=== PATIENT | female | born 1960 | race Caucasian/White ===

== ENCOUNTER 2024-09-17 11:18 | Outpatient (CLI) | payer MEDICARE, SELFPAY ==
--- OUTSIDE RECORDS SUMMARY | 2024-09-17 11:35 | XMS_ITS | Encounter Summary ---
Author Organization [employer] ([place], [place], [place], [place]) Address [address] [place] [address] Care Team Providers Care Treating And Pumping Supervisor Name Role Phone Unavailable Primary Care Provider Unavailabl e Encounter Details Date Type Department Care Team (Late st Contact Info) Description 10/11/2019 Transcribed Document [facility] [place] [address] [place] [address] ProviderGonzalez MD [address], [place] [address] Social History Tobacco Use Types Packs/Day Years Used Date Smoking Tobacco: Never Assessed Comments Unknown Sex and Gender Information Value Date Recorded Sex Assigned at Not on file Legal Sex Female 6:02 PM CDT Gender Identity Not on file Sexual Orientation Not on file documented as of this encounter Miscellaneous Notes * Cerner Conversion Note - Gonzalez ProviderMD - 10/11/2019 9:04 AM CDT Spiritual Care Assessment Entered On: 10/11/2019 10:58 EDT Performed On: 10/11/2019 9:45 EDT by AUTUMN ABREU Chaplain-Non Cert General Information Initial Visit : Yes Referred by : Nurse Referral Reason Comment : pre-surgery prayer Ministry Provided to : Patient Spiritual/Emotional Acuity : Low Spiritual Framework : Well integrated, provides significant strength/resource Active in a Methodist/Aubree Group : Yes Shinto Preference : Episcopalian (Disciples of Joo) AUTUMN ABREU Chaplain-Non Cert - 10/11/2019 10:56 EDT Spiritual Assessment Patient's Community/Relationship : Strength in patient's life Supportive/Healthy Relationships : Yes Supportive Shinto Community : Yes Patient's Sense of Meaning : Strength in patient's life Patient's Concept of God/the Sacred : Strength in patient's life Feels Connected to God/the Sacred : Yes God/the Spiritual Gives Strength : Yes Patient's Sense of Hope : Strength in patient's life Spiritual Assessment Comment/Summary Points : Pre-surgery visit to patient; she was somewhat nervous about her surgery; however, she was hopeful that it would go well. Patient attends a [employer] where she lives and is well supported by family and [employer]. Prayed with her for her surgery and recovery. Spirital Assessment Comment/Summary Report : SPIRITUAL ASSESSMENT COMMENT/SUMMARY No qualifying data available. AUTUMN ABREU Chaplain-Non Cert - 10/11/2019 10:56 EDT Interventions Emotional Support : Empathic/Engaged listening, Established trust, Feelings expressed, Hope strengths identified, Meaning strengths identified, Relationship strengths identified Spiritual and Shinto : Verify aubree group connection, God/the Spiritual connection/strengths identified, Prayer shared AUTUMN ABREU Chaplain-Non Cert - 10/11/2019 10:56 EDT documented in this encounter Plan of Treatment Not on file documented as of this encounter Visit Diagnoses Not on filedocumented in this encounter
--- OUTSIDE RECORDS SUMMARY | 2024-09-17 11:35 | XMS_ITS | Encounter Summary ---
Author Organization [employer] ([place], [place], [place], [place]) Address [address] [place] [address] Care Team Providers Care Millinery Salesperson Name Role Phone Unavailable Primary Care Provider Unavailabl e Encounter Details Date Type Department Care Team (Late st Contact Info) Description 09/24/2018 Transcribed Document [facility] Family Medicine [address] [place] [address] ProviderGonzalez MD [facility] [place] [address] Social History Tobacco Use Types Packs/Day Years Used Date Smoking Tobacco: Never Assessed Comments Unknown Sex and Gender Information Value Date Recorded Sex Assigned at Not on file Legal Sex Female 6:02 PM CDT Gender Identity Not on file Sexual Orientation Not on file documented as of this encounter Miscellaneous Notes * Cerner Conversion Note - Historical ProviderMD - 09/24/2018 11:[address] [facility] Charges Entered On: 09/24/2018 11:38 EDT Performed On: 09/24/2018 11:36 EDT by NESTOR HO, PT [facility] Charges Physical Therapy Screen : 1 NESTOR HO, PT - 09/24/2018 11:36 EDT documented in this encounter Plan of Treatment Not on file documented as of this encounter Visit Diagnoses Not on filedocumented in this encounter
--- OUTSIDE RECORDS SUMMARY | 2024-09-17 11:35 | XMS_ITS | Encounter Summary ---
Author Organization [employer] ([place], [place], [place], [place]) Address [address] [place] [address] Care Team Providers Care Interior Paneler Name Role Phone Unavailable Primary Care Provider Unavailabl e Encounter Details Date Type Department Care Team (Late st Contact Info) Description 09/13/2018 Transcribed Document [facility] [place] [address] [place] [address] ProviderGonzalez MD [address], [place] [address] Social History Tobacco Use Types Packs/Day Years Used Date Smoking Tobacco: Never Assessed Comments Unknown Sex and Gender Information Value Date Recorded Sex Assigned at Not on file Legal Sex Female 6:02 PM CDT Gender Identity Not on file Sexual Orientation Not on file documented as of this encounter Miscellaneous Notes * Cerner Conversion Note - Historical ProviderMD - 09/13/2018 2:00 AM CDT Business Performance Specialist Details Entered On: 09/13/2018 2:54 EDT Performed On: 09/13/2018 2:00 EDT by EL DEL VALLE RN Order Details Transport Mode Order Detail : Wheelchair Isolation Precautions Order Detail : Standard Precautions Order Detail : 0 IV Order Detail : 1 Oxygen Order Detail : 0 Nurse Collect Order Detail : 0 Lift/Transfer : Independent Central Line Order Detail : No Room Service : Appropriate Arterial Line : No EL DEL VALLE RN - 09/13/2018 2:54 EDT documented in this encounter Plan of Treatment Not on file documented as of this encounter Visit Diagnoses Not on filedocumented in this encounter
--- OUTSIDE RECORDS SUMMARY | 2024-09-17 11:35 | XMS_ITS | Encounter Summary ---
Author Organization [employer] ([place], [place], [place], [place]) Address [address] [place] [address] Care Team Providers Care Aligner Typewriter Name Role Phone Unavailable Primary Care Provider Unavailabl e Encounter Details Date Type Department Care Team (Late st Contact Info) Description 09/14/2018 Transcribed Document [facility] [place] [address] [place] [address] ProviderGonazlez MD [address] [place] [address] Social History Tobacco Use Types Packs/Day Years Used Date Smoking Tobacco: Never Assessed Comments Unknown Sex and Gender Information Value Date Recorded Sex Assigned at Not on file Legal Sex Female 6:02 PM CDT Gender Identity Not on file Sexual Orientation Not on file documented as of this encounter Miscellaneous Notes * Cerner Conversion Note - Gonzalez ProviderMD - 09/14/2018 8:38 AM CDT [facility] Authorization Entered On: 09/14/2018 8:39 EDT Performed On: 09/14/2018 8:38 EDT by MILES MAS Rn-Utilization Review Primary Insurance Authorization Authorization and Policy Numbers : Insurance 1 Health Plan: [employer] Policy Number: [id number] Authorization Number: Insurance Primary Name : [facility] Policy Number: [id number] Authorization Status-Primary : Pending information Authorization Comments-Primary : Pending [facility] Historical Authorization Comments-Primary : Comment 1: Awaiting Call back from [facility] (POLO RANGEL RN 09/13/2018 14:30) Comment 2: Per Liseth Hernandez, [facility] has been contacted for evaluation. (MILES MAS, Rn-Utilization Review 09/12/2018 09:48) Comment 3: [facility] indemnity policy listed. PA notified to obtain insurance information. (MILES MAS, Rn-Utilization Review 09/11/2018 10:26) MILES MAS Rn-Utilization Review - 09/14/2018 8:38 EDT Electronically signed by Mary Ann, [facility] Conversion Sander [employer] Buffer Cerner at 05/27/2022 9:15 AM CDT documented in this encounter Plan of Treatment Not on file documented as of this encounter Visit Diagnoses Not on filedocumented in this encounter
--- OUTSIDE RECORDS SUMMARY | 2024-09-17 11:35 | XMS_ITS | Encounter Summary ---
Author Organization [employer] ([place], [place], [place], [place]) Address [address] [place] [address] Care Team Providers Care Wholesale Manager Name Role Phone Unavailable Primary Care Provider Unavailabl e Encounter Details Date Type Department Care Team (Late st Contact Info) Description 09/13/2018 Transcribed Document [facility] [place] [address] [place] [address] ProviderGonzalez MD [facility] [place] [address] Social History Tobacco Use Types Packs/Day Years Used Date Smoking Tobacco: Never Assessed Comments Unknown Sex and Gender Information Value Date Recorded Sex Assigned at Not on file Legal Sex Female 6:02 PM CDT Gender Identity Not on file Sexual Orientation Not on file documented as of this encounter Miscellaneous Notes * Cerner Conversion Note - Gonzalez Muñoz MD - 09/13/2018 2:39 PM CDT On Going Discharge Planning Entered On: 09/13/2018 14:43 EDT Performed On: 09/13/2018 14:39 EDT by MOHSEN REES Social Worker Care Management Progress Note Discharge Arrangements : Patient Post-Acute Information Patient Name: GREG BAUTISTA Gender: Female : 58 Age: 58 Years No Post-Acute Placement(s) Listed No Post-Acute Service(s) Listed No [place] Referral(s) Listed Discharge Options Discussed with Patient : Discharge transportation, DME, Home Health, Short term rehabilitation Barriers to Discharge Identified : Clinical Condition of Patient MOHSEN REES Social Worker - 09/13/2018 14:39 EDT Narrative Progress Note Narrative Progress Note : Continue to follow for discharge needs and arrangements, chart reviewed, admission day 3, on room air, K+=3.2 (plan to replace), GI panel=pending, CU=775' with rwx, order received to arrange rolling walker for home use, d/w patient providers, Fanta Dobbs chosen, referral made and walker to be delivered to patient's room prior to discharge. At discharge plan remains to return home -alone with assistance of friend as needed. CM will continue to follow. MOHSEN REES, Hand Plug Shaper - 09/13/2018 14:39 EDT documented in this encounter Plan of Treatment Not on file documented as of this encounter Visit Diagnoses Not on filedocumented in this encounter
--- OUTSIDE RECORDS SUMMARY | 2024-09-17 11:35 | XMS_ITS | Clinical Summary ---
Author Organization [employer] ([place], [place], [place], [place]) Address [address] [place] [address] Care Team Providers Care Crab Butcher Name Role Phone Unavailable Primary Care Provider Unavailabl e Social History Tobacco Use Types Packs/Day Years Used Date Smoking Tobacco: Never Assessed Comments Unknown Sex and Gender Information Value Date Recorded Sex Assigned at Not on file Legal Sex Female 6:02 PM CDT Gender Identity Not on file Sexual Orientation Not on file Plan of Treatment Not on file
--- OUTSIDE RECORDS SUMMARY | 2024-09-17 11:35 | XMS_ITS | Encounter Summary ---
Author Organization [employer] ([place], [place], [place], [place]) Address [address] [place] [address] Care Team Providers Care Telecommunications Engineer Name Role Phone Unavailable Primary Care Provider Unavailabl e Encounter Details Date Type Department Care Team (Late st Contact Info) Description 10/11/2019 Transcribed Document [facility] [place] [address] [place] [address] ProviderGonzalez MD [address] [place] [address] Social History Tobacco Use Types Packs/Day Years Used Date Smoking Tobacco: Never Assessed Comments Unknown Sex and Gender Information Value Date Recorded Sex Assigned at Not on file Legal Sex Female 6:02 PM CDT Gender Identity Not on file Sexual Orientation Not on file documented as of this encounter Miscellaneous Notes * Cerner Conversion Note - Gonzalez ProviderMD - 10/11/2019 11:50 AM CDT [facility] PostOp Summary Primary Physician: SREEDHAR PANIAGUA MD Finalized Date/Time: 10/11/19 14:17:51 Pt. Name: GREG BAUTISTA/Sex: 1960 Female Med Rec #: [id number] Physician: SREEDHAR PANIAGUA MD Financial #: [id number] Pt. Type: O Room/Bed: Admit/Disch: 10/11/19 07:55:00 - Institution: [facility] PostOp Case Times Entry 1 In PACU II 10/11/19 13:40:00 Ready for PACU II 10/11/19 14:15:00 Discharge Discharge from PACU 10/11/19 14:15:00 II Last Modified By: Kandi Long RN 10/11/19 14:17:42 [facility] PostOp Case Times Audit 10/11/19 14:17:42 Baccarat Dealer: SXPOWERS Modifier: SXPOWERS <+> 1 Ready for PACU II Discharge <+> 1 Discharge from PACU II Finalized By: Kandi Long, RN Document Signatures Signed By: Kandi Long RN 10/11/19 14:17 Electronically signed by Mary Ann [facility] Conversion Charcoal Burner [employer] Cerner at 05/27/2022 9:37 AM CDT documented in this encounter Plan of Treatment Not on file documented as of this encounter Visit Diagnoses Not on filedocumented in this encounter
--- OUTSIDE RECORDS SUMMARY | 2024-09-17 11:35 | XMS_ITS | Encounter Summary ---
Author Organization [employer] ([place], [place], [place], [place]) Address [address] [place] [address] Care Team Providers Care Ui Developer With Angular Js Name Role Phone Unavailable Primary Care Provider Unavailabl e Encounter Details Date Type Department Care Team (Late st Contact Info) Description 09/23/2018 Transcribed Document [facility] Family Medicine [address] [place] [address] ProviderGonzalez MD [address] [place] [address] Social History Tobacco Use Types Packs/Day Years Used Date Smoking Tobacco: Never Assessed Comments Unknown Sex and Gender Information Value Date Recorded Sex Assigned at Not on file Legal Sex Female 6:02 PM CDT Gender Identity Not on file Sexual Orientation Not on file documented as of this encounter Miscellaneous Notes * Cerner Conversion Note - Gonzalez ProviderMD - 09/23/2018 5:54 PM CDT Consult Phone Call Documentation Entered On: 09/24/2018 9:31 EDT Performed On: 09/23/2018 17:54 EDT by NIMO CHIU Phone Call for Consults Consult Reason : intratable vomitting Physician Requested for Consult : NURY OLGUIN MD Provider Service Notified Name : Gastroenterology Physician Covering for Consult : NURY OLGUIN MD Date and Time Call Returned : 09/24/2018 9:30 EDT NIMO CHIU - 09/24/2018 9:30 EDT documented in this encounter Plan of Treatment Not on file documented as of this encounter Visit Diagnoses Not on filedocumented in this encounter
--- OUTSIDE RECORDS SUMMARY | 2024-09-17 11:35 | XMS_ITS | Referral Summary ---
Author Organization [employer] ([place], [place], [place], [place]) Address [address] [place] [address] Care Team Providers Care Intelligence Group Supervisor Name Role Phone Unavailable Primary Care [...]
--- OUTSIDE RECORDS SUMMARY | 2024-09-17 11:35 | XMS_ITS | Encounter Summary ---
Author Organization [employer] ([place], [place], [place], [place]) Address [address] [place] [address] Care Team Providers Care Cardiac Nurse Name Role Phone Unavailable Primary Care Provider Unavailabl e Encounter Details Date Type Department Care Team (Late st Contact Info) Description 10/11/2019 Transcribed Document [facility] [place] [address] [place] [address] ProviderGonzalez MD [facility] [place] [address] Social History Tobacco Use Types Packs/Day Years Used Date Smoking Tobacco: Never Assessed Comments Unknown Sex and Gender Information Value Date Recorded Sex Assigned at Not on file Legal Sex Female 6:02 PM CDT Gender Identity Not on file Sexual Orientation Not on file documented as of this encounter Miscellaneous Notes * [employer] Conversion Note - Historical ProviderMD - 10/11/2019 9:15 AM CDT Event Note Entered On: 10/11/2019 9:44 EDT Performed On: 10/11/2019 9:15 EDT by Jessica Barrios RN Event Note Event Date/Time : 10/11/2019 9:15 EDT Jessica Barrios RN - 10/11/2019 9:42 EDT Description of Event : 0915: Dr. العراقي notified that patient takes prednisone daily at home and did not have today. instructed patient to take home dose today. No additional orders received. also made aware that patient denies diabetes, but does take Glipizide at home daily. asked for FSBG. 09: Dr. Bravo notified that patient's FSBG 318. Pt instructed to take Glipizde upon returning home and to follow-up with PCP. NO additional orders received. Jessica Barrios RN - 10/11/2019 9:44 EDT Electronically signed by [facility] Conversion Flow Trader Cerner at 05/27/2022 9:38 AM CDT documented in this encounter Plan of Treatment Not on file documented as of this encounter Visit Diagnoses Not on filedocumented in this encounter
--- OUTSIDE RECORDS SUMMARY | 2024-09-17 11:35 | XMS_ITS | Clinical Summary ---
Author Organization [facility] Address [address] [place] [address] Phone Care Team Providers Care Mining Plant Operator Name Role Phone Roosevelt BALLESTEROS, Samuel Barba Unavailable [ ] Conditions or Problems Problem Name Problem Code Onset Date Status Entry Date Provider Comment Standard Description Annotate IVANNA positive 910483955 (SNOMED CT) 10/17 Active 10/17 Samuel Albert MD Raised antinuclear antibody Diffuse lymphadenopathy 833851850 (SNOMED CT) 09/12 Active 09/12 Eduarda Alfredo Generalized enlarged lymph nodes 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 Eduarda Alfredo Lymph node sarcoidosis Chronic Lymphadenitis 92109749 (SNOMED CT) 09/12 Active 09/12 Eduarda Alfredo Chronic lymphadenitis Medications Medication Instructions Start Date Stop Date Generic Name ND Provider DULOXETINE HCL 30 MG CPEP TAKE 1 CAPSULE BY MOUTH DAILY 10/17 DULOXETINE HCL 72938473830 Megan K PREDNISONE 20 MG TABS TAKE 2 TABLETS BY MOUTH EVERY MORNING WITH FOOD 09/19 PREDNISONE 63274731761 Jada S CYCLOPENTOLATE HCL 1 % SOLN INSTILL 1 DROP INTO LEFT EYE EVERY DAY 09/19 CYCLOPENTOLATE HCL 82529626792 Jada S [facility] BISACODYL 5 MG ORAL TABLET DELAYED RELEASE TAKE 3 TABLETS BY MOUTH DIRECTED FOR 2 DAYS 09/19 BISACODYL 63175555175 Jada S [facility] CITRATE OF MAGNESIA ORAL SOLUTION DRINK 1 BOTTLE BY MOUTH AT 5 PM ON 05/31 AND AGAIN ON 06/01. START CLEAR LIQUID DIET AT 5 PM 05/3114 MAGNESIUM CITRATE 16115094127 Jada S PROCHLORPERAZINE MALEATE 10 MG TABS TAKE 1 TABLET BY MOUTH EVERY 6 HOURS NEEDED FOR NAUSEA 09/19 PROCHLORPERAZINE MALEATE 36344332582 Jada S HYDROCODONE-ACETAM INOPHEN 10-325 MG TABS TAKE 1 TABLET BY MOUTH EVERY 4 HOURS NEEDED FOR PAIN 09/19 HYDROCODONE-ACETAM INOPHEN 15676799449 Jada S DUREZOL 0.05 % EMUL INSTILL 1 DROP INTO LEFT EYE 3 TIMES A DAY 09/19 DIFLUPREDNATE 62897316203 Jada S DUREZOL 0.05 % EMUL INSTILL 1 DROP INTO LEFT EYE 3 TIMES A DAY 09/19 DIFLUPREDNATE 90587440778 Elif Hassan CYCLOPENTOLATE HCL 1 % SOLN INSTILL 1 DROP INTO LEFT EYE EVERY DAY 0 07/19 CYCLOPENTOLATE HCL 81436423593 Elif Hassan HYDROCODONE-ACETAM INOPHEN 10-325 MG TABS TAKE 1 TABLET BY MOUTH EVERY 4 HOURS NEEDED FOR PAIN 0 05/07 HYDROCODONE-ACETAM INOPHEN 21927224477 Elif Hassan PROCHLORPERAZINE MALEATE 10 MG TABS TAKE 1 TABLET BY MOUTH EVERY 6 HOURS NEEDED FOR NAUSEA 0 7 PROCHLORPERAZINE MALEATE [id number] Elif Hassan [facility] CITRATE OF MAGNESIA ORAL SOLUTION DRINK 1 BOTTLE BY MOUTH AT 5 PM ON 05/31 AND AGAIN ON 06/01. START CLEAR LIQUID DIET AT 5 PM 05/31 MAGNESIUM CITRATE 96387663801 Elif Mo [facility] BISACODYL 5 MG ORAL TABLET DELAYED RELEASE TAKE 3 TABLETS BY MOUTH DIRECTED FOR 2 DAYS 09/19 BISACODYL 42134655280 Elif Mo PREDNISONE 20 MG TABS TAKE 2 TABLETS BY MOUTH EVERY MORNING WITH FOOD 09/19 PREDNISONE 43397077704 Elif Mo DULOXETINE HCL 30 MG CPEP TAKE 1 CAPSULE BY MOUTH DAILY 2021/0 05/07 DULOXETINE HCL 30020765048 Elif Hassan Medications Administered No information available. Allergies, Adverse Reactions, Alerts No information available. Results Date Name Value Unit Range Flag Description Lab Report: CBC WITH AUTO DI FFERENTIAL IMMATUREGRAN 0.02 10*3/MM3 0.00-0.03 Immature granulocytes [#/volume] in Blood BASO# 0.01 10*3/mm3 0.00-0.20 Basophils [#/volume] in Blood EOS ABSLT 0.09 10*3/uL 0.00-0.30 Eosinophi ls [#/volume] in Blood MONOSCT AUTO 0.40 10*3/uL 0.00-1.00 Monocy luz [#/volume] in Blood by Automated count LYMPHCT AUTO 1.04 10*3/mm3 0.60-4.80 Lymph ocytes [#/volume] in Blood by Automated count ABS NEUTROPH 2.86 10*3/uL 1.50-8.30 Neutro phils [#/volume] in Blood IMM GRANU % 0.5 % 0.0-0.6 Immature granulocytes/100 leukocytes in Blood % EOS AUTO 2.0 % 0.0-3.0 Eosinophil s/100 leukocytes in Blood by Automated count MONOCYTE % 9.0 % 0.0-12.0 Monocytes /100 leukocytes in Blood by Automated count LYMPHS % 23.5 % 24.0-44.0 L Lymphocyte s/100 leukocytes in Blood by Automated count PMN % 64.8 % 41.0-71.0 Neutrophils /100 leukocytes in Blood by Automated count PLATELETS 280 10*3/mm3 150-450 Platelets [#/volume] in Blood by Automated count RDW 13.9 % 11.3-14.5 Erythrocyte distribution width [Ratio] by Automated count MCHC 32.7 G/DL 32.0-36.0 MCHC [Mass/ volume] by Automated count MCH 28.2 pg 27.0-31.0 MCH [Entiti c mass] by Automated count MCV 86.4 fL 80.0-99.0 MCV [Entiti c volume] by Automated count HCT 36.7 % 34.5-44.0 Hematocrit [Volume Fraction] of Blood by Automated count HGB 12.0 g/dL 11.5-15.5 Hemoglobin [Mass/volume] in Blood RBC 4.25 10*6/mm3 3.89-5.14 Erythrocyt es [#/volume] in Blood by Automated count WBC 4.42 10*3/mm3 3.50-10.80 Leukocyte s [#/volume] in Blood by Automated count Lab Report: COMPREHENSIVE ME TABOLIC PANEL ANIONGAP 7.0 mmol/L 3.0-11.0 anion gap, serum BUN/CREAT 20.0 7.0-25.0 Urea nitrogen/Creatinine [Mass Ratio] in Serum or Plasma GFRC 103 mL/min/1 .73m2 >60 Glomerular Filtration Rate Calculation BILI TOTAL 0.8 mg/dL 0.3-1.2 Bilirubin. total [Mass/volume] in Serum or Plasma ALK PHOS 365 U/L 25-100 H Alkaline phosphatase [Enzymatic activity/volume] in Blood SGOT (AST) 24 U/L 0-33 Aspartate aminotransferase [Enzymatic activity/volume] in Serum or Plasma SGPT (ALT) 25 U/L 7-40 Alanine aminotransferase [Enzymatic activity/volume] in Serum or Plasma ALBUMIN 4.20 g/dL 3.20-4.80 Albumin [Mass/volume] in Serum or Plasma PROTEIN, TOT 7.3 g/dL 5.7-8.2 Protein [Mass/volume] in Serum or Plasma CALCIUM 9.5 mg/dL 8.7-10.4 Calcium [Moles/volume] in Serum or Plasma CO2 31.0 mmol/L 20.0-31.0 Carbon diox jason, total [Moles/volume] in Venous blood CHLORIDE 101 mmol/L 99-109 Chloride [Moles/volume] in Serum or Plasma POTASSIUM 3.8 mmol/L 3.5-5.5 Potassium [Moles/volume] in Serum or Plasma SODIUM 139 mmol/L 132-146 Sodium [Moles/volume] in Serum or Plasma CREATININE 0.60 mg/dL 0.60-1.30 Creatini ne [Mass/volume] in Serum or Plasma BUN 12 mg/dL 9-23 Urea nitrogen [Mass/volume] in Serum or Plasma GLUCOSE SER 104 mg/dL 70-100 H Glucose [Mass/volume] in Serum or Plasma Lab Report: SEDIMENTATION RA TE ESR 22 mm/h 0-30 Erythrocyte sedimentation rate by Westergren method Lab Report: C-REACTIVE PROTE IN CRP 0.26 mg/dL 0.00-1.00 C reactive protein [Mass/volume] in Serum or Plasma Lab Report: RHEUMATOID FACTO R [id number] Negative Negative GE use on ly - for [employer] import when terms are not otherwise specified Lab Report: Celiac Disease C omprehensive, Fungal Antibodies, Quant, EBV ... IVANNA HOMO PAT 1:160 H IVANNA (ant inuclear antibody) pattern, homogeneous ANASCR IFA P A IVANNA SCREEN , IFA RPR NR Non Reactive Reagin Ab [Units/volume] in Serum by VDRL P-ANCA NANCA Neg:<1:20 anti-neutro aleksander cytoplasmic antibody (ANCA), perinuclear staining C-ANCA NANCA Neg:<1:20 anti-neutro aleksander cytoplasmic antibody (ANCA), diffuse cytoplasmic staining HB CORE IGM N Negative Hepatiti s B virus core IgM Ab [Units/volume] in Serum HBSAGC N Negative Hepatitis B virus surface Ag [Presence] in Serum or Plasma by Confirmatory method ANTI-HAV IGM N Negative Hepatit is A virus IgM Ab [Presence] in Serum or Plasma by Immunoassay B QUINTIGM N titer Neg:<1:100 B John ivanna IGM (titer) B QUINTIGG N titer Neg:<1:320 B John ivanna IGG (titer) B HENSL IGM N titer Neg:<1:100 B Hens elae IGM (titer) B HENSL IGG N titer Neg:<1:320 B Hens elae IGG (titer) HISTOPL AB N Neg:<1:1 Histoplas ma capsulatum mycelial phase Ab [Titer] in Serum by Complement fixation BLASTOMYC AB N Neg:<1:1 Blastom yces dermatitidis Ab [Titer] in Serum ASPER NIGER N Neg:<1:1 ASPERGIL ARVIN NIGER A FLAVUS N Neg:<1:1 ASPERGILLUS FLAVUS ASPERFUMIGE N Neg:<1:1 Aspergil arvin fumigatus IgE Ab RAST class [Presence] in Serum IGA SERUM 594 mg/dL 87-352 H IgA, serum SABAS IGA SC S N Negative Endomys ial Antibody IGA Screen, Serum TIS NGUYEN IGG 3 U/mL 0-5 TISSUE TRANSGLUTAMINASE AB IGG TISSTRANSIGA 2 U/ML 0-3 anti-tis frannie transglutaminase IgA Office Visit: rm 1 MEDS REVIEW Done Documenta tion of current medications (procedure) ORALTOBACUSE Never Tobacco smoking status SMOK STATUS Never smoker 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 Plan of Care Type Date Detail Referral CT Chest w/o con trast Referral CT Abdomen w/o c ontrast PT / INR FAX # Pending order Rheumatoid Facto r (qual) Pending order CMP Pending order CBC with Differe ntial Pending order C- reactive prot ein Pending order Sedimentation Ra te (ESR) Pending order Blood Cultures X 2 Pending order Fungal serologie s/antibodies Pending order IVANNA Pending order Fungitell, serum (1-3) D-Glucan Assay Pending order RPR Titer Pending order RPR with reflex to FTA-ATB Pending order ANCA Pending order Bartonella (Cat Scratch) serology Pending order Blastomyces Urin juno Antigen Pending order Brucella ATB IGG IGM Pending order Celiac Disease A B Profile Pending order CMV IGG Pending order CMV IGM Pending order Cryptococcus Ant igen Serum Pending order EBV Pending order Hepatitis Panel Acute Pending order Histoplasmosis U rinary AG Pending order T-SPOT Pending order Toxoplasma AB IG M Pending order Toxoplasma AB IG G Pending order Q Fever serology Procedures Code Procedure Name Date Entry Date CPT-51742 Rheumatoid Factor (qual) 201 08/14/15 CPT-75059 CMP [id number] CBC with Differential 2016 CPT-62168 C- reactive protein CPT-96210 Sedimentation Rate (ESR) 201 08/13/13 CPT-bcx2 Blood Cultures X2 CPT-08728 Fungal serologies/antibodies CPT-39384 IVANNA 92312 Fungitell, serum (1-3) D-Glucan Assay 201 08/13/13 CPT-16979 RPR Titer CPT-55743 RPR with reflex to FTA-ATB 2 CPT-anca ANCA CPT-52445 Bartonella (Cat Scratch) serology CPT-91574 Blastomyces Urinary Antigen CPT-52635 Brucella ATB IGG IGM CPT-05523 Celiac Disease AB Profile 20 22/09/13 CPT-45442 CMV IGG CPT-92074 CMV IGM CPT-03272 Cryptococcus Antigen Serum 2 CBT-ebv EBV CPT-60428 Hepatitis Panel Acute 09/19 CPT-38694 Histoplasmosis Urinary AG 20 22/09/13 CPT-39139 T-SPOT CPT-45198 Toxoplasma AB IGM CPT-51002 Toxoplasma AB IGG CPT-72388 Q Fever serology CPT-25606 CT Chest w/o contrast 09/19 CPT-96461 CT Abdomen w/o contrast 2016 Vital Signs Date Name Value Unit Description BMI (Body Mass Index) 28.52 kg/m2 Bod y Mass Index (Ratio) Body Temperature 98.6 [degF] temperat ure E&M BP Diastolic 88 mm[Hg] blood pressu re, diastolic BP Systolic 140 mm[Hg] blood pressur e, systolic Heart Rate 72 /min pulse rate Height 63 [in_us] height E&M Respiratory Rate 14 /min respirat ory rate E&M Weight Measured 161.0 [lb_av] weight E& M Weight Measured 161.0 [lb_av] weight E& M Immunizations No information available. Advance Directives Directive Description Start Date NO ADVANCED DIRECTIVES ESTABLISHED AT IS TIME
--- OUTSIDE RECORDS SUMMARY | 2024-09-17 11:35 | XMS_ITS | Encounter Summary ---
Author Organization [employer] ([place], [place], [place], [place]) Address [address] [place] [address] Care Team Providers Care Scenery Builder Name Role Phone Unavailable Primary Care Provider Unavailabl e Encounter Details Date Type Department Care Team (Late st Contact Info) Description 09/13/2018 Transcribed Document [facility] [place] [facility] [address] [place] [address] ProviderGonzalez MD [address] [place] [address] Social History Tobacco Use Types Packs/Day Years Used Date Smoking Tobacco: Never Assessed Comments Unknown Sex and Gender Information Value Date Recorded Sex Assigned at Not on file Legal Sex Female 6:02 PM CDT Gender Identity Not on file Sexual Orientation Not on file documented as of this encounter Miscellaneous Notes * [employer] Conversion Note - Gonzalez ProviderMD - 09/13/2018 5:00 AM CDT Chart Check - Review Order Profile Entered On: 09/13/2018 5:10 EDT Performed On: 09/13/2018 5:00 EDT by Joe Salguero Rn Chart Check Powerplans Initiated/Discontinued as Appropriate : Yes All Active Orders Reviewed : Yes Joe Salguero Rn - 09/13/2018 5:10 EDT Electronically signed by Jae Reese Conversion Call Center Support Representative [employer] at 05/27/2022 9:27 AM CDT documented in this encounter Plan of Treatment Not on file documented as of this encounter Visit Diagnoses Not on filedocumented in this encounter
--- OUTSIDE RECORDS SUMMARY | 2024-09-17 11:35 | XMS_ITS | Encounter Summary ---
Author Organization [employer] ([place], [place], [place], [place]) Address [address] [place] [address] Care Team Providers Care Harness Repairer Name Role Phone Unavailable Primary Care Provider Unavailabl e Encounter Details Date Type Department Care Team (Late st Contact Info) Description 09/13/2018 Transcribed Document [facility] [place] Family Medicine [address] [place] [address] ProviderGonzalez MD [address] [place] [address] Social History Tobacco Use Types Packs/Day Years Used Date Smoking Tobacco: Never Assessed Comments Unknown Sex and Gender Information Value Date Recorded Sex Assigned at Not on file Legal Sex Female 6:02 PM CDT Gender Identity Not on file Sexual Orientation Not on file documented as of this encounter Miscellaneous Notes * Brandon Conversion Note - Gonzalez Muñoz MD - 09/13/2018 2:30 PM CDT UM Authorization Entered On: 09/13/2018 14:30 EDT Performed On: 09/13/2018 14:30 EDT by POLO RANGEL RN Primary Insurance Authorization Authorization and Policy Numbers : Insurance 1 Health Plan: [employer] Policy Number: [id number] Authorization Number: Insurance Primary Name : [facility] Policy Number: [id number] Authorization Status-Primary : Pending information Authorization Comments-Primary : Awaiting Call back from [facility] Historical Authorization Comments-Primary : Comment 1: Per Liseth Hernandez, [facility] has been contacted for evaluation. (MILES MAS Rn-Utilization Review 09/12/2018 09:48) Comment 2: [facility] indemnity policy listed. PA notified to obtain insurance information. (MILES MAS Rn-Utilization Review 09/11/2018 10:26) POLO RANGEL RN - 09/13/2018 14:30 EDT Electronically signed by [facility] Conversion Clinical Massage Therapist Cerner at 05/27/2022 9:39 AM CDT documented in this encounter Plan of Treatment Not on file documented as of this encounter Visit Diagnoses Not on filedocumented in this encounter
--- OUTSIDE RECORDS SUMMARY | 2024-09-17 11:35 | XMS_ITS | Encounter Summary ---
Author Organization [employer] ([place], [place], [place], [place]) Address [address] [place] [address] Care Team Providers Care Sergeant Of Officers Name Role Phone Unavailable Primary Care Provider Unavailabl e Encounter Details Date Type Department Care Team (Late st Contact Info) Description 09/13/2018 Transcribed Document [facility] [place] Family Medicine [address] [place] [address] ProviderGonzalez MD [facility] [place] [address] Social History Tobacco Use Types Packs/Day Years Used Date Smoking Tobacco: Never Assessed Comments Unknown Sex and Gender Information Value Date Recorded Sex Assigned at Not on file Legal Sex Female 6:02 PM CDT Gender Identity Not on file Sexual Orientation Not on file documented as of this encounter Miscellaneous Notes * [employer] Conversion Note - Gonzalez Muñoz MD - 09/13/2018 3:44 PM CDT On Going Discharge Planning Entered On: 09/13/2018 15:46 EDT Performed On: 09/13/2018 15:44 EDT by MOHSEN REES Social Worker Care [...] Patient MOHSEN REES Social Worker - 09/13/2018 15:44 EDT Narrative Progress Note Narrative Progress Note : Received call from [employer] stating they do not have any rolling walkers at this time and don't forsee a delivery prior to first of next week, therefore arrangements changed to [facility], and they will deliver equipment to patient's room. Pt, RN aware and in agreement with plan. MOHSEN REES, Piling Setter - 09/13/2018 15:44 EDT Electronically signed by [facility] Conversion Frog Catcher Cerner at 05/27/2022 9:33 AM CDT documented in this encounter Plan of Treatment Not on file documented as of this encounter Visit Diagnoses Not on filedocumented in this encounter
--- OUTSIDE RECORDS SUMMARY | 2024-09-17 11:35 | XMS_ITS | Encounter Summary ---
Author Organization [employer] ([place], [place], [place], [place]) Address [address] [place] [address] Care Team Providers Care Char Filter Operator Helper Name Role Phone Unavailable Primary Care Provider Unavailabl e Encounter Details Date Type Department Care Team (Late st Contact Info) Description 09/14/2018 Transcribed Document [facility] [place] Family Medicine [address] [place] [address] ProviderGonzalez MD [facility] [place] [address] Social History Tobacco Use Types Packs/Day Years Used Date Smoking Tobacco: Never Assessed Comments Unknown Sex and Gender Information Value Date Recorded Sex Assigned at Not on file Legal Sex Female 6:02 PM CDT Gender Identity Not on file Sexual Orientation Not on file documented as of this encounter Miscellaneous Notes * [employer] Conversion Note - Gonzalez ProviderMD - 09/14/2018 2:06 AM CDT Education-Wound Care Entered On: 09/14/2018 2:07 EDT Performed On: 09/14/2018 2:06 EDT by ELDA GAYTAN, RN Teaching/Learning Assessment Barriers To Learning : Vision Impairment Learning Style Preferences Patient : None ELDA GAYTAN, MARY - 09/14/2018 2:07 EDT documented in this encounter Plan of Treatment Not on file documented as of this encounter Visit Diagnoses Not on filedocumented in this encounter
--- OUTSIDE RECORDS SUMMARY | 2024-09-17 11:36 | XMS_ITS | Encounter Summary ---
Author Organization [employer] ([place], [place], [place], [place]) Address [address] [place] [address] Care Team Providers Care Small Business Director Name Role Phone Unavailable Primary Care Provider Unavailabl e Encounter Details Date Type Department Care Team (Late st Contact Info) Description 09/24/2018 Transcribed Document [facility] [place] [address] ProviderGonzalez [place] [address] Social History Tobacco Use Types Packs/Day Years Used Date Smoking Tobacco: Never Assessed Comments Unknown Sex and Gender Information Value Date Recorded Sex Assigned at Not on file Legal Sex Female 6:02 PM CDT Gender Identity Not on file Sexual Orientation Not on file documented as of this encounter Miscellaneous Notes * Cerner Conversion Note - Gonzalez Muñoz MD - 09/24/2018 5:26 PM CDT Patient: GREG BAUTISTA Age: 58 years Sex: Female : 1960 Associated Diagnoses: None Author: MEMO SALAZAR MD-ONC Attachments: None Subjective Chief complaint Chief complaint Patient known to me with dx of ocular sarcoid. She had recent biopsy last week of retropeitneal lymph nodes c/w sarcoid. I reviewed Ct from 2017 from [place] along with [address] from [place] last week. She has numerous hepatic and splenic lesions now that were not preent 2 years ago. Concern for sarcoid of liver vs CA. Patient with recurrent N/V with hypokalemia and volume deletion Health Status Allergies Allergic Reactions (All) No Known Allergies No Known Medication Allergies Allergies (2) Active Reaction No Known Allergies None Documented No Known Medication Allergies None Documented Current medications Home Medications (3) Active amLODIPine 5 mg oral tablet 5 mg = 1 Tab, Oral, Daily amoxicillin-clavulanate 500 mg-125 mg oral tablet 1 Tab, Oral, Q8H hydrALAZINE 25 mg oral tablet 25 mg = 1 Tab, Oral, BID Medications (27) Active Scheduled: (5) amLODIPine 5 mg tab 5 mg 1 Tab, Oral, Daily famotidine 20 mg/2 mL inj 20 mg 2 mL, IV Push, Q12H heparin 5,000 units/1 mL inj 5,000 Units 1 mL, SubCutaneous, Q8HInt hydrALAZINE 25 mg tab 25 mg 1 Tab, Oral, TID nicotine 14 mg/24 hr patch 1 Patch, TransDermal, Daily Continuous: (1) NaCl 0.9% 1,000 mL 1,000 mL, IntraVENous, 100 mL/Hr PRN: (21) acetaminophen 325 mg tab 650 mg 2 Tab, Oral, Q4H acetaminophen/HYDROcodone 325/5 mg tab 1 Tab, Oral, Q4H albuterol-ipratropium inh 3 mL 3 mL, Nebulized Inhalation, Q6H bisacodyl EC 5 mg tab 5 mg 1 Tab, Oral, Daily calcium gluconate 1 Gram 10 mL, IV Piggyback, Daily calcium gluconate + NaCl 0.9% 100 mL 2 Gram 20 mL, IV Piggyback, Daily calcium gluconate + NaCl 0.9% 100 mL 2 Gram 20 mL, IV Piggyback, Q12H hydrALAZINE 20 mg/1 mL inj 10 mg 0.5 mL, IV Push, Q6H magnesium sulfate 2 Gram 50 mL, IV Piggyback, Daily magnesium sulfate 2 Gram 50 mL, IV Piggyback, Q2H morphine 2 mg/1 ml inj 2 mg 1 mL, IV Push, Q6H ondansetron 4 mg/2 mL inj 4 mg 2 mL, IV Push, Q4H potassium bicarb efferves 20 mEq dis tab 20 mEq 1 Tab, Feeding Tube, Q2H potassium bicarb efferves 20 mEq dis tab 60 mEq 3 Tab, Feeding Tube, Q2H potassium chloride 10 mEq 50 mL, IV Piggyback, Q1H potassium chloride CR 20 mEq tab 20 mEq 1 Tab, Oral, Q2H potassium chloride CR 20 mEq tab 60 mEq 3 Tab, Oral, Q2H promethazine 25 mg tab 12.5 mg 0.5 Tab, Oral, Q6H sodium phosphate 15 mMole 5 mL, IV Piggyback, Daily sodium phosphate 15 mMole 5 mL, IV Piggyback, Q6H temazepam 15 mg cap 15 mg 1 Cap, Oral, At Bedtime Problem list Active Problems (1) At risk for sleep apnea Objective VS/Measurements Vitals Signs (last 24 hrs) Last Charted Minimum Maximum Temp 98.2 (SEP 24 16:07) 98 (SEP 23 18:25) 98 (SEP 23 18:25) Apical HR 78 (SEP 24 13:23) 78 (SEP 24 13:23) 82 (SEP 23 21:08) Mon HR 88 (SEP 24 16:07) 56 (SEP 23 18:25) 88 (SEP 24 16:07) Resp Rate 16 (SEP 24 16:07) 16 (SEP 24 06:23) 18 (SEP 24 00:00) SBP H 141 (SEP 24 16:07) 134 (SEP 24 00:00) H 184 (SEP 24 11:17) DBP 60 (SEP 24 16:07) L 54 (SEP 23 21:08) 83 (SEP 24 06:23) MAP 105 (SEP 24 16:07) 73 (SEP 23 21:00) 105 (SEP 24 16:07) SpO2 96 (SEP 24 16:07) 96 (SEP 24 00:00) 96 (SEP 24 00:00) General Alert and oriented No acute distress Respiratory Lungs are clear to auscultation Gastrointestinal Soft Non-distended Normal postop abdominal tenderness Normal postop abdominal tenderness Results Review General results Interpretation: LABS Labs (Last four charted values) WBC 6.1 (SEP 24) HB L 10.4 (SEP 24) HCT L 32.0 (SEP 24) Plt 247 (SEP 24) Na 141 (SEP 24) K L 3.0 (SEP 24) Cl 105 (SEP 24) CO2 30 (SEP 24) BUN 12 (SEP 24) Cr H 1.20 (SEP 24) Glu R H 113 (SEP 24) Ca 9.8 (SEP 24) PT 11.8 (SEP 24) INR 1.1 (SEP 24) AST 16 (SEP 24) ALT 17 (SEP 24) ALK P H 431 (SEP 24) T Bili 0.6 (SEP 24) PTN 6.8 (SEP 24) ALB L 3.0 (SEP 24) Lipase 75 (SEP 24) Radiology Results Radiology Results (Last 48 hours) [id number] -- 09/23/2018 16:23 CR Abdomen Comp W 1 Vw Chest (09/24/2018 10:18) Result: THREE VIEW ABDOMEN, WITH CHEST.HISTORY: Abdominal pain and.CHEST: A single view of the chest demonstrates the heart to be normalin size . The mediastinum is normal. There is abnormal right hilarcontour concerning for mass/lymphadenopathy. The lungs are otherwiseclear. There is no pleural effusion. ABDOMEN: Flat and upright views of the abdomen demonstrate a nonspecificnonobstructive bowel gas pattern with a moderate amount of retainedstool. There is no free air . The osseous structures revealdegenerative joint disease of the hips bilaterally. There is no acuteosseous abnormality.IMPRESSION: 1. Abnormal right hilar contour concerning for mass/lymphadenopathy.2. Nonspecific nonobstructive bowel gas pattern with a moderate amountof retained stool.Images reviewed, interpreted, and dictated by Dr. Lina Andrew.Transcribed by Donna Do PA-C.I have personally viewed, interpreted and dictated the examination. Ihave read and agree with the above final transcribed report. US Abdominal RT Upper Quad (09/24/2018 10:53) Result: RIGHT UPPER QUADRANT ULTRASOUNDHISTORY: Nausea, vomiting.PROCEDURE: Ultrasound images of the right upper quadrant were obtained.FINDINGS: The pancreas is not well visualized. The liver parenchyma isnormal in echogenicity. The gallbladder is surgically absent. The commonduct is normal. Limited images of the right kidney are unremarkable.IMPRESSION: Normal right upper quadrant ultrasound.Images reviewed, interpreted, and dictated by Dr. Jose Deutsch.Transcribed by Yola Torres PA-C. Impression and Plan Assessment and Plan Diagnosis Sarcoid. Liver lesions-sarcoid vs Cancer. Volume depletion Course Worsening Progressing as expected Orders Bx liver tommorow. documented in this encounter Plan of Treatment Not on file documented as of this encounter Visit Diagnoses Not on filedocumented in this encounter
--- OUTSIDE RECORDS SUMMARY | 2024-09-17 11:36 | XMS_ITS | Encounter Summary ---
Author Organization [employer] ([place], [place], [place], [place]) Address [address] [place] [address] Care Team Providers Care Front Desk Person Name Role Phone Unavailable Primary Care Provider Unavailabl e Encounter Details Date Type Department Care Team (Late st Contact Info) Description 09/12/2018 Transcribed Document [facility] [place] [address] [place] [address] ProviderGonzalez MD [facility] [place] [address] Social History Tobacco Use Types Packs/Day Years Used Date Smoking Tobacco: Never Assessed Comments Unknown Sex and Gender Information Value Date Recorded Sex Assigned at Not on file Legal Sex Female 6:02 PM CDT Gender Identity Not on file Sexual Orientation Not on file documented as of this encounter Miscellaneous Notes * Cerner Conversion Note - Gonzalez ProviderMD - 09/12/2018 10:47 AM CDT Evaluation, Physical Therapy Entered On: 09/12/2018 15:25 EDT Performed On: 09/12/2018 15:17 EDT by Rudy Booker, [facility] General Information, PT Visit Type, PT : Initial evaluation [facility]y [facility] - 09/12/2018 15:17 EDT Patient Orders : Order Date Order Ordering 09/12/2018 10:47 PT Evaluation and Treatment Ordered By: DHARA MAGANA MD Active Diagnoses : No Qualifying Diagnoses ROBBIE MALONEY, PT - 09/12/2018 15:30 EDT Therapy Diagnosis, PT : Difficulty with functional mobility. Onset of Problem, PT : 09/10/2018 EDT Rudy Booker [facility] - 09/12/2018 15:17 EDT Admission Date : 09/10/2018 20:13 ROBBIE MALONEY, PT - 09/12/2018 15:30 EDT Co-treated by, PT : Occupational Therapist Rudy Booker, [facility] - 09/12/2018 15:17 EDT Personal Devices : Personal Devices No Devices Recorded Assistive Devices : Assistive Devices No Devices Recorded ROBBIE MALONEY, PT - 09/12/2018 15:30 EDT Isolation Maintained : Contact General Information Comment, PT : Dx: Nausea, vomiting, abdominal discomfort Hx: Sarcoidosis Imaging: CT shows hypodense lesions in liver Rudy Booker, [facility] - 09/12/2018 15:17 EDT General Status Patient Received Status : Supine in bed Treatment Start Time : 09/12/2018 13:51 EDT Patient Left Status : Supine in bed, Communication board completed, All needs met and within reach Treatment End Time : 09/12/2018 14:05 EDT Treatment Time : 14 Minute(s) Rudy Booker, [facility] - 09/12/2018 15:17 EDT History and Environment Living Situation, Therapy : Home Patient Lives With : Alone Persons Assisting Patient at Home : Alone Professional Skilled Services : None Persons Providing Information : Patient Home Setup : One story Stairs : No Rudy Booker, [facility] - 09/12/2018 15:17 EDT Prior Level of Function PT GRID Prior LOF Ambulation, Household : Independent Prior LOF Ambulation, Community : Independent Prior LOF Bed Mobility : Independent Prior LOF Toileting : Independent Prior LOF Transfer : Independent Rudy Booker [facility] - 09/12/2018 15:17 EDT Upper Extremity Right UE Active ROM : WFL Left UE Active ROM : WFL Rudy Booker, [facility] - 09/12/2018 15:17 EDT Lower Extremity RLE Active ROM : [facility] LLE Active ROM : [facility] Rudy Booker [facility] - 09/12/2018 15:17 EDT Right Lower Extremity MMT Hip Flexion (0-125) : 3+/fair Knee Flexion (0-140) : 3+/fair Knee Extension (0-0) : 3+/fair Ankle Dorsiflexion (0-20) : 3+/fair Ankle Plantarflexion (0-45) : 3+/fair Rudy Booker, [facility] - 09/12/2018 15:17 EDT Left Lower Extremity MMT Hip Flexion (0-125) : 3+/fair Knee Flexion (0-140) : 3+/fair Knee Extension (0-0) : 3+/fair Ankle Dorsiflexion (0-20) : 3+/fair Ankle Plantarflexion (0-45) : 3+/fair Rudy Booker [facility] - 09/12/2018 15:17 EDT Functional Mobility Mobility Grid Bed Roll Left : Rehab Modified independence Bed Roll Right : Rehab Modified independence Bed Scooting : Rehab Modified independence Supine to Sit : Rehab Modified independence Sit to Stand : Supervision/set-up Stand to Sit : Supervision/set-up Sit to Supine : Rehab Modified independence [facility] 09/12/[facility] 15:17 EDT Gait Training/Assessment, PT Weight Bearing Status : Full Gait Assistance Level : Assist, minimal Walking Distance : 200' Ambulatory Devices : Gait belt, Walker, front wheel Gait Deviations : Yes Left Lower Gait Deviation : Lesli, decreased, Narrow base of support Right Lower Gait Deviation : Lesli, decreased, Narrow base of support [facility] - 09/12/2018 15:17 EDT Cognition Assessment, PT Orientation : Oriented x 4 Attention Assessment : Present Rudy Booker [facility] - 09/12/2018 15:17 EDT Edu Topics Physical Therapy Education Grid Balance Training : Returns demonstration Bed Mobility Training : Returns demonstration Gait Training : Needs further teaching, Needs reinforcement Transfer Training : Returns demonstration Use of Assistive Device : Needs further teaching, Needs reinforcement Rudy Booker [facility] - 09/12/2018 15:17 EDT Indication Assesessment, PT Physical Therapy Indicated : Yes PT Problem List : Impaired, activities daily living, Impaired, endurance tolerance, Impaired, gait, Impaired, standing balance, Impaired, strength, Impaired, transfers Potential Barriers To Therapy : Acuity of Illness Rehabilitation Potential : Good [facility] 09/12/2018 15:17 EDT Plan of Care, PT PT Tx Plan/Goals Established w Patient : Yes PT Frequency Rehab : Daily PT Duration Rehab : Fourteen days PT Treatments Planned : Balance training, Bed mobility training, Gait training, Safety education, Therapeutic exercises, Transfer training [facility] - 09/12/2018 15:17 EDT Short Term Goals Ambulation STG Grid Goal #1 Device : Walker, front wheel Distance : 375' Assist : Supervision or set-up Date to Meet : 09/19/2018 EDT Goal Status : Intial Goal [facility] - 09/12/2018 15:17 EDT Title Curative Specialist Goals Ambulation LTG Grid Goal #1 Device : Walker, front wheel Distance : 375' Assist : Independent, modified Date to Meet : 09/26/2018 EDT Goal Status : Intial Goal Rudy Booker, [facility] - 09/12/2018 15:17 EDT Treatment Note Subjective Comment : Patient agreeable to PTx. Nsg ok'd PTx. Patient reports that she may go home tomorrow. Patient reports that she doesn't think she needs home health PT. Additional Objective Information : Patient has visual deficits that affects her gait. Patient reports that she doesn't want to use a walker at home, but PT strongly encouraged it. Assessment : Patient would benefit from skilled PTx to address deficits in functional mobility in order to assist patient in return to PLOF and encourage patient to use RWx once d/c home to decrease fall risk. Rudy Booker, [facility] - 09/12/2018 15:17 EDT Plan for Treatment : Cont. PTx. PT has reviewed and agrees with note. ROBBIE MALONEY, PT - 09/12/2018 15:30 EDT Pain Assessment Pain Scaled Used : 0-10 Pain scale Pain Score Pre-Intervention : 0 Pain Score During-Intervention : 0 Pain Score Post-Intervention. : 0 Rudy Booker [facility] - 09/12/2018 15:17 EDT Image 1 - Images currently included in the form version of this document have not been included in the text rendition version of the form. Anticipated Discharge Needs, OT/PT Anticipated Discharge to : Home, independently Anticipated Home Equipment : Walker Recommend Continued Therapy at Discharge : No Rudy Booker [facility] - 09/12/2018 15:[address] [facility] Charges PT Eval Low Complexity : 1 Rudy Booker [facility] - 09/12/2018 15:17 EDT Electronically signed by [facility] Conversion Furnace Operator Cerner at 05/27/2022 9:15 AM CDT documented in this encounter Plan of Treatment Not on file documented as of this encounter Visit Diagnoses Not on filedocumented in this encounter
--- OUTSIDE RECORDS SUMMARY | 2024-09-17 11:36 | XMS_ITS | Encounter Summary ---
Author Organization [employer] ([place], [place], [place], [place]) Address [address] [place] [address] Care Team Providers Care Fuel Efficient Aircraft Designer Name Role Phone Unavailable Primary Care Provider Unavailabl e Encounter Details Date Type Department Care Team (Late st Contact Info) Description 10/11/2019 Transcribed Document [facility] [place] [facility] [place] [address] ProviderGonzalez MD [facility] [place] [address] Social History Tobacco Use Types Packs/Day Years Used Date Smoking Tobacco: Never Assessed Comments Unknown Sex and Gender Information Value Date Recorded Sex Assigned at Not on file Legal Sex Female 6:02 PM CDT Gender Identity Not on file Sexual Orientation Not on file documented as of this encounter Miscellaneous Notes * Cerner Conversion Note - Gonzalez Muñoz MD - 10/11/2019 1:23 PM CDT DATE OF PROCEDURE: 10/11/2019 SURGEON: Gage Charles MD PREOPERATIVE DIAGNOSES: 1. Vitreomacular traction, right eye. 2. Proliferative diabetic retinopathy, right eye. 3. Panuveitis for the right eye. POSTOPERATIVE DIAGNOSES: 1. Tractional retinal detachment secondary to severe vitreomacular and peripheral traction. 2. Proliferative diabetic retinopathy. 3. Panuveitis for the right eye. CASE MANAGER SPECIALIST: Kayla Chavis MD. ANESTHESIA: MAC with retrobulbar block. 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 She was found to have significant vitreomacular traction and peripheral traction from vitreous contraction. Multiple areas of the retina were elevated. Visual acuity had decreased to 20/400. Surgical intervention to relieve the traction was discussed. The risks, benefits, and alternatives were reviewed, and the patient elected to proceed. Informed consent was obtained. DESCRIPTION OF PROCEDURE: The patient's identity was verified in the holding area where informed consent was verified. The right eye was marked as the operative eye and the patient was brought to the operative suite. Time-out was taken by the OR staff and all agreed on the above procedure as listed in consent form. MAC anesthesia was given followed by retrobulbar block behind the right eye consisting of 4% Xylocaine, 0.75% Marcaine and hyaluronidase. The right eye was prepped and draped in the standard sterile fashion for ophthalmic surgery. Lid speculum was placed in right eye. A 25-gauge vitrectomy system was set up and tunneled trocars were placed at the 8 o'clock, 10 o'clock, and 2 o'clock positions 3.5 mm posterior to the limbus. The infusion cannula was verified to be in proper position prior to turning the infusion line. Light pipe and cutter were inserted into the eye and a wide-angle viewing system was set up. A core vitrectomy was performed. Inspection of the posterior segment revealed significant vitreomacular traction and peripheral traction from the vitreous membranes. Clinical findings were consistent with proliferative diabetic retinopathy and history of panuveitis. Neovascularization along the vessels was noted. Following initial core vitrectomy, Kenalog was injected into the eye to stain the posterior vitreous face. It was determined there was significant persistent vitreous detachment throughout the entire retinal surface. The cutter and ILM forceps were then used to begin careful membrane peeling and dissection throughout the entire retina. Significant amount of time was spent performing the complex membrane peeling and diathermy was used periodically for hemostasis. During the membrane peeling, 2 small retinal breaks/pressure alfred formed, 1 inferiorly and 1 nasally. All traction was removed from these stretch alfred and the retina was freely mobile. The macula remained attached throughout the entire case. Kenalog was used periodically for additional staining. Following an extensive vitrectomy with membrane dissection, the retina was found to be in stable condition. 360 degrees of scleral depression was performed with peripheral anterior vitreous shaving to remove all anterior vitreous traction. Next, a fluid air exchange was performed using a soft-tipped cannula. Subretinal fluid that had collected under the retina was carefully drained through the preexisting slit and hole. The retina flattened completely. Endolaser was then applied around both breaks as well as in a panretinal photocoagulation pattern. Soft-tip cannula was used to remove all fluid that pulled posteriorly in the eye. An air-gas exchange with 14% C3F8 was performed. All 3 trocars were removed from the eye and the sclerotomy sites were suture closed using 6-0 plain gut suture. Intra-ocular pressure was palpated and found to be normal. Subconjunctival injections of antibiotic and steroid were given. Ointment and patch and shield were placed on the right eye, and the patient was taken to postoperative care unit in stable and good condition. The patient tolerated procedure well, no complications, will be seen in clinic tomorrow. Dr. Kayla Chavis was present and assisted during gonzales portions of the case. /[id number] MD TAHIR Damian/CODY / TAHIR / MODL /[id number] documented in this encounter Plan of Treatment Not on file documented as of this encounter Visit Diagnoses Not on filedocumented in this encounter
--- OUTSIDE RECORDS SUMMARY | 2024-09-17 11:36 | XMS_ITS | Encounter Summary ---
Author Organization [employer] ([place], [place], [place], [place]) Address [address] [place] [address] Care Team Providers Care Online Communications Manager Name Role Phone Unavailable Primary Care Provider Unavailabl e Encounter Details Date Type Department Care Team (Late st Contact Info) Description 09/15/2018 Transcribed Document [facility] [place] [address] [place] [address] ProviderGonzalez MD [address] [place] [address] Social History Tobacco Use Types Packs/Day Years Used Date Smoking Tobacco: Never Assessed Comments Unknown Sex and Gender Information Value Date Recorded Sex Assigned at Not on file Legal Sex Female 6:02 PM CDT Gender Identity Not on file Sexual Orientation Not on file documented as of this encounter Miscellaneous Notes * Cerner Conversion Note - Gonzalez Muñoz MD - 09/15/2018 11:54 AM CDT Patient Education Materials Follows: Hypokalemia Hypokalemia means that the amount of potassium in the blood is lower than normal.?Potassium is a chemical that helps regulate the amount of fluid in the body (electrolyte). It also stimulates muscle tightening (contraction) and helps nerves work properly.?Normally, most of the body?s potassium is inside of cells, and only a very small amount is in the blood. Because the amount in the blood is so small, minor changes to potassium levels in the blood can be life-threatening. What are the causes? This condition may be caused by: ??? Antibiotic medicine. ??? Diarrhea or vomiting. Taking too much of a medicine that helps you have a bowel movement (laxative) can cause diarrhea and lead to hypokalemia. ??? Chronic kidney disease (CKD). ??? Medicines that help the body get rid of excess fluid (diuretics). ??? Eating disorders, such as bulimia. ??? Low magnesium levels in the body. ??? Sweating a lot. What are the signs or symptoms? Symptoms of this condition include: ??? Weakness. ??? Constipation. ??? Fatigue. ??? Muscle cramps. ??? Mental confusion. ??? Skipped heartbeats or irregular heartbeat (palpitations). ??? Tingling or numbness. How is this diagnosed? This condition is diagnosed with a blood test. How is this treated? Hypokalemia can be treated by taking potassium supplements by mouth or adjusting the medicines that you take. Treatment may also include eating more foods that contain a lot of potassium. If your potassium level is very low, you may need to get potassium through an IV tube in one of your veins and be monitored in the hospital. Follow these instructions at home: ??? Take tatn-ucn-xxystfq and prescription medicines only as told by your health care provider. This includes vitamins and supplements. ??? Eat a healthy diet. A healthy diet includes fresh fruits and vegetables, whole grains, healthy fats, and lean proteins. ??? If instructed, eat more foods that contain a lot of potassium, such as: ? Nuts, such as peanuts and pistachios. ? Seeds, such as sunflower seeds and pumpkin seeds. ? Peas, lentils, and forman beans. ? Whole grain and bran cereals and breads. ? Fresh fruits and vegetables, such as apricots, avocado, bananas, cantaloupe, kiwi, oranges, tomatoes, asparagus, and potatoes. ? Desoto juice. ? Tomato juice. ? Red meats. ? Yogurt. ??? Keep all follow-up visits as told by your health care provider. This is important. Contact a health care provider if: ??? You have weakness that gets worse. ??? You feel your heart pounding or racing. ??? You vomit. ??? You have diarrhea. ??? You have diabetes (diabetes mellitus) and you have trouble keeping your blood sugar (glucose) in your target range. Get help right away if: ??? You have chest pain. ??? You have shortness of breath. ??? You have vomiting or diarrhea that lasts for more than 2 days. ??? You faint. This information is not intended to replace advice given to you by your health care provider. Make sure you discuss any questions you have with your health care provider. Document Released: 01/23/2006 Document Revised: 09/10/2016 Document Reviewed: 09/10/2016 [employer] Interactive Patient Education ? 2019 [employer]. Oncology Needle Biopsy of the Bone, Care After Refer to this sheet in the next few weeks. These instructions provide you with information about caring for yourself after your procedure. Your health care provider may also give you more specific instructions. Your treatment has been planned according to current medical practices, but problems sometimes occur. Call your health care provider if you have any problems or questions after your procedure. What can I expect after the procedure? After your procedure, it is common to have soreness or tenderness at the puncture site. Follow these instructions at home: ??? Take mnuf-szr-zirsahz and prescription medicines only as told by your health care provider. ??? Bathe and shower as told by your health care provider. ??? Follow instructions from your health care provider about: ? How to take care of your puncture site. ? When and how you should change your bandage (dressing). ? When you should remove your dressing. ??? Check your puncture site every day for signs of infection. Watch for: ? Redness, swelling, or worsening pain. ? Fluid, blood, or pus. ??? Return to your normal activities as told by your health care provider. ??? Keep all follow-up visits as told by your health care provider. This is important. Contact a health care provider if: ??? You have redness, swelling, or worsening pain at the site of your puncture. ??? You have fluid, blood, or pus coming from your puncture site. ??? You have a fever. ??? You have persistent nausea or vomiting. Get help right away if: ??? You develop a rash. ??? You have difficulty breathing. This information is not intended to replace advice given to you by your health care provider. Make sure you discuss any questions you have with your health care provider. Document Released: 08/12/2005 Document Revised: 06/30/2016 Document Reviewed: 03/02/2015 [employer] Interactive Patient Education ? 2019 [employer]. documented in this encounter Plan of Treatment Not on file documented as of this encounter Visit Diagnoses Not on filedocumented in this encounter
--- OUTSIDE RECORDS SUMMARY | 2024-09-17 11:36 | XMS_ITS | Encounter Summary ---
Author Organization [employer] ([place], [place], [place], [place]) Address [address] [place] [address] Care Team Providers Care Lithography Contact Worker Name Role Phone Unavailable Primary Care Provider Unavailabl e Encounter Details Date Type Department Care Team (Late st Contact Info) Description 09/23/2018 Transcribed Document [facility] [place] [address] [place] [address] ProviderGonzalez MD [address] [place] [address] Social History Tobacco Use Types Packs/Day Years Used Date Smoking Tobacco: Never Assessed Comments Unknown Sex and Gender Information Value Date Recorded Sex Assigned at Not on file Legal Sex Female 6:02 PM CDT Gender Identity Not on file Sexual Orientation Not on file documented as of this encounter Miscellaneous Notes * Cerner Conversion Note - Gonzalez ProviderMD - 09/23/2018 5:00 PM CDT Chart Check - Review Order Profile Entered On: 09/23/2018 16:37 EDT Performed On: 09/23/2018 17:00 EDT by Chad Medina, RN Chart Check All Active Orders Reviewed : Yes Chad Medina RN - 09/23/2018 16:37 EDT documented in this encounter Plan of Treatment Not on file documented as of this encounter Visit Diagnoses Not on filedocumented in this encounter
--- OUTSIDE RECORDS SUMMARY | 2024-09-17 11:36 | XMS_ITS | Encounter Summary ---
Author Organization [employer] ([place], [place], [place], [place]) Address [address] [place] [address] Care Team Providers Care Lacquer Maker Name Role Phone Unavailable Primary Care Provider Darin ash Encounter Details Date Type Department Care Team (Late st Contact Info) Description 09/14/2018 Transcribed Document [facility] [place] [address] [place] [address] ProviderGonzalez MD [facility] [place] [address] Social History Tobacco Use Types Packs/Day Years Used Date Smoking Tobacco: Never Assessed Comments Unknown Sex and Gender Information Value Date Recorded Sex Assigned at Not on file Legal Sex Female 6:02 PM CDT Gender Identity Not on file Sexual Orientation Not on file documented as of this encounter Miscellaneous Notes * Cerner Conversion Note - Historical ProviderMD - 09/14/2018 5:00 PM CDT Chart Check - Review Order Profile Entered On: 09/14/2018 17:28 EDT Performed On: 09/14/2018 17:00 EDT by NATALY PANG RN Chart Check All Active Orders Reviewed : Yes NATALY PANG RN - 09/14/2018 17:28 EDT documented in this encounter Plan of Treatment Not on file documented as of this encounter Visit Diagnoses Not on filedocumented in this encounter
--- OUTSIDE RECORDS SUMMARY | 2024-09-17 11:36 | XMS_ITS | Encounter Summary ---
Author Organization [employer] ([place], [place], [place], [place]) Address [address] [place] [address] Care Team Providers Care Technical Aid Name Role Phone Unavailable Primary Care Provider Unavailabl e Encounter Details Date Type Department Care Team (Late st Contact Info) Description 10/02/2018 Transcribed Document [facility] [place] [address] [place] [address] ProviderGonzalez MD [address] [place] [address] Social History Tobacco Use Types Packs/Day Years Used Date Smoking Tobacco: Never Assessed Comments Unknown Sex and Gender Information Value Date Recorded Sex Assigned at Not on file Legal Sex Female 6:02 PM CDT Gender Identity Not on file Sexual Orientation Not on file documented as of this encounter Miscellaneous Notes * Cerner Conversion Note - Gonzalez Muñoz MD - 10/02/2018 12:06 PM CDT BETHANY CARDOZO [address] [place] [address] [place] [address] Re: GREG BAUTISTA Date of Visit: 09/26/2018 Dear BETHANY CARDOZO Thank you for allowing me to participate in your patient's care. Please see the accompanying information that I would like to share with you regarding your patient. This Document is confidental and intended solely for the use of the individual or entity to which it is addressed. If you are not the named addresssee, please disregard and do not disseminate, distribute or copy this information. If you are the intended recipient any disclosure of this information and its contents is strictly prohibited. Sincerely, ISABELA GUPTA [address] [facility] [place] [id number] The following document(s) were included in the letter: October 02, 2018 09:44:22 EDT - (10/02/2018) Discharge Note documented in this encounter Plan of Treatment Not on file documented as of this encounter Visit Diagnoses Not on filedocumented in this encounter
--- OUTSIDE RECORDS SUMMARY | 2024-09-17 11:36 | XMS_ITS | Encounter Summary ---
Author Organization [employer] ([place], [place], [place], [place]) Address [address] [place] [address] Care Team Providers Care Specimen Boss Name Role Phone Unavailable Primary Care Provider Unavailabl e Encounter Details Date Type Department Care Team (Late st Contact Info) Description 09/15/[address] [facility] [place] Family Medicine [address] [place] [address] ProviderGonzalez MD [address] [place] [address] Social History Tobacco Use Types Packs/Day Years Used Date Smoking Tobacco: Never Assessed Comments Unknown Sex and Gender Information Value Date Recorded Sex Assigned at Not on file Legal Sex Female 6:02 PM CDT Gender Identity Not on file Sexual Orientation Not on file documented as of this encounter Miscellaneous Notes * Cerner Conversion Note - Gonzalez Muñoz MD - 09/15/2018 12:08 PM CDT [facility] [place] [address] GREG BAUTISTA :1960 Visit Time:09/10/2018 Your Visit Summary Your Care Team Admitting Physician - CARLOS ACUNA MD Attending Physician - CARLOS ACUNA MD Primary Care Physician - PAULINA CARDOZO MD-[facility] Referring Physician - Heather, UNKNOWN Your Diagnosis Hypokalemia Other specified types of non-Hodgkin lymphoma, unspecified site, Other specified types of non-Hodgkin lymphoma, unspecified site Discharge Vitals Temperature 37.2 ??C Heart Rate (Monitored) 90 Respiratory Rate 16 Blood Pressure 163/97 What to do next Instructions From Your Care Team Diet after Discharge: Regular diet as tolerated, _, _ Activity after Discharge: As tolerated, _, _ Driving after Discharge: ok to drive when OK with physician _ May Return to Work/School: Showering/Bathing: _, _ Notify Provider of: Wound/Incision Care after Discharge: _, _ Medical Equipment for Home Use: Home Health Services: Community Services: Home Health Services:[facility] [phone] Transportation:Friend Discharge Activity: Discharge Activity: Activity as tolerated Diet: Discharge Diet: Resume usual diet as tolerated Follow-Up Appointments Follow Up with GIULIA ALMONTE When Within 2 to 3 days Where: [facility] [address] [address]- [facility] (1) Follow Up with BETHANY CARDOZO When Within 1 week Comments Call for follow up appointment on Monday09/17/18, Follow-up as instructed Where: [address] [place] [address] [place] [address]- Medications What How Much When Instructions Next Dose amLODIPine (Norvasc 5 mg oral tablet) 1 Tablet(s) Oral Every Day Duration: 30 Day(s) Printed Prescription amoxicillin-clavulanate (Augmentin 500 mg-125 mg oral tablet) 1 Tablet(s) Oral Every 8 Hours Duration: 7 Day(s) Printed Prescription atropine-diphenoxylate (Lomotil 2.5 mg-0.025 mg oral tablet) 1 Tablet(s) Oral Four Times A Day as needed for for loose stool Printed Prescription hydrALAZINE (hydrALAZINE 25 mg oral tablet) 1 Tablet(s) Oral Two Times A Day Duration: 30 Day(s) Printed Prescription Take your medications faithfully. Do NOT skip medication. Do NOT stop taking medications without the direction of a physician. Carry a list of your medications with you at all times, and take this medication list with you to your first follow up visit. Report any side effects. Avoid herbal remedies unless discussed with your physician. As part of your treatment plan, your physician may have prescribed a limited course of a controlled substance. This medication may be given to help people with moderate or severe pain or for other medical conditions, but there are risks involved with treatment. Common side effects may include nausea, constipation, drowsiness, sweating, itching, dry mouth, and rash. More serious side effects may include cognitive and motor impairment, like problems with thinking, concentrating, alertness, and movement (e.g. slowed reflexes), and driving and operating heavy machinery can be dangerous. It is important for you to talk to your physician if you have these side effects or questions. These controlled substances can produce physical dependence and be habit-forming if taken for an extended period of time, which means that the body has gotten used to them and may experience withdrawal symptoms if they are abruptly stopped. Withdrawal symptoms can include runny nose, sweating, goose bumps, diarrhea, abdominal cramping, rapid heartbeat, difficulty sleeping, and nervousness. Please dispose of unused and medications per your retail pharmacy guidance. Allergies No Known Allergies No Known Medication Allergies Immunizations This Visit No Immunizations Found Education Materials Needle Biopsy of the Bone, Care After [...] Follow these instructions at home: ??? Take rnre-pnw-jjtzcoi and prescription medicines only as told by [...] 08/12/2005 Document Revised: 06/30/2016 Document Reviewed: 03/02/2015 [employer] Interactive Patient Education ?? 2019 [employer] Hypokalemia Hypokalemia means that the amount of potassium in the blood is lower than normal. Potassium is a chemical that helps regulate the amount of fluid in the body (electrolyte). It also stimulates muscle tightening (contraction) and helps nerves work properly. Normally, most of the body???s potassium is inside of cells, and only [...] Follow these instructions at home: ??? Take csiq-tde-fpqhfgd and prescription medicines only as told by [...] kiwi, oranges, tomatoes, asparagus, and potatoes. ? Pine juice. ? Tomato juice. ? Red meats. [...] 01/23/2006 Document Revised: 09/10/2016 Document Reviewed: 09/10/2016 [employer] Interactive Patient Education ?? 2019 [employer]. Emergency Awareness and Preventative Care STROKE is an EMERGENCY Every Minute Counts Act FAST and Check for these signs: FACE Does the face look uneven? ARM Does one arm drift down? SPEECH Does their speech sound strange? TIME Call at any sign of stroke Stroke Risk Factors Atrial Fibrillation (irregular heartbeat) Diabetes Family history of stroke Heart Disease Heavy alcohol use High Blood Pressure High Cholesterol Physical inactivity and obesity Smoking Cigarette Smoking The facts are clear, cigarette smoking will shorten your life. Smoking can cause many illnesses along the way. As a healthcare provider, we recommend that you stop smoking. Assistance with quitting is available by contacting 5-907-ZDOM-NOW. This is a free resource providing counseling, support, and referral. Or you may contact your personal physician. National Suicide Prevention Lifeline: The National Suicide Prevention Lifeline is a national network of local crisis centers that provides free and confidential emotional support to people in suicidal crisis or emotional distress 24 hours a day, 7 days a week. Don't Wait! Stop a Heart Attack Before it Starts What is a heart attack? A heart attack is damage or to a part of the heart from severely decreased or lack of blood flow to the heart. Over time, arteries can become narrow from the buildup of fat and cholesterol, which is called plaque. The plaque can rupture causing a blood clot to form. When the blood clot forms, the artery can become severely narrowed or completely blocked, causing a heart attack. Heart attack is the leading cause of in the [place]. 85% of muscle damage occurs within the first 2 hours. Delay in the recognition of heart attack symptoms increases the chances of . Know the early symptoms of a heart attack: Nausea Feeling of fullness in chest Jaw Pain Pain that travels down one or both arms Fatigue/being tired Anxiety Back Pain Chest pressure, squeezing, or discomfort Shortness of breath Sweating, or a cold sweat Feeling of impending doom There are unusual signs of a heart attack, too! Women, the elderly, and diabetics may present with atypical symptoms: Fainting/dizziness Weakness Confusion Risk Factors for a Heart Attack Some heart disease risk factors, such as age and family history, cannot be changed. Others, like smoking and lack of exercise, can be changed. Smoking High Cholesterol High Blood Pressure Family History Obesity Age Gender (Males are at higher risk) Lack of Exercise Diabetes Diet Stress Excessive Alcohol Intake If you or someone you know is experiencing the signs and symptoms of a heart attack, DON???T DELAY. Call immediately and seek help. If someone collapses, perform CPR! Do not attempt to drive if you are having symptoms of heart attack. Hands-Only CPR Why Hands-Only CPR? Hands-Only CPR has been shown to be as effective as conventional CPR for cardiac arrests that occur outside of a hospital. Survival depends on immediately receiving CPR from someone nearby. How do you perform Hands-Only CPR? There are two easy steps: Call if you see a teen or adult collapse Push hard and fast in the center of the chest at a beat of 100 beats per minute. Save a life! 4 WAYS TO GET AHEAD OF SEPSIS SEPSIS is a MEDICAL EMERGENCY. Time matters! Infections put you and your family at risk for a life-threatening condition called sepsis. Sepsis is the body's extreme response to an infection. It is life-threatening, and without timely treatment, sepsis can rapidly lead to tissue damage, organ failure, and . Sepsis happens when an infection you already have-in your skin, lungs, urinary tract or somewhere else-triggers a chain reaction throughout your body. 1 PREVENT INFECTIONS Take good care of chronic conditions. Talk to your doctor about getting the recommended vaccines. 2 PRACTICE GOOD HYGIENE Wash your hands frequently. Keep cuts or open sores clean and covered until they are healed. 3 KNOW THE SYMPTOMS Confusion or disorientation Shortness of breath High heart rate Fever, shivering, or feeling very cold Extreme pain or discomfort Clammy or sweaty skin 4 ACT FAST Get medical care IMMEDIATELY if you suspect sepsis or if you have an infection that is not getting better or is getting worse. To learn more about sepsis and how to prevent infections, visit www.cdc.gov/sepsis. Test Results Laboratory or Other Results This Visit (last charted value for your 09/10/2018 visit) Hematology 09/12/18 05:10:00 WBC: 4.9 K/uL -- Normal range between ( 4.5 and 10.5 ) RBC: 3.93 Million/uL -- Normal range between ( 3.93 and 5.22 ) Hct: 32.1 % -- Normal range between ( 34.1 and 44.9 ) Hgb: 10.5 g/dL -- Normal range between ( 11.2 and 15.7 ) Platelet Count: 171 K/uL -- Normal range between ( 163 and 369 ) MCH: 26.7 pg -- Normal range between ( 25.6 and 32.2 ) MCHC: 32.7 Gram/dL -- Normal range between ( 32.2 and 36.5 ) MCV: 81.7 fL -- Normal range between ( 79.0 and 94.8 ) Slide Review: No RDW: 14.5 % -- Normal range between ( 11.7 and 14.9 ) MPV: 9.7 fL -- Normal range between ( 9.4 and 12.4 ) Urinalysis 09/14/18 15:40:00 Urine Nitrite: Negative Urine Leukocyte Esterase: Moderate Urine Appearance: Clear Urine Glucose Dipstick: 250 Urine Blood Dipstick: Negative Urine Urobilinogen Dipstick: 0.2 EU/dL Ur Calcium Oxalate Crystals: 1+ Urine Protein Dipstick: 30 Ur Bacteria: Trace Ur Squamous Epithelial Cells: 5-10 /HPF Urine Color: Yellow Ur Transitional Epi Cells: 0-2 Ur WBC: 5-10 /HPF Urine Ketones Dipstick: Negative Ur Mucous: Trace Urine pH Dipstick: 8.5 -- Normal range between ( 6.0 and 8.0 ) Urine Bilirubin Dipstick: Negative Urine Specific [place]: 1.014 -- Normal range between ( 1.005 and 1.030 ) Urine Type.: U CleanCatch 09/10/18 20:43:00 Urine Type: U CleanCatch Microbiology 09/11/18 08:00:00 MRSA Surveillance: See Result 09/10/18 20:43:00 Urine Culture: POS General Chemistry 09/15/18 03:45:00 Creatinine Level: 1.00 mg/dL -- Normal range between ( 0.55 and 1.02 ) Sodium Level: 138 mmol/L -- Normal range between ( 136 and 146 ) Potassium Level: 4.5 mmol/L -- Normal range between ( 3.5 and 5.1 ) Chloride Level: 105 mmol/L -- Normal range between ( 102 and 112 ) Carbon Dioxide Level: 25 mmol/L -- Normal range between ( 21 and 32 ) Anion Gap: 12 -- Normal range between ( 9 and 20 ) Bun/Creatinine: 12.0 -- Normal range between ( 8.0 and 20.0 ) Calcium Level: 10.0 mg/dL -- Normal range between ( 8.4 and 10.1 ) eGFR : >60 mL/min/1.73m2 eGFR NonAfrican: 57 mL/min/1.73m2 Glucose Level: 133 mg/dL -- Normal range between ( 74 and 106 ) Blood Urea Nitrogen: 12 mg/dL -- Normal range between ( 7 and 22 ) 09/12/18 05:10:00 Lipase Level: 219 Units/Liter -- Normal range between ( 73 and 393 ) 09/10/18 20:59:00 Ammonia Level: <10.0 uMol/L -- Normal range between ( 11.0 and 32.0 ) 09/10/18 20:58:00 Bilirubin Total: 1.3 mg/dL -- Normal range between ( 0.2 and 1.2 ) Hgb A1C: 6.0 % A/G Ratio: 0.9 -- Normal range between ( 1.1 and 2.5 ) ALT: 19 Units/Liter -- Normal range between ( 13 and 56 ) AST: 18 Units/Liter -- Normal range between ( 5 and 37 ) Globulin: 3.9 Gram/dL -- Normal range between ( 1.5 and 4.5 ) Alk Phos: 332 Units/Liter -- Normal range between ( 27 and 136 ) eAVG Glucose: 126 mg/dL Magnesium Level: 1.8 mg/dL -- Normal range between ( 1.5 and 2.4 ) Lactic Acid Level: 1.8 mmol/L -- Normal range between ( 0.4 and 2.0 ) Protein Total: 7.4 Gram/dL -- Normal range between ( 6.4 and 8.2 ) Albumin Level: 3.5 Gram/dL -- Normal range between ( 3.4 and 5.0 ) Cardiac Specific Markers 09/10/18 20:58:00 Troponin I Ultra: <0.015 ng/mL -- Normal range between ( 0.015 and 0.045 ) ProBNP: 156 pg/mL -- Normal range between ( 0 and 125 ) Coagulation 09/10/18 20:58:00 INR: 1.1 -- Normal range between ( 0.9 and 1.1 ) PT: 12.2 Second(s) -- Normal range between ( 9.6 and 12.0 ) Computed Tomography 09/11/18 11:41:40 CT Bx Lymph Nodes: CT Bx Lymph Nodes Patient Name:ANNETTEJessica GREG I have received and understand this information and was given the opportunity to ask questions. Patient/Rn House Supervisor Name: Patient/Rn House Supervisor Signature: Relationship to Patient: Clinician/Hospital Rn House Supervisor Signature: Date: Electronically signed by Mary Ann, [facility] Conversion Auto Polisher Brandon at 05/27/2022 9:15 AM CDT documented in this encounter Plan of Treatment Not on file documented as of this encounter Visit Diagnoses Not on filedocumented in this encounter
--- OUTSIDE RECORDS SUMMARY | 2024-09-17 11:36 | XMS_ITS | Encounter Summary ---
Author Organization [employer] ([place], [place], [place], [place]) Address [address] [place] [address] Care Team Providers Care Retail Account Executive Name Role Phone Unavailable Primary Care Provider Unavailabl e Encounter Details Date Type Department Care Team (Late st Contact Info) Description 10/11/2019 Transcribed Document [facility] [place] Family Medicine [address] [place] [address] ProviderGonzalez MD [address] [place] [address] Social History Tobacco Use Types Packs/Day Years Used Date Smoking Tobacco: Never Assessed Comments Unknown Sex and Gender Information Value Date Recorded Sex Assigned at Not on file Legal Sex Female 6:02 PM CDT Gender Identity Not on file Sexual Orientation Not on file documented as of this encounter Miscellaneous Notes * Cerner Conversion Note - Historical ProviderMD - 10/11/2019 11:33 AM CDT Event Note Entered On: 10/11/2019 11:34 EDT Performed On: 10/11/2019 11:33 EDT by Jessica Barrios RN Event Note Event Date/Time : 10/11/2019 11:33 EDT Description of Event : 1133: Pts family updated via phone call. Jessica Barrios RN - 10/11/2019 11:33 EDT Electronically signed by Mary Ann [facility] Conversion Car Repairer Cernory at 05/27/2022 9:24 AM CDT documented in this encounter Plan of Treatment Not on file documented as of this encounter Visit Diagnoses Not on filedocumented in this encounter
--- OUTSIDE RECORDS SUMMARY | 2024-09-17 11:36 | XMS_ITS | Encounter Summary ---
Author Organization [employer] ([place], [place], [place], [place]) Address [address] [place] [address] Care Team Providers Care Metrology Manager Name Role Phone Unavailable Primary Care Provider Unavailabl e Encounter Details Date Type Department Care Team (Late st Contact Info) Description 09/12/2018 Transcribed Document [facility] [place] [facility] [place] [address] ProviderGonzalez MD [facility] [place] [address] Social History Tobacco Use Types Packs/Day Years Used Date Smoking Tobacco: Never Assessed Comments Unknown Sex and Gender Information Value Date Recorded Sex Assigned at Not on file Legal Sex Female 6:02 PM CDT Gender Identity Not on file Sexual Orientation Not on file documented as of this encounter Miscellaneous Notes * Cerner Conversion Note - Gonzalez ProviderMD - 09/12/2018 3:32 PM CDT Treatment Intervention, PT Entered On: 09/13/2018 11:48 EDT Performed On: 09/13/2018 11:46 EDT by SHAKILA NGUYEN PT General Information, PT Visit Type, PT : Treatment Note Patient Orders : Order Date Order Ordering 09/12/2018 10:47 PT Evaluation and Treatment Ordered By: DHARA MAGANA MD 09/12/2018 15:32 PT Additional Treatment Ordered By: ROBBIE MALONEY PT Active Diagnoses : No Qualifying Diagnoses Admission Date : 09/10/2018 20:13 Personal Devices : Personal Devices No Devices Recorded Assistive Devices : Assistive Devices No Devices Recorded Isolation Maintained : Contact SHAKILA NGUYEN PT - 09/13/2018 11:46 EDT General Status Patient Received Status : Supine in bed Treatment Start Time : 09/13/2018 11:23 EDT Patient Left Status : Supine in bed, Communication board completed, All needs met and within reach Treatment End Time : 09/13/2018 11:34 EDT Treatment Time : 11 Minute(s) SHAKILA NGUYEN PT - 09/13/2018 11:46 EDT Functional Mobility Mobility Grid Supine to Sit : Supervision/set-up Sit to Stand : Supervision/set-up Stand to Sit : Supervision/set-up Sit to Supine : Supervision/set-up SHAKILA NGUYEN PT - 09/13/2018 11:46 EDT Sit to Stand Device : Belt, gait Stand to Sit Device : Belt, gait SHAKILA NGUYEN, PT - 09/13/2018 11:46 EDT Gait Training/Assessment, PT Gait Assistance Level : Supervision Walking Distance : 375ft with RWx supervision Ambulatory Devices : Gait belt, Walker, front wheel SHAKILA NGUYEN, PT - 09/13/2018 11:46 EDT Cognitive Treatment, PT Orientation : Oriented x 4 SHAKILA NGUYEN PT - 09/13/2018 11:46 EDT Edu Topics Physical Therapy Education Grid Gait Training : Verbalizes understanding, Returns demonstration, Needs reinforcement SHAKILA NGUYEN PT - 09/13/2018 11:46 EDT Indication Assesessment, PT Physical Therapy Indicated : Yes SHAKILA NGUYEN, PT - 09/13/2018 11:46 EDT Plan of Care, PT PT Tx Plan/Goals Established w Patient : Yes SHAKILA NGUYEN PT - 09/13/2018 11:46 EDT Short Term Goals Ambulation STG Grid Goal #1 Device : Walker, front wheel Distance : 375' Assist : Supervision or set-up Date to Meet : 09/19/2018 EDT Goal Status : Goal met Date Met : 09/13/2018 EDT SHAKILA NGUYEN PT - 09/13/2018 11:46 EDT Molded Parts Inspector Goals Ambulation LTG Grid Goal #1 Device : Walker, front wheel Distance : 375' Assist : Independent, modified Date to Meet : 09/26/2018 EDT Goal Status : Progressing, continue SHAKILA NGUYEN, PT - 09/13/2018 11:46 EDT Treatment Note Subjective Comment : pt agreed to PTx Patient's Response to Treatment : Stable Assessment : pt with weakness, limited endurance but improved fredis and stability ambulating 375ft with RWx supervision Plan for Treatment : cont PTx POC SHAKILA NGUYEN, PT - 09/13/2018 11:46 EDT Pain Assessment Pain Scaled Used : 0-10 Pain scale Pain Score Pre-Intervention : 0 SHAKILA NGUYEN PT - 09/13/2018 11:46 EDT Image 1 - Images currently included in the form version of this document have not been included in the text rendition version of the form. Anticipated Discharge Needs, OT/PT Anticipated Discharge to : Home, with family care Recommend Continued Therapy at Discharge : No SHAKILA NGUYEN PT - 09/13/2018 11:[address] [facility] PT Charges Gait Training Each 15 Min : 1 SHAKILA NGUYEN PT - 09/13/2018 11:46 EDT documented in this encounter Plan of Treatment Not on file documented as of this encounter Visit Diagnoses Not on filedocumented in this encounter
--- OUTSIDE RECORDS SUMMARY | 2024-09-17 11:36 | XMS_ITS | Encounter Summary ---
Author Organization [employer] ([place], [place], [place], [place]) Address [address] [place] [address] Care Team Providers Care Fiberglass Boat Builder Name Role Phone Unavailable Primary Care Provider Unavailabl e Encounter Details Date Type Department Care Team (Late st Contact Info) Description 09/15/2018 Transcribed Document [facility] [place] Family Medicine [address] [place] [address] ProviderGonzalez MD [address] [place] [address] Social History Tobacco Use Types Packs/Day Years Used Date Smoking Tobacco: Never Assessed Comments Unknown Sex and Gender Information Value Date Recorded Sex Assigned at Not on file Legal Sex Female 6:02 PM CDT Gender Identity Not on file Sexual Orientation Not on file documented as of this encounter Miscellaneous Notes * Cerner Conversion Note - Historical ProviderMD - 09/15/2018 5:00 AM CDT Chart Check - Review Order Profile Entered On: 09/15/2018 7:25 EDT Performed On: 09/15/2018 5:00 EDT by ELDA GAYTAN RN Chart Check Powerplans Initiated/Discontinued as Appropriate : Yes All Active Orders Reviewed : Yes ELDA GAYTAN RN - 09/15/2018 7:25 EDT documented in this encounter Plan of Treatment Not on file documented as of this encounter Visit Diagnoses Not on filedocumented in this encounter
--- OUTSIDE RECORDS SUMMARY | 2024-09-17 11:36 | XMS_ITS | Encounter Summary ---
Author Organization [email or web address] ([place], [place], [place], [place]) Address [address] [place] [address] Care Team Providers Care Property Technician Name Role Phone Unavailable Primary Care Provider Unavailabl e Encounter Details Date Type Department Care Team (Late st Contact Info) Description 09/12/2018 Transcribed Document [facility] Radiology [address] [place] [address] Chevy Briceno MD [address] [place] [id number] Social History Tobacco Use Types Packs/Day Years Used Date Smoking Tobacco: Never Assessed Comments Unknown Sex and Gender Information Value Date Recorded Sex Assigned at Not on file Legal Sex Female 6:02 PM CDT Gender Identity Not on file Sexual Orientation Not on file documented as of this encounter Miscellaneous Notes * Cerner Conversion Note - Chevy Briceno MD - 09/12/2018 12:17 PM EDT Patient: GREG BAUTISTA Age: 58 Years Sex: Female : 1960 Subjective no acute issues or complaints overnight, tolerating a diet, did have an episode of diarrhea this morning ROS: denies chest pain, shortness of air, nausea, vomiting, fever Vital Signs T: 37.2 ??C TMIN: 36.8 ??C TMAX: 37.7 ??C HR: 83 RR: 16 BP: 161/95 SpO2: 95% Oxygen Settings (Last) Oxygen Therapy Mode: Room air (09/12/18 06:00:00) Oxygen Flow Rate: 2 Liter/Min (09/11/18 10:20:00) Intake & Output Totals Last 24 Hours (7a-7a) Input Total: 1898.77 mL Output Total: 0 mL Balance: 1898.77 mL Physical Exam HEAD: Atraumatic, normocephalic. EYES: Pupils are round and reactive. No conjunctival injection or discharge. NECK: Supple. Full range of motion. CHEST: poor inspiratory effort HEART: S1 and S2 heard. Regular rate and rhythm. ABDOMEN: Soft. Audible bowel sounds. No tenderness. No guarding. No rebound tenderness. Assessment/Plan 1. Hypokalemia. Patient with nausea, vomiting, and abdominal discomfort. Admit to the hospital with hypokalemia. We will start potassium chloride orally and intravenous and supportive management. 2. Dehydration. We will start intravenous fluids. 3. Weight loss. Patient had CT of abdomen and pelvis shows possible lymphoma with questionable liver metastasis. Dr. Oakes, Oncology was consulted, advised to admit the patient, possible biopsy for diagnosis. 4. Hyperglycemia, check hemoglobin A1c. 5. Hypertension. We will start hydralazine as needed. 6. Acute renal failure secondary to dehydration. We will start intravenous fluids. Monitor kidney function. Avoid nephrotoxic medication. 7. Gastrointestinal prophylaxis, Pepcid. 8. Deep venous thrombosis prophylaxis, compression boots. 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 of the abdomen and pelvis: had an FNA performed this morning, pathology pending -lipase was elevated: might have a slight case of pancreatitis although CT scan showed atrophic pancreas -will start on clear liquids -hypokalemia: potassium is 3.0, currently getting IV runs -ARF: creatinine is 1.4, getting fluids, on clear liquid diet -discontinued antibiotics, no evidence of infectious process at this point, culture pending -hypertension: added norvasc, oral hydralazine 09/12: oncology following, will need to follow up after discharge to discuss the results of the biopsy -ARF: creatinine down to 1.3 -stable off of antibiotics -potassium was 2.9, getting 40meq BID today -advance diet, ambulation, anticipate discharge tomorrow VTE Prophylaxis - Medical Sequential Compression Device Start: 09/11/18 0:36:00 EDT, Bilateral, Continuous Order (CARLOS ACUNA) Sequential Compression Device Start: 09/10/18 20:42:00 EDT, Bilateral, Length: Knee High, While patient is in bed, Continuous Order (CARLOS ACUNA) Medications calcium gluconate calcium gluconate + Sodium Chloride 0.9% intravenous solution 100 mL calcium gluconate + Sodium Chloride 0.9% intravenous solution 100 mL cloNIDine, 0.1 mg= 1 Tab, Oral, Q4H, PRN DuoNeb 0.5 mg-2.5 mg/3 mL inhalation solution, 3 mL, Nebulized Inhalation , Q6H, PRN famotidine, 20 mg= 1 Tab, Oral, Daily hydrALAZINE, 10 mg= 0.5 mL, IV Push, Q6H, PRN hydrALAZINE, 10 mg= 1 Tab, Oral, BID magnesium sulfate, 2 Gram= 50 mL, IV Piggyback, Daily, PRN magnesium sulfate, 2 Gram= 50 mL, IV Piggyback, Q2H, PRN morphine, 2 mg= 1 mL, IV Push, Q2H, PRN Normal Saline 1,000 mL, 1000 mL, IntraVENous Norvasc, 5 mg= 1 Tab, Oral, Daily Phenergan, 6.25 mg= 0.25 mL, IntraVENous, Q6H, PRN potassium chloride 10 mEq oral tablet, extended release, 40 mEq= 4 Tab, Oral, BID potassium chloride 10 mEq/50 mL intravenous solution, 10 mEq= 50 mL, IV Piggyback, Q1H, PRN potassium chloride 20 mEq oral tablet, extended release, 20 mEq= 1 Tab, Oral, Q2H, PRN potassium chloride 20 mEq oral tablet, extended release, 60 mEq= 3 Tab, Oral, Q2H, PRN potassium chloride 20 mEq/15 mL oral liquid, 20 mEq= 15 mL, Feeding Tube, Q2H, PRN potassium chloride 20 mEq/15 mL oral liquid, 60 mEq= 45 mL, Feeding Tube, Q2H, PRN sodium chloride 0.9% injectable solution, 10 mL, IV Push, See Comment, PRN sodium phosphate sodium phosphate Tylenol, 650 mg= 2 Tab, Oral, Q4H, PRN Zofran, 4 mg= 2 mL, IV Push, Q4H, PRN Lab Results Test Name Test Result Date/Time Sodium Level 141 mmol/L 09/12/2018 05:10 EDT Potassium Level 2.9 mmol/L (Low) 09/12/2018 05:10 EDT Chloride Level 99 mmol/L (Low) 09/12/2018 05:10 EDT Carbon Dioxide Level 36 mmol/L (High) 09/12/2018 05:10 EDT Anion Gap 9 09/12/2018 05:10 EDT Glucose Level 105 mg/dL 09/12/2018 05:10 EDT Blood Urea Nitrogen 11 mg/dL 09/12/2018 05:10 EDT Creatinine Level 1.30 mg/dL (High) 09/12/2018 05:10 EDT eGFR 51 mL/min/1.73m2 (Low) 09/12/2018 05:10 EDT eGFR NonAfrican 42 mL/min/1.73m2 (Low) 09/12/2018 05:10 EDT Bun/Creatinine 8.5 09/12/2018 05:10 EDT Calcium Level 9.1 mg/dL 09/12/2018 05:10 EDT Lipase Level 219 Units/Liter 09/12/2018 05:10 EDT WBC 4.9 K/uL 09/12/2018 05:10 EDT RBC 3.93 Million/uL 09/12/2018 05:10 EDT Hgb 10.5 g/dL (Low) 09/12/2018 05:10 EDT Hct 32.1 % (Low) 09/12/2018 05:10 EDT MCV 81.7 fL 09/12/2018 05:10 EDT MCH 26.7 pg 09/12/2018 05:10 EDT MCHC 32.7 Gram/dL 09/12/2018 05:10 EDT Platelet Count 171 K/uL 09/12/2018 05:10 EDT MPV 9.7 fL 09/12/2018 05:10 EDT RDW 14.5 % 09/12/2018 05:10 EDT Slide Review No 09/12/2018 05:10 EDT documented in this encounter Plan of Treatment Not on file documented as of this encounter Visit Diagnoses Not on filedocumented in this encounter
--- OUTSIDE RECORDS SUMMARY | 2024-09-17 11:36 | XMS_ITS | Encounter Summary ---
Author Organization [employer] ([place], [place], [place], [place]) Address [address] [place] [address] Care Team Providers Care Manufacturing Team Leader Name Role Phone Unavailable Primary Care Provider Unavailabl e Encounter Details Date Type Department Care Team (Late st Contact Info) Description 09/24/2018 Transcribed Document [facility] [place] Family Medicine [address] [place] [address] ProviderGonzalez MD [address] [place] [address] Social History Tobacco Use Types [...] Historical ProviderMD - 09/24/2018 11:36 AM CDT Therapy Screen, PT Entered On: 09/24/2018 11:38 EDT Performed On: 09/24/2018 11:36 EDT by NESTOR HO, SHREYA Therapy Screen, PT Medical Chart Reviewed : Yes Person Providing Information : Nurse, Patient Screen Completed : Yes Recommendation for Evaluation, PT : None Recommendations Upon Discharge : None Additional Therapy Screen Comment : Pt returning from xray, got off stretcher herself and walked into restroom. As she came out, PT informed pt she had PT/OT eval orders for mobility and she declined evals. RN, Chad, cuba. OT, Priyanka, notified. NESTOR HO, PT - 09/24/2018 11:36 EDT Electronically signed by Mary Ann [facility] Conversion Paster Operator Brandon at 05/27/2022 9:30 AM CDT documented in this encounter Plan of Treatment Not on file documented as of this encounter Visit Diagnoses Not on filedocumented in this encounter
--- OUTSIDE RECORDS SUMMARY | 2024-09-17 11:36 | XMS_ITS | Encounter Summary ---
Author Organization [employer] ([place], [place], [place], [place]) Address [address] [place] [address] Care Team Providers Care Skid Worker Name Role Phone Unavailable Primary Care Provider Unavailabl e Encounter Details Date Type Department Care Team (Late st Contact Info) Description 09/14/2018 Transcribed Document [facility] [place] [facility] [place] [address] ProviderGonzalez MD [facility] [place] [address] Social History Tobacco Use Types Packs/Day Years Used Date Smoking Tobacco: Never Assessed Comments Unknown Sex and Gender Information Value Date Recorded Sex Assigned at Not on file Legal Sex Female 6:02 PM CDT Gender Identity Not on file Sexual Orientation Not on file documented as of this encounter Miscellaneous Notes * Cerner Conversion Note - Gonzalez ProviderMD - 09/14/2018 5:16 PM CDT On Going Discharge Planning Entered On: 09/14/2018 17:16 EDT Performed On: 09/14/2018 17:16 EDT by MOHSEN REES, Inspector [employer] Care Management Progress Note Discharge Arrangements : Patient Post-Acute Information Patient Name: GREG BAUTISTA Gender: Female : [birth year] Age: 58 Years Sonaspjesus Referral(s): Service: Organization: Business Address: Phone Number: [employer] - [address], [address] Discharge Options Discussed with Patient : Discharge transportation, DME, Home Health, Short term rehabilitation Barriers to Discharge Identified : Clinical Condition of Patient Barriers to Discharge Unresolved : All resolved Designation of Choice Signed : Yes Patient Offered Choice/Affiliations Explained : Yes List/Info Provided Pt/Fam/Support Person : Durable medical equipment, Home health Were Referrals Sent to Post Acute Providers : Yes MOHSEN REES, [employer] - 09/14/2018 17:16 EDT Electronically signed by Mary Ann, [facility] Conversion Hotel [employer]ational Facilities Manager Cerner at 05/27/2022 9:28 AM CDT documented in this encounter Plan of Treatment Not on file documented as of this encounter Visit Diagnoses Not on filedocumented in this encounter
--- OUTSIDE RECORDS SUMMARY | 2024-09-17 11:36 | XMS_ITS | Encounter Summary ---
Author Organization [employer] ([place], [place], [place], [place]) Address [address] [place] [address] Care Team Providers Care Corrosion Prevention Metal Sprayer Name Role Phone Unavailable Primary Care Provider Unavailabl e Encounter Details Date Type Department Care Team (Late st Contact Info) Description 09/24/2018 Transcribed Document [facility] [place] [address] [place] [address] ProviderGonzalez MD [address] [place] [address] Social History Tobacco Use Types Packs/Day Years Used Date Smoking Tobacco: Never Assessed Comments Unknown Sex and Gender Information Value Date Recorded Sex Assigned at Not on file Legal Sex Female 6:02 PM CDT Gender Identity Not on file Sexual Orientation Not on file documented as of this encounter Miscellaneous Notes * Cerner Conversion Note - Historical ProviderMD - 09/24/2018 12:14 PM CDT Patient: GREG BAUTISTA Age: 58 Years Sex: Female : [address] Simmons, we will proceed with EGD tomorrow morning. Orders placed, NPO after midnight. Thank you! documented in this encounter Plan of Treatment Not on file documented as of this encounter Visit Diagnoses Not on filedocumented in this encounter
--- OUTSIDE RECORDS SUMMARY | 2024-09-17 11:36 | XMS_ITS | Encounter Summary ---
Author Organization [employer] ([place], [place], [place], [place]) Address [address] [place] [address] Care Team Providers Care Green Inspector Name Role Phone Unavailable Primary Care Provider Unavailabl e Encounter Details Date Type Department Care Team (Late st Contact Info) Description 09/12/2018 Transcribed Document [facility] [place] Family Medicine [address] [place] [address] ProviderGonzalez MD [address] [place] [address] Social History Tobacco Use Types Packs/Day Years Used Date Smoking Tobacco: Never Assessed Comments Unknown Sex and Gender Information Value Date Recorded Sex Assigned at Not on file Legal Sex Female 6:02 PM CDT Gender Identity Not on file Sexual Orientation Not on file documented as of this encounter Miscellaneous Notes * Cerner Conversion Note - Gonzalez Muñoz MD - 09/12/2018 8:20 AM CDT Patient: GREG BAUTISTA Age: 58 years Sex: Female : 1960 Associated Diagnoses: None Author: MEMO SALAZAR MD-ONC Attachments: None Subjective Chief complaint Chief complaint No new issues. Feels some better. Less nausea and vomiting. Potassium better. Health Status Allergies Allergic Reactions (All) No Known Allergies No Known Medication Allergies Allergies (2) Active Reaction No Known Allergies None Documented No Known Medication Allergies None Documented Current medications No qualifying data available Medications (23) Active Scheduled: (3) amLODIPine 5 mg tab 5 mg 1 Tab, Oral, Daily famotidine 20 mg/2 mL inj 20 mg 2 mL, IV Push, Daily hydrALAZINE 10 mg tab 10 mg 1 Tab, Oral, BID Continuous: (1) NaCl 0.9% 1,000 mL 1,000 mL, IntraVENous, 75 mL/Hr PRN: (19) acetaminophen 325 mg tab 650 mg 2 Tab, Oral, Q4H albuterol-ipratropium inh 3 mL 3 mL, Nebulized Inhalation, Q6H calcium gluconate 1 Gram 10 mL, IV Piggyback, Daily calcium gluconate + NaCl 0.9% 100 mL 2 Gram 20 mL, IV Piggyback, Daily calcium gluconate + NaCl 0.9% 100 mL 2 Gram 20 mL, IV Piggyback, Q12H cloNIDine 0.1 mg tab 0.1 mg 1 Tab, Oral, Q4H hydrALAZINE 20 mg/1 mL inj 10 mg 0.5 mL, IV Push, Q6H magnesium sulfate 2 Gram 50 mL, IV Piggyback, Daily magnesium sulfate 2 Gram 50 mL, IV Piggyback, Q2H morphine 2 mg/1 ml inj 2 mg 1 mL, IV Push, Q2H ondansetron 4 mg/2 mL inj 4 mg 2 mL, IV Push, Q4H potassium chloride 10 mEq 50 mL, IV Piggyback, Q1H potassium chloride 20 mEq/15 mL liq 20 mEq 15 mL, Feeding Tube, Q2H potassium chloride 20 mEq/15 mL liq 60 mEq 45 mL, Feeding Tube, Q2H potassium chloride CR 20 mEq tab 20 mEq 1 Tab, Oral, Q2H potassium chloride CR 20 mEq tab 60 mEq 3 Tab, Oral, Q2H promethazine 25 mg/1 mL inj 6.25 mg 0.25 mL, IntraVENous, Q6H sodium phosphate 15 mMole 5 mL, IV Piggyback, Daily sodium phosphate 15 mMole 5 mL, IV Piggyback, Q6H Problem list Active Problems (1) At risk for sleep apnea Objective VS/Measurements Vitals Signs (last 24 hrs) Last Charted Minimum Maximum Temp 98.9 (SEP 12 06:00) 98.9 (SEP 12 06:00) H 99.8 (SEP 11 22:00) Apical HR 88 (SEP 11 20:29) 78 (SEP 11 13:47) 88 (SEP 11 20:29) Mon HR 83 (SEP 12 06:00) 76 (SEP 11 11:20) 95 (SEP 11 22:00) Resp Rate 16 (SEP 12 06:00) L 7 (SEP 11 11:25) 20 (SEP 11 18:00) SBP H 161 (SEP 12 06:00) 138 (SEP 11 10:20) H 175 (SEP 11 10:25) DBP H 95 (SEP 12 06:00) 65 (SEP 11 22:00) H 95 (SEP 12 06:00) MAP 124 (SEP 12 06:00) 87 (SEP 11 22:00) 124 (SEP 12 06:00) SpO2 95 (SEP 12 06:00) L 92 (SEP 11 12:27) 99 (SEP 11 10:30) General Alert and oriented No acute distress Respiratory Lungs are clear to auscultation Gastrointestinal Soft Non-distended Normal postop abdominal tenderness Normal postop abdominal tenderness Results Review General results Interpretation: LABS Labs (Last four charted values) WBC 4.9 (SEP 12) 6.2 (SEP 11) 7.2 (SEP 10) HB L 10.5 (SEP 12) 11.5 (SEP 11) 12.4 (SEP 10) HCT L 32.1 (SEP 12) 34.8 (SEP 11) 36.7 (SEP 10) Plt 171 (SEP 12) 188 (SEP 11) 214 (SEP 10) Na 141 (SEP 12) 139 (SEP 11) L 135 (SEP 10) K L 2.9 (SEP 12) L 3.0 (SEP 11) C 2.5 (SEP 11) C 2.1 (SEP 10) Cl L 99 (SEP 12) L 91 (SEP 11) L 86 (SEP 10) CO2 H 36 (SEP 12) H 42 (SEP 11) H 39 (SEP 10) BUN 11 (SEP 12) 16 (SEP 11) 17 (SEP 10) Cr H 1.30 (SEP 12) H 1.40 (SEP 11) H 1.30 (SEP 10) Glu R 105 (SEP 12) H 121 (SEP 11) H 147 (SEP 10) Ca 9.1 (SEP 12) 9.4 (SEP 11) 9.4 (SEP 10) Lactic 1.8 (SEP 10) PT H 12.2 (SEP 10) INR 1.1 (SEP 10) AST 18 (SEP 10) ALT 19 (SEP 10) ALK P H 332 (SEP 10) T Bili H 1.3 (SEP 10) PTN 7.4 (SEP 10) ALB 3.5 (SEP 10) Lipase 219 (SEP 12) H 934 (SEP 10) Troponin <0.015 (SEP 10) Radiology Results Radiology Results (Last 48 hours) [id number] -- 09/10/2018 20:13 CT Bx Lymph Nodes (09/11/2018 11:41) Result: CT GUIDED FINE-NEEDLE ASPIRATION AND CORE BIOPSYHISTORY: Retroperitoneal adenopathy. ATTENDING PHYSICIAN: Vahe Graham M.D.PHYSICIAN SENIOR EDUCATION SPECIALIST: FRANKY Salomon-CPROCEDURE: After informed consent was obtained and a timeout wasperformed, the patient was prepped and draped in usual sterile fashionover the left flank. Utilizing local anesthesia and sterile techniquewith a coaxial system, access to lesion was obtained. 6 passes weremade. In addition 4, 18-gauge core biopsies were obtained. Post biopsyfilms demonstrate no evidence of acute complication. The patientreceived mild procedural sedation. The patient tolerated the procedurewell and left the department in good condition.IMPRESSION: Status post CT guided biopsy of left retroperitonealadenopathy without immediate complication. Images reviewed, interpreted, and dictated by Dr. Vahe Graham.Transcribed by FRANKY Salomon-C, R.T. (N), C N M T.I have personally viewed, interpreted and dictated the examination. Ihave read and agree with the above final transcribed report. Impression and Plan Assessment and Plan Diagnosis Sarcoid vs cancer Course Progressing as expected Orders Await bx result. Nothing else to add. Patient does not need to stay in hospital for bx result. . documented in this encounter Plan of Treatment Not on file documented as of this encounter Visit Diagnoses Not on filedocumented in this encounter
--- OUTSIDE RECORDS SUMMARY | 2024-09-17 11:36 | XMS_ITS | Encounter Summary ---
Author Organization [employer] ([place], [place], [place], [place]) Address [address] [place] [address] Care Team Providers Care Senior Health Physics Technician Name Role Phone Unavailable Primary Care Provider Unavailabl e Encounter Details Date Type Department Care Team (Late st Contact Info) Description 10/02/2018 Transcribed Document [facility] [place] [facility] [place] [address] ProviderGonzalez MD [place] [address] Social History Tobacco Use Types Packs/Day Years Used Date Smoking Tobacco: Never Assessed Comments Unknown Sex and Gender Information Value Date Recorded Sex Assigned at Not on file Legal Sex Female 6:02 PM CDT Gender Identity Not on file Sexual Orientation Not on file documented as of this encounter Miscellaneous Notes * Cerner Conversion Note - Gonzalez Muñoz MD - 10/02/2018 10:27 AM CDT [address] [address] Patient Copy Patient Information: Name: GREG BAUTISTA Current Date: 10/02/2018 10:27:04 : 1960 Patient Address: [address] [address] Patient Attending Physician: KATIE MARTINEZ -INT Primary Care Provider: BETHANY CARDOZO Primary Care Provider Discharge Diagnosis: Weight on Admission: 166 lb, 0 oz Comment: Follow-up Instructions: With: Address: When: Dr. Jackson In 3 days 10/05/2018 Comments: 2pm: appointment has been made With: Address: When: NURY OLGUIN MD [address] [facility] [address] [place] [address] Within 1 to 2 weeks Comments: follow up EGD With: Address: When: MEMO SALAZAR MD-ONC [address] [facility] [address] [place], [place] [id number] Within As needed Discharge Instructions: Immunizations Documented During Stay: No Immunizations Found Heart Failure Discharge Instructions (if any): Stroke Related Discharge Instructions (if any): Warfarin Related Discharge Instructions (if any): Final Medication List: Printed Prescriptions acetaminophen-hydrocodone (acetaminophen-HYDROcodone 325 mg-5 mg oral tablet) 1 Tablet(s) Oral Every 4 Hours as needed Pain (Mild 1-3) for 3 Day(s). Refills: 0. amLODIPine (Norvasc 10 mg oral tablet) 1 Tablet(s) Oral Every Day. Refills: 0. hydrALAZINE (hydrALAZINE 25 mg oral tablet) 1 Tablet(s) Oral Three Times A Day. Refills: 0. pantoprazole (pantoprazole 40 mg oral delayed release tablet) 1 Tablet(s) Oral Every Day. Refills: 0. predniSONE (predniSONE 20 mg oral tablet) 2 Tablet(s) Oral Every Day for 2 weeks. Refills: 0. promethazine (promethazine 25 mg oral tablet) 1 Tablet(s) Oral Every 6 Hours. Refills: 0. Other Medications hydrALAZINE (hydrALAZINE 25 mg oral tablet) 1 Tablet(s) Oral Two Times A Day. Patient Allergies: No Known Medication Allergies; No Known Allergies Medication Instructions: Take your medications faithfully. Do NOT skip [...] cramping, rapid heartbeat, difficulty sleeping, and nervousness. Patient education materials: Sarcoidosis Sarcoidosis is a disease that can cause inflammation in many areas of the body. It most often affects the lungs (pulmonary sarcoidosis). Sarcoidosis can also affect the lymph nodes, liver, eyes, skin, heart, or any other body tissue. Normally, cells that are part of your body's disease-fighting system (immune system) attack harmful substances (such as germs) in your body. This immune system response causes inflammation. After the harmful substance is destroyed, the inflammation and the immune cells go away. When you have sarcoidosis, your immune system causes inflammation even when there are no harmful substances, and the inflammation does not go away. Sarcoidosis also causes cells from your immune system to form small clumps of tissue (granulomas) in the affected area of your body. What are the causes? The exact cause of sarcoidosis is not known. It is possible that if you have a family history of this disease (genetic predisposition), the immune system response that leads to inflammation may be triggered by something in your environment, such as: ??? Bacteria or viruses. ??? Metals. ??? Chemicals. ??? Dust. ??? Mold or mildew. What increases the risk? You may be at a greater risk for sarcoidosis if you: ??? Have a family history of the disease. ??? Are -[place]. ??? Are of [place] descent. ??? Are 20?50 years old. ??? Work as a department manager. ??? Work in an environment where you are exposed to metals, chemicals, mold or mildew, or insecticides. What are the signs or symptoms? Some people with sarcoidosis have no symptoms. Others have very mild symptoms. The symptoms usually depend on the organ that is affected. Sarcoidosis most often affects the lungs, which may include symptoms such as: ??? Chest pain. ??? Coughing. ??? Wheezing. ??? Shortness of breath. Other common symptoms include: ??? Night sweats. ??? Fever. ??? Weight loss. ??? Fatigue. ??? Swollen lymph nodes. ??? Joint pain. How is this diagnosed? Sarcoidosis may be diagnosed based on: ??? Your symptoms and medical history. ??? A physical exam. ??? Imaging tests to check for granulomas such as: ? Chest X-ray. ? CT scan. ? MRI. ? PET scan. ??? Lung function tests. These tests evaluate your breathing and check for problems that may be related to sarcoidosis. ??? A procedure to remove a tissue sample for testing (biopsy). You may have a biopsy of lung tissue if that is where you are having symptoms. You may have tests to check for any complications of the condition. These tests may include: ??? Eye exams. ??? MRI of the heart or brain. ??? Echocardiogram. ??? Electrocardiogram (EKG or ECG). How is this treated? In some cases, sarcoidosis does not require a specific treatment because it causes no symptoms or mild symptoms. If your symptoms bother you or are severe, you may be prescribed medicines to reduce inflammation or relieve symptoms. These medicines may include: ??? Prednisone. This is a steroid that reduces inflammation related to sarcoidosis. ??? Hydroxychloroquine. This may be used to treat sarcoidosis that affects the skin, eyes, or brain. ??? Methotrexate, leflunomide, or azathioprine. These medicines affect the immune system and can help with sarcoidosis in the joints, eyes, skin, or lungs. ??? Medicines that you breathe in (inhalers). Inhalers can help you breathe if sarcoidosis affects your lungs. Follow these instructions at home: ??? Do not use any products that contain nicotine or tobacco, such as cigarettes and e-cigarettes. If you need help quitting, ask your health care provider. ??? Avoid secondhand smoke and irritating dust or chemicals. Stay indoors on days when air quality is poor in your area. ??? Return to your normal activities as told by your health care provider. Ask your health care provider what activities are safe for you. ??? Take or use srzr-ltv-rbagoht and prescription medicines only as told by your health care provider. ??? Keep all follow-up visits as told by your health care provider. This is important. Contact a health care provider if: ??? You have vision problems. ??? You have a dry cough that does not go away. ??? You have an irregular heartbeat. ??? You have pain or aches in your joints, hands, or feet. ??? You have an unexplained rash. Get help right away if: ??? You have chest pain. ??? You have difficulty breathing. Summary ??? Sarcoidosis is a disease that can cause inflammation in many body areas of the body. It most often affects the lungs (pulmonary sarcoidosis). It can also affect the lymph nodes, liver, eyes, skin, heart, or any other body tissue. ??? When you have sarcoidosis, cells from your immune system form small clumps of tissue (granulomas) in the affected area of your body. ??? Sarcoidosis sometimes does not require a specific treatment because it causes no symptoms or mild symptoms. ??? If your symptoms bother you or are severe, you may be prescribed medicines to reduce inflammation or relieve symptoms. This information is not intended to replace advice given to you by your health care provider. Make sure you discuss any questions you have with your health care provider. Document Released: 11/23/2004 Document Revised: 10/31/2017 Document Reviewed: 10/31/2017 [employer] Patient Education ? 2019 [employer] Gastritis, Adult Gastritis is swelling (inflammation) of the stomach. When you have this condition, you can have these problems (symptoms): ??? Pain in your stomach. ??? A burning feeling in your stomach. ??? Feeling sick to your stomach (nauseous). ??? Throwing up (vomiting). ??? Feeling too full after you eat. It is important to get help for this condition. If you do not get help, your stomach can bleed, and you can get sores (ulcers) in your stomach. Follow these instructions at home: ??? Take yakc-tal-aoszyqg and prescription medicines only as told by your doctor. ??? If you were prescribed an antibiotic medicine, take it as told by your doctor. Do not stop taking it even if you start to feel better. ??? Drink enough fluid to keep your pee (urine) pale yellow. ??? Instead of eating big meals, eat small meals often. ??? Avoid foods and drinks that make your symptoms worse. Contact a doctor if: ??? Your problems get worse. ??? Your problems go away and then come back. Get help right away if: ??? You throw up blood or something that looks like coffee grounds. ??? You have black or dark red poop (stools). ??? You throw up any time you try to take a drink. ??? Your stomach pain gets worse. ??? You have a fever. ??? You do not feel better after 1 week. Summary ??? Gastritis is swelling (inflammation) of the stomach. ??? It is important to get help for this condition. If you do not get help, your stomach can bleed, and you can get sores (ulcers) in your stomach. ??? Take ngbq-vej-wpwevwt and prescription medicines only as told by your doctor. This information is not intended to replace advice given to you by your health care provider. Make sure you discuss any questions you have with your health care provider. Document Released: 07/11/2008 Document Revised: 09/05/2017 Document Reviewed: 10/17/2015 [employer] Patient Education ? 2019 [employer] Nausea and Vomiting, Adult Nausea is the feeling that you have an upset stomach or have to vomit. As nausea gets worse, it can lead to vomiting. Vomiting occurs when stomach contents are thrown up and out of the mouth. Vomiting can make you feel weak and cause you to become dehydrated. Dehydration can make you tired and thirsty, cause you to have a dry mouth, and decrease how often you urinate. Older adults and people with other diseases or a weak immune system are at higher risk for dehydration. It is important to treat your nausea and vomiting as told by your health care provider. Follow these instructions at home: Follow instructions from your health care provider about how to care for yourself at home. Eating and drinking Follow these recommendations as told by your health care provider: ??? Take an oral rehydration solution (ORS). This is a drink that is sold at pharmacies and retail stores. ??? Drink clear fluids in small amounts as you are able. Clear fluids include water, ice chips, diluted fruit juice, and low-calorie sports drinks. ??? Eat bland, wcgk-pn-knzdxv foods in small amounts as you are able. These foods include bananas, applesauce, rice, lean meats, toast, and crackers. ??? Avoid fluids that contain a lot of sugar or caffeine, such as energy drinks, sports drinks, and soda. ??? Avoid alcohol. ??? Avoid spicy or fatty foods. General instructions ??? Drink enough fluid to keep your urine clear or pale yellow. ??? Wash your hands often. If soap and water are not available, use hand brake assembler. ??? Make sure that all people in your household wash their hands well and often. ??? Take agwu-knl-dnpdash and prescription medicines only as told by your health care provider. ??? Rest at home while you recover. ??? Watch your condition for any changes. ??? Breathe slowly and deeply when you feel nauseated. ??? Keep all follow-up visits as told by your health care provider. This is important. Contact a health care provider if: ??? You have a fever. ??? You cannot keep fluids down. ??? Your symptoms get worse. ??? You have new symptoms. ??? Your nausea does not go away after two days. ??? You feel light-headed or dizzy. ??? You have a headache. ??? You have muscle cramps. Get help right away if: ??? You have pain in your chest, neck, arm, or jaw. ??? You feel extremely weak or you faint. ??? You have persistent vomiting. ??? You see blood in your vomit. ??? Your vomit looks like black coffee grounds. ??? You have bloody or black stools or stools that look like tar. ??? You have a severe headache, a stiff neck, or both. ??? You have a rash. ??? You have severe pain, cramping, or bloating in your abdomen. ??? You have trouble breathing or you are breathing very quickly. ??? Your heart is beating very quickly. ??? Your skin feels cold and clammy. ??? You feel confused. ??? You have pain when you urinate. ??? You have signs of dehydration, such as: ? Dark urine, very little urine, or no urine. ? Cracked lips. ? Dry mouth. ? Sunken eyes. ? Sleepiness. ? Weakness. These symptoms may represent a serious problem that is an emergency. Do not wait to see if the symptoms will go away. Get medical help right away. Call your local emergency services (911 in the [place] Do not drive yourself to the hospital. This information is not intended to replace advice given to you by your health care provider. Make sure you discuss any questions you have with your health care provider. Document Released: 01/23/2006 Document Revised: 06/27/2016 Document Reviewed: 09/29/2015 [employer] Patient Education ? 2019 [employer] CIGARETTE SMOKING: The facts are clear, cigarette smoking will shorten your life. Smoking can cause many illnesses along the way. As a healthcare provider, we recommend that you stop smoking. Assistance with quitting is available by contacting 9-515-OEDR-NOW. This is a free resource providing counseling, support, and referral. Or you may contact your personal physician. 4 WAYS TO GET AHEAD OF SEPSIS SEPSIS is a MEDICAL EMERGENCY. Time matters! Infections put you and your family at risk for a life-threatening condition called sepsis. Sepsis is the body???s extreme response to an infection. It is life-threatening, and without timely treatment, sepsis can rapidly lead to tissue damage, organ failure, and . Sepsis happens when an infection you already have???in your skin, lungs, urinary tract or somewhere else???triggers a chain reaction throughout your body. 1 [...] sepsis or if you have an infection that???s not getting better or is getting worse. To learn more about sepsis and how to prevent infections, visit www.cdc.gov/sepsis. STROKE is an EMERGENCY Every [employer] Counts ACT F.A.S.T! FACE ?? Facial droop ?? Uneven smile ARM ?? Arm numbness ?? Arm weakness SPEECH ?? Slurred speech ?? Difficulty speaking or understanding TIME ?? Call 911 and get to the hospital immediately Have the ambulance go to the nearest stroke center. STROKE Risk Factors High blood pressure High cholesterol Heart Disease Diabetes Smoking Heavy alcohol use Physical inactivity and obesity Atrial Fibrillation (irregular heartbeat) Family history of stroke Reminder: Be sure to sign up for the Retrieve patient portal, which gives you 29/08 access to your medical information ??? including these discharge instructions ??? using your computer, smartphone, or tablet. Just go to [employer] to get started. Questions? Call . [facility] would like to thank you for allowing us to assist you with your healthcare needs. ALEX Schroeder JOAN, (or customer retention representative) have received the above patient education materials/instructions and have verbalized understanding: Patient Signature _ Date/Time Patient Transportation Planner Signature (if needed) Date/Time Clinician/Hospital Transportation Planner Signature (if needed) Date/Time documented in this encounter Plan of Treatment Not on file documented as of this encounter Visit Diagnoses Not on filedocumented in this encounter
--- OUTSIDE RECORDS SUMMARY | 2024-09-17 11:36 | XMS_ITS | Encounter Summary ---
Author Organization [employer] ([place], [place], [place], [place]) Address [address] [place] [address] Care Team Providers Care Legal Cashier Name Role Phone Unavailable Primary Care Provider Unavailabl e Encounter Details Date Type Department Care Team (Late st Contact Info) Description 09/26/2018 Transcribed Document [facility] [place] [address] [place] [address] ProviderGonzalez MD [address] [place] [address] Social History Tobacco Use Types Packs/Day Years Used Date Smoking Tobacco: Never Assessed Comments Unknown Sex and Gender Information Value Date Recorded Sex Assigned at Not on file Legal Sex Female 6:02 PM CDT Gender Identity Not on file Sexual Orientation Not on file documented as of this encounter Miscellaneous Notes * Cerner Conversion Note - Gonzalez Muñoz MD - 09/26/2018 9:33 AM CDT Stroke/Warfarin Instructions Entered On: 09/26/2018 9:33 EDT Performed On: 09/26/2018 9:33 EDT by Palak Lozano RN Stroke/Warfarin Instructions Stroke/TIA Discharge Ins : N/A Warfarin Discharge Ins : N/A Palak Lozano RN - 09/26/2018 9:33 EDT documented in this encounter Plan of Treatment Not on file documented as of this encounter Visit Diagnoses Not on filedocumented in this encounter
--- OUTSIDE RECORDS SUMMARY | 2024-09-17 11:36 | XMS_ITS | Encounter Summary ---
Author Organization [employer] ([place], [place], [place], [place]) Address [address] [place] [address] Care Team Providers Care Lumber Stacker Name Role Phone Unavailable Primary Care Provider Unavailabl e Encounter Details Date Type Department Care Team (Late st Contact Info) Description 10/02/2018 Transcribed Document [facility] [place] [address] [place] [address] ProviderGonzalez MD [address] [place] [address] Social History Tobacco Use Types Packs/Day Years Used Date Smoking Tobacco: Never Assessed Comments Unknown Sex and Gender Information Value Date Recorded Sex Assigned at Not on file Legal Sex Female 6:02 PM CDT Gender Identity Not on file Sexual Orientation Not on file documented as of this encounter Miscellaneous Notes * Cerner Conversion Note - Gonzalez Muñoz MD - 10/02/2018 4:03 PM CDT Final Discharge Planning Entered On: 10/02/2018 16:03 EDT Performed On: 10/02/2018 16:03 EDT by TALA ROMERO Rn-Showroom Sales Assistant Final Discharge Planning Discharge Arrangements : Patient Post-Acute Information Patient Name: GREG BAUTISTA Gender: Female : 58 Age: 58 Years No Post-Acute Placement(s) Listed No Post-Acute Service(s) Listed No [place] Referral(s) Listed Transportation Needs : Family/Friend Discharge Transportation Arrangement Cmt : SHELL met with patient at the bedside. She says her friend will pick her up at 3 PM. Discharge To Care Management : Home/Residential/Prison or Self Care - TALA ROMERO Rn-Showroom Sales Assistant - 10/02/2018 16:03 EDT documented in this encounter Plan of Treatment Not on file documented as of this encounter Visit Diagnoses Not on filedocumented in this encounter
--- OUTSIDE RECORDS SUMMARY | 2024-09-17 11:36 | XMS_ITS | Encounter Summary ---
Author Organization [employer] ([place], [place], [place], [place]) Address [address] [place] [address] Care Team Providers Care Farm Equipment Assembler Name Role Phone Unavailable Primary Care Provider Unavailabl e Encounter Details Date Type Department Care Team (Late st Contact Info) Description 09/26/2018 Transcribed Document [facility] [place] Family Medicine [address] [place] [address] ProviderGonzalez MD [address] [place] [address] Social History Tobacco Use Types Packs/Day Years Used Date Smoking Tobacco: Never Assessed Comments Unknown Sex and Gender Information Value Date Recorded Sex Assigned at Not on file Legal Sex Female 6:02 PM CDT Gender Identity Not on file Sexual Orientation Not on file documented as of this encounter Miscellaneous Notes * Cerner Conversion Note - Gonzalez Muñoz MD - 09/26/2018 8:53 AM CDT [facility] Authorization Entered On: 09/26/2018 8:53 EDT Performed On: 09/26/2018 8:53 EDT by Ang Henry Mkt Pediatric Care Coordinator-Utilization Mgt Primary Insurance Authorization Authorization and Policy Numbers : Insurance 1 Health Plan: [employer] Policy Number: [id number] Authorization Number: Insurance Primary Name : [facility] Policy Number: [id number] Authorization Status-Primary : Admit approved Authorization Number-Primary : no auth req. Authorization Comments-Primary : Per automated system at [facility], no auth req. Historical Authorization Comments-Primary : Comment 1: Pending [facility] (MILES MAS Rn-Utilization Review 09/14/2018 08:38) Comment 2: Awaiting Call back from [facility] (POLO RANGEL RN 09/13/2018 14:30) Comment 3: Per Liseth Hernandez, [facility] has been contacted for evaluation. (MILES MAS, Rn-Utilization Review 09/12/2018 09:48) Comment 4: JIM indemnity policy listed. PA notified to obtain insurance information. (MILES MAS, Rn-Utilization Review 09/11/2018 10:26) Ang Henry Mkt Pediatric Care Coordinator-Utilization Mgt - 09/26/2018 8:53 EDT Electronically signed by Mary [facility] Conversion Programmer Developer Cerner at 05/27/2022 9:19 AM CDT documented in this encounter Plan of Treatment Not on file documented as of this encounter Visit Diagnoses Not on filedocumented in this encounter
--- OUTSIDE RECORDS SUMMARY | 2024-09-17 11:36 | XMS_ITS | Encounter Summary ---
Author Organization [employer] ([place], [place], [place], [place]) Address [address] [place] [address] Care Team Providers Care Bookseamer Blindstitch Name Role Phone Unavailable Primary Care Provider Unavailabl e Encounter Details Date Type Department Care Team (Late st Contact Info) Description 09/24/2018 Transcribed Document [facility] Radiology [address] [place] [address] Chevy Briceno MD [address] [place] [id number] Social History Tobacco Use Types Packs/Day Years Used Date Smoking Tobacco: Never Assessed Comments Unknown Sex and Gender Information Value Date Recorded Sex Assigned at Not on file Legal Sex Female 6:02 PM CDT Gender Identity Not on file Sexual Orientation Not on file documented as of this encounter Miscellaneous Notes * Cerner Conversion Note - Chevy Briceno MD - 09/24/2018 9:14 AM EDT Patient: GREG BAUTISTA Age: 58 Years Sex: Female : 1960 Subjective no acute issues or complaints overnight, states that her nausea and abdominal pain are getting better ROS: denies chest pain, shortness of air, nausea, abdominal pain, fever Vital Signs T: 36.8 ??C TMIN: 36.7 ??C TMAX: 36.8 ??C HR: 75(Monitored) RR: 16 BP: 165/83 SpO2: 96% HT: 160.02 cm WT: 75.45 kg BMI: 29.5 Oxygen Settings (Last) No qualifying data available. Intake & Output Totals Last 24 Hours (7a-7a) Input Total: 2 mL Output Total: 300 mL Balance: -298 mL Physical Exam GENERAL: The patient is a well-developed, well-nourished, no apparent distress. alert and oriented x3. Head : is normocephalic and atraumatic. EYES: Extraocular muscles are intact. Pupils are equal, round, and reactive to light and accommodation. NECK: Supple. No carotid bruits. No lymphadenopathy or thyromegaly. LUNGS: Clear to auscultation. No added sounds. No tenderness HEART: Regular rate and rhythm without murmur. No heave ABDOMEN: Soft, nontender, and nondistended. Positive bowel sounds. No hepatosplenomegaly was noted. EXTREMITIES: Without any cyanosis, clubbing, rash, lesions or edema. Assessment/Plan Intractable nausea and vomiting Patient had recent CT abdomen showed liver lesion IV Zofran with Reglan for nausea control Clear liquids We'll keep patient nothing by mouth after midnight We'll consult GI for possible EGD Patient stated that she had no EGD in the past, she had colonoscopy 3 years ago Patient had recurrent intractable nausea and vomiting for the last few weeks Hypokalemia Replace potassium Check potassium level in a.m. Questionable history of sarcoidosis with lymphadenopathy and liver lesion Patient scheduled for CT-guided liver biopsy this week She follow with Dr. Rosendo Rubi Will consult Dr. Rosendo Rubi Recent history of hypertension Continue home medication IV hydralazine as needed 09/24: GI was consulted for possible EGD, has been kept NPO after midnight, states her abdominal pain and nausea are getting better -hypokalemia: potassium of 3.0, on replacement protocol -oncology was consulted on admission due to patients questionable history of sarcoidosis VTE Prophylaxis - Medical Heparin 5,000 Units, SubCutaneous, Inj, Q8HInt, Routine, Start 09/23/18 18:00:00 EDT (RALEIGH MUNOZ MD) Sequential Compression Device Start: 09/23/18 17:54:00 EDT, Bilateral, Length: Knee High, While patient is in bed, Continuous Order (RALEIGH MUNOZ MD) Medications acetaminophen-HYDROcodone 325 mg-5 mg oral tablet, 1 Tab, Oral, Q4H, PRN calcium gluconate calcium gluconate + Sodium Chloride 0.9% intravenous solution 100 mL calcium gluconate + Sodium Chloride 0.9% intravenous solution 100 mL Dulcolax Laxative, 5 mg= 1 Tab, Oral, Daily, PRN DuoNeb 0.5 mg-2.5 mg/3 mL inhalation solution, 3 mL, Nebulized Inhalation , Q6H, PRN Habitrol 14 mg/24 hr transdermal film, extended release, 1 Patch, TransDermal, Daily heparin, 5000 Units= 1 mL, SubCutaneous, Q8HInt hydrALAZINE, 25 mg= 1 Tab, Oral, BID magnesium sulfate, 2 Gram= 50 mL, IV Piggyback, Daily, PRN magnesium sulfate, 2 Gram= 50 mL, IV Piggyback, Q2H, PRN morphine, 2 mg= 1 mL, IV Push, Q6H, PRN Norvasc, 5 mg= 1 Tab, Oral, Daily Pepcid, 20 mg= 2 mL, IV Push, Q12H potassium chloride 10 mEq/50 mL intravenous solution, [...] mEq= 45 mL, Feeding Tube, Q2H, PRN Reglan, 5 mg= 1 mL, IV Push, Q6H Restoril, 15 mg= 1 Cap, Oral, At Bedtime, PRN Sodium Chloride 0.9% intravenous solution 1,000 mL, 1000 mL, IntraVENous sodium phosphate sodium phosphate Tylenol, 650 mg= 2 Tab, Oral, Q4H, PRN Zofran, 4 mg= 2 mL, IV Push, Q4H, PRN Lab Results Test Name Test Result Date/Time Sodium Level 141 mmol/L 09/24/2018 07:02 EDT Potassium Level 3.0 mmol/L (Low) 09/24/2018 07:02 EDT Chloride Level 105 mmol/L 09/24/2018 07:02 EDT Carbon Dioxide Level 30 mmol/L 09/24/2018 07:02 EDT Anion Gap 9 09/24/2018 07:02 EDT Glucose Level 113 mg/dL (High) 09/24/2018 07:02 EDT Blood Urea Nitrogen 12 mg/dL 09/24/2018 07:02 EDT Creatinine Level 1.20 mg/dL (High) 09/24/2018 07:02 EDT eGFR 56 mL/min/1.73m2 (Low) 09/24/2018 07:02 EDT eGFR NonAfrican 46 mL/min/1.73m2 (Low) 09/24/2018 07:02 EDT Bun/Creatinine 10.0 09/24/2018 07:02 EDT Calcium Level 9.8 mg/dL 09/24/2018 07:02 EDT Magnesium Level 2.0 mg/dL 09/24/2018 07:02 EDT WBC 6.1 K/uL 09/24/2018 07:02 EDT RBC 3.86 Million/uL (Low) 09/24/2018 07:02 EDT Hgb 10.4 g/dL (Low) 09/24/2018 07:02 EDT Hct 32.0 % (Low) 09/24/2018 07:02 EDT MCV 82.9 fL 09/24/2018 07:02 EDT MCH 26.9 pg 09/24/2018 07:02 EDT MCHC 32.5 Gram/dL 09/24/2018 07:02 EDT Platelet Count 247 K/uL 09/24/2018 07:02 EDT MPV 9.2 fL (Low) 09/24/2018 07:02 EDT RDW 14.6 % 09/24/2018 07:02 EDT Neut % 77.2 % (High) 09/24/2018 07:02 EDT Neut # 4.68 K/uL 09/24/2018 07:02 EDT Lymph % 9.9 % (Low) 09/24/2018 07:02 EDT Lymph # 0.60 x10(3)/uL (Low) 09/24/2018 07:02 EDT [place] % 8.9 % 09/24/2018 07:02 EDT [place] # 0.54 K/uL 09/24/2018 07:02 EDT Eos % 2.8 % 09/24/2018 07:02 EDT Eos # 0.17 x10(3)/uL 09/24/2018 07:02 EDT Baso % 0.5 % 09/24/2018 07:02 EDT Baso # 0.03 x10(3)/uL 09/24/2018 07:02 EDT Slide Review No 09/24/2018 07:02 EDT IG# 0.04 x10(3)/uL 09/24/2018 07:02 EDT IG% 0.70 % (High) 09/24/2018 07:02 EDT PT 11.8 Second(s) 09/24/2018 07:02 EDT INR 1.1 09/24/2018 07:02 EDT TSH 0.631 mcInt Units/mL 09/24/2018 07:02 EDT Electronically signed by Mary Ann, [facility] Conversion Forensic Nurse Cerner at 05/27/2022 9:22 AM CDT documented in this encounter Plan of Treatment Not on file documented as of this encounter Visit Diagnoses Not on filedocumented in this encounter
--- OUTSIDE RECORDS SUMMARY | 2024-09-17 11:36 | XMS_ITS | Encounter Summary ---
Author Organization [employer] ([place], [place], [place], [place]) Address [address] [place] [address] Care Team Providers Care Filtration Plant Mechanic Name Role Phone Unavailable Primary Care Provider Unavailabl e Encounter Details Date Type Department Care Team (Late st Contact Info) Description 09/13/[address] [facility] Radiology [address] [place] [address] Chevy Briceno MD [address] [place] [id number] Social History Tobacco Use Types Packs/Day Years Used Date Smoking Tobacco: Never Assessed Comments Unknown Sex and Gender Information Value Date Recorded Sex Assigned at Not on file Legal Sex Female 6:02 PM CDT Gender Identity Not on file Sexual Orientation Not on file documented as of this encounter Miscellaneous Notes * Cerner Conversion Note - Chevy Briceno MD - 09/13/2018 10:30 AM EDT Patient: GREG BAUTISTA Age: 58 Years Sex: Female : 1960 Subjective patient states no issues overnight, still has diarrhea and states that every time she urinates, she has a bowel movement ROS: denies chest pain, shortness of air, abdominal pain, nausea, vomiting -positive for diarrhea Vital Signs T: 37 ??C TMIN: 37 ??C TMAX: 37.6 ??C HR: 81(Monitored) HR: 81 RR: 16 BP: 174/84 SpO2: 94% WT: 84.09 kg Oxygen Settings (Last) Oxygen Therapy Mode: Room air (09/12/18 20:45:00) Oxygen Flow Rate: 2 Liter/Min (09/12/18 18:05:00) Intake & Output Totals Last 24 Hours (7a-7a) Input Total: 1740.25 mL Output Total: 925 mL Balance: 815.25 mL Physical Exam HEAD: Atraumatic, normocephalic. EYES: [...] today -advance diet, ambulation, anticipate discharge tomorrow 09/13: ARF: resolved -stable off of antibiotics -UA was positive for esterase, patient complains of no symptoms, urine culture was a contaminant -potassium was 3.2, will replace -patient keeps complaining of diarrhea, states it has a strong odor, has not received any antibiotics here, will order a GI panel, if negative, can be discharged later today VTE Prophylaxis - Medical Sequential Compression Device [...] hydrALAZINE, 10 mg= 1 Tab, Oral, BID Imodium A-D, 2 mg= 1 Cap, Oral, QID, PRN magnesium sulfate, 2 Gram= 50 mL, IV Piggyback, Daily, PRN magnesium sulfate, 2 Gram= 50 mL, IV Piggyback, Q2H, PRN morphine, 2 mg= 1 mL, IV Push, Q2H, PRN Norvasc, 5 mg= 1 Tab, Oral, Daily Phenergan, 6.25 mg= 0.25 mL, IntraVENous, Q6H, PRN potassium chloride 10 mEq oral tablet, extended release, 30 mEq= 3 Tab, Oral, BID potassium chloride 10 mEq/50 [...] Test Name Test Result Date/Time Sodium Level 140 mmol/L 09/13/2018 04:42 EDT Potassium Level 3.2 mmol/L (Low) 09/13/2018 04:42 EDT Chloride Level 102 mmol/L 09/13/2018 04:42 EDT Carbon Dioxide Level 30 mmol/L 09/13/2018 04:42 EDT Anion Gap 11 09/13/2018 04:42 EDT Glucose Level 128 mg/dL (High) 09/13/2018 04:42 EDT Blood Urea Nitrogen 11 mg/dL 09/13/2018 04:42 EDT Creatinine Level 1.00 mg/dL 09/13/2018 04:42 EDT eGFR >60 mL/min/1.73m2 09/13/2018 04:42 EDT eGFR NonAfrican 57 mL/min/1.73m2 (Low) 09/13/2018 04:42 EDT Bun/Creatinine 11.0 09/13/2018 04:42 EDT Calcium Level 9.0 mg/dL 09/13/2018 04:42 EDT Electronically signed by Jae Reese Conversion Identity Access Management Architect Cerner at 05/27/2022 9:21 AM CDT documented in this encounter Plan of Treatment Not on file documented as of this encounter Visit Diagnoses Not on filedocumented in this encounter
--- OUTSIDE RECORDS SUMMARY | 2024-09-17 11:36 | XMS_ITS | Encounter Summary ---
Author Organization [employer] ([place], [place], [place], [place]) Address [address] [place] [address] Care Team Providers Care Surface Water Manager Name Role Phone Unavailable Primary Care Provider Unavailabl e Encounter Details Date Type Department Care Team (Late st Contact Info) Description 09/15/2018 Transcribed Document [facility] [place] [address] [place] [address] ProviderGonzalez MD [address] [place] [address] Social History Tobacco Use Types Packs/Day Years Used Date Smoking Tobacco: Never Assessed Comments Unknown Sex and Gender Information Value Date Recorded Sex Assigned at Not on file Legal Sex Female 6:02 PM CDT Gender Identity Not on file Sexual Orientation Not on file documented as of this encounter Miscellaneous Notes * Cerner Conversion Note - Gonzalez Muñoz MD - 09/15/2018 1:[address] [facility] [place] [address] GREG BAUTISTA :1960 Visit Time:09/10/2018 Your Visit Summary Your Care Team Admitting Physician - CARLOS ACUNA MD Attending Physician - CARLOS ACUNA MD Primary Care Physician - PAULINA CARDOZO MD-[facility] Referring Physician - Heather, UNKNOWN Your Diagnosis Hypokalemia Other specified types of non-Hodgkin lymphoma, unspecified site, Other specified types of non-Hodgkin lymphoma, unspecified site Discharge Vitals Temperature 37.2 ??C Heart Rate (Monitored) 90 Blood Pressure 163/97 What to do next [...] Home Health Services: Community Services: Home Health Services:[facility] [phone] Transportation:Friend Discharge Activity: Discharge Activity: Activity as tolerated Diet: Discharge Diet: Resume usual diet as tolerated Follow-Up Appointments Follow Up with GIULIA ALMONTE When Within 2 to 3 days [facility] [address] [address]- Business (1) Follow Up with BETHANY CARDOZO When Within 1 week Comments Call for follow up appointment on Monday09/17/18, Follow-up as instructed Where: [address] [place] [address] [place] [address]- Medications What How Much When Instructions Next [...] Follow these instructions at home: ??? Take pwpt-euu-dyldjgg and prescription medicines only as told by [...] 08/12/2005 Document Revised: 06/30/2016 Document Reviewed: 03/02/2015 [employer] Interactive Patient Education ?? 2019 [employer] Hypokalemia Hypokalemia means that the amount [...] Follow these instructions at home: ??? Take xnuk-dgy-clmyfbx and prescription medicines only as told by [...] kiwi, oranges, tomatoes, asparagus, and potatoes. ? [place] juice. ? Tomato juice. ? Red meats. [...] 01/23/2006 Document Revised: 09/10/2016 Document Reviewed: 09/10/2016 [employer] Interactive Patient Education ?? 2019 [employer]. Emergency Awareness and Preventative Care STROKE is [...] Assistance with quitting is available by contacting 6-570-GQKO-NOW. This is a free resource providing counseling, [...] ) Urine Bilirubin Dipstick: Negative Urine Specific [place]: 1.014 -- Normal range between ( 1.005 [...] Lymph Nodes: CT Bx Lymph Nodes Patient Name:GREG BAUTISTA I have received and understand this information and was given the opportunity to ask questions. Patient/Slitting Machine Feeder Name: Patient/Slitting Machine Feeder Signature: Relationship to Patient: Clinician/Hospital Slitting Machine Feeder Signature: Date: Electronically signed by Interface, [facility] Conversion Roll Press Operator Brandon at 05/27/2022 9:26 AM CDT documented in this encounter Plan of Treatment Not on file documented as of this encounter Visit Diagnoses Not on filedocumented in this encounter
--- OUTSIDE RECORDS SUMMARY | 2024-09-17 11:36 | XMS_ITS | Encounter Summary ---
Author Organization [employer] ([place], [place], [place], [place]) Address [address] [place] [address] Care Team Providers Care Med Spec Name Role Phone Unavailable Primary Care Provider Unavailabl e Encounter Details Date Type Department Care Team (Late st Contact Info) Description 09/15/2018 Transcribed Document [facility] [place] Family Medicine [address] [place] [address] ProviderGonzalez MD [address] [place] [address] Social History Tobacco Use Types Packs/Day Years Used Date Smoking Tobacco: Never Assessed Comments Unknown Sex and Gender Information Value Date Recorded Sex Assigned at Not on file Legal Sex Female 6:02 PM CDT Gender Identity Not on file Sexual Orientation Not on file documented as of this encounter Miscellaneous Notes * Cerner Conversion Note - Historical ProviderMD - 09/15/2018 1:46 PM CDT Nursing Discharge Summary Entered On: 09/15/2018 13:46 EDT Performed On: 09/15/2018 13:46 EDT by MARJAN COBB RN Discharge Documentation Discharge Date/Time : 09/15/2018 13:35 EDT Patient Disposition, General : Discharge Discharge To : Home with ambulatory/outpatient follow-up Mode Of Departure, General Discharge : Private vehicle Accompanied By, Discharge : Friend Personal Belongings With Patient : Yes Prescriptions Given to Patient : Yes Discharge Instructions Reviewed With, Opportunity For Questions Given : Patient Number of Prescriptions Given : 4 MARJAN COBB RN - 09/15/2018 13:46 EDT Electronically signed by Jae Reese Conversion Supervisor [employer] Cerner at 05/27/2022 9:40 AM CDT documented in this encounter Plan of Treatment Not on file documented as of this encounter Visit Diagnoses Not on filedocumented in this encounter
--- OUTSIDE RECORDS SUMMARY | 2024-09-17 11:36 | XMS_ITS | Encounter Summary ---
Author Organization [employer] ([place], [place], [place], [place]) Address [address] [place] [address] Care Team Providers Care Hotel Service Manager Name Role Phone Unavailable Primary Care Provider Darin ash Encounter Details Date Type Department Care Team (Late st Contact Info) Description 09/24/2018 Transcribed Document [facility] [place] Family Medicine [address] [place] [address] ProviderGonzalez MD [facility] [place] [address] Social History Tobacco Use Types Packs/Day Years Used Date Smoking Tobacco: Never Assessed Comments Unknown Sex and Gender Information Value Date Recorded Sex Assigned at Not on file Legal Sex Female 6:02 PM CDT Gender Identity Not on file Sexual Orientation Not on file documented as of this encounter Miscellaneous Notes * Cerner Conversion Note - Historical ProviderMD - 09/24/2018 1:46 PM CDT Therapy Screen, OT Entered On: 09/24/2018 13:47 EDT Performed On: 09/24/2018 13:46 EDT by CORONA HERRERA OTR/Jeremiah Therapy Screen, OT Medical Chart Reviewed : Yes Person Providing Information : Nurse, Patient Screen Completed : Yes Recommendations for Evaluation OT : Do not recommend Occupational Therapy evaluation Therapy Screen Findings, OT : Patient at functional baseline Recommendations Upon Discharge : None Additional Therapy Screen Comment : Pt reports independence with all ADLs and fxnl mobility and voices no OT concerns at this time. OT will sign off. RN notified. CORONA HERRERA OTR/Jeremiah - 09/24/2018 13:46 EDT documented in this encounter Plan of Treatment Not on file documented as of this encounter Visit Diagnoses Not on filedocumented in this encounter
--- OUTSIDE RECORDS SUMMARY | 2024-09-17 11:36 | XMS_ITS | Encounter Summary ---
Author Organization [employer] ([place], [place], [place], [place]) Address [address] [place] [address] Care Team Providers Care Cryptographic Center Specialist Name Role Phone Unavailable Primary Care Provider Unavailabl e Encounter Details Date Type Department Care Team (Late st Contact Info) Description 09/26/[address] [facility] Radiology [address] [place] [address] Chevy Briceno MD [address] [place] [phone] Social History Tobacco Use Types Packs/Day Years Used Date Smoking Tobacco: Never Assessed Comments Unknown Sex and Gender Information Value Date Recorded Sex Assigned at Not on file Legal Sex Female 6:02 PM CDT Gender Identity Not on file Sexual Orientation Not on file documented as of this encounter Miscellaneous Notes * Cerner Conversion Note - Chevy Briceno MD - 09/26/2018 4:58 PM EDT PLEASE MODIFY BEFORE SIGNING CLINICAL DOCUMENTATION CLARIFICATION FORM: Dear : Janak Date: 09/26/18 Please exercise your independent, professional judgment in responding to the clarification form. Clinical indicators are provided on the bottom of this form for your review Please check appropriate box(s): [ x ] Acute Renal Failure (ARF) / Acute Kidney Injury (SIERRA) [ ] No Diagnosis of Acute renal failure [ ] Other diagnosis [ ] Unable to determine For continuity of documentation, please document condition throughout progress notes and discharge summary. Thank You. To be completed by CDI/Coding staff for physician review: Present Clinical Indicators - Signs / Symptoms / Labs Results and Location in Medical Record x Abnormal labs (BUN, creatinine, K+, creatinine clearance, low GFR) 09/24/18- per Labs- Creatinine- 1.20, GFR- 46 09/25/18- per Labs- Creatinine- 0.90 09/26/18- per Labs- Creatinine- 1.00, GFR- 57 x Nausea / Vomiting / Diarrhea 09/23/18- per H&P- intractable nausea and vomiting Present Risk Factors Results and Location in Medical Record x Intractable nausea and vomiting 09/23/18- per H&P- Intractable Nausea and vomiting x Hypokalemia 09/23/18- per H&P- Hypokalemia Present Treatments Results and Location in Medical Record x IV ?uid challenge result 09/25/18- per Order- NS IV @ 100ml/hr x Serial labs 09/24/18- 09/26/18- per Order- BMP CDS/Production Stage Manager Signature: Jacy Cool RN Phone #:[phone] This is a permanent part of the Medical Record documented in this encounter Plan of Treatment Not on file documented as of this encounter Visit Diagnoses Not on filedocumented in this encounter
--- OUTSIDE RECORDS SUMMARY | 2024-09-17 11:36 | XMS_ITS | Encounter Summary ---
Author Organization [employer] ([place], [place], [place], [place]) Address [address] [place] [address] Care Team Providers Care Box Sealing Machine Feeder Name Role Phone Unavailable Primary Care Provider Unavailabl e Encounter Details Date Type Department Care Team (Late st Contact Info) Description 09/14/2018 Transcribed Document [facility] [place] [facility] [place] [address] ProviderGonzalez MD [facility] [place] [address] Social History Tobacco Use Types Packs/Day Years Used Date Smoking Tobacco: Never Assessed Comments Unknown Sex and Gender Information Value Date Recorded Sex Assigned at Not on file Legal Sex Female 6:02 PM CDT Gender Identity Not on file Sexual Orientation Not on file documented as of this encounter Miscellaneous Notes * Cerner Conversion Note - Gonzalez Muñoz MD - 09/14/2018 5:17 PM CDT Final Discharge Planning Entered On: 09/14/2018 17:19 EDT Performed On: 09/14/2018 17:17 EDT by MOHSEN REES Social Worker Final Discharge Planning Discharge Arrangements : Patient Post-Acute Information Patient Name: GREG BAUTISTA Gender: Female : [birth year] Age: 58 Years Monae Referral(s): Service: Organization: Business Address: Phone Number: [employer] - [address], [address] Transportation Needs : Car Follow Up Appointment Scheduled : Yes Patient/Family Notified of Plan : Yes Discharge To Care Management : Home Health Services (Related/SOC within 3 days)-06 MOHSEN REES Social Worker - 09/14/2018 17:17 EDT Final Narrative Note Final Narrative Note : Continue to follow for discharge needs and arrangements, chart reviewed, admission day 4, to discharge home today, on room air, HH arranged via [facility], regarding walker, received call from DME company and patient's insurance does not provide for DME coverage, spoke with patient about privately paying for walker, and patient states she is moving much better and does not feel she needs one after all. At discharge patient to be transported home via friend who will assist as needed. Pt, RN and family aware and in agreement with plan. MOHSEN REES, Gas Appliance Servicer Helper - 09/14/2018 17:17 EDT documented in this encounter Plan of Treatment Not on file documented as of this encounter Visit Diagnoses Not on filedocumented in this encounter
--- OUTSIDE RECORDS SUMMARY | 2024-09-17 11:36 | XMS_ITS | Encounter Summary ---
Author Organization [employer] ([place], [place], [place], [place]) Address [address] [place] [address] Care Team Providers Care Painting Instructor Name Role Phone Unavailable Primary Care Provider Unavailabl e Encounter Details Date Type Department Care Team (Late st Contact Info) Description 10/11/2019 Transcribed Document [facility] [place] Family Medicine [address] [place] [address] ProviderGonzalez MD [address] [place] [address] Social History Tobacco Use Types Packs/Day Years Used Date Smoking Tobacco: Never Assessed Comments Unknown Sex and Gender Information Value Date Recorded Sex Assigned at Not on file Legal Sex Female 6:02 PM CDT Gender Identity Not on file Sexual Orientation Not on file documented as of this encounter Miscellaneous Notes * Cerner Conversion Note - Gonzalez Muñoz MD - 10/11/2019 1:51 PM CDT Patient Education Materials Follows: Moderate Conscious Sedation, Adult, Care After These instructions provide you with information about [...] the procedure? After your procedure, it is common: ??? To feel sleepy for several hours. ??? To feel clumsy and have poor balance for several hours. ??? To have poor judgment for several hours. ??? To vomit if you eat too soon. Follow these instructions at home: For at least 24 hours after the procedure: ??? Do not: ? Participate in activities where you could fall or become injured. ? Drive. ? Use heavy machinery. ? Drink alcohol. ? Take sleeping pills or medicines that cause drowsiness. ? Make important decisions or sign legal documents. ? Take care of children on your own. ??? Rest. Eating and drinking ??? Follow the diet recommended by your health care provider. ??? If you vomit: ? Drink water, juice, or soup when you can drink without vomiting. ? Make sure you have little or no nausea before eating solid foods. General instructions ??? Have a responsible adult stay with you until you are awake and alert. ??? Take ufky-cog-pfkgmpj and prescription medicines only as told by your health care provider. ??? If you smoke, do not smoke without supervision. ??? Keep all follow-up visits as told by your health care provider. This is important. Contact a health care provider if: ??? You keep feeling nauseous or you keep vomiting. ??? You feel light-headed. ??? You develop a rash. ??? You have a fever. Get help right away if: ??? You have trouble breathing. This information is not intended to replace advice given to you by your health care provider. Make sure you discuss any questions you have with your health care provider. Document Released: 11/13/2013 Document Revised: 01/05/2018 Document Reviewed: 05/14/2016 [employer] Patient Education ? 2020 [employer] Procedures Vitrectomy, Care After This sheet gives you information about how to care for yourself after your procedure. Your health care provider may also give you more specific instructions. If you have problems or questions, contact your health care provider. What can I expect after the procedure? After the procedure, it is common to have: ??? A spot that looks like a bubble blocking your field of vision. This goes away over time. ??? A feeling like there is something in your eye. ??? Very blurry vision in the affected eye. ??? A dilated pupil. ??? Light sensitivity. ??? Difficulty seeing things up close. Follow these instructions at home: Eye care ??? Keep the area around your eye clean and dry. ??? If you were given an eye patch or eye shield, wear it as told by your health care provider. ??? If you were prescribed antibiotic eye drops, use them as told by your health care provider. Do not stop using the antibiotic even if your condition improves. ??? Wear sunglasses if your eyes are sensitive to light. ??? Do not use contact lenses until your health care provider approves. Activity ??? You may be told to stay in a certain position for a period of time, such as sitting up or lying on your back or on your stomach. Make sure you do this as told by your health care provider. ??? Rest as told by your health care provider. ??? Avoid strenuous physical activity for as long as told by your health care provider. This includes bending over, lifting anything that is heavier than 5 lb (2.3 kg) or the limit that you are told by your health care provider, and straining. ??? Ask your health care provider when you may have sex. ??? Do not drive until your health care provider approves. ??? Do not ride in an airplane until your health care provider approves. General instructions ??? Take or apply xtue-bag-zkkdkwj and prescription medicines only as told by your health care provider. This includes any eye drops. ??? Keep all follow-up visits as told by your health care provider. This is important. Contact a health care provider if: ??? Your eye becomes very red and painful. ??? You have any pus or discharge coming from your eye. ??? You have chills. ??? Your eyelid on either eye becomes swollen or stuck shut. Get help right away if: ??? You have a fever. ??? You have severe pain. ??? You see small, drifting specks in front of your vision. ??? Part of your vision is covered by what looks like a black curtain that you cannot see through. ??? You have a sudden loss of vision. Summary ??? After the procedure, it is common to have a spot that looks like a bubble blocking your field of vision. This goes away over time. ??? If you were given an eye patch or eye shield, wear it as told by your health care provider. ??? You may be told to stay in a certain position for a period of time, such as sitting up or lying on your back or on your stomach. Make sure you do this as told by your health care provider. ??? Take or apply ngke-weq-xtzeciq and prescription medicines only as told by your health care provider. This includes any eye drops. This information is not intended to replace advice given to you by your health care provider. Make sure you discuss any questions you have with your health care provider. Document Released: 10/11/2011 Document Revised: 02/08/2019 Document Reviewed: 02/11/2019 [employer] Patient Education ? 2020 [employer] documented in this encounter Plan of Treatment Not on file documented as of this encounter Visit Diagnoses Not on filedocumented in this encounter
--- OUTSIDE RECORDS SUMMARY | 2024-09-17 11:36 | XMS_ITS | Encounter Summary ---
Author Organization [employer] ([place], [place], [place], [place]) Address [address] [place] [address] Care Team Providers Care Decorator Mannequin Name Role Phone Unavailable Primary Care Provider Unavailabl e Encounter Details Date Type Department Care Team (Late st Contact Info) Description 09/24/2018 Transcribed Document [facility] [place] [address] [place] [address] ProviderGonzalez MD [address] [place] [address] Social History Tobacco Use Types Packs/Day Years Used Date Smoking Tobacco: Never Assessed Comments Unknown Sex and Gender Information Value Date Recorded Sex Assigned at Not on file Legal Sex Female 6:02 PM CDT Gender Identity Not on file Sexual Orientation Not on file documented as of this encounter Miscellaneous Notes * Cerner Conversion Note - Gonzalez ProviderMD - 09/24/2018 3:11 PM CDT Initial Discharge Planning Entered On: 09/24/2018 15:20 EDT Performed On: 09/24/2018 15:11 EDT by TALA ROMERO Rn-Quality Officer Initial Assessment I Previously Documented Living Environment : No qualifying data available. Living Situation : Home Patient Lives With : Alone Employment/Vocation : Disabled Emergency Contact #1 : jose suarez Emergency Contact #1 Phone Number : [phone] Emergency Contact #1 Relationship : friend Emergency Contact #2 : na Emergency Contact #2 Phone Number : na Emergency Contact #2 Relationship : na Medical Durable Power of Musical Instruments Assembler Name : none Legal Guardian : No TALA ROMERO Rn-Quality Officer - 09/24/2018 15:11 EDT Initial Assessment II Sensory and Motor Deficits : None Current Home Treatments and Equipment : None TALA ROMERO Rn-Quality Officer - 09/24/2018 15:11 EDT Discharge Needs I Anticipated Discharge Date : 09/26/2018 EDT Current Home Treatment/Equipment : Current Home Treatment/Equipment No qualifying data available. Post Acute/Home Treatments : None TALA ROMERO Rn-Quality Officer - 09/24/2018 15:11 EDT Discharge Needs II Professional Skilled Services : Professional Skilled Services No qualifying data available. Needs Assistance with Transportation : No Discharge Options Discussed with Patient : DME, Home Health TALA ROMERO Rn-Quality Officer - 09/24/2018 15:11 EDT Narrative Note Narrative Note : RRS: Moderate 46 fleet dispatch manager met with pt athe bedside, introduced self and role of CM. Pt lives alone, her friend Jose number listed on face sheet checks on her and will be her transport home. PLOF: Independent in adls, denies use of DME or HH/rehab stays in the past. Possible EGD with this admission. No dc needs at this time. Declines need for HH. CM will continue following. TALA ROMERO Rn-Quality Officer - 09/24/2018 15:11 EDT Electronically signed by Jae Reese Conversion Emergency Medicine Physician Assistant Cerner at 05/27/2022 9:35 AM CDT documented in this encounter Plan of Treatment Not on file documented as of this encounter Visit Diagnoses Not on filedocumented in this encounter
--- OUTSIDE RECORDS SUMMARY | 2024-09-17 11:36 | XMS_ITS | Encounter Summary ---
Author Organization [employer] ([place], [place], [place], [place]) Address [address] [place] [address] Care Team Providers Care Full Stack Php Developer Name Role Phone Unavailable Primary Care Provider Unavailabl e Encounter Details Date Type Department Care Team (Late st Contact Info) Description 09/25/2018 Transcribed Document [facility] [place] Family Medicine [address] [place] [address] ProviderGonzalez MD [address] [place] [address] Social History Tobacco Use Types Packs/Day Years Used Date Smoking Tobacco: Never Assessed Comments Unknown Sex and Gender Information Value Date Recorded Sex Assigned at Not on file Legal Sex Female 6:02 PM CDT Gender Identity Not on file Sexual Orientation Not on file documented as of this encounter Miscellaneous Notes * Cerner Conversion Note - Gonzalez ProviderMD - 09/25/2018 10:53 AM CDT [facility] PACU Summary Primary Physician: NURY OLGUIN MD Finalized Date/Time: 09/25/18 12:19:40 Pt. Name: GREG BAUTISTA D.O.B./Sex: 1960 Female Med Rec #: [id number] Physician: KATIE MARTINEZ, -INT Financial #: [id number] Pt. Type: O Room/Bed: [facility]/ Admit/Disch: 09/23/18 16:23:00 - Institution: [facility] PACU Case Times Entry 1 In PACU I 09/25/18 11:03:00 Ready for PACU 09/25/18 11:40:00 Discharge Discharge from PACU 09/25/18 11:40:00 I Last Modified By: Selam Ivan Rn-Traveler 09/25/18 12:19:39 [facility] Endo PACU Case Times Audit 09/25/18 12:19:39 Enamel Dipper: [id number] Modifier: [id number] <+> 1 Ready for PACU Discharge <+> 1 Discharge from PACU I Finalized By: Selam Ivan, Rn-Traveler Document Signatures Signed By: Selam Ivan Rn-Traveler 09/25/18 12:19 Electronically signed by [facility] Conversion Steward/Stewardess Second Class Cerner at 05/27/2022 9:46 AM CDT documented in this encounter Plan of Treatment Not on file documented as of this encounter Visit Diagnoses Not on filedocumented in this encounter
--- OUTSIDE RECORDS SUMMARY | 2024-09-17 11:36 | XMS_ITS | Encounter Summary ---
Author Organization [employer] ([place], [place], [place], [place]) Address [address] [place] [address] Care Team Providers Care Capacitor Repairer Name Role Phone Unavailable Primary Care Provider Unavailabl e Encounter Details Date Type Department Care Team (Late st Contact Info) Description 09/12/2018 Transcribed Document [facility] [place] Family Medicine [address] [place] [address] ProviderGonzalez MD [address] [place] [address] Social History Tobacco Use Types Packs/Day Years Used Date Smoking Tobacco: Never Assessed Comments Unknown Sex and Gender Information Value Date Recorded Sex Assigned at Not on file Legal Sex Female 6:02 PM CDT Gender Identity Not on file Sexual Orientation Not on file documented as of this encounter Miscellaneous Notes * Cerner Conversion Note - Historical ProviderMD - 09/12/2018 5:00 PM CDT Chart Check - Review Order Profile Entered On: 09/12/2018 15:40 EDT Performed On: 09/12/2018 17:00 EDT by Cherry Miles RN Chart Check Powerplans Initiated/Discontinued as Appropriate : Yes All Active Orders Reviewed : Yes Cherry Miles RN - 09/12/2018 15:40 EDT documented in this encounter Plan of Treatment Not on file documented as of this encounter Visit Diagnoses Not on filedocumented in this encounter
--- OUTSIDE RECORDS SUMMARY | 2024-09-17 11:36 | XMS_ITS | Encounter Summary ---
Author Organization [employer] ([place], [place], [place], [place]) Address [address] [place] [address] Care Team Providers Care Permit Technician Name Role Phone Unavailable Primary Care Provider Unavailabl e Encounter Details Date Type Department Care Team (Late st Contact Info) Description 09/12/2018 Transcribed Document [facility] [place] [address] [place] [address] ProviderGonzalez MD [address] [place] [address] Social History Tobacco Use Types Packs/Day Years Used Date Smoking Tobacco: Never Assessed Comments Unknown Sex and Gender Information Value Date Recorded Sex Assigned at Not on file Legal Sex Female 6:02 PM CDT Gender Identity Not on file Sexual Orientation Not on file documented as of this encounter Miscellaneous Notes * Cerner Conversion Note - Historical ProviderMD - 09/12/2018 9:48 AM CDT [facility] Authorization Entered On: 09/12/2018 9:49 EDT Performed On: 09/12/2018 9:48 EDT by MILES MAS Rn-Utilization Review Primary Insurance Authorization Authorization and Policy Numbers : Insurance 1 Health Plan: [employer] Policy Number: [id number] Authorization Number: Insurance Primary Name : [employer] Policy Number: [id number] Authorization Status-Primary : Pending information Authorization Comments-Primary : Per Liseth Hernandez, [facility] has been contacted for evaluation. Historical Authorization Comments-Primary : Comment 1: [facility] indemnity policy listed. PA notified to obtain insurance information. (MILES MAS, Rn-Utilization Review 09/11/2018 10:26) MILES MAS, Rn-Utilization Review - 09/12/2018 9:48 EDT documented in this encounter Plan of Treatment Not on file documented as of this encounter Visit Diagnoses Not on filedocumented in this encounter
--- OUTSIDE RECORDS SUMMARY | 2024-09-17 11:36 | XMS_ITS | Encounter Summary ---
Author Organization [employer] ([place], [place], [place], [place]) Address [address] [place] [address] Care Team Providers Care Occupational Medicine Specialist Name Role Phone Unavailable Primary Care Provider Unavailabl e Encounter Details Date Type Department Care Team (Late st Contact Info) Description 09/15/2018 Transcribed Document [facility] [place] Family Medicine [address] [place] [address] ProviderGonzalez MD [address] [place] [address] Social History Tobacco Use Types Packs/Day Years Used Date Smoking Tobacco: Never Assessed Comments Unknown Sex and Gender Information Value Date Recorded Sex Assigned at Not on file Legal Sex Female 6:02 PM CDT Gender Identity Not on file Sexual Orientation Not on file documented as of this encounter Miscellaneous Notes * [employer] Conversion Note - Historical ProviderMD - 09/15/2018 2:00 AM CDT Dispatcher Tow Truck Details Entered On: 09/15/2018 2:15 EDT Performed On: 09/15/2018 2:00 EDT by ELDA GAYTAN RN Order Details Transport Mode Order Detail : Wheelchair Isolation Precautions Order Detail : Standard Precautions Order Detail : 0 IV Order Detail : 1 Oxygen Order Detail : 0 Nurse Collect Order Detail : 0 Lift/Transfer : Independent Central Line Order Detail : No Room Service : Appropriate Arterial Line : No ELDA GAYTAN RN - 09/15/2018 2:14 EDT documented in this encounter Plan of Treatment Not on file documented as of this encounter Visit Diagnoses Not on filedocumented in this encounter
--- OUTSIDE RECORDS SUMMARY | 2024-09-17 11:36 | XMS_ITS | Encounter Summary ---
Author Organization [employer] ([place], [place], [place], [place]) Address [address] [place] [address] Care Team Providers Care Curb Worker Name Role Phone Unavailable Primary Care Provider Unavailabl e Encounter Details Date Type Department Care Team (Late st Contact Info) Description 09/12/2018 Transcribed Document [facility] [place] Family Medicine [facility] [place] [address] ProviderGonzalez MD [facility] [place] [address] Social History Tobacco Use Types Packs/Day Years Used Date Smoking Tobacco: Never Assessed Comments Unknown Sex and Gender Information Value Date Recorded Sex Assigned at Not on file Legal Sex Female 6:02 PM CDT Gender Identity Not on file Sexual Orientation Not on file documented as of this encounter Miscellaneous Notes * [employer]ner Conversion Note - Gonzalez ProviderMD - 09/12/2018 3:09 PM CDT On Going Discharge Planning Entered On: 09/12/2018 15:15 EDT Performed On: 09/12/2018 15:09 EDT by MOHSEN REES Social Worker Care Management Progress Note Discharge Arrangements : Patient Post-Acute Information Patient Name: GREG BAUTISTA Gender: Female : [birth year] Age: 58 Years No Post-Acute Placement(s) Listed No Post-Acute Service(s) Listed No [place] Referral(s) Listed Discharge Options Discussed with Patient : Discharge transportation, DME, Home Health, Short term rehabilitation Barriers to Discharge Identified : Clinical Condition of Patient Is the Patient Meeting Medical Necessity : Yes MOHSEN REES Metal Machinist - 09/12/2018 15:09 EDT Narrative Progress Note Narrative Progress Note : Continue to follow for discharge needs and arrangements, chart reviewed, admission day 2, on room air, K+=2.9, Crea=1.3, s/p lymph node bx (results=pending) PT/OT following (recommend rolling walker for home use), plan at discharge remains to return home with assist of friend. CM will continue to follow. MOHSEN REES, Metal Machinist - 09/12/2018 15:09 EDT Electronically signed by [facility] Conversion Instructional Technology Instructor Cerner at 05/27/2022 9:46 AM CDT documented in this encounter Plan of Treatment Not on file documented as of this encounter Visit Diagnoses Not on filedocumented in this encounter
--- OUTSIDE RECORDS SUMMARY | 2024-09-17 11:36 | XMS_ITS | Encounter Summary ---
Author Organization [employer] ([place], [place], [place], [place]) Address [address] [place] [address] Care Team Providers Care Stunt Double Name Role Phone Unavailable Primary Care Provider Unavailabl e Encounter Details Date Type Department Care Team (Late st Contact Info) Description 09/12/2018 Transcribed Document [facility] [place] Family Medicine [address] [place] [address] ProviderGonzalez MD [address] [place], [place] [address] Social History Tobacco Use Types Packs/Day Years Used Date Smoking Tobacco: Never Assessed Comments Unknown Sex and Gender Information Value Date Recorded Sex Assigned at Not on file Legal Sex Female 6:02 PM CDT Gender Identity Not on file Sexual Orientation Not on file documented as of this encounter Miscellaneous Notes * [employer] Conversion Note - Historical ProviderMD - 09/12/2018 2:00 AM CDT Petroleum Laboratory Technician Details Entered On: 09/12/2018 2:28 EDT Performed On: 09/12/2018 2:00 EDT by Lola Oswald RN Order Details Transport Mode Order Detail : Wheelchair Isolation Precautions Order Detail : Standard Precautions Order Detail : 0 IV Order Detail : 1 Oxygen Order Detail : 0 Nurse Collect Order Detail : 0 Lift/Transfer : Independent Central Line Order Detail : No Room Service : Appropriate Arterial Line : No Lola Oswald RN - 09/12/2018 2:28 EDT documented in this encounter Plan of Treatment Not on file documented as of this encounter Visit Diagnoses Not on filedocumented in this encounter
--- OUTSIDE RECORDS SUMMARY | 2024-09-17 11:36 | XMS_ITS | Encounter Summary ---
Author Organization [employer] ([place], [place], [place], [place]) Address [address] [place] [address] Care Team Providers Care Churn Tender Name Role Phone Unavailable Primary Care Provider Darin ash Encounter Details Date Type Department Care Team (Late st Contact Info) Description 09/12/2018 Transcribed Document [facility] [place] Family Medicine [facility] [place] [address] ProviderGonzalez MD [facility] [place] [address] Social History Tobacco Use Types [...] ProviderMD - 09/12/2018 10:47 AM CDT Evaluation, Occupational Therapy Entered On: 09/12/2018 14:36 EDT Performed On: 09/12/2018 14:06 EDT by CORONA HERRERA, OTR/L General Information, OT Visit Type, OT : Initial evaluation Patient Orders : Order Date Order Ordering 09/12/2018 10:47 OT Evaluation and Treatment Ordered By: DHARA MAGANA MD Active Diagnoses : No Qualifying Diagnoses Therapy Diagnosis, OT : Decreased I with ADLs and fxnl mobility secondary to pancreatitis, nausea, and vomiting, resulting in fxnl decline. Onset of Problem, OT : 09/12/2018 EDT Admission Date : 09/10/2018 20:13 Co-treated by, OT : Physical Therapist Personal Devices : Personal Devices No Devices Recorded Assistive Devices : Assistive Devices No Devices Recorded Isolation Maintained : Contact General Information Comment, OT : 58 yo female who was admitted to [facility] on 09/10 for pancreatitis, nausea, and vomiting. 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 Dx: progressive sarcoidosis vs. lymphoma vs. carcinoma. CORONA HERRERA OTR/Jeremiah - 09/12/2018 14:29 EDT General Status Patient Received Status : Supine in bed Treatment Start Time : 09/12/2018 13:51 EDT Patient Left Status : Supine in bed, RN/PCT informed, Communication board completed, All needs met and within reach RN/PCT Informed Comment : MARY Carey Treatment End Time : 09/12/2018 14:06 EDT Treatment Time : 15 Minute(s) CORONA HERRERA OTR/Jeremiah - 09/12/2018 14:29 EDT History and Environment, OT Living Situation, Therapy : Home Patient Lives With : Alone Persons Assisting Patient at Home : Alone Professional Skilled Services : None Persons Providing Information : Patient Home Equipment, Therapy : Bar, grab Home Setup : One story Stairs : No CORONA HERRERA OTR/Jeremiah 09/12/2018 14:29 EDT Prior LOF Bathing, OT : Independent Prior LOF Bed Mobility : Independent Prior LOF Upper Body Dressing, OT : Independent Prior LOF Lower Body Dressing, OT : Independent Prior LOF Toileting : Independent Prior LOF Transfer : Independent Prior LOF Grooming, OT : Independent Prior LOF for IADLs, OT : Independent CORONA HERRERA OTR/Jeremiah 09/12/2018 14:29 EDT Upper Extremity Right UE Active ROM : WFL Right UE Strength : WFL Left UE Active ROM : WFL Left UE Strength : WFL Upper Extremity Strength Impaired : No Right UE Strength : [facility] Left UE Strength : WFL Upper Extremity Comment : BUE ROM and MMT WFL CORONA HERRERA OTR/Jeremiah - 09/12/2018 14:29 EDT Self Care/Home Management, OT Self Feeding Assist Level, OT : Independent, complete Grooming Assist Level, OT : Independent, complete Bathing Assist Level, OT : Supervision or set-up Upper Body Dressing Assist Level, OT : Independent, complete Lower Body Dressing Assist Level, OT : Supervision or set-up Toileting Assist Level : Independent, complete Toilet Transfer Assist Level : Supervision or set-up CORONA HERRERA OTR/09/12/2018 14:29 EDT Mobility Device/Prosthesis/Wt Bearing Weight Bearing Status Maintained : Yes Weight Bearing Status : As tolerated CORONA HERRERA OTR09/12/2018 14:29 EDT Functional Mobility Mobility Grid Supine to Sit : Rehab Modified independence Sit to Stand : Supervision/set-up Stand to Sit : Supervision/set-up Sit to Supine : Rehab Modified independence CORONA HERRERA, OTR09/12/2018 14:29 EDT Sit to Stand Device : Belt, gait Stand to Sit Device : Belt, gait CORONA HERRERA, OTR09/12/2018 14:29 EDT Cognition Assessment, OT Orientation : Oriented x 4 Cognition Assessment, OT : Intact Comprehension Assessment, OT : Intact SINDYDANIELCORONA VILLEDA, OTR09/12/2018 14:29 EDT Visual/Perceptual/Vestibular, OT Vision Assessment, OT : Other: impaired secondary to sarcoidosis CLARISSA HERRERAMARY CATHI Ash09/12/2018 14:29 EDT Education OT Occupational Therapy Education Grid Activity of Daily Living Training : Needs further teaching Functional Mobility Training : Needs further teaching Role of Occupational Therapy : Verbalizes understanding SINDYDANIELRONALCORONA CATHI Ash09/12/2018 14:29 EDT Teaching/Learning Assessment Barriers To Learning : Vision Impairment Individuals Taught : Patient Readiness to Learn : Cooperative Readiness to Learn : Explanation Learning Style Preferences Patient : None CORONA HERRERACATHI09/12/2018 14:29 EDT Indication Assessment, OT Occupational Therapy Indicated : Yes Problem List, OT : Impaired, activities daily living, Impaired, endurance tolerance, Impaired functional mobility, Impaired, standing balance, Impaired, strength, Impaired, transfers Potential Barriers, OT : Vision Impairment Rehabilitation Potential, OT : Good SHARONCORONA OTStephanie09/12/2018 14:29 EDT Plan of Care, OT OT Tx Plan/Goals Established w Patient : Yes OT Frequency Rehab : Five days per week OT Duration Rehab : Fourteen days OT Treatments Planned : Activities of daily living, Balance training, Functional mobility training, Safety education, Therapeutic activities, Therapeutic exercises SHARON CLARISSACATHI VALENCIA09/12/2018 14:29 EDT Fpc Goals, OT Grooming LTG Grid Goal #1 Activity : Grooming Cues : No cues Assist : Independent, complete Date to Meet : 09/26/2018 EDT Goal Status : Initial goal CORONA HERRERA OTR/Jeremiah - 09/12/2018 14:29 EDT Bathing LTG Grid Goal #1 Activity : Bathing Cues : No cues Assist : Independent, modified Equipment : Long handled sponge Date to Meet : 09/26/2018 EDT Goal Status : Initial goal CORONA HERRERA OTR/Jeremiah - 09/12/2018 14:29 EDT Dressing, Lower Body LTG Grid Goal #1 Activity : Dressing, Lower Body Cues : No cues Assist : Independent, complete Date to Meet : 09/26/2018 EDT Goal Status : Initial goal CORONA HERRERA OTR/Jeremiha - 09/12/2018 14:29 EDT Toilet Transfer LTG Grid Goal #1 Activity : Toilet Transfer, Ambulatory Cues : No cues Assist : Independent, complete Date to Meet : 09/26/2018 EDT Goal Status : Initial goal CORONA HERRERA OTR/Jeremiah - 09/12/2018 14:29 EDT Other LTG Grid Goal #1 Goal : Pt will stand independently for >8 mins for fxnl task without LOB or need for rest break. Date to Meet : 09/26/2018 EDT Goal Status : Initial goal CORONA HERRERA OTR/Jeremiah - 09/12/2018 14:29 EDT Treatment Note Subjective Comment : Pt and RN okay'd OT eval at this time Patient's Response to Treatment : Pt tolerated OT eval well Additional Objective Information : Pt supine in bed upon OT arrival. Pt to EOB with Mod I using bed rails and HOB elevated. Pt stood with supervision. Pt walked ~20ft with Mni A via LEAD CONSULTANT. Pt then walked additional 230ft with RWx and supervision. Pt returned to room and sat EOB with supervision. Pt transferred from EOB to supine with Mod I with HOB elevated. Pt left supine in bed with call light/phone within reach. Assessment : Pt would benefit from skilled OT services to improve fxnl status. Plan for Treatment : See POC tab CORONA HERRERA OTR/Jeremiah - 09/12/2018 14:29 EDT Pain Assessment Pain Scaled Used : 0-10 Pain scale Pain Score Pre-Intervention : 0 CORONA HERRERA OTR/Jeremiah - 09/12/2018 14:29 EDT Image 1 - Images currently included in the form version of this document have not been included in the text rendition version of the form. Anticipated Discharge Needs, OT/PT Anticipated Discharge to : Home, independently Recommend Continued Therapy at Discharge : No CORONA HERRERA OTR/Jeremiah - 09/12/2018 14:[address] [facility] OT Charges OT Eval Moderate Complexity : 1 CORONA HERRERA OTR/Jeremiah - 09/12/2018 14:29 EDT documented in this encounter Plan of Treatment Not on file documented as of this encounter Visit Diagnoses Not on filedocumented in this encounter
--- OUTSIDE RECORDS SUMMARY | 2024-09-17 11:36 | XMS_ITS | Encounter Summary ---
Author Organization [employer] ([place], [place], [place], [place]) Address [address] [place] [address] Care Team Providers Care Retail Product Advisor Name Role Phone Unavailable Primary Care Provider Unavailabl e Encounter Details Date Type Department Care Team (Late st Contact Info) Description 09/15/2018 Transcribed Document [facility] [place] Family Medicine [address] [place] [address] ProviderGonzalez MD [address] [place] [address] Social History Tobacco Use Types Packs/Day Years Used Date Smoking Tobacco: Never Assessed Comments Unknown Sex and Gender Information Value Date Recorded Sex Assigned at Not on file Legal Sex Female 6:02 PM CDT Gender Identity Not on file Sexual Orientation Not on file documented as of this encounter Miscellaneous Notes * Cerner Conversion Note - Gonzalez ProviderMD - 09/15/2018 9:27 AM CDT Stroke/Warfarin Instructions Entered On: 09/15/2018 9:27 EDT Performed On: 09/15/2018 9:27 EDT by MARJAN COBB RN Stroke/Warfarin Instructions Stroke/TIA Discharge Ins : N/A Warfarin Discharge Ins : N/A MARJAN COBB RN - 09/15/2018 9:27 EDT documented in this encounter Plan of Treatment Not on file documented as of this encounter Visit Diagnoses Not on filedocumented in this encounter
--- OUTSIDE RECORDS SUMMARY | 2024-09-17 11:36 | XMS_ITS | Encounter Summary ---
Author Organization [employer] ([place], [place], [place], [place]) Address [address] [place] [address] Care Team Providers Care Developer Programmer Analyst Name Role Phone Unavailable Primary Care Provider Unavailabl e Encounter Details Date Type Department Care Team (Late st Contact Info) Description 09/25/2018 Transcribed Document [facility] [place] Family Medicine [address] [place] [address] ProviderGonzalez MD [facility] [place] [address] Social History Tobacco Use Types Packs/Day Years Used Date Smoking Tobacco: Never Assessed Comments Unknown Sex and Gender Information Value Date Recorded Sex Assigned at Not on file Legal Sex Female 6:02 PM CDT Gender Identity Not on file Sexual Orientation Not on file documented as of this encounter Miscellaneous Notes * [employer]ner Conversion Note - Gonzalez ProviderMD - 09/25/2018 4:07 PM CDT Rapid Response Team Documentation Entered On: 09/25/2018 16:08 EDT Performed On: 09/25/2018 16:07 EDT by DANIA ROCK RN Rapid Response Event Time Rapid Response Team Called : 09/25/2018 15:30 EDT Rapid Response Team Arrival Time : 09/25/2018 15:32 EDT Rapid Response Team Event End Time : 09/25/2018 15:42 EDT Rapid Response Event Intiated By : Hospital Staff Rapid Response Team Initiation Reason : Peripheral IV start Rapid Response Event Location Type : Other: 4a room 458 Rapid Response Admission Diagnosis : Nausea with vomiting, unspecified Nausea with vomiting, unspecified Rapid Response Medical Background : At risk for sleep apnea (Medical) Rapid Response Allergies : Substance Category Reactions Severity No Known Allergies Drug No Known Medication Allergies Drug Rapid Response Recent Vital Signs : 09/25/2018 11:53 Systolic Blood Pressure 179 09/25/2018 11:53 Diastolic Blood Pressure 96 09/25/2018 11:53 Heart Rate Monitored 86 09/25/2018 13:49 Heart Rate, Apical 88 09/25/2018 11:53 Respiratory Rate 18 09/25/2018 11:53 Temperature, Fahrenheit 98.4 09/25/2018 11:53 Oxygen Saturation 94 Rapid Response Recent Lab Results : 09/25/2018 06:11 Sodium Level 141 (136-146) 09/25/2018 06:11 Potassium Level LOW 3.0 (3.5-5.1) 09/25/2018 06:11 Calcium Level 9.3 (8.4-10.1) 09/24/2018 07:02 Magnesium Level 2.0 (1.5-2.4) 09/25/2018 06:11 Chloride Level 109 (102-112) 09/25/2018 06:11 Carbon Dioxide Level 25 (21-32) 09/25/2018 06:11 Blood Urea Nitrogen LOW 6 (7-22) 09/25/2018 06:11 Creatinine Level 0.90 (0.55-1.02) 09/24/2018 07:02 PT 11.8 (9.6-12.0) 09/24/2018 07:02 INR 1.1 (0.9-1.1) 09/25/2018 06:11 Hgb LOW 9.8 (11.2-15.7) 09/25/2018 06:11 Hct LOW 30.5 (34.1-44.9) 09/25/2018 06:11 RBC LOW 3.69 (3.93-5.22) 09/25/2018 06:11 WBC 4.8 (4.5-10.5) 09/25/2018 06:11 Platelet Count 218 (163-369) 09/24/2018 07:02 Amylase Level 26 (25-115) 09/24/2018 07:02 Lipase Level 75 (73-393) Weight/BMI : Clinical Weight/BMI CLINICALWEIGHT: 75.45 kg (09/23/18 16:22:00) Body Mass Index: 29.5 kg/m2 High (09/23/18 16:22:00) Rapid Response Team Recommendation/Response : # 20 gauge IV started in right AC with 1 attempt Patient Condition at End of Event : No S/S of Acute Distress Patient Disposition Post Event : No change in location/level of care Rapid Response Developer Programmer Analyst #1 : DANIA ROCK RN DANIA ROCK RN - 09/25/2018 16:07 EDT documented in this encounter Plan of Treatment Not on file documented as of this encounter Visit Diagnoses Not on filedocumented in this encounter
--- OUTSIDE RECORDS SUMMARY | 2024-09-17 11:36 | XMS_ITS | Encounter Summary ---
Author Organization [employer] ([place], [place], [place], [place]) Address [address] [place] [address] Care Team Providers Care Predictive Maintenance Technician Name Role Phone Unavailable Primary Care Provider Unavailabl e Encounter Details Date Type Department Care Team (Late st Contact Info) Description 10/11/2019 Transcribed Document [facility] [address] [place] [address] ProviderGonzalez MD [place] [address] Social History Tobacco Use Types [...] 10/11/2019 11:50 AM CDT WINTER Main OR IntraOp Summary Primary Physician: SREEDHAR PANIAGUA MD Finalized Date/Time: 10/11/19 13:39:14 Pt. Name: GREG BAUTISTA D.O.B./Sex: 1960 Female Med Rec #: [id number] Physician: SREEDHAR PANIAGUA MD Financial #: [id number] Pt. Type: O Room/Bed: Admit/Disch: 10/11/19 07:55:00 - [place]: [facility]Op Case Attendance Entry 1 Entry 2 Entry 3 Case Attendee SREEDHAR PANIAGUA MD SPARKMAN, ERICA G, RN TAYLOR, SARAH, ST Role Performed Surgeon/Proceduralist, Food Safety Director, First Scrub, First First Time In 10/11/19 11:32:00 10/11/19 11:40:00 10/11/19 11:40:00 Time Out 10/11/19 13:43:00 10/11/19 12:15:00 10/11/19 12:07:00 Procedure Vitrectomy Posterior Vitrectomy Posterior Vitrectomy Posterior with Endolaser with Endolaser with Endolaser Other Attendee break lunch relief Superficial Wound Closed By: Last Modified By: Anuradha Arias, Anuradha Chandler, Anuradha Chandler, Rn 10/11/19 13:39:00 10/11/19 12:31:11 10/11/19 11:50:22 Entry 4 Entry 5 Entry 6 Case Attendee MAYA NÚÑEZ, LEXII SAXENA DONEGHY, KARRI (REF) -OPT Role Performed LACE SEWER/Nurse Cultured [employer]ble Products Maker Fellow Scrub, First Time In 10/11/19 11:32:00 10/11/19 11:32:00 10/11/19 11:32:00 Time Out 10/11/19 13:43:00 10/11/19 13:43:00 10/11/19 13:43:00 Procedure Vitrectomy Posterior Vitrectomy Posterior Vitrectomy Posterior with Endolaser with Endolaser with Endolaser Other Attendee Superficial Wound Closed By: Last Modified By: Anuradha Arias Rn Placke, Lorraine M, Anuradha Chandler, Reema 10/11/19 13:39:00 10/11/19 13:39:00 10/11/19 13:39:00 Entry 7 Case Attendee Anuradha Arias Rn Role Performed LACE SEWER/Nurse Cultured [employer]ble Products Maker Time In 10/11/19 11:32:00 Time Out 10/11/19 13:43:00 Procedure Vitrectomy Posterior with Endolaser Other Attendee Superficial Wound Closed By: Last Modified By: Anuradha Arias Rn 10/11/19 13:39:00 [facility] IntraOp Case Attendance Audit 10/11/19 13:39:00 Primary Mill Roller: [id number] Modifier: [id number] <+> Time Out 1 <*> Procedure Vitrectomy Posterior with Endolaser 2 <*> Procedure Vitrectomy Posterior with Endolaser 3 <*> Procedure Vitrectomy Posterior with Endolaser 4 <+> Time Out 4 <*> Procedure Vitrectomy Posterior with Endolaser 5 <+> Time Out 5 <*> Procedure Vitrectomy Posterior with Endolaser 6 <+> Time Out 6 <*> Procedure Vitrectomy Posterior with Endolaser 7 <+> Time Out 7 <*> Procedure Vitrectomy Posterior with Endolaser 10/11/19 12:31:11 Primary Mill Roller: [id number] Modifier: [id number] <+> Time Out 2 <*> Procedure Vitrectomy Posterior with Endolaser 2 <+> Other Attendee 10/11/19 12:16:53 Primary Mill Roller: [id number] Modifier: [id number] <+> Time Out 3 <*> Procedure Vitrectomy Posterior with Endolaser 10/11/19 11:52:45 Primary Mill Roller: [id number] Modifier: [id number] <+> 1 Procedure 2 <*> Procedure Vitrectomy Posterior with Endolaser 3 <*> Procedure Vitrectomy Posterior with Endolaser 4 <+> Time In 4 <*> Procedure Vitrectomy Posterior with Endolaser 5 <+> Time In 5 <*> Procedure Vitrectomy Posterior with Endolaser 6 <+> Time In 6 <*> Procedure Vitrectomy Posterior with Endolaser 7 <+> Time In 7 <*> Procedure Vitrectomy Posterior with Endolaser [facility] IntraOp Case Times Entry 1 Patient In Room Time 10/11/19 11:32:00 Out Room Time 10/11/19 13:43:00 Anesthesia Start Time 10/11/19 11:32:00 Stop Time 10/11/19 13:43:00 Anesthesia Ready 10/11/19 11:32:00 Surgery / Procedure Times Start Time 10/11/19 11:50:00 Stop Time 10/11/19 13:38:00 Last Modified By: Anuradha Arias Rn 10/11/19 11:46:37 [facility] IntraOp Case Times Audit 10/11/19 13:38:59 Primary Mill Roller: [id number] Modifier: [id number] <+> 1 Out Room Time <+> 1 Stop Time 10/11/19 13:38:32 Primary Mill Roller: [id number] Modifier: [id number] <+> 1 Stop Time 10/11/19 11:50:27 Primary Mill Roller: [id number] Modifier: [id number] <+> 1 Start Time [facility] IntraOp Communication Entry 1 Communication To Family/Significant other Comment communication board in waiting room Last Modified By: Anuradha Arias Rn 10/11/19 11:50:40 [facility] IntraOp Counts Verification Entry 1 Procedure Vitrectomy Posterior with Endolaser Count Info Count Type Sharps Counts Verification Baseline/pre-procedure Sequence Count Results Correct, surgeon notified Counts Performed By Count Performed By FLAVIO WINTER (REF) (Scrub) Count Performed By Anuradha Arias Rn (RN) Last Modified By: Anuradha Arias Rn 10/11/19 11:51:00 [facility] IntraOp Counts Verification Audit 10/11/19 12:18:48 Primary Mill Roller: [id number] Modifier: [id number] 1 <*> Procedure Vitrectomy Posterior with Endolaser 1 <*> Count Type Sponge, Sharps [facility] IntraOp Counts Final Entry 1 Procedure Vitrectomy Posterior with Endolaser Final Count Info Count Type Sharps Counts Verification Skin Closure/end of Sequence procedure Count Results Correct, surgeon notified Counts Performed By Count Performed By FLAVIO WINTER (REF) (Scrub) Count Performed By Anuradha Arias Rn (RN) Last Modified By: Anuradha Arias Rn 10/11/19 12:18:37 [facility] IntraOp Counts Final Audit 10/11/19 12:18:37 Primary Mill Roller: [id number] Modifier: [id number] 1 <*> Procedure Vitrectomy Posterior with Endolaser 1 <*> Count Type Sponge, Sharps 1 <+> Counts Verification Sequence [facility] IntraOp Delays Entry 1 Delay Reason No Delay Duration 0 Minute(s) Last Modified By: Anuradha Arias Rn 10/11/19 11:51:17 [facility] IntraOp Departure from OR Entry 1 Integumentary Assessment Integumentary WDL Assessment WDL Transfer/Handoff Transfer to Ambulatory unit, Phase II Handoff Method Bedside/Face to face Post-op Transport Stretcher/Gurney Via Patient Transport MAYA NÚÑEZ CRNA, Accompanied by OMER MCKEON RN Last Modified By: Anuradha Arias Rn 10/11/19 11:51:22 [facility] IntraOp Dressing and Packing Entry 1 Type Dressing Location OPERATIVE EYE Wound Dressing Item Eye Pad, Eye Shield Tape Type Other Applied By SREEDHAR PANIAGUA MD Other Comments TRANSPORE TAPE Last Modified By: Anuradha Arias Rn 10/11/19 11:51:25 [facility] IntraOp Dressing and Packing Audit 10/11/19 11:51:25 Primary Mill Roller: [id number] Modifier: [id number] <+> 1 Tape Type <+> 1 Applied By <+> 1 Other Comments [facility] IntraOp Fire Risk Assessment Entry 1 Fire Info Surgical Site or 1- Yes Incision Above the Xyphoid Open O2 Source 1- Yes (Mask or Cannula) Available Ignition 1- Yes (ESU, Laser, Light Source) Fire Risk 3 Assessment Score Fire Score Fire Risk Yes Assessment Complete Fire Risk OMER MCKEON RN Assessment Verified By Fire Risk 10/11/19 11:51:00 Assessment Verified Date/Time Fire Risk High Risk Protocol Yes Implemented Standard Fire Yes Safety Precautions Followed Last Modified By: Anuradha Arias Rn 10/11/19 11:51:27 [facility] IntraOp General Case Principal Bioinformatics Specialist 1 Case Information OR OR 08 SJE Case Level 1 Room Verified Yes Wound Class I - Clean Specialty SN Ophthalmology Anesthesia Type MAC ASA Class 3 Diagnosis Preop Diagnosis pdr, vmt Postop Same As Preop Yes Postop Diagnosis pdr, vmt Last Modified By: Anuradha Arias Rn 10/11/19 11:51:56 [facility] IntraOp Intraoperative Assessment Entry 1 Handoff Method Other Valid History / Yes Physical in Chart Preoperative Yes Checklist Reviewed/Evaluated Allergies Reviewed Yes Patient is Latex No Sensitive Isolation Not applicable Precautions Noted Level of WDL Consciousness (WDL = Alert, Oriented to Person, Place, and Time) Skin Assessment Yes Verified Present Upon IVs Arrival to OR Last Modified By: Anuradha Arias Rn 10/11/19 11:51:58 [facility] IntraOp Intraoperative Equipment Entry 1 Equipment Equipment Other ID Number [id number] Intraop Monitoring Electrocardiogram Three lead placement (ECG) Electrode Placement Blood Pressure Non-Invasive BP Device Source Antiembolic Devices Scopes Photo/Video Documentation Photo No Video No Last Modified By: Anuradha Arias Rn 10/11/19 11:52:00 [facility] IntraOp Laser Data/Safety Entry 1 Procedure Vitrectomy Posterior with Endolaser Laser Data Laser Type Argon Laser Mode Repeat Pulse Laser Mode Set By LEXII DAVE MD-OPT Microscope Used? Yes Hand Piece/Contact Yes Tip Used Laser Fiber Used Yes Laser Safety Procedure personnel Measures Included received laser safety information, [place] of water/Saline immediately available, Fire extinguisher location noted, Laser Caution placards placed on all doors, Laser safe instrumentation utilized, Specific laser safety precautions implemented, Rinse prep thoroughly from surgical site, Smoke evacuator tested/used, Suction evacuator with laser filter, Wet towels and sponges used to protect patient and drapes, Windows covered, Laser tested/calibrated, Appropriate eye protection for patient, Appropriate eye protection for staff, Appropriate eye protection for surgeon, Laser safe ET tube as applicable, High-filtration mask available, No flammable liquid around surgical area, Secure laser operation steen, Implement fire protection measures Laser Data/Safety Lmnhyvlk=642, Comment lfmkgfeo=078, Yziml=609, xbxyzh=[id number] Last Modified By: Anuradha Arias Rn 10/11/19 13:38:28 [facility] IntraOp Medication Admin Entry 1 Entry 2 Entry 3 Medication/Irrigant Ancef 1Gm powder - Lidocaine 4% 5 ml Marcaine 0.75% [id number] injectable - [id number] 7.5mg/1ml 10ml injection - [id number] Combo Med List 1 - Combo Med 1 - Combo Med Time Administered Route of SUBCONJ LOCAL LOCAL Administration Dose Dose 5 4.5 4.5 Unit of Measure ml ml ml Volume QS QS QS Administered By LEXII DAVE ABOU-JAOUDE, MICHELLE, ABOU-JAOUDE, MICHELLE, -OPT MD-OPT MD-OPT Procedure Irrigation Irrigant Volume In Irrigant Volume Out Last Modified By: Anuradha Arias Rn Placke, Lorraine M, Rn Placke, Lorraine M, Rn 10/11/19 11:52:28 10/11/19 11:52:28 10/11/19 11:52:28 Entry 4 Entry 5 Entry 6 Medication/Irrigant BSS 15ml - [id number] BSS Plain 500ml - Hylenex 150units/ml [id number] Combo Med List 1 - Combo Med Time Administered Route of TOPICAL INTRAOCCULAR LOCAL Administration Dose Dose 15 500 1 Unit of Measure ml ml ml Volume QS QS QS Administered By KATY GOLDBERG ST ABOU-JAOUDE, MICHELLE, ABOU-JAOUDE, MICHELLE, -OPT MD-OPT Procedure Irrigation Irrigant Volume In Irrigant Volume Out Last Modified By: Anuradha Arias Rn Placke, Lorraine M, Rn Placke, Anuradha M, Rn 10/11/19 11:52:28 10/11/19 11:52:28 10/11/19 11:52:28 Entry 7 Entry 8 Entry 9 Medication/Irrigant IC-Green 25mg injection [facility] INJ Kenalog 40mg 1ml vial - [id number] 1ML [id number] --[id number] injection - [id number] Combo Med List 2 - Combo Med Time Administered Route of INTRAOCCULAR W/DEXTROSE TOPICAL SUBCONJ Administration 5% 20ML Dose Dose 0.5 1 Unit of Measure ml ml Volume QS QS QS Administered By LEXII DAVE, LEXII DAVE, LEXII DAVE MD-OPT MD-OPT MD-OPT Procedure Irrigation Irrigant Volume In Irrigant Volume Out Last Modified By: Anuradha Arias Rn Placke, Lorraine M, Rn Placke, Lorraine M, Rn 10/11/19 11:52:28 10/11/19 11:52:28 10/11/19 11:52:28 Entry 10 Medication/Irrigant Decadron 10mg 1ml - [id number] Combo Med List Time Administered Route of subconj Administration Dose Dose 1 Unit of Measure ml Volume Administered By LEXII DVAE MD-OPT Procedure Irrigation Irrigant Volume In Irrigant Volume Out Last Modified By: Anuradha Arias Rn 10/11/19 12:26:14 E IntraOp Medication Admin Audit 10/11/19 12:26:14 Primary Mill Roller: [id number] Modifier: [id number] <*> Medication/Irrigant Decadron 10mg 1ml - [id number] 10 <+> Route of Administration 10 <+> Dose 10 <+> Unit of Measure 10/11/19 12:25:18 Primary Mill Roller: [id number] Modifier: [id number] <+> 10 Medication/Irrigant <+> 10 Administered By [facility] IntraOp Patient Positioning Entry 1 Procedure Vitrectomy Posterior with Endolaser Body Position Supine Left Arm Position Tucked and padded at side Right Arm Position Tucked and padded at side Left Leg Position Uncrossed, parallel Right Leg Position Uncrossed, parallel Position Comments PT REMAINED ON EYE STRETCHER IN BILATERAL WRIST RESTRAINTS WITH PILLOW UNDER KNES. Feet Uncrossed Yes Pressure Points Yes Checked Positioning Devices Pillows, Soft Cuff Straps Device Position HEAD ON PADDED HEADREST. ARMS ADDUCTED TO SIDES. PILLOW UNDER KNEES. Positioned By MAYA NÚÑEZ CRNA, OMER MCKEON, RN Position Verified Positioning Yes Verified by Anesthesia Positioning Yes Verified by Surgeon Last Modified By: Anuradha Arias Rn 10/11/19 11:52:35 [facility] IntraOp Sign In Entry 1 Patient, Site, Yes Procedure Identified Surgical Consent Yes Confirmed Relevant Surgical Yes Documents Available Surgical Site Yes Marked by person performing procedure Anesthesia Machine Yes Check Completed Medication Checks Yes Completed Allergies No Airway Difficult No Airway/Aspiration Risk Difficult Yes Airway/Aspiration Intervention Equipment Available Blood Loss Risk No Blood Loss Yes Intervention Equipment Prepared and Ready Blood Identifiers Not applicable Verified Per Policy Hypothermia Risk No Warming Measures Yes Taken Last Modified By: Anuradha Arias Rn 10/11/19 11:52:37 [facility] Intra Op Sign Out Entry 1 RN Confirmation Surgical Yes Procedure(s) Identified Instrument, Sponge Yes and Sharps Counts Correct/Documented Equipment Problems N/A Documented Specimen Labeled N/A Correctly Urinary Catheter N/A Documented in IView Steen Patient Yes Recovery Concerns Reviewed with Anesthesia Provider, Surgeon and RN Steen Patient Yes Management Concerns Reviewed with Anesthesia Provider, Surgeon and RN Safety Checklist Yes Elements Complete? RN Sign Out OMER MCKEON, RN Signature RN Sign Out 10/11/19 12:18:00 Signature Date/Time Plan of Care Outcome - Fire Risk OUTCOME STATEMENT: Goal met Patient is free from injury related to surgical fire Plan of Care Outcome - Pt Positioning OUTCOME STATEMENT: Goal met Absence of signs and symptoms of positioning injury. Plan of Care Outcome - Skin Prep OUTCOME STATEMENT: Goal met Intraoperative care is consistent with measures to prevent infection Plan of Care Outcome - Xray/Images OUTCOME STATEMENT: N/A Absence of observable signs or symptoms of radiation injury Plan of Care Outcome - Counts OUTCOME STATEMENT: Goal met Absence of signs and symptoms of injury related to extraneous objects Last Modified By: Anuradha Arias Rn 10/11/19 11:52:40 [facility] Intra Op Sign Out Audit 10/11/19 12:18:58 Primary Mill Roller: [id number] Modifier: [id number] <+> 1 RN Sign Out Signature Date/Time [facility] IntraOp Skin Prep Entry 1 Procedure Vitrectomy Posterior with Endolaser Prescribed Yes Pre-Surgical Prep Completed Prep Area OPERATIVE EYE Intraop Prep Integumentary WDL Assessment WDL Prep Agents Betadine solution Prep by OMER MCKEON RN Skin Prep Comment 5% BETADINE Hair Removal Methods No hair removal performed Last Modified By: Anuradha Arias Rn 10/11/19 11:52:42 [facility] IntraOp Surgical Procedures Entry 1 Procedure Vitrectomy Posterior with Endolaser Additional VITRECTOMY WITH Procedure ENDOLASER AND MEMBRANE Description PEEL RIGHT EYE Primary Procedure Yes Primary Surgeon SREEDHAR PANIAGUA MD Start 10/11/19 11:50:00 Stop 10/11/19 13:38:00 Anesthesia Type MAC Specialty SN Ophthalmology Wound Class I - Clean Last Modified By: Anuradha Arias Rn 10/11/19 11:52:44 [facility] IntraOp Surgical Procedures Audit 10/11/19 13:38:47 Primary Mill Roller: [id number] Modifier: [id number] 1 <*> Procedure Vitrectomy Posterior with Endolaser 1 <+> Specialty 10/11/19 13:38:35 Primary Mill Roller: [id number] Modifier: [id number] <+> 1 Stop [facility] IntraOp Time Out Entry 1 Procedure to be Vitrectomy Posterior Performed with Endolaser Time Out Time Out Pause Time 10/11/19 11:49:00 All activity Yes suspended (unless life threatening emergency) Team Verbally Correct patient Confirms Information identity, Correct side and site are marked, Consent form is present and accurate, Agreement on the procedure to be done, Correct patient position, Relevant images/results properly labeled/appropriately displayed, Confirm antibiotics have been administered, Confirm the skin prep has dried, Confirm prosthesis/implant/devic e is present Antibiotic N/A Prophylaxis Administered Or In Progress Within the Last 60 Minutes Beta Da N/A Administered Venous N/A Thromboembolism Prophylaxis Required Anticipated Critical Events Surgeon None expected Anesthesia Provider None expected Last Modified By: Anuradha Arias Rn 10/11/19 11:53:02 Case Comments <None> Finalized By: Anuradha Arias Rn Document Signatures Signed By: Anuradha Arias Rn 10/11/19 13:39 Electronically signed by [facility] Conversion Process Manufacturing Engineer Cerner at 05/27/2022 9:36 AM CDT documented in this encounter Plan of Treatment Not on file documented as of this encounter Visit Diagnoses Not on filedocumented in this encounter
--- OUTSIDE RECORDS SUMMARY | 2024-09-17 11:36 | XMS_ITS | Encounter Summary ---
Author Organization [employer] ([place], [place], [place], [place]) Address [address] [place] [address] Care Team Providers Care Aquatics Director Name Role Phone Unavailable Primary Care Provider Unavailabl e Encounter Details Date Type Department Care Team (Late st Contact Info) Description 09/26/2018 Transcribed Document [facility] [place] Family Medicine [address] [place] [address] ProviderGonzalez MD [address] [place] [address] Social History Tobacco Use Types Packs/Day Years Used Date Smoking Tobacco: Never Assessed Comments Unknown Sex and Gender Information Value Date Recorded Sex Assigned at Not on file Legal Sex Female 6:02 PM CDT Gender Identity Not on file Sexual Orientation Not on file documented as of this encounter Miscellaneous Notes * Cerner Conversion Note - Gonzalez Muñoz MD - 09/26/2018 7:17 AM CDT Patient: GREG BAUTISTA Age: 58 years Sex: Female : 1960 Associated Diagnoses: None Author: MEMO SALAZAR MD-ONC Attachments: None Subjective Chief complaint Chief complaint No N/V. No new c/o.Reviewed results of EGD yesterday Health Status Allergies Allergic Reactions (All) No [...] mg = 1 Tab, Oral, BID Medications (31) Active Scheduled: (7) amLODIPine 5 mg tab 5 mg 1 Tab, Oral, Daily fluconazole 100 mg tab 100 mg 1 Tab, Oral, Daily heparin 5,000 units/1 mL inj 5,000 Units 1 mL, SubCutaneous, Q8HInt hydrALAZINE 25 mg tab 25 mg 1 Tab, Oral, TID nicotine 14 mg/24 hr patch 1 Patch, TransDermal, Daily pantoprazole EC 40 mg tab 40 mg 1 Tab, Oral, Daily potassium chloride CR 10 mEq tab 40 mEq 4 Tab, Oral, BID Continuous: (2) lactated ringers 1,000 mL 1,000 mL, IntraVENous, 20 mL/Hr NaCl 0.9% 1,000 mL 1,000 mL, IntraVENous, 100 mL/Hr PRN: (22) acetaminophen 325 mg tab 650 mg 2 [...] 10 mg 0.5 mL, IV Push, Q6H lidocaine 1% *PF* inj 2 mL 0.5 mL, IntraDermal, 1-Time magnesium sulfate 2 Gram 50 mL, IV [...] 24 hrs) Last Charted Minimum Maximum Temp 99.2 (SEP 26 06:30) 98.1 (SEP 26 05:30) 99.1 (SEP 25 23:30) Apical HR 98 (SEP 25:18) 88 (SEP 25 13:49) 98 (SEP 25:18) Mon HR 86 (SEP 26 06:30) 70 (SEP 25 11:13) 97 (SEP 25 23:30) Resp Rate 18 (SEP 26 06:30) L 9 (SEP 25 09:00) 18 (SEP 25 11:53) SBP H 143 (SEP 26 06:30) 128 (SEP 25 11:13) H 179 (SEP 25 11:53) DBP 61 (SEP 26 06:30) 61 (SEP 26 06:00) H 96 (SEP 25 11:53) MAP 81 (SEP 26 06:30) 81 (SEP 26 06:00) 147 (SEP 25 11:53) SpO2 96 (SEP 26 06:30) 94 (SEP 25 11:53) 99 (SEP 25 09:00) General Alert and oriented No acute distress Respiratory Lungs are clear to auscultation Gastrointestinal Soft Non-distended Normal postop abdominal tenderness Normal postop abdominal tenderness Results Review General results Interpretation: LABS Labs (Last four charted values) WBC 6.8 (SEP 26) 4.8 (SEP 25) 6.1 (SEP 24) HB L 10.6 (SEP 26) L 9.8 (SEP 25) L 10.4 (SEP 24) HCT L 33.8 (SEP 26) L 30.5 (SEP 25) L 32.0 (SEP 24) Plt 240 (SEP 26) 218 (SEP 25) 247 (SEP 24) Na L 135 (SEP 26) 141 (SEP 25) 141 (SEP 24) K 3.7 (SEP 26) L 3.0 (SEP 25) L 3.0 (SEP 24) Cl 104 (SEP 26) 109 (SEP 25) 105 (SEP 24) CO2 26 (SEP 26) 25 (SEP 25) 30 (SEP 24) BUN L 6 (SEP 26) L 6 (SEP 25) 12 (SEP 24) Cr 1.00 (SEP 26) 0.90 (SEP 25) H 1.20 (SEP 24) Glu R H 130 (SEP 26) 101 (SEP 25) H 113 (SEP 24) Ca 9.7 (SEP 26) 9.3 (SEP 25) 9.8 (SEP 24) PT 11.8 (SEP 24) INR 1.1 (SEP 24) AST 16 (SEP 24) ALT 17 (SEP 24) ALK P H 431 (SEP 24) T Bili 0.6 (SEP 24) PTN 6.8 (SEP 24) ALB L 3.0 (SEP 24) Lipase 75 (SEP 24) Radiology Results Radiology Results (Last 48 hours) [id number] -- 09/23/2018 16:23 CR Abdomen Comp W [...] by Dr. Jose Deutsch.Transcribed by Yola Torres PA-C.I have personally viewed, interpreted and dictated the examination. Joshua read and agree with the above final transcribed report. CT Bx Liver (09/25/2018 09:30) Result: CT GUIDED LIVER BIOPSYHISTORY: Liver lesions. ATTENDING PHYSICIAN: Dr. Mena ATTENDANT COIN OPERATED LAUNDRY: LOUIE DsouzaCPROCEDURE: After informed consent was obtained and a timeout wasperformed, the patient was prepped and draped in usual sterile fashionover the right abdomen. Utilizing local anesthesia and sterile techniquewith a coaxial system, access to the liver in the area of multiple smalllesions was obtained. Two 2.3 cm 18-gauge core samples were obtained.The pathologist's preliminary impression determined the tissue samplewas sufficient for diagnosis. Post biopsy films demonstrate no evidenceof acute complication. The patient received mild procedural sedation.The patient tolerated the procedure well and left the department in goodcondition.IMPRESSION: Status post CT guided biopsy of the liver without immediatecomplication. PROCEDURAL SEDATION: 2 mg of IV Versed and 50 mcg of Fentanyl wereadministered. Continuous vital sign monitoring was used. An RN waspresent during the sedation process. Overall sedation time was 30minutes. Images reviewed, interpreted, and dictated by Dr. Abel Acevedo.Transcribed by Nilay Moya PA-C.Elda have personally viewed, interpreted and dictated the examination. Joshua read and agree with the above final transcribed report. CT Head WO (09/25/2018 10:16) Result: HEAD CT WITHOUT CONTRAST 09/25/2018 8:00 AM HISTORY: Headache.COMPARISON: None.TECHNIQUE: Multiple axial CT images were performed from the foramenmagnum to the vertex. This study was performed with techniques to keepradiation doses as low as reasonably achievable, (ALARA). Individualizeddose reduction techniques using automated exposure control or adjustmentof mA and/or kV according to the patient size were employed.FINDINGS: The ventricles are enlarged. There is diffuse atrophy. Thereis no evidence of hemorrhage. No masses are identified. No extra-axialfluid is seen. The sinuses are normal. There is a 13 mm nodule withinthe left parotid gland. This is nonspecific.IMPRESSION: 13 mm nodule within the left parotid gland. Recommendfollow-up face CT. Images reviewed, interpreted, and dictated by Dr. Porsche Alvarez.Transcribed by Alex Leugers, PA-C, R.T. (N), C N M T.I have personally viewed, interpreted and dictated the examination. Ihave read and agree with the above final transcribed report. Impression and Plan Assessment and Plan Diagnosis Volume depletion. Sarcoid. Liver lesions Course Improving Orders Waiting on liver bx result, if sarcoid will need to see hydraulic dredge operator for RX. If cancer obviosly i will deal with that. Dis CT brain to rule out space occupying lesion which can cause vomiting-brain normal. documented in this encounter Plan of Treatment Not on file documented as of this encounter Visit Diagnoses Not on filedocumented in this encounter
--- OUTSIDE RECORDS SUMMARY | 2024-09-17 11:36 | XMS_ITS | Encounter Summary ---
Author Organization [employer] ([place], [place], [place], [place]) Address [address] [place] [address] Care Team Providers Care Flexible Machining System Machinist Name Role Phone Unavailable Primary Care Provider Unavailabl e Encounter Details Date Type Department Care Team (Late st Contact Info) Description 09/25/2018 Transcribed Document [facility] [place] Family Medicine [address] [place] [address] ProviderGonzalez MD [address] [place], [place] [...] Conversion Note - Gonzalez Muñoz MD - 09/25/2018 1:36 PM CDT On Going Discharge Planning Entered On: 09/25/2018 13:37 EDT Performed On: 09/25/2018 13:36 EDT by TALA ROMERO Rn-Swimming Pool ServicepersonWeb Project Manager Progress Note Discharge Arrangements : Patient Post-Acute Information Patient Name: GREG BAUTISTA Gender: Female : 58 Age: 58 Years No Post-Acute Placement(s) Listed No Post-Acute Service(s) Listed No Curaspan Referral(s) Listed Discharge Options Discussed with Patient : DME, Home Health Is the Patient Meeting Medical Necessity : Yes Discharge Plan Comment : display manager following on dc planning, S/P liver biopsy, Awaiting results. Dc planning pending results. No dc needs at this time. TALA ROMERO Rn-Swimming Pool Serviceperson - 09/25/2018 13:36 EDT Electronically signed by Mary Ann [facility] Conversion Crop And Soil Scientist Cerner at 05/27/2022 9:43 AM CDT documented in this encounter Plan of Treatment Not on file documented as of this encounter Visit Diagnoses Not on filedocumented in this encounter
--- OUTSIDE RECORDS SUMMARY | 2024-09-17 11:36 | XMS_ITS | Encounter Summary ---
Author Organization [employer] ([place], [place], [place], [place]) Address [address] [place] [address] Care Team Providers Care Home Health Aide Caregiver Name Role Phone Unavailable Primary Care Provider Unavailabl e Encounter Details Date Type Department Care Team (Late st Contact Info) Description 09/15/2018 Transcribed Document [facility] [place] Family Medicine [address] [place] [address] ProviderGonzalez MD [facility] [address] Social History Tobacco Use Types Packs/Day Years Used Date Smoking Tobacco: Never Assessed Comments Unknown Sex and Gender Information Value Date Recorded Sex Assigned at Not on file Legal Sex Female 6:02 PM CDT Gender Identity Not on file Sexual Orientation Not on file documented as of this encounter Miscellaneous Notes * Cerner Conversion Note - Gonzalez Muñoz MD - 09/15/2018 8:54 AM CDT Final Discharge Planning Entered On: 09/15/2018 8:55 EDT Performed On: 09/15/2018 8:54 EDT by MOHSEN REES Social Worker Final Discharge Planning Discharge Arrangements : Patient Post-Acute Information Patient Name: GREG BAUTISTA Gender: Female : 58 Age: 58 Years Monae Referral(s): Service: Organization: Business Address: Phone Number: Home Care Physician Services [facility] - [address], [address], [place], [place], [address] Transportation Needs : Car Patient/Family Notified of Plan : Yes MOHSEN REES Social Worker - 09/15/2018 8:54 EDT Final Narrative Note Final Narrative Note : Patient to discharge home today, home health ([facility] ) alerted and will follow up to begin POC. MOHSEN REES Social Worker - 09/15/2018 8:54 EDT Electronically signed by Mary Ann, [facility] Conversion Bilingual Call Center Representative Cerner at 05/27/2022 9:36 AM CDT documented in this encounter Plan of Treatment Not on file documented as of this encounter Visit Diagnoses Not on filedocumented in this encounter
--- OUTSIDE RECORDS SUMMARY | 2024-09-17 11:36 | XMS_ITS | Encounter Summary ---
Author Organization [employer] ([place], [place], [place], [place]) Address [address] [place] [address] Care Team Providers Care Licensed Audiologist Name Role Phone Unavailable Primary Care Provider Unavailabl e Encounter Details Date Type Department Care Team (Late st Contact Info) Description 10/11/2019 Transcribed Document [facility] [place] Family Medicine [address] [place] [address] ProviderGonzalez MD [address] [place] [address] Social History Tobacco Use Types Packs/Day Years Used Date Smoking Tobacco: Never Assessed Comments Unknown Sex and Gender Information Value Date Recorded Sex Assigned at Not on file Legal Sex Female 6:02 PM CDT Gender Identity Not on file Sexual Orientation Not on file documented as of this encounter Miscellaneous Notes * Cerner Conversion Note - Historical ProviderMD - 10/11/2019 10:33 AM CDT Event Note Entered On: 10/11/2019 10:33 EDT Performed On: 10/11/2019 10:33 EDT by Jessica Barrios RN Event Note Event Date/Time : 10/11/2019 10:33 EDT Description of Event : 1033: Pts family updated via phone call. Jessica Barrios RN - 10/11/2019 10:33 EDT Electronically signed by Mary Ann [facility] Conversion Residential Installer Cerner at 05/27/2022 9:37 AM CDT documented in this encounter Plan of Treatment Not on file documented as of this encounter Visit Diagnoses Not on filedocumented in this encounter
--- OUTSIDE RECORDS SUMMARY | 2024-09-17 11:36 | XMS_ITS | Encounter Summary ---
Author Organization [employer] ([place], [place], [place], [place]) Address [address] [place] [address] Care Team Providers Care Traveling Repair Accountant Name Role Phone Unavailable Primary Care Provider Unavailabl e Encounter Details Date Type Department Care Team (Late st Contact Info) Description 09/14/2018 Transcribed Document [facility] [place] Family Medicine [facility] [address] ProviderGonzalez MD [address] [place] [address] Social History Tobacco Use Types Packs/Day Years Used Date Smoking Tobacco: Never Assessed Comments Unknown Sex and Gender Information Value Date Recorded Sex Assigned at Not on file Legal Sex Female 6:02 PM CDT Gender Identity Not on file Sexual Orientation Not on file documented as of this encounter Miscellaneous Notes * Cerner Conversion Note - Gonzalez ProviderMD - 09/14/2018 11:50 AM CDT Discharge Summary, PT Entered On: 09/14/2018 11:51 EDT Performed On: 09/14/2018 11:50 EDT by RODOLFO MARTINES PTA Discharge Summary Discharge Summary Provider Notified : Physical Therapy Reason for Discharge : Discharge order Discharged to, Therapy : Home, with home health RODOLFO MARTINES PTA - 09/14/2018 11:50 EDT Discharge Summary Comment, PT : supine to sit transfer with supervision sit tos tand transfer wiht supervision amb 375' using front wheeled walker with supervision pt with weakness, limited endurance but improved fredis and stability stand to sit transfer with supervision stand to sit transfer with supervision PT agrees with written D/C summary NESTOR HO, PT - 09/14/2018 16:49 EDT Short Term Goals Ambulation STG Grid Goal #1 Device : Walker, front wheel Distance : 375' Assist : Supervision or set-up Date to Meet : 09/19/2018 EDT Goal Status : Goal met Date Met : 09/13/2018 EDT RODOLFO MARTINES, TORREY - 09/14/2018 11:50 EDT Leather Repairer Goals Ambulation LTG Grid Goal #1 Device : Walker, front wheel Distance : 375' Assist : Independent, modified Date to Meet : 09/26/2018 EDT Goal Status : Not met RODOLFO MARTINES, TORREY - 09/14/2018 11:50 EDT documented in this encounter Plan of Treatment Not on file documented as of this encounter Visit Diagnoses Not on filedocumented in this encounter
--- OUTSIDE RECORDS SUMMARY | 2024-09-17 11:36 | XMS_ITS | Encounter Summary ---
Author Organization [employer] ([place], [place], [place], [place]) Address [address] [place] [address] Care Team Providers Care Electrical Installation Inspector Name Role Phone Unavailable Primary Care Provider Unavailabl e Encounter Details Date Type Department Care Team (Late st Contact Info) Description 09/24/2018 Transcribed Document [facility] [place] Family Medicine [address] [place] [address] ProviderGonzalez MD [address] [place] [address] Social History Tobacco Use Types Packs/Day Years Used Date Smoking Tobacco: Never Assessed Comments Unknown Sex and Gender Information Value Date Recorded Sex Assigned at Not on file Legal Sex Female 6:02 PM CDT Gender Identity Not on file Sexual Orientation Not on file documented as of this encounter Miscellaneous Notes * Cerner Conversion Note - Gonzalez ProviderMD - 09/24/2018 5:00 PM CDT Chart Check - Review Order Profile Entered On: 09/24/2018 18:47 EDT Performed On: 09/24/2018 17:00 EDT by Chad Medina, RN Chart Check All Active Orders Reviewed : Yes Chad Medina RN - 09/24/2018 18:47 EDT documented in this encounter Plan of Treatment Not on file documented as of this encounter Visit Diagnoses Not on filedocumented in this encounter
--- OUTSIDE RECORDS SUMMARY | 2024-09-17 11:36 | XMS_ITS | Encounter Summary ---
Author Organization [employer] ([place], [place], [place], [place]) Address [address] [place] [address] Care Team Providers Care Broom Builder Name Role Phone Unavailable Primary Care Provider Unavailabl e Encounter Details Date Type Department Care Team (Late st Contact Info) Description 09/14/2018 Transcribed Document [facility] [place] Family Medicine [address] [place] [address] ProviderGonzalez MD [address] [place] [address] Social History Tobacco Use Types Packs/Day Years Used Date Smoking Tobacco: Never Assessed Comments Unknown Sex and Gender Information Value Date Recorded Sex Assigned at Not on file Legal Sex Female 6:02 PM CDT Gender Identity Not on file Sexual Orientation Not on file documented as of this encounter Miscellaneous Notes * Cerner Conversion Note - Historical ProviderMD - 09/14/2018 2:00 AM CDT Supervisor Felting Details Entered On: 09/14/2018 2:07 EDT Performed On: 09/14/2018 2:00 EDT by ELDA GAYTAN RN Order Details Transport Mode Order Detail : Wheelchair Isolation Precautions Order Detail : Standard Precautions Order Detail : 0 IV Order Detail : 1 Oxygen Order Detail : 0 Nurse Collect Order Detail : 0 Lift/Transfer : Independent Central Line Order Detail : No Room Service : Appropriate Arterial Line : No ELDA GAYTAN, MARY - 09/14/2018 2:07 EDT documented in this encounter Plan of Treatment Not on file documented as of this encounter Visit Diagnoses Not on filedocumented in this encounter
--- OUTSIDE RECORDS SUMMARY | 2024-09-17 11:36 | XMS_ITS | Encounter Summary ---
Author Organization [employer] ([place], [place], [place], [place]) Address [address] [place] [address] Care Team Providers Care Mortgage Accounting Clerk Name Role Phone Unavailable Primary Care Provider Unavailabl e Encounter Details Date Type Department Care Team (Late st Contact Info) Description 10/11/2019 Transcribed Document [facility] [place] Family Medicine [address] [place] [address] ProviderGonzalez MD [address] [place] [address] Social History Tobacco Use Types Packs/Day Years Used Date Smoking Tobacco: Never Assessed Comments Unknown Sex and Gender Information Value Date Recorded Sex Assigned at Not on file Legal Sex Female 6:02 PM CDT Gender Identity Not on file Sexual Orientation Not on file documented as of this encounter Miscellaneous Notes * Cerner Conversion Note - Gonzalez ProviderMD - 10/11/2019 8:57 AM CDT Pre Procedure Adult Entered On: 10/11/2019 9:04 EDT Performed On: 10/11/2019 8:57 EDT by Jessica Barrios RN Height and Weight, Clinical Dosing Height Source : Stated Height Entry Format : Atkinson Height, Feet : 5 ft(Converted to: 152 cm, 60 Inch) Height, Inches : 3 Inch(Converted to: 0 ft 3 Inch, 7.62 cm) Clinical Height : 160.02 cm Weight Source : Standing scale Weight Entry Format : Atkinson Clinical Dosing Weight : 92.27 kg Weight, Pounds : 203 lb Body Surface Area (BSA) : 1.95 m2 Body Mass Index : 36 kg/m2 (HI) [place] Body Weight : 52 kg Jessica Barrios RN - 10/11/2019 8:57 EDT Health Histories Smoking Status : Never (less than 100 in lifetime; none in last 30 days) Smokeless Tobacco Status : Never Jessica Barrios RN - 10/11/2019 8:57 EDT Social History (As Of: 10/11/2019 09:04:24 EDT) Tobacco: Never (less than 100 in lifetime) Smoking Status. (Last Updated: 10/11/2019 08:57:57 EDT by Jessica Barrios RN) Alcohol: Alcohol Use History No. (Last Updated: 10/11/2019 08:58:06 EDT by Jessica Barrios RN) Substance Abuse: Drug Use Hx: No. (Last Updated: 10/11/2019 08:58:09 EDT by Jessica Barrios RN) Infectious Disease History Has the patient ever been tested for COVID-19? : Yes, Patient stated results Negative [facility] are the test results? : Paper Copy on chart Date of COVID-19 test known? : Yes Does patient have symptoms of COVID-19? : No COVID19 Screening : No Experiencing Infectious Disease Symptoms : No symptoms Physical contact outside [place] in the last 30 days : No Infectious Disease History : Chicken pox/Shingles, Measles Tuberculosis Symptoms : None Jessica Barrios RN - 10/11/2019 8:57 EDT COVID19 PreProcedure Screening Is this an Emergent or Add on Procedure? : No Has patient been isolated since the test : Yes Exposed to COVID19 symptoms since test? : No Jessica Barrios RN - 10/11/2019 8:57 EDT Anesthesia/Transfusion History Family History of Anesthesia Reaction : No prior transfusion(s) Transfusion History : Prior anesthesia without reaction Family History of Anesthesia Reaction : None Jessica Barrios RN - 10/11/2019 8:57 EDT Functional Assessment Living Situation : Home Patient Lives With : Alone Persons Assisting Patient at Home : Friend(s) Current Daily Living Assistance : None Sensory Deficits : None Mobility Assistance Prior to Admission : Independent MOORE Hx Falls Immediate/Within 3 Months : No Current Home Treatments : None Professional Skilled Services : None Special Services and Community Resources : None Jessica Barrios RN - 10/11/2019 8:57 EDT [place] Suicide Severity Rating Scale (C-SSRS) CSSRS Past Month Wish to be : No CSSRS Past Month Suicidal Thoughts : No CSSRS Lifetime Suicide Behavior : No Suicide Severity Rating Score : 0 Suicide Severity Rating : No Additional Care Required at this time Jessica Barrios RN - 10/11/2019 8:57 EDT Psychosocial History Currently in Unsafe Situation : No Jessica Barrios RN - 10/11/2019 8:57 EDT Advance Directive Patient has Advance Directive *Q : No, patient refuses Advance Directive information Jessica Barrios RN - 10/11/2019 8:57 EDT Spiritual/Cultural Needs Any Spiritual/Cultural Needs or Requests : Yes Jessica Barrios RN - 10/11/2019 8:57 EDT Teaching/Learning Assessment Barriers To Learning : None evident Individuals Taught : Patient Readiness to Learn : Cooperative Readiness to Learn : Explanation Learning Style Preferences Patient : None Learning Style Preferences Family : None Jessica Barrios RN - 10/11/2019 8:57 EDT Education Topics, Periop Preadmission Perioperative Education Grid Falls : Verbalizes understanding Infection Control : Verbalizes understanding IV's : Verbalizes understanding NPO Status/Directions : Verbalizes understanding Pain Management : Verbalizes understanding Postoperative Care Preparations : Verbalizes understanding Preprocedure Preparations : Verbalizes understanding Preprocedure Tests/Labs : Verbalizes understanding Jessica Barrios RN - 10/11/2019 8:57 EDT General Info Arrived From : Home Mode of Arrival on Unit : Ambulatory Patient Arrival Date/Time : 10/11/2019 8:05 EDT Legal Guardian : Unaccompanied Legal Guardian : No Contact Password : Nely Valenzuela Family/Rep/Phys Notified of Admit : No Emergency Contact #1 : Yajaira Cruz Emergency Contact #1 Emergency Contact #1 Relationship : friend Emergency Contact #2 : none Emergency Contact #2 Phone Number : none Emergency Contact #2 Relationship : none Information Obtained From : Patient Primary Language : Polish Preferred Communication Mode : Verbal Communication Barrier : None Plant Assigner Needed : No Currently Lactating : No Status : Patient denies Jessica Barrios RN - 10/11/2019 8:57 EDT Vital Measurements Temperature Source : Temporal artery scanning Temperature Mode : Fahrenheit Temperature, Fahrenheit : 98.7 Deg F Clinical Temperature, C : 37.1 Deg C Heart Rate, Apical : 89 bpm Respiratory Rate : 16 Breaths/Min Oxygen Saturation : 98 % Oxygen Therapy Mode : Room air Jessica Barrios RN - 10/11/2019 8:57 EDT Sleep Apnea Risk Assmt Hx of Obstructive Sleep Apnea Diagnosis : No Snore Loudly : No Tired, Fatigued, or Sleepy During Day : No Observed Stopping Breathing During Sleep : No Have/Are Being Treated for Hypertension : Yes BMI Greater Than 35 kg/m2 : Yes Age over 50 Years Old : Yes Neck Circumference Greater Than 40 cm : No Gender Male : No STOP-BANG Sleep Apnea Risk Level Score : 3 Jessica Barrios RN - 10/11/2019 8:57 EDT Shalom Scale Sh[place]om Sensory Perception : No impairment [place] Moisture : Rarely moist [place] Activity : Walks frequently [place] Mobility : No limitation [place]om Nutrition : Adequate [place] Friction and Shear : No apparent problem Shalom Score : 22 Jessica Barrios RN - 10/11/2019 8:57 EDT Oxygen Therapy Oxygen Therapy Mode : Room air Jessica Barrios RN - 10/11/2019 8:57 EDT Pain Assessment Pain Assessment : Initial assessment Pain Scale Goal : 4 Pain Scale Used : 0-10 Scale Jessica Barrios RN - 10/11/2019 8:57 EDT Fall Risk Scales ABCs Fall Injury Risk Identification : None MOORE Hx Falls Immediate/Within 3 Months : No Moore Secondary Diagnosis : No MOORE Use of Ambulatory Aid : None MOORE IV Therapy or IV Access : Yes [place] Gait/Transferring : Normal, bedrest, immobile Moore Mental Status : Oriented to own ability Moore Fall Risk Score : 20 MOORE Fall Scale Risk Level : 0-24 Low Risk [place] Fall Interventions : Adequate lighting, Bed in low position, Call device within reach, Room free of clutter/spills, Upper side-rails up, Wheels locked Jessica Barrios RN - 10/11/2019 8:57 EDT Fall Risk Education Grid Call light use : Verbalizes understanding Nonskid Footwear Use : Verbalizes understanding Prevention Responsibility Patient : Verbalizes understanding Jessica Barrios RN - 10/11/2019 8:57 EDT Barriers to Learning : None evident Individuals Taught : Patient Readiness to Learn : Cooperative Teaching Method : Explanation Learning Style Preferences Family : None Learning Style Preferences Patient : None Jessica Barrios RN - 10/11/2019 8:57 EDT Education Topics, Day of Surgery DayofSurgery Education Grid Fall Risks : Verbalizes understanding Family Instructions : Verbalizes understanding Infection Control : Verbalizes understanding Infection Risks : Verbalizes understanding IV's : Verbalizes understanding Medication Instructions : Verbalizes understanding Pain Management : Verbalizes understanding Plan of Care : Verbalizes understanding Jessica Barrios RN - 10/11/2019 8:57 EDT Valuables and Belongings Valuables and Belongings : Clothing, Personal items Clothing : Common streetwear Clothing Disposition : Sent to locker, Declines to send to security/safe Personal Items : [place] Personal Items Disposition : Sent to locker, Declines to send to security/safe Jessica Barrios RN - 10/11/2019 8:57 EDT Pain Scale Intensity : 0 Jessica Barrios RN - 10/11/2019 8:57 EDT Image 4 - Images currently included in the form version of this document have not been included in the text rendition version of the form. [place] Coma [place] Motor Response : Obey commands Derik Best Verbal Response : Oriented [place] Eye Opening Response : Spontaneous Derik Coma Score : 15 Jessica Barrios RN - 10/11/2019 8:57 EDT documented in this encounter Plan of Treatment Not on file documented as of this encounter Visit Diagnoses Not on filedocumented in this encounter
--- OUTSIDE RECORDS SUMMARY | 2024-09-17 11:36 | XMS_ITS | Encounter Summary ---
Author Organization [employer] ([place], [place], [place], [place]) Address [address] [place] [address] Care Team Providers Care Foam Cutting Supervisor Name Role Phone Unavailable Primary Care Provider Unavailabl e Encounter Details Date Type Department Care Team (Late st Contact Info) Description 09/15/2018 Transcribed Document [facility] [place] Family Medicine [address] [place] [address] ProviderGonzalez MD [address] [place] [address] Social History Tobacco Use Types Packs/Day Years Used Date Smoking Tobacco: Never Assessed Comments Unknown Sex and Gender Information Value Date Recorded Sex Assigned at Not on file Legal Sex Female 6:02 PM CDT Gender Identity Not on file Sexual Orientation Not on file documented as of this encounter Miscellaneous Notes * Cerner Conversion Note - Gonzalez Muñoz MD - 09/15/2018 11:55 AM CDT [facility] [place] [address] GREG BAUTISTA :1960 Visit Time:09/10/2018 Your Visit Summary Your Care Team Admitting Physician - CARLOS ACUNA MD Attending Physician - CARLOS ACUNA MD Primary Care Physician - PAULINA CARDOZO MD-[facility] Referring Physician - Heather, UNKNOWN Your Diagnosis Hypokalemia Other specified types of non-Hodgkin lymphoma, unspecified site, Other specified types of non-Hodgkin lymphoma, unspecified site Discharge Vitals Temperature 37.2 ??C Heart Rate (Monitored) 90 Respiratory Rate 16 Blood Pressure 163/97 What to do next Instructions From Your Care Team Diet after Discharge: _, _, _ Activity after Discharge: _, _, _ Driving after Discharge: ok to drive when OK with physician _ May Return to Work/School: Showering/Bathing: _, _ Notify Provider of: Wound/Incision Care after Discharge: _, _ Medical Equipment for Home Use: Home Health Services: Community Services: Home Health Services:[facility] [phone] Transportation:Friend Discharge Activity: Discharge Activity: Activity as tolerated Diet: Discharge Diet: Resume usual diet as tolerated Follow-Up Appointments Follow Up with GIULIA ALMONTE When Within 2 to 3 days [facility] [address] [address] (1) Follow Up with BETHANY CARDOZO When Within 1 week Comments Call for follow up appointment on Monday09/17/18, Follow-up as instructed Where: [address] [place] [address] [place] [address]- Medications What How Much When Instructions Next Dose amLODIPine (Norvasc 5 mg oral tablet) 1 Tablet(s) Oral Every Day Duration: 30 Day(s) Printed Prescription [id number] amoxicillin-clavulanate (Augmentin 500 mg-125 mg oral tablet) 1 Tablet(s) Oral Every 8 Hours Duration: 7 Day(s) Printed Prescription [id number] atropine-diphenoxylate (Lomotil 2.5 mg-0.025 mg oral tablet) 1 Tablet(s) Oral Four Times A Day as needed for for loose stool Printed Prescription hydrALAZINE (hydrALAZINE 25 mg oral tablet) 1 Tablet(s) Oral Two Times A Day Duration: 30 Day(s) Printed Prescription 09/15/2018 Take your medications faithfully. Do NOT skip [...] Follow these instructions at home: ??? Take drqw-noo-inbttke and prescription medicines only as told by [...] 08/12/2005 Document Revised: 06/30/2016 Document Reviewed: 03/02/2015 [employer] Patient Education ?? 2019 [employer] Hypokalemia Hypokalemia means that the amount [...] Follow these instructions at home: ??? Take etgy-mam-vvzfdjo and prescription medicines only as told by [...] kiwi, oranges, tomatoes, asparagus, and potatoes. ? [place] juice. ? Tomato juice. ? Red meats. [...] 01/23/2006 Document Revised: 09/10/2016 Document Reviewed: 09/10/2016 [employer] Patient Education ?? 2019 [employer] Emergency Awareness and Preventative Care STROKE is [...] Assistance with quitting is available by contacting 3-740-JDOY-NOW. This is a free resource providing counseling, [...] ) Urine Bilirubin Dipstick: Negative Urine Specific [place]: 1.014 -- Normal range between ( 1.005 [...] was given the opportunity to ask questions. Patient/Quality Assurance Engineer Name: Patient/Quality Assurance Engineer Signature: Relationship to Patient: Clinician/Hospital Quality Assurance Engineer Signature: Date: documented in this encounter Plan of Treatment Not on file documented as of this encounter Visit Diagnoses Not on filedocumented in this encounter
--- OUTSIDE RECORDS SUMMARY | 2024-09-17 11:36 | XMS_ITS | Encounter Summary ---
Author Organization [employer] ([place], [place], [place], [place]) Address [address] [place] [address] Care Team Providers Care Vehicle Dismantler Name Role Phone Unavailable Primary Care Provider Unavailabl e Encounter Details Date Type Department Care Team (Late st Contact Info) Description 09/26/2018 Transcribed Document [facility] [place] [address] [place] [address] ProviderGonzalez MD [address] [place] [address] Social History Tobacco Use Types Packs/Day Years Used Date Smoking Tobacco: Never Assessed Comments Unknown Sex and Gender Information Value Date Recorded Sex Assigned at Not on file Legal Sex Female 6:02 PM CDT Gender Identity Not on file Sexual Orientation Not on file documented as of this encounter Miscellaneous Notes * Cerner Conversion Note - Historical ProviderMD - 09/26/2018 5:00 AM CDT Chart Check - Review Order Profile Entered On: 09/26/2018 5:06 EDT Performed On: 09/26/2018 5:00 EDT by Lucie Tristan, Patient Travel Director Chart Check Powerplans Initiated/Discontinued as Appropriate : Yes All Active Orders Reviewed : Yes Lucie Tristan, Patient Travel Director - 09/26/2018 5:06 EDT documented in this encounter Plan of Treatment Not on file documented as of this encounter Visit Diagnoses Not on filedocumented in this encounter
--- OUTSIDE RECORDS SUMMARY | 2024-09-17 11:36 | XMS_ITS | Encounter Summary ---
Author Organization [employer] ([place], [place], [place], [place]) Address [address] [place] [address] Care Team Providers Care Manager Relationship Name Role Phone Unavailable Primary Care Provider Unavailabl e Encounter Details Date Type Department Care Team (Late st Contact Info) Description 10/11/2019 Transcribed Document [facility] [place] [address] [place] [address] ProviderGonzalez MD [address] [place] [address] Social History Tobacco Use Types Packs/Day Years Used Date Smoking Tobacco: Never Assessed Comments Unknown Sex and Gender Information Value Date Recorded Sex Assigned at Not on file Legal Sex Female 6:02 PM CDT Gender Identity Not on file Sexual Orientation Not on file documented as of this encounter Miscellaneous Notes * Cerner Conversion Note - Gonzalez Muñoz MD - 10/11/2019 1:54 PM CDT [place] [id number] GREG BAUTISTA :1960 Visit Time:10/11/2019 What to do next Your Diagnosis Vitreomacular adhesion, right eye, Vitreomacular adhesion, right eye Instructions From Your Care Team Resume usual diet and activity as tolerated You will be in a face down position until follow up tomorrow. Bring you blue kit bag with you to your appointment tomorrow Leave eye shield in place until follow up Discharge Activity: Discharge Activity: Activity as tolerated Diet: Discharge Diet: Resume usual diet as tolerated Follow-Up Appointments Follow Up with SREEDHAR PANIAGUA MD When 10/12/2019 10:00 AM EDT Comments Appointment has been made Where: Follow Up with PCP When Comments follow-up with primary care physician re: elevated blood glucose. Where: Medications What How Much When Instructions Next Dose amLODIPine (Norvasc 10 mg oral tablet) 1 Tablet(s) Oral Every Day glipiZIDE (glipiZIDE 5 mg oral tablet, extended release) 1 Tablet(s) Oral Every Day hydrALAZINE (hydrALAZINE 25 mg oral tablet) 1 Tablet(s) Oral Three Times A Day pantoprazole (pantoprazole 40 mg oral delayed release tablet) 1 Tablet(s) Oral Every Day predniSONE (predniSONE 5 mg oral tablet) 1 Tablet(s) Oral Every Day promethazine (promethazine 25 mg oral tablet) 1 Tablet(s) Oral Every 6 Hours as needed for Nausea/vomiting Take your medications faithfully. Do NOT skip [...] Please dispose of unused and medications per pharmacy guidance. Education Materials Moderate Conscious Sedation, Adult, Care After These [...] you are awake and alert. ??? Take ehkj-akp-qgtoiwd and prescription medicines only as told by [...] 11/13/2013 Document Revised: 01/05/2018 Document Reviewed: 05/14/2016 Elsevier Patient Education ?? 2020 Elsevier Inc. Vitrectomy, Care After This sheet gives you [...] approves. General instructions ??? Take or apply kinv-msd-atmjmlh and prescription medicines only as told by [...] health care provider. ??? Take or apply mslg-ibi-ovwheyn and prescription medicines only as told by your health care provider. This includes any eye drops. This information is not intended to replace advice given to you by your health care provider. Make sure you discuss any questions you have with your health care provider. Document Released: 10/11/2011 Document Revised: 02/08/2019 Document Reviewed: 02/11/2019 [employer] Patient Education ?? 2020 [employer]. Emergency Awareness and Preventative Care STROKE is [...] Assistance with quitting is available by contacting 4-834-QVIO-NOW. This is a free resource providing counseling, [...] This Visit (last charted value for your 10/11/2019 visit) General Chemistry 10/11/2019 9:18 AM Glucose POC2: 318 mg/dL -- Normal range between ( 70 and 110 ) Patient Name:GREG BAUTISTA I have received this information and was given the opportunity to ask questions. Patient/Promotional Model Name: Patient/Promotional Model Signature: Relationship to Patient: Clinician/Hospital Promotional Model Signature: Date: documented in this encounter Plan of Treatment Not on file documented as of this encounter Visit Diagnoses Not on filedocumented in this encounter
--- OUTSIDE RECORDS SUMMARY | 2024-09-17 11:36 | XMS_ITS | Encounter Summary ---
Author Organization [employer] ([place], [place], [place], [place]) Address [address] [place] [address] Care Team Providers Care Site Coordinator Name Role Phone Unavailable Primary Care Provider Darin ash Encounter Details Date Type Department Care Team (Late st Contact Info) Description 09/14/2018 Transcribed Document [facility] [place] Medicine [address] [place] [address] ProviderGonzalez MD [address] [place] [address] Social History Tobacco Use Types Packs/Day Years Used Date Smoking Tobacco: Never Assessed Comments Unknown Sex and Gender Information Value Date Recorded Sex Assigned at Not on file Legal Sex Female 6:02 PM CDT Gender Identity Not on file Sexual Orientation Not on file documented as of this encounter Miscellaneous Notes * Cerner Conversion Note - Historical ProviderMD - 09/14/2018 5:25 PM CDT Event Note Entered On: 09/14/2018 17:25 EDT Performed On: 09/14/2018 17:25 EDT by NATALY PANG RN Event Note Event Date/Time : 09/14/2018 15:00 EDT Description of Event : dr ramirez notified of fever of 99.9 nd dys of 103 orders rec NATALY PANG RN - 09/14/2018 17:25 EDT documented in this encounter Plan of Treatment Not on file documented as of this encounter Visit Diagnoses Not on filedocumented in this encounter
--- OUTSIDE RECORDS SUMMARY | 2024-09-17 11:36 | XMS_ITS | Encounter Summary ---
Author Organization [employer] ([place], [place], [place], [place]) Address [address] [place] [address] Care Team Providers Care Tafe Lecturer Name Role Phone Unavailable Primary Care Provider Unavailabl e Encounter Details Date Type Department Care Team (Late st Contact Info) Description 09/26/2018 Transcribed Document [facility] [place] [address] [place] [address] ProviderGonzalez MD [address] [place] [address] Social History Tobacco Use Types Packs/Day Years Used Date Smoking Tobacco: Never Assessed Comments Unknown Sex and Gender Information Value Date Recorded Sex Assigned at Not on file Legal Sex Female 6:02 PM CDT Gender Identity Not on file Sexual Orientation Not on file documented as of this encounter Miscellaneous Notes * Cerner Conversion Note - Gonzalez ProviderMD - 09/26/2018 5:00 PM CDT Chart Check - Review Order Profile Entered On: 09/26/2018 17:37 EDT Performed On: 09/26/2018 17:00 EDT by Chad Medina, RN Chart Check All Active Orders Reviewed : Yes Chad Medina RN - 09/26/2018 17:37 EDT documented in this encounter Plan of Treatment Not on file documented as of this encounter Visit Diagnoses Not on filedocumented in this encounter
--- OUTSIDE RECORDS SUMMARY | 2024-09-17 11:36 | XMS_ITS | Encounter Summary ---
Author Organization [employer] ([place], [place], [place], [place]) Address [address] [place] [address] Care Team Providers Care Laborer Cement Gun Placing Name Role Phone Unavailable Primary Care Provider Unavailabl e Encounter Details Date Type Department Care Team (Late st Contact Info) Description 09/14/2018 Transcribed Document [facility] [place] [address] [place] [address] ProviderGonzalez MD [facility] [place] [address] Social History Tobacco Use Types Packs/Day Years Used Date Smoking Tobacco: Never Assessed Comments Unknown Sex and Gender Information Value Date Recorded Sex Assigned at Not on file Legal Sex Female 6:02 PM CDT Gender Identity Not on file Sexual Orientation Not on file documented as of this encounter Miscellaneous Notes * Cerner Conversion Note - Gonzalez Muñoz MD - 09/14/2018 7:18 AM CDT Patient: GREG BAUTISTA Age: 58 years Sex: Female : 1960 Associated Diagnoses: None Author: MEMO SALAZAR MD-ONC Attachments: None Subjective Chief complaint Chief complaint No new issues. Doing better. Less vomiting Health Status Allergies Allergic Reactions (All) No Known Allergies No Known Medication Allergies Allergies (2) Active Reaction No Known Allergies None Documented No Known Medication Allergies None Documented Current medications Home Medications (2) Active hydrALAZINE 10 mg oral tablet 10 mg = 1 Tab, Oral, BID Norvasc 5 mg oral tablet 5 mg = 1 Tab, Oral, Daily Medications (25) Active Scheduled: (4) amLODIPine 5 mg tab 5 mg 1 Tab, Oral, Daily famotidine 20 mg tab 20 mg 1 Tab, Oral, Daily hydrALAZINE 10 mg tab 10 mg 1 Tab, Oral, BID potassium chloride CR 10 mEq tab 30 mEq 3 Tab, Oral, BID Continuous: (0) PRN: (21) #NaCl 0.9% *FLUSH* inj 10 mL 10 mL, IV Push, See Comment acetaminophen 325 mg tab 650 mg 2 [...] 10 mg 0.5 mL, IV Push, Q6H loperamide 2 mg cap 2 mg 1 Cap, Oral, QID magnesium sulfate 2 Gram 50 mL, IV [...] 24 hrs) Last Charted Minimum Maximum Temp 99 (SEP 14 06:35) 98.7 (SEP 13 09:58) 99.6 (SEP 13 18:43) Apical HR 82 (SEP 13 23:14) 82 (SEP 13 23:14) 84 (SEP 13 10:02) Mon HR 88 (SEP 14 06:35) 84 (SEP 13 09:58) 88 (SEP 14 06:35) Resp Rate 14 (SEP 14 06:35) 14 (SEP 14 06:35) 20 (SEP 13 09:58) SBP H 169 (SEP 14 06:35) H 156 (SEP 13 18:43) H 180 (SEP 14 02:34) DBP 89 (SEP 14 06:35) 66 (SEP 13 09:58) 89 (SEP 14 06:35) MAP 118 (SEP 14:35) 89 (SEP 13 09:58) 118 (SEP 14 06:35) SpO2 95 (SEP 14 06:35) L 93 (SEP 14 02:34) 95 (SEP 13 18:43) General Alert and oriented No acute distress [...] 188 (SEP 11) 214 (SEP 10) Na 138 (SEP 14) 140 (SEP 13) 141 (SEP 12) 139 (SEP 11) K 3.8 (SEP 14) L 3.2 (SEP 13) L 2.9 (SEP 12) L 3.0 (SEP 11) Cl 104 (SEP 14) 102 (SEP 13) L 99 (SEP 12) L 91 (SEP 11) CO2 27 (SEP 14) 30 (SEP 13) H 36 (SEP 12) H 42 (SEP 11) BUN 9 (SEP 14) 11 (SEP 13) 11 (SEP 12) 16 (SEP 11) Cr 0.90 (SEP 14) 1.00 (SEP 13) H 1.30 (SEP 12) H 1.40 (SEP 11) Glu R H 140 (SEP 14) H 128 (SEP 13) 105 (SEP 12) H 121 (SEP 11) Ca 9.1 (SEP 14) 9.0 (SEP 13) 9.1 (SEP 12) 9.4 (SEP 11) Lactic 1.8 (SEP 10) PT H 12.2 (SEP 10) INR 1.1 (SEP 10) AST 18 (SEP 10) ALT 19 (SEP 10) ALK P H 332 (SEP 10) T Bili H 1.3 (SEP 10) PTN 7.4 (SEP 10) ALB 3.5 (SEP 10) Lipase 219 (SEP 12) H 934 (SEP 10) Troponin <0.015 (SEP 10) Radiology Results No Radiology Results Found Impression and Plan Assessment and Plan Diagnosis Sarcoid. Volume depletion, low K+ Course Progressing as expected Orders FNA demonstrates fibrosis. No cancer. Core bx pending. Had bx 2016 demonstrated the same. Perhaps all Sarcoid. I don't treat sarcoid, ussually under the auspices of pulmonary medicine. For now await final bx result and find old CT [facility]. tHIS ALL MAY BE OLDPROBLEM. documented in this encounter Plan of Treatment Not on file documented as of this encounter Visit Diagnoses Not on filedocumented in this encounter
--- OUTSIDE RECORDS SUMMARY | 2024-09-17 11:36 | XMS_ITS | Encounter Summary ---
Author Organization [employer] ([place], [place], [place], [place]) Address [address] [place] [address] Care Team Providers Care Truck Mechanic Name Role Phone Unavailable Primary Care Provider Unavailabl e Encounter Details Date Type Department Care Team (Late st Contact Info) Description 09/13/2018 Transcribed Document [facility] [place] [address] [place] [address] ProviderGonzalez MD [address] [place] [address] Social History Tobacco Use Types Packs/Day Years Used Date Smoking Tobacco: Never Assessed Comments Unknown Sex and Gender Information Value Date Recorded Sex Assigned at Not on file Legal Sex Female 6:02 PM CDT Gender Identity Not on file Sexual Orientation Not on file documented as of this encounter Miscellaneous Notes * Cerner Conversion Note - Gonzalez ProviderMD - 09/13/2018 5:00 PM CDT Chart Check - Review Order Profile Entered On: 09/13/2018 20:13 EDT Performed On: 09/13/2018 17:00 EDT by Nany Arthur RN Chart Check Powerplans Initiated/Discontinued as Appropriate : Yes All Active Orders Reviewed : Yes Nany Arthur RN - 09/13/2018 20:13 EDT documented in this encounter Plan of Treatment Not on file documented as of this encounter Visit Diagnoses Not on filedocumented in this encounter
--- OUTSIDE RECORDS SUMMARY | 2024-09-17 11:36 | XMS_ITS | Encounter Summary ---
Author Organization [employer] ([place], [place], [place], [place]) Address [address] [place] [address] Care Team Providers Care Business Process Lead Name Role Phone Unavailable Primary Care Provider Unavailabl e Encounter Details Date Type Department Care Team (Late st Contact Info) Description 09/26/2018 Transcribed Document [facility] [place] [address] [place] [address] ProviderGonzalez MD [address] [place] [address] Social History Tobacco Use Types Packs/Day Years Used Date Smoking Tobacco: Never Assessed Comments Unknown Sex and Gender Information Value Date Recorded Sex Assigned at Not on file Legal Sex Female 6:02 PM CDT Gender Identity Not on file Sexual Orientation Not on file documented as of this encounter Miscellaneous Notes * Cerner Conversion Note - Gonzalez Muñoz MD - 09/26/2018 2:16 PM CDT UM Authorization Entered On: 09/26/2018 14:18 EDT Performed On: 09/26/2018 14:16 EDT by ALEJANDRA RAE RN-Utilization Review Primary Insurance Authorization Authorization and Policy Numbers : Insurance 1 Health Plan: [employer] Policy Number: [id number] Authorization Number: Insurance Primary Name : [employer] Policy Number: [id number] Authorization Comments-Primary : changed to IP, call [phone] to see if able to start a precert- no option on phone tree to start a precert. Historical Authorization Comments-Primary : Comment 1: Called [id number] no from pts scanned insurance card, per voice message pt has limited benefit plan which covers 1000$$ per day for IP services, pt in observation status does not meet for IP, em to DM and SB (POLO RANGEL RN 09/25/2018 13:22) ALEJANDRA RAE, MARY-Utilization Review - 09/26/2018 14:16 EDT Electronically signed by Mary Ann, [facility] Conversion Drier And Grinder Tender Cerner at 05/27/2022 9:15 AM CDT documented in this encounter Plan of Treatment Not on file documented as of this encounter Visit Diagnoses Not on filedocumented in this encounter
--- OUTSIDE RECORDS SUMMARY | 2024-09-17 11:37 | XMS_ITS | Encounter Summary ---
Author Organization [employer] ([place], [place], [place], [place]) Address [address] [place] [address] Care Team Providers Care Chief Communications Officer Name Role Phone Unavailable Primary Care Provider Unavailabl e Encounter Details Date Type Department Care Team (Late st Contact Info) Description 09/25/2018 Transcribed Document [facility] [place] [address] [place] [address] ProviderGonzalez MD [address] [place] [address] Social History Tobacco Use Types Packs/Day Years Used Date Smoking Tobacco: Never Assessed Comments Unknown Sex and Gender Information Value Date Recorded Sex Assigned at Not on file Legal Sex Female 6:02 PM CDT Gender Identity Not on file Sexual Orientation Not on file documented as of this encounter Miscellaneous Notes * Cerner Conversion Note - Historical ProviderMD - 09/25/2018 1:22 PM CDT UM Authorization Entered On: 09/25/2018 13:25 EDT Performed On: 09/25/2018 13:22 EDT by POLO RANGEL RN Primary Insurance Authorization Authorization and Policy Numbers : Insurance 1 Health Plan: [employer] Policy Number: [id number] Authorization Number: Insurance Primary Name : [employer] Policy Number: [id number] Authorization Comments-Primary : Called [id number] no from pts scanned insurance card, per voice message pt has limited benefit plan which covers 1000$$ per day for IP services, pt in observation status does not meet for IP, em to DM and SB Historical Authorization Comments-Primary : No Authorization Comments Found POLO RANGEL RN - 09/25/2018 13:22 EDT Electronically signed by Mary Ann [facility] Conversion Product Development Worker Cerner at 05/27/2022 9:35 AM CDT documented in this encounter Plan of Treatment Not on file documented as of this encounter Visit Diagnoses Not on filedocumented in this encounter
--- OUTSIDE RECORDS SUMMARY | 2024-09-17 11:37 | XMS_ITS | Encounter Summary ---
Author Organization [employer] ([place], [place], [place], [place]) Address [address] [place] [address] Care Team Providers Care Business Control Manager Name Role Phone Unavailable Primary Care Provider Unavailabl e Encounter Details Date Type Department Care Team (Late st Contact Info) Description 09/23/2018 Transcribed Document [facility] [place] Family Medicine [address] [place] [address] ProviderGonzalez MD [address] [place] [address] Social History Tobacco Use Types [...] Gonzalez ProviderMD - 09/23/2018 5:54 PM CDT Pain Assessment Entered On: 09/24/2018 9:21 EDT Performed On: 09/24/2018 9:35 EDT by Chad Medina, RN Intervention Information: acetaminophen Performed by Chad Medina, RN on 09/24/2018 08:35:00 EDT acetaminophen,650mg Oral,Pain (Mild 1-3) Pain Assessment Pain Assessment : Follow-up assessment Chad Medina, RN - 09/24/2018 9:21 EDT documented in this encounter Plan of Treatment Not on file documented as of this encounter Visit Diagnoses Not on filedocumented in this encounter
--- OUTSIDE RECORDS SUMMARY | 2024-09-17 11:37 | XMS_ITS | Encounter Summary ---
Author Organization [employer] ([place], [place], [place], [place]) Address [address] [place] [address] Care Team Providers Care Table Operator Name Role Phone Unavailable Primary Care Provider Unavailabl e Encounter Details Date Type Department Care Team (Late st Contact Info) Description 09/28/2018 Transcribed Document [facility] [place] [address] [place] [address] ProviderGonzalez MD [address] [place] [address] Social History Tobacco Use Types Packs/Day Years Used Date Smoking Tobacco: Never Assessed Comments Unknown Sex and Gender Information Value Date Recorded Sex Assigned at Not on file Legal Sex Female 6:02 PM CDT Gender Identity Not on file Sexual Orientation Not on file documented as of this encounter Miscellaneous Notes * Cerner Conversion Note - Historical ProviderMD - 09/28/2018 10:40 AM CDT Spiritual Care Short Form Entered On: 09/28/2018 13:40 EDT Performed On: 09/28/2018 10:40 EDT by COLE CRUZ General Information, Spiritual Care Intervention/Comment/Summary Points : Visit completed by Spiritual Python Consultant Khanh Hargrove; Ms. Bautista has a strong jay/family; Appreciated visit; Lives in [facility]; Going home today possibly COLE CRUZ - 09/28/2018 13:39 EDT documented in this encounter Plan of Treatment Not on file documented as of this encounter Visit Diagnoses Not on filedocumented in this encounter
--- OUTSIDE RECORDS SUMMARY | 2024-09-17 11:37 | XMS_ITS | Encounter Summary ---
Author Organization [employer] ([place], [place], [place], [place]) Address [address] [place] [address] Care Team Providers Care Operations Research Manager Name Role Phone Unavailable Primary Care Provider Unavailabl e Encounter Details Date Type Department Care Team (Late st Contact Info) Description 09/28/2018 Transcribed Document [facility] [place] [address] [place] [address] ProviderGonzalez MD [address] [place] [address] Social History Tobacco Use Types Packs/Day Years Used Date Smoking Tobacco: Never Assessed Comments Unknown Sex and Gender Information Value Date Recorded Sex Assigned at Not on file Legal Sex Female 6:02 PM CDT Gender Identity Not on file Sexual Orientation Not on file documented as of this encounter Miscellaneous Notes * Cerner Conversion Note - Gonzalez Muñoz MD - 09/28/2018 7:52 AM CDT Patient: GREG BAUTISTA Age: 58 years Sex: Female : 1960 Associated Diagnoses: None Author: MEMO SALAZAR MD-ONC Attachments: None Subjective Chief complaint Chief complaint No newi ssues.Still with some abdominal. Bx pending Health Status Allergies Allergic Reactions (All) No [...] mg = 1 Tab, Oral, BID Medications (29) Active Scheduled: (6) amLODIPine 5 mg tab 5 mg 1 Tab, Oral, Daily fluconazole 100 mg tab 100 mg 1 Tab, Oral, Daily heparin 5,000 units/1 mL inj 5,000 Units 1 mL, SubCutaneous, Q8HInt hydrALAZINE 25 mg tab 25 mg 1 Tab, Oral, TID nicotine 14 mg/24 hr patch 1 Patch, TransDermal, Daily pantoprazole EC 40 mg tab 40 mg 1 Tab, Oral, Daily Continuous: (1) lactated ringers 1,000 mL 1,000 mL, IntraVENous, 20 mL/Hr PRN: (22) acetaminophen 325 mg tab [...] 24 hrs) Last Charted Minimum Maximum Temp 98.4 (SEP 28 06:37) 98.4 (SEP 28 06:37) 98.2 (SEP 27 10:18) Apical HR 90 (SEP 27 20:25) 84 (SEP 27 15:37) 90 (SEP 27 20:25) Mon HR 88 (SEP 28 06:37) 84 (SEP 27 14:33) 90 (SEP 27 10:21) Resp Rate 16 (SEP 28 06:37) 15 (SEP 27 10:18) 18 (SEP 27 18:20) SBP H 152 (SEP 28 06:37) H 152 (SEP 28 06:37) H 187 (SEP 27 10:21) DBP 71 (SEP 28 06:37) 64 (SEP 27 18:20) 72 (SEP 27 10:18) MAP 92 (SEP 28 06:37) 84 (SEP 27 14:33) 124 (SEP 27 18:20) SpO2 96 (SEP 27 23:01) 96 (SEP 27 23:01) 97 (SEP 27 18:20) General Alert and oriented No acute distress Respiratory Lungs are clear to auscultation Gastrointestinal Soft Non-distended Normal postop abdominal tenderness Normal postop abdominal tenderness Results Review General results Interpretation: LABS Labs (Last four charted values) WBC 5.0 (SEP 27) 6.8 (SEP 26) 4.8 (SEP 25) 6.1 (SEP 24) HB L 10.2 (SEP 27) L 10.6 (SEP 26) L 9.8 (SEP 25) L 10.4 (SEP 24) HCT L 31.2 (SEP 27) L 33.8 (SEP 26) L 30.5 (SEP 25) L 32.0 (SEP 24) Plt 202 (SEP 27) 240 (SEP 26) 218 (SEP 25) 247 (SEP 24) Na 139 (SEP 27) L 135 (SEP 26) 141 (SEP 25) 141 (SEP 24) K L 3.2 (SEP 27) 3.7 (SEP 26) L 3.0 (SEP 25) L 3.0 (SEP 24) Cl 105 (SEP 27) 104 (SEP 26) 109 (SEP 25) 105 (SEP 24) CO2 26 (SEP 27) 26 (SEP 26) 25 (SEP 25) 30 (SEP 24) BUN 9 (SEP 27) L 6 (SEP 26) L 6 (SEP 25) 12 (SEP 24) Cr 1.00 (SEP 27) 1.00 (SEP 26) 0.90 (SEP 25) H 1.20 (SEP 24) Glu R H 135 (SEP 27) H 130 (SEP 26) 101 (SEP 25) H 113 (SEP 24) Ca 10.0 (SEP 27) 9.7 (SEP 26) 9.3 (SEP 25) 9.8 (SEP 24) PT 11.8 (SEP 24) INR 1.1 (SEP 24) AST 16 (SEP 24) ALT 17 (SEP 24) ALK P H 431 (SEP 24) T Bili 0.6 (SEP 24) PTN 6.8 (SEP 24) ALB L 3.0 (SEP 24) Lipase 75 (SEP 24) Radiology Results No Radiology Results Found Impression and Plan Assessment and Plan Diagnosis Sarcoid. Liver lesions. Volume depletion Course Progressing as expected Orders Await bxresult. Discussed with patient. . documented in this encounter Plan of Treatment Not on file documented as of this encounter Visit Diagnoses Not on filedocumented in this encounter
--- OUTSIDE RECORDS SUMMARY | 2024-09-17 11:37 | XMS_ITS | Encounter Summary ---
Author Organization [employer] ([place], [place], [place], [place]) Address [address] [place] [address] Care Team Providers Care Operational Intelligence Officer Name Role Phone Unavailable Primary Care Provider Unavailabl e Encounter Details Date Type Department Care Team (Late st Contact Info) Description 09/14/2018 Transcribed Document [facility] [place] [address] [place] [address] ProviderGonzalez MD [address] [place] [address] Social History Tobacco Use Types Packs/Day Years Used Date Smoking Tobacco: Never Assessed Comments Unknown Sex and Gender Information Value Date Recorded Sex Assigned at Not on file Legal Sex Female 6:02 PM CDT Gender Identity Not on file Sexual Orientation Not on file documented as of this encounter Miscellaneous Notes * Cerner Conversion Note - Gonzalez ProviderMD - 09/14/2018 5:00 AM CDT Chart Check - Review Order Profile Entered On: 09/14/2018 6:51 EDT Performed On: 09/14/2018 5:00 EDT by ELDA GAYTAN RN Chart Check Powerplans Initiated/Discontinued as Appropriate : Yes All Active Orders Reviewed : Yes ELDA GAYTAN RN - 09/14/2018 6:51 EDT documented in this encounter Plan of Treatment Not on file documented as of this encounter Visit Diagnoses Not on filedocumented in this encounter
--- OUTSIDE RECORDS SUMMARY | 2024-09-17 11:37 | XMS_ITS | Encounter Summary ---
Author Organization [employer] ([place], [place], [place], [place]) Address [address] [place] [address] Care Team Providers Care Chef Instructor Name Role Phone Unavailable Primary Care Provider Unavailabl e Encounter Details Date Type Department Care Team (Late st Contact Info) Description 09/28/2018 Transcribed Document [facility] [place] [address] [place] [address] ProviderGonzalez MD [address] [place] [address] Social History Tobacco Use Types Packs/Day Years Used Date Smoking Tobacco: Never Assessed Comments Unknown Sex and Gender Information Value Date Recorded Sex Assigned at Not on file Legal Sex Female 6:02 PM CDT Gender Identity Not on file Sexual Orientation Not on file documented as of this encounter Miscellaneous Notes * Cerner Conversion Note - Gonzalez ProviderMD - 09/28/2018 6:10 PM CDT On Going Discharge Planning Entered On: 09/28/2018 18:14 EDT Performed On: 09/28/2018 18:10 EDT by JADEN BYERS, Business Transformation Consultant Care Management Progress Note Discharge Arrangements : Patient Post-Acute Information Patient Name: GREG BAUTISTA Gender: Female : 58 Age: 58 Years No Post-Acute Placement(s) Listed No Post-Acute Service(s) Listed No Curaspan Referral(s) Listed Discharge Options Discussed with Patient : [facility] [place] JADEN BYERS, Business Transformation Consultant - 09/28/2018 18:10 EDT Narrative Progress Note Narrative Progress Note : Covering today for D/C planning. Discussed pt during MD rounds. MD relays that pt was laughing on phone but when he entered room she held her stomach and stated her pain 7/10, yet has NOT taken any pain meds. Bedside RN states pt on regular diet and eating 100% of meals. Diet to be changed to clears today to try and resolve her discomfort. CM will cont to follow. JADEN BYERS, Business Transformation Consultant - 09/28/2018 18:10 EDT Electronically signed by Mary Ann [facility] Conversion Career Technical Counselor Cerner at 05/27/2022 9:33 AM CDT documented in this encounter Plan of Treatment Not on file documented as of this encounter Visit Diagnoses Not on filedocumented in this encounter
--- OUTSIDE RECORDS SUMMARY | 2024-09-17 11:37 | XMS_ITS | Encounter Summary ---
Author Organization [employer] ([place], [place], [place], [place]) Address [address] [place] [address] Care Team Providers Care Corporate Auditor Name Role Phone Unavailable Primary Care Provider Unavailboogie e Encounter Details Date Type Department Care Team (Late st Contact Info) Description 09/24/2018 Transcribed Document [facility] [place] [address] [place] [address] ProviderGonzalez MD [facility] [place] [address] Social History Tobacco Use Types [...] Historical ProviderMD - 09/24/2018 1:[address] [facility] OT Charges Entered On: 09/24/2018 13:47 EDT Performed On: 09/24/2018 13:46 EDT by CORONA HERRERA OTR/L [facility] Charges Screen For Near Eastern Archaeology Lecturer : 1 CORONA HERRERA OTR/L - 09/24/2018 13:46 EDT documented in this encounter Plan of Treatment Not on file documented as of this encounter Visit Diagnoses Not on filedocumented in this encounter
--- OUTSIDE RECORDS SUMMARY | 2024-09-17 11:37 | XMS_ITS | Encounter Summary ---
Author Organization [employer] ([place], [place], [place], [place]) Address [address] [place] [address] Care Team Providers Care Sql Etl Developer Name Role Phone Unavailable Primary Care Provider Unavailabl e Encounter Details Date Type Department Care Team (Late st Contact Info) Description 09/29/2018 Transcribed Document [facility] [place] [address] [place] [address] ProviderGonzalez MD [address] [place] [address] Social History Tobacco Use Types Packs/Day Years Used Date Smoking Tobacco: Never Assessed Comments Unknown Sex and Gender Information Value Date Recorded Sex Assigned at Not on file Legal Sex Female 6:02 PM CDT Gender Identity Not on file Sexual Orientation Not on file documented as of this encounter Miscellaneous Notes * Cerner Conversion Note - Gonzalez ProviderMD - 09/29/2018 5:00 PM CDT Chart Check - Review Order Profile Entered On: 09/29/2018 16:39 EDT Performed On: 09/29/2018 17:00 EDT by Meryl Church RN Chart Check Powerplans Initiated/Discontinued as Appropriate : Yes All Active Orders Reviewed : Yes Meryl Church RN - 09/29/2018 16:39 EDT documented in this encounter Plan of Treatment Not on file documented as of this encounter Visit Diagnoses Not on filedocumented in this encounter
--- OUTSIDE RECORDS SUMMARY | 2024-09-17 11:37 | XMS_ITS | Encounter Summary ---
Author Organization [employer] ([place], [place], [place], [place]) Address [address] [place] [address] Care Team Providers Care Rn Long Term Care Name Role Phone Unavailable Primary Care Provider Unavailabl e Encounter Details Date Type Department Care Team (Late st Contact Info) Description 09/20/2018 Transcribed Document [facility] Radiology [address] [place] [address] Chevy Briceno MD [address] [place] [phone] Social History Tobacco Use Types Packs/Day Years Used Date Smoking Tobacco: Never Assessed Comments Unknown Sex and Gender Information Value Date Recorded Sex Assigned at Not on file Legal Sex Female 6:02 PM CDT Gender Identity Not on file Sexual Orientation Not on file documented as of this encounter Miscellaneous Notes * Cerner Conversion Note - Chevy Briceno MD - 09/20/2018 10:21 AM EDT PLEASE MODIFY BEFORE SIGNING CLINICAL DOCUMENTATION CLARIFICATION FORM: Dear : Janak Date / Time: _09/20/18 9:30 a.m. Please exercise your independent, professional judgment in responding to the clarification form. Clinical indicators are provided on the bottom of this form for your review Please check appropriate box(s) to clarify if the following diagnosis has been ruled in our ruled out: Sarcoidosis [ x ] Ruled in diagnosis [ ] Ruled out diagnosis [ ] Cannot rule out diagnosis [ ] Other diagnosis [ ] Unable to determine In addition, please specify: Present on Admission (POA): [ ] Yes [ ] No [ ] Unable to determine Physician Signature: Date/Time: For continuity of documentation, please document condition throughout progress notes and discharge summary. Thank You. To be completed by CDI/Coding staff for physician review: Present Clinical Indicators - Signs / Symptoms / Labs Results and Location in Medical Record [ x ] Liver, spleen and retroperitoneum lesions 09/11 oncology consult: Patient with a history of sarcoidosis, now presenting with multiple low-density lesions of the liver and spleen and enlargement of the lymphs in the retroperitoneum. differential would be progressive sarcoidosis verses lymphoma or carcinoma. Dr. Rubi 09/[address] Rubi [ x ] Cytology Cytology: Negative for malignancy Scant fibrous stroma with mixed inflammatory cell and rare multinucleated histiocyte Present Risk Factors Results and Location in Medical Record [x ] History H/P: history of sarcoidosis Present Treatments Results and Location in Medical Record [ x ] Consult 09/[address] Rubi [x ] Surgery/procedure 09/[address] Graham CDS/Pet Care Associate Signature: JESSICA yLnn Pet Care Associate Phone #: [phone]_ Date/Time: 09/20/18_9:30 a.m._ This is a permanent part of the Medical Record documented in this encounter Plan of Treatment Not on file documented as of this encounter Visit Diagnoses Not on filedocumented in this encounter
--- OUTSIDE RECORDS SUMMARY | 2024-09-17 11:37 | XMS_ITS | Encounter Summary ---
Author Organization [employer] ([place], [place], [place], [place]) Address [address] [place] [address] Care Team Providers Care Assistant Basketball Coach Name Role Phone Unavailable Primary Care Provider Unavailabl e Encounter Details Date Type Department Care Team (Late st Contact Info) Description 09/25/2018 Transcribed Document [facility] Radiology [address] [place] [address] Chevy Briceno MD [address] [place] [phone] Social History Tobacco Use Types Packs/Day Years Used Date Smoking Tobacco: Never Assessed Comments Unknown Sex and Gender Information Value Date Recorded Sex Assigned at Not on file Legal Sex Female 6:02 PM CDT Gender Identity Not on file Sexual Orientation Not on file documented as of this encounter Miscellaneous Notes * Cerner Conversion Note - Chevy Briceno MD - 09/25/2018 9:00 AM EDT Patient: GREG BAUTISTA Age: 58 Years Sex: Female : 1960 Subjective no acute complaints or issues overnight, did state she had some nausea this morning ROS: denies chest pain, shortness of air, abdominal pain, positive for nausea Vital Signs T: 36.8 ??C TMIN: 36.3 ??C TMAX: 36.9 ??C HR: 77(Monitored) RR: 18 BP: 147/69 SpO2: 95% Oxygen Settings (Last) Oxygen Therapy Mode: Room air (09/24/18 21:00:00) Intake & Output Totals Last 24 Hours (7a-7a) Input Total: 858 mL Output Total: 450 mL Balance: 408 mL Physical Exam GENERAL: The patient is [...] due to patients questionable history of sarcoidosis 09/25: Gi following for intractable nausea and vomiting, RUQ ultrasound and lipase were normal, scheduled for EGD this morning -hypokalemia: potassium of 3.0, will give 40meq BID for today -oncology consulted for liver lesion, to go for CT guided liver biopsy VTE Prophylaxis - Medical Heparin 5,000 Units, [...] Sodium Chloride 0.9% intravenous solution 100 mL citric acid-potassium bicarbonate, 20 mEq= 1 Tab, Feeding Tube, Q2H, PRN citric acid-potassium bicarbonate, 60 mEq= 3 Tab, Feeding Tube, Q2H, PRN Dulcolax Laxative, 5 mg= 1 Tab, Oral, Daily, PRN DuoNeb 0.5 mg-2.5 mg/3 mL inhalation solution, 3 mL, Nebulized Inhalation , Q6H, PRN Habitrol 14 mg/24 hr transdermal film, extended release, 1 Patch, TransDermal, Daily heparin, 5000 Units= 1 mL, SubCutaneous, Q8HInt hydrALAZINE, 10 mg= 0.5 mL, IV Push, Q6H, PRN hydrALAZINE, 25 mg= 1 Tab, Oral, TID magnesium sulfate, 2 Gram= 50 mL, IV Piggyback, Daily, PRN magnesium sulfate, 2 Gram= 50 mL, IV Piggyback, Q2H, PRN morphine, 2 mg= 1 mL, IV Push, Q6H, PRN Norvasc, 5 mg= 1 Tab, Oral, Daily Pepcid, 20 mg= 2 mL, IV Push, Q12H Phenergan, 12.5 mg= 0.5 Tab, Oral, Q6H, PRN potassium chloride 10 mEq/50 mL intravenous solution, 10 mEq= 50 mL, IV Piggyback, Q1H, PRN potassium chloride 20 mEq oral tablet, extended release, 20 mEq= 1 Tab, Oral, Q2H, PRN potassium chloride 20 mEq oral tablet, extended release, 60 mEq= 3 Tab, Oral, Q2H, PRN Restoril, 15 mg= 1 Cap, Oral, At Bedtime, PRN Sodium Chloride 0.9% intravenous solution 1,000 mL, 1000 mL, IntraVENous sodium phosphate sodium phosphate Tylenol, 650 mg= 2 Tab, Oral, Q4H, PRN Zofran, 4 mg= 2 mL, IV Push, Q4H, PRN Lab Results Test Name Test Result Date/Time Sodium Level 141 mmol/L 09/25/2018 06:11 EDT Potassium Level 3.0 mmol/L (Low) 09/25/2018 06:11 EDT Chloride Level 109 mmol/L 09/25/2018 06:11 EDT Carbon Dioxide Level 25 mmol/L 09/25/2018 06:11 EDT Anion Gap 10 09/25/2018 06:11 EDT Glucose Level 101 mg/dL 09/25/2018 06:11 EDT Blood Urea Nitrogen 6 mg/dL (Low) 09/25/2018 06:11 EDT Creatinine Level 0.90 mg/dL 09/25/2018 06:11 EDT eGFR >60 mL/min/1.73m2 09/25/2018 06:11 EDT eGFR NonAfrican >60 mL/min/1.73m2 09/25/2018 06:11 EDT Bun/Creatinine 6.7 (Low) 09/25/2018 06:11 EDT Calcium Level 9.3 mg/dL 09/25/2018 06:11 EDT WBC 4.8 K/uL 09/25/2018 06:11 EDT RBC 3.69 Million/uL (Low) 09/25/2018 06:11 EDT Hgb 9.8 g/dL (Low) 09/25/2018 06:11 EDT Hct 30.5 % (Low) 09/25/2018 06:11 EDT MCV 82.7 fL 09/25/2018 06:11 EDT MCH 26.6 pg 09/25/2018 06:11 EDT MCHC 32.1 Gram/dL (Low) 09/25/2018 06:11 EDT Platelet Count 218 K/uL 09/25/2018 06:11 EDT MPV 9.2 fL (Low) 09/25/2018 06:11 EDT RDW 14.4 % 09/25/2018 06:11 EDT Neut % 74.3 % (High) 09/25/2018 06:11 EDT Neut # 3.57 K/uL 09/25/2018 06:11 EDT Lymph % 16.8 % (Low) 09/25/2018 06:11 EDT Lymph # 0.81 x10(3)/uL (Low) 09/25/2018 06:11 EDT Charles Mix % 2.9 % (Low) 09/25/2018 06:11 EDT Charles Mix # 0.14 K/uL (Low) 09/25/2018 06:11 EDT Eos % 5.0 % 09/25/2018 06:11 EDT Eos # 0.24 x10(3)/uL 09/25/2018 06:11 EDT Baso % 0.4 % 09/25/2018 06:11 EDT Baso # 0.02 x10(3)/ 09/25/2018 06:11 EDT Slide Review No 09/25/2018 06:11 EDT IG# 0.03 x10(3)/ 09/25/2018 06:11 EDT IG% 0.60 % 09/25/2018 06:11 EDT documented in this encounter Plan of Treatment Not on file documented as of this encounter Visit Diagnoses Not on filedocumented in this encounter
--- OUTSIDE RECORDS SUMMARY | 2024-09-17 11:37 | XMS_ITS | Encounter Summary ---
Author Organization [employer] ([place], [place], [place], [place]) Address [address] [place] [address] Care Team Providers Care Cold Rolling Supervisor Name Role Phone Unavailable Primary Care Provider Unavailabl e Encounter Details Date Type Department Care Team (Late st Contact Info) Description 09/25/2018 Transcribed Document [facility] [place] [facility] [place] [address] [place] [address] ProviderGonzalez MD [address] [place] [address] Social History Tobacco Use Types [...] Gonzalez ProviderMD - 09/25/2018 10:53 AM CDT [facility] Tania PreOp Summary Primary Physician: NURY OLGUIN MD Finalized Date/Time: 09/25/18 12:19:11 Pt. Name: GREG BAUTISTA D.O.B./Sex: 1960 Female Med Rec #: [id number] Physician: KATIE MARTINEZ, -[facility] Financial #: [id number] Pt. Type: O Room/Bed: [facility]/ Admit/Disch: 09/23/18 16:23:00 - Institution: [facility] Tania PreOp Case Times Entry 1 In Preop 09/25/18 09:44:00 Ready for Holding 09/25/18 10:06:00 Room Patient Ready for 09/25/18 10:06:00 Surgery Patient Out of Preop 09/25/18 10:10:00 Patient Out of n/a Holding Room Last Modified By: Selam Ivan, Rn-Traveler 09/25/18 12:19:09 JAE Endo PreOp Case Times Audit 09/25/18 12:19:09 Machine Maintenance: [id number] Modifier: [id number] <*> Patient Out of Preop 09/25/18 10:00:00 09/25/18 12:18:44 Machine Maintenance: [id number] Modifier: [id number] <*> Patient Out of Preop 09/25/18 11:30:00 09/25/18 12:18:14 Machine Maintenance: [id number] Modifier: [id number] <+> 1 Patient Out of Preop Finalized By: Selam Ivan Rn-Traveler Document Signatures Signed By: Selam Ivan Rn-Traveler 09/25/18 12:18 Selam Ivan, Rn-Traveler 09/25/18 12:19 Unfinalized History Date/Time Username Reason for Unfinalizing Freetext Reason for Unfinalizing 09/25/18 12:18 [id number] Finish Documentation documented in this encounter Plan of Treatment Not on file documented as of this encounter Visit Diagnoses Not on filedocumented in this encounter
--- OUTSIDE RECORDS SUMMARY | 2024-09-17 11:37 | XMS_ITS | Encounter Summary ---
Author Organization [employer] ([place], [place], [place], [place]) Address [address] [place] [address] Care Team Providers Care Psychology Professor Name Role Phone Unavailable Primary Care Provider Unavailabl e Encounter Details Date Type Department Care Team (Late st Contact Info) Description 09/30/2018 Transcribed Document [facility] [place] [address] [place] [address] ProviderGonzalez MD [facility] [place] [address] Social History Tobacco Use Types Packs/Day Years Used Date Smoking Tobacco: Never Assessed Comments Unknown Sex and Gender Information Value Date Recorded Sex Assigned at Not on file Legal Sex Female 6:02 PM CDT Gender Identity Not on file Sexual Orientation Not on file documented as of this encounter Miscellaneous Notes * [employer]ner Conversion Note - Gonzalez Muñoz MD - 09/30/2018 2:32 PM CDT On Going Discharge Planning Entered On: 09/30/2018 14:32 EDT Performed On: 09/30/2018 14:32 EDT by TALA ROMERO Rn-[employer] Central Steam PlantDairy Consultant Progress Note Discharge Arrangements : Patient Post-Acute Information Patient Name: GREG BAUTISTA Gender: Female : 58 Age: 58 Years No Post-Acute Placement(s) Listed No Post-Acute Service(s) Listed No Curaspan Referral(s) Listed Discharge Options Discussed with Patient : DME, Home Health Is the Patient Meeting Medical Necessity : Yes Discharge Plan Comment : Not medically ready for dc. Liver biopsy results pending. DC plan home when medically stable. TALA ROMERO Rn-[employer] - 09/30/2018 14:32 EDT documented in this encounter Plan of Treatment Not on file documented as of this encounter Visit Diagnoses Not on filedocumented in this encounter
--- OUTSIDE RECORDS SUMMARY | 2024-09-17 11:37 | XMS_ITS | Encounter Summary ---
Author Organization [employer] ([place], [place], [place], [place]) Address [address] [place] [address] Care Team Providers Care Commodity Management Specialist Name Role Phone Unavailable Primary Care Provider Unavailabl e Encounter Details Date Type Department Care Team (Late st Contact Info) Description 09/15/2018 Transcribed Document [facility] [place] [facility] [place] [address] ProviderGonzalez MD [facility] [place] [address] Social History Tobacco Use [...] Note - Gonzalez Muñoz MD - 09/15/2018 8:43 AM CDT Patient: GREG BAUTISTA Age: 58 Years Sex: Female : 1960 Admit Date 09/10/2018 20:13 Discharge on September 15, 2018 Primary Care Provider BETHANY CARDOZO Discharge Diagnosis No Diagnosis on Record Hospital Course This is a 58-year-old female with history of sarcoidosis, otherwise no major medical problems. Patient presented at outside facility in [facility], because for last couple weeks, patient has been losing weight, nausea, vomiting, not eating, abdominal discomfort. Patient has been evaluated there. She was found with hypokalemia, elevated alkaline phosphatase, and lipase level. CT of abdomen and pelvis shows questionable lymphoma. Dr. Oakes, was consulted and patient was brought in to [facility] for Heme Oncology evaluation. Patient is lying in bed, anxious, mild distress. No family at bedside. Hospitalization: 1. Hypokalemia. Patient with nausea, vomiting, and [...] a contaminant -potassium was 3.2, will replace Patient on the day of discharge had normal potassium and was not having any more episodes of diarrhea and thus no stool sample could be obtained. Patient to follow up with oncology, GI, and her PCP to await final biopsy results. Will place her on Lomotil when necessary. We'll go home on antibiotics for UTI. Vital Signs T: 37.1 ??C TMIN: 37.1 ??C TMAX: 37.7 ??C HR: 107 RR: 16 BP: 151/71 SpO2: 95% WT: 85.45 kg Oxygen Settings (Last) Oxygen Therapy Mode: Room air (09/15/18 07:01:00) Oxygen Flow Rate: 2 Liter/Min (09/12/18 18:05:00) Physical Exam Heart S1-S2 no murmurs regular rate and rhythm Discharge Disposition Home with Home Care Discharge Follow Up Follow up with primary care provider - Within 1 week Follow up with specialist - Within 1 week Follow up with specialist - Within 1 week Discharge Medications (4) Active Augmentin 500 mg-125 mg oral tablet 1 Tab, Oral, Q8H hydrALAZINE 10 mg oral tablet 10 mg = 1 Tab, Oral, BID Lomotil 2.5 mg-0.025 mg oral tablet 1 Tab, PRN, Oral, QID Norvasc 5 mg oral tablet 5 mg = 1 Tab, Oral, Daily Code Status Start: 09/10/18 20:42:00 EDT, Full Code, Continuous Order Condition on Discharge Stable, improved Consulting Physicians MEMO SALAZAR MD-ONC Current Diet Order Diet, Adult - Ordered -- Start: 09/13/18 7:59:00 EDT, Regular Diet, Isolation: Contact precautions Follow Up Labs/Studies Blood Gases (Current Encounter/Past 24 Hours) No Blood Gas Results Found (Past 24 Hours) Electrolytes(BMP) Results (Current Encounter/Past 24 Hours) Sodium Level 138 mmol/L 09/15/2018 05:01 Potassium Level 4.5 mmol/L 09/15/2018 05:01 Chloride Level 105 mmol/L 09/15/2018 05:01 Carbon Dioxide Level 25 mmol/L 09/15/2018 05:01 Anion Gap 12 09/15/2018 05:01 Blood Urea Nitrogen 12 mg/dL 09/15/2018 05:01 Glucose Level 133 mg/dL HI 09/15/2018 05:01 Calcium Level 10.0 mg/dL 09/15/2018 05:01 Creatinine Level 1.00 mg/dL 09/15/2018 05:01 Cardiac Markers (Current Encounter/Past 24 Hours) No Cardiac Marker Results Found (Past 24 Hours) CBC Results (Current Encounter/Past 24 Hours) No CBC Results Found (Past 24 Hours) CMP Results (Current Encounter/Past 24 Hours) Creatinine Level 1.00 mg/dL 09/15/2018 05:01 Bun/Creatinine 12.0 09/15/2018 05:01 eGFR >60 mL/min/1.73m2 09/15/2018 05:01 eGFR NonAfrican 57 mL/min/1.73m2 LOW 09/15/2018 05:01 Sodium Level 138 mmol/L 09/15/2018 05:01 Potassium Level 4.5 mmol/L 09/15/2018 05:01 Chloride Level 105 mmol/L 09/15/2018 05:01 Carbon Dioxide Level 25 mmol/L 09/15/2018 05:01 Anion Gap 12 09/15/2018 05:01 Blood Urea Nitrogen 12 mg/dL 09/15/2018 05:01 Glucose Level 133 mg/dL HI 09/15/2018 05:01 Calcium Level 10.0 mg/dL 09/15/2018 05:01 Coagulation Results (Current Encounter/Past 24 Hours) No Coagulation Results Found (Past 24 Hours) Creatinine Clearance (Current Encounter/Past 24 Hours) Creatinine Level 1.00 mg/dL 09/15/2018 05:01 Bun/Creatinine 12.0 09/15/2018 05:01 Estimated Creatinine Clearance 50.11 mL/Min 09/15/2018 05:01 Pending Labs In Process SENDOUT REPORT [id number], [id number], RT - Routine, MEMO SALAZAR MD-ONC, 09/11/18 10:25:00 EDT Pathology Tissue Request [id number], [id number], 09/11/18 10:25:00 EDT, Collected, RT - Routine, 09/11/18 12:07:00 EDT, KAMRYN DEL VALLE, [employer], Specimen Type: AP Specimen, Specimen Desc: Retroperitoneal lymph node, Consulting Dr: MEMO SALAZAR... In Transit Gastrointestinal Panel PCR (GI Panel PCR) Specimen Type: Stool, Routine collect, 09/13/18 9:30:00 EDT, 1-Time, Stop: 09/13/18 9:30:00 EDT, Nurse Collect Ordered BMP Basic Metabolic Panel Specimen Type: Blood, AM Draw collect, 09/12/18 4:00:00 EDT, Daily, Lab Collect Preliminary Culture Urine Specimen Type: Urine, Clean Catch, Routine collect, Collected, 09/14/18 15:40:00 EDT, 1-Time, Stop: 09/14/18 15:40:00 EDT, Nurse Collect Culture Blood Specimen Type: Blood, Stat collect, 09/10/18 20:43:00 EDT, 1-Time, Stop: 09/10/18 20:43:00 EDT, Lab Collect Culture Blood Specimen Type: Blood, Stat collect, 09/10/18 20:43:00 EDT, 1-Time, Stop: 09/10/18 20:43:00 EDT, Lab Collect Time Spent on Discharge 25 minutes documented in this encounter Plan of Treatment Not on file documented as of this encounter Visit Diagnoses Not on filedocumented in this encounter
--- OUTSIDE RECORDS SUMMARY | 2024-09-17 11:37 | XMS_ITS | Encounter Summary ---
Author Organization [employer] ([place], [place], [place], [place]) Address [address] [place] [address] Care Team Providers Care Lab Director Name Role Phone Unavailable Primary Care Provider Unavailabl e Encounter Details Date Type Department Care Team (Late st Contact Info) Description 09/25/2018 Transcribed Document [facility] [place] [address] [place] [address] ProviderGonzalez MD [facility] [place], [place] [id number] Social History Tobacco Use Types Packs/Day Years Used Date Smoking Tobacco: Never Assessed Comments Unknown Sex and Gender Information Value Date Recorded Sex Assigned at Not on file Legal Sex Female 6:02 PM CDT Gender Identity Not on file Sexual Orientation Not on file documented as of this encounter Miscellaneous Notes * Cerner Conversion Note - Historical ProviderMD - 09/25/2018 9:29 AM CDT Patient: GREG BAUTISTA Age: 58 years Sex: Female : 1960 Associated Diagnoses: None Author: ERIBERTO MOYA PA Pre-OP/Procedure Diagnosis: Liver lesions, sarcoidosis Post-OP/Procedure Diagnosis: same Procedure Performed: CT guided biopsy Procedural MD: Kristina [employer] Burner Machine: Сергей Moya PA-C Sedation: IV versed and fentanyl Findings: Technically successful biopsy Complications: No significant bleeding EBL: Minimal Specimen(s) Removed: Pathology is pending. Full report to follow. documented in this encounter Plan of Treatment Not on file documented as of this encounter Visit Diagnoses Not on filedocumented in this encounter
--- OUTSIDE RECORDS SUMMARY | 2024-09-17 11:37 | XMS_ITS | Encounter Summary ---
Author Organization [employer] ([place], [place], [place], [place]) Address [address] [place] [address] Care Team Providers Care Collision Center Manager Name Role Phone Unavailable Primary Care Provider Darin ash Encounter Details Date Type Department Care Team (Late st Contact Info) Description 09/14/[address] [facility] [place] [address] [place] [address] ProviderGonzalez MD [address] [place] [address] Social History Tobacco Use Types Packs/Day Years Used Date Smoking Tobacco: Never Assessed Comments Unknown Sex and Gender Information Value Date Recorded Sex Assigned at Not on file Legal Sex Female 6:02 PM CDT Gender Identity Not on file Sexual Orientation Not on file documented as of this encounter Miscellaneous Notes * Cerner Conversion Note - Historical ProviderMD - 09/14/2018 2:36 PM CDT Attempt to Treat, OT Entered On: 09/14/2018 14:36 EDT Performed On: 09/14/2018 14:36 EDT by CORONA HERRERA OTR/Jeremiah Attempt to Treat Unable to Treat Due To : Patient Refusal Inability to Treat Comment : Pt polietely refused OTx at this time. Pt reports having a fever and not feeling well. Pt also states she may discharge home later today. OT will follow up as schedule permits. Notification : MARY Negro SHEENAGH E, OTR/L - 09/14/2018 14:36 EDT documented in this encounter Plan of Treatment Not on file documented as of this encounter Visit Diagnoses Not on filedocumented in this encounter
--- OUTSIDE RECORDS SUMMARY | 2024-09-17 11:37 | XMS_ITS | Encounter Summary ---
Author Organization [employer] ([place], [place], [place], [place]) Address [address] [place] [address] Care Team Providers Care Instructional Systems Specialist Name Role Phone Unavailable Primary Care Provider Unavailabl e Encounter Details Date Type Department Care Team (Late st Contact Info) Description 09/30/2018 Transcribed Document [facility] [place] [address] [place] [address] ProviderGonzalez MD [address] [place] [address] Social History Tobacco Use Types Packs/Day Years Used Date Smoking Tobacco: Never Assessed Comments Unknown Sex and Gender Information Value Date Recorded Sex Assigned at Not on file Legal Sex Female 6:02 PM CDT Gender Identity Not on file Sexual Orientation Not on file documented as of this encounter Miscellaneous Notes * Cerner Conversion Note - Gonzalez ProviderMD - 09/30/2018 5:00 PM CDT Chart Check - Review Order Profile Entered On: 09/30/2018 15:15 EDT Performed On: 09/30/2018 17:00 EDT by Meryl Church RN Chart Check Powerplans Initiated/Discontinued as Appropriate : Yes All Active Orders Reviewed : Yes Meryl Church RN - 09/30/2018 15:15 EDT Electronically signed by Jae Reese Conversion Director Of Pediatric Rehabilitation Cerner at 05/27/2022 9:19 AM CDT documented in this encounter Plan of Treatment Not on file documented as of this encounter Visit Diagnoses Not on filedocumented in this encounter
--- OUTSIDE RECORDS SUMMARY | 2024-09-17 11:37 | XMS_ITS | Encounter Summary ---
Author Organization [employer] ([place], [place], [place], [place]) Address [address] [place] [address] Care Team Providers Care Application Software Developer Name Role Phone Unavailable Primary Care Provider Unavailabl e Encounter Details Date Type Department Care Team (Late st Contact Info) Description 09/23/2018 Transcribed Document [facility] [place] [facility] [place] [address] ProviderGonzalez MD [facility] [place] [address] Social History Tobacco Use Types Packs/Day Years Used Date Smoking Tobacco: Never Assessed Comments Unknown Sex and Gender Information Value Date Recorded Sex Assigned at Not on file Legal Sex Female 6:02 PM CDT Gender Identity Not on file Sexual Orientation Not on file documented as of this encounter Miscellaneous Notes * Cerner Conversion Note - Gonzalez ProviderMD - 09/23/2018 4:58 PM CDT Admission History, Adult Entered On: 09/23/2018 16:59 EDT Performed On: 09/23/2018 16:58 EDT by Chad Medina RN Advance Directive Patient has Advance Directive *Q : No, patient refuses Advance Directive information Chad Medina RN - 09/23/2018 16:58 EDT Anesthesia/Transfusion History Family History of Anesthesia Reaction : No prior transfusion(s) Transfusion History : Prior anesthesia without reaction Family History of Anesthesia Reaction : None Katy Charles Rn - 09/29/2018 3:52 EDT Functional Assessment Living Situation : Home Patient Lives With : Alone Current Home Treatments : None Katy Charles Rn - 09/29/2018 3:52 EDT General Info Legal Guardian : No Contact Password : Nely Valenzuela Family/Rep/Phys Notified of Admit : No Emergency Contact #1 : jose suarez Emergency Contact #1 Phone Number : [phone] Emergency Contact #1 Relationship : friend Emergency Contact #2 : na Emergency Contact #2 Phone Number : na Emergency Contact #2 Relationship : na Primary Language : Bermudian Communication Barrier : None Katy Charles Rn - 09/29/2018 3:52 EDT Fall Risk Scales ABCs Fall Injury Risk Identification : Coagulation ABC Fall Injury Risk : Moderate to high injury risk MOORE Hx Falls Immediate/Within 3 Months : No Moore Secondary Diagnosis : No MOORE Use of Ambulatory Aid : None MOORE IV Therapy or IV Access : Yes Moore Gait/Transferring : Normal, bedrest, immobile Moore Mental Status : Oriented to own ability Moore Fall Risk Score : 20 MOORE Fall Scale Risk Level : 0-24 Low Risk [place] Fall Interventions : Adequate lighting, Assistive devices within reach, Bed in low position, Call device within reach, Hourly comfort/safety rounds, Non-slip footwear, Personal items within reach, Reinforced to call for assistance before getting out of bed, Room free of clutter/spills, Upper side-rails up, Wheels locked, Wires/Cords secured Barriers to Learning : None evident Learning Style Preferences Patient : Verbal explanation Katy Charles Rn - 09/29/2018 3:52 EDT Health Histories Smoking Status : Never (less than 100 in lifetime; none in last 30 days) Smokeless Tobacco Status : Never Katy Charles Rn - 09/29/2018 3:52 EDT Social History (As Of: 09/29/2018 03:54:33 EDT) Height and Weight, Clinical Dosing Height Source : Stated Height Entry Format : [place] Height, Feet : 5 ft(Converted to: 152 cm, 60 Inch) Height, Inches : 3 Inch(Converted to: 0 ft 3 Inch, 7.62 cm) Clinical Height : 160.02 cm Weight Source : Standing scale Weight Entry Format : [place] Clinical Dosing Weight : 75.45 kg Weight, Pounds : 166 lb Body Surface Area (BSA) : 1.79 m2 Body Mass Index : 29.5 kg/m2 (HI) [place] Body Weight : 52 kg Katy Charles Rn - 09/29/2018 3:52 EDT Infectious Disease History Infectious Disease History : Measles Fever/Chills Last 48 Hours : No Travel To Regions with Travel Advisories : No Travel Outside [place] Within Last 30 Days : No Contact With Traveler to Advisory Region : Unable to assess Tuberculosis Symptoms : None [place] Chad StreeterMARY - 09/23/2018 16:58 EDT Influenza Vaccine Asmt, Adult Previous Vaccines from Immunization Schedule : No qualifying data available. Influenza Immunization, Current Season : No Inactivated Flu Vaccine Contraindications : No contraindications to inactivated influenza vaccine Transplant Workup/Recent Transplant : No Order for Influenza Vaccine : Declined Vaccination Katy Charles Rn - 09/29/2018 3:52 EDT Pneumococcal Vaccine Previous Vaccines from Immunization Schedule : No qualifying data available. Pneumonia Immunization Received : No Pneumococcal Risk Assessment < Age 65 : None Katy Charles Rn - 09/29/2018 3:52 EDT Nutrition History Eating Poorly Due to Decreased Appetite : No Unplanned Weight Loss in Past 3-6 Months : No Malnutrition Screening Tool Total(mal) : 0 Malnutrition Screening Tool Risk Level : Patient not at risk Katy Charles Rn - 09/29/2018 3:52 EDT Psychosocial History Currently in Unsafe Situation : No Tried to Harm Yourself in the Past? : No Thoughts of Harming/Killing Yourself : No Katy Charles Rn - 09/29/2018 3:52 EDT Sleep Apnea Risk Assmt Hx of Obstructive Sleep Apnea Diagnosis : No Snore Loudly : No Tired, Fatigued, or Sleepy During Day : Yes Observed Stopping Breathing During Sleep : No Have/Are Being Treated for Hypertension : No BMI Greater Than 35 kg/m2 : No Age over 50 Years Old : Yes Neck Circumference Greater Than 40 cm : No Gender Male : No STOP-BANG Sleep Apnea Risk Level Score : 2 Katy Charles Rn - 09/29/2018 3:52 EDT Valuables and Belongings Valuables and Belongings : Clothing Clothing : Common streetwear Clothing Disposition : With patient Katy Charles Rn - 09/29/2018 3:52 EDT Electronically signed by Jae Reese Conversion Director Of Curriculum And Instruction Cerner at 05/27/2022 9:24 AM CDT documented in this encounter Plan of Treatment Not on file documented as of this encounter Visit Diagnoses Not on filedocumented in this encounter
--- OUTSIDE RECORDS SUMMARY | 2024-09-17 11:37 | XMS_ITS | Encounter Summary ---
Author Organization [employer] ([place], [place], [place], [place]) Address [address] [place] [address] Care Team Providers Care Optoelectronic Technician Name Role Phone Unavailable Primary Care Provider Unavailabl e Encounter Details Date Type Department Care Team (Late st Contact Info) Description 09/23/2018 Transcribed Document [facility] [place] [address] [place] [address] ProviderGonzalez MD [address] [place], [place] [address] Social History Tobacco Use Types Packs/Day Years Used Date Smoking Tobacco: Never Assessed Comments Unknown Sex and Gender Information Value Date Recorded Sex Assigned at Not on file Legal Sex Female 6:02 PM CDT Gender Identity Not on file Sexual Orientation Not on file documented as of this encounter Miscellaneous Notes * Cerner Conversion Note - Historical ProviderMD - 09/23/2018 5:54 PM CDT Consult Phone Call Documentation Entered On: 09/24/2018 9:29 EDT Performed On: 09/23/2018 17:54 EDT by NIMO CHIU Phone Call for Consults Consult Phone Call/Page Attempt : First call Consult Reason : liver lesion oncology Physician Requested for Consult : MEMO SALAZAR MD-ONC Physician Covering for Consult : MEMO SALAZAR MD-ONC Date and Time Call Returned : 09/24/2018 9:28 EDT NIMO CHIU - 09/24/2018 9:28 EDT documented in this encounter Plan of Treatment Not on file documented as of this encounter Visit Diagnoses Not on filedocumented in this encounter
--- OUTSIDE RECORDS SUMMARY | 2024-09-17 11:37 | XMS_ITS | Encounter Summary ---
Author Organization [employer] ([place], [place], [place], [place]) Address [address] [place] [address] Care Team Providers Care Gre Tutor Name Role Phone Unavailable Primary Care Provider Unavailabl e Encounter Details Date Type Department Care Team (Late st Contact Info) Description 09/25/2018 Transcribed Document [facility] [place] [address] [place] [address] ProviderGonzalez MD [address] [place] [address] Social History Tobacco Use Types [...] Gonzalez ProviderMD - 09/25/2018 10:53 AM CDT [facility] IntraOp Summary Primary Physician: NURY OLGUIN MD Finalized Date/Time: 09/25/18 11:21:52 Pt. Name: GREG BAUTISTA D.O.B./Sex: 1960 Female Med Rec #: [id number] Physician: KATIE MARTINEZ, -[facility] Financial #: [id number] Pt. Type: O Room/Bed: [facility] Admit/Disch: 09/23/18 16:23:00 - Institution: [facility] - Case Attendance Entry 1 Entry 2 Entry 3 Case Attendee NURY OLGUIN MD Humphreys, Natalie, WALTER VELA MD Role Performed Surgeon/Proceduralist, FIELD TECHNICAL SUPPORT CONSULTANT/Nurse Doubler Helper Anesthesiologist of First Record Time In 09/25/18 10:44:00 09/25/18 10:44:00 09/25/18 10:44:00 Time Out 09/25/18 11:02:00 09/25/18 11:02:00 09/25/18 11:02:00 Procedure Esophagogastroduodenosco Esophagogastroduodenosco Esophagogastroduodenosco py, Esophageal Biopsy, py, Esophageal Biopsy, py, Esophageal Biopsy, Gastric Biopsy Gastric Biopsy Gastric Biopsy Other Attendee Superficial Wound Closed By: Last Modified By: Jackie Best, Jackie Best, Jackie Best, Rn-Traveler 09/25/18 Rn-Traveler 09/25/18 Rn-Traveler 09/25/18 11:21:47 11:21:47 11:21:47 Entry 4 Entry 5 Case Attendee Jackie Best, Arabella Morales, House Nurse-Traveler Tech Role Performed Heel Buffer, First Scrub, First Time In 09/25/18 10:44:00 09/25/18 10:44:00 Time Out 09/25/18 11:02:00 09/25/18 11:02:00 Procedure Esophagogastroduodenosco Esophagogastroduodenosco py, Esophageal Biopsy, py, Esophageal Biopsy, Gastric Biopsy Gastric Biopsy Other Attendee Superficial Wound Closed By: Last Modified By: Jackie Best, Jackie Best, Rn-Traveler 09/25/18 Rn-Traveler 09/25/18 11:21:47 11:21:48 [facility] - Case Attendance Audit 09/25/18 11:21:48 Lehr Loader: [id number] Modifier: [id number] <*> Procedure Esophagogastroduodenoscopy, Esophageal Biopsy, Gastric Biopsy 09/25/18 11:21:47 Lehr Loader: [id number] Modifier: [id number] 1 <+> Time Out 1 <*> Procedure Esophagogastroduodenoscopy, Esophageal Biopsy, Gastric Biopsy 2 <+> Time Out 2 <*> Procedure Esophagogastroduodenoscopy, Esophageal Biopsy, Gastric Biopsy 3 <+> Time Out 3 <*> Procedure Esophagogastroduodenoscopy, Esophageal Biopsy, Gastric Biopsy 4 <+> Time Out 4 <*> Procedure Esophagogastroduodenoscopy, Esophageal Biopsy, Gastric Biopsy <+> 5 Time Out 09/25/18 10:59:37 Lehr Loader: [id number] Modifier: [id number] 1 <*> Procedure Esophagogastroduodenoscopy 2 <*> Procedure Esophagogastroduodenoscopy 3 <*> Procedure Esophagogastroduodenoscopy 4 <*> Procedure Esophagogastroduodenoscopy 5 <*> Procedure Esophagogastroduodenoscopy 09/25/18 10:49:50 Lehr Loader: [id number] Modifier: [id number] 1 <+> Time In 1 <*> Procedure Esophagogastroduodenoscopy <+> 2 Case Attendee <+> 2 Role Performed <+> 2 Time In <+> 2 Procedure <+> 3 Case Attendee <+> 3 Role Performed <+> 3 Time In <+> 3 Procedure <+> 4 Case Attendee <+> 4 Role Performed <+> 4 Time In <+> 4 Procedure <+> 5 Case Attendee <+> 5 Role Performed <+> 5 Time In <+> 5 Procedure [facility] - Case times Entry 1 Patient In Room Time 09/25/18 10:44:00 Out Room Time 09/25/18 11:02:00 Anesthesia Start Time 09/25/18 10:44:00 Stop Time 09/25/18 10:56:00 Anesthesia Ready 09/25/18 10:44:00 Surgery / Procedure Times Start Time 09/25/18 10:53:00 Stop Time 09/25/18 10:56:00 Last Modified By: Jackie Best Rn-Traveler 09/25/18 11:19:39 [facility] - Case times Audit 09/25/18 11:19:39 Lehr Loader: [id number] Modifier: [id number] <+> 1 Out Room Time <+> 1 Stop Time <+> 1 Stop Time 09/25/18 10:55:01 Lehr Loader: [id number] Modifier: [id number] <+> 1 Start Time [facility] - Cultures and Spec Summary Entry 1 Cultrures and Specimens Specimen Ordered: Yes Last Modified By: Jackie Best Rn-Traveler 09/25/18 10:59:51 [facility] - Delays Entry 1 Delay Reason Other Duration 0 Minute(s) Last Modified By: Jackie Best Rn-Traveler 09/25/18 10:50:28 [facility] - Departure from OR Entry 1 Integumentary Assessment Integumentary WDL Assessment WDL Transfer/Handoff Transfer to PACU Phase I Post-op Transport Stretcher/Gurney Via Patient Transport Jackie Best, Accompanied by Rn-TravelerAndrae Natalie, CRNA Last Modified By: Jackie Best Rn-Traveler 09/25/18 10:51:25 [facility] - Endoscopy Details Entry 1 Abdomen Procedure Soft, Non-Tender Assessment Procedure Abdomen 09/25/18 10:44:00 Assessment D/T Radio Frequency Ablation Last Modified By: Jackie Best Rn-Traveler 09/25/18 10:51:01 [facility] - Fire Risk Assessment Entry 1 Fire Info Surgical Site or 1- Yes Incision Above the Xyphoid Open O2 Source 1- Yes (Mask or Cannula) Available Ignition 1- Yes (ESU, Laser, Light Source) Fire Risk 3 Assessment Score Fire Score Fire Risk Yes Assessment Complete Fire Risk Jackie Best, Assessment Verified Rn-Traveler By Fire Risk 09/25/18 10:44:00 Assessment Verified Date/Time Fire Risk High Risk Protocol Yes Implemented Standard Fire Yes Safety Precautions Followed Last Modified By: Jackie Best Rn-Traveler 09/25/18 10:52:37 [facility] End[facility] - General Case Polymer Tester 1 Case Information OR Endo 03 [facility] Case Level 1 Room Verified Yes Wound Class II - Clean-Contaminated Specialty SN Gastroenterology Anesthesia Type MAC ASA Class 3 Diagnosis Preop Diagnosis NAUSEA VOMITING Postop Same As Preop No Postop Diagnosis Chronic Gastritis Last Modified By: Jackie Best Rn-Traveler 09/25/18 11:21:01 [facility] - General Case Data Audit 09/25/18 11:21:01 Lehr Loader: [id number] Modifier: [id number] 1 <*> Postop Diagnosis NAUSEA VOMITING [facility] - Intraoperative Assessment Entry 1 Valid History / Yes Physical in Chart Preoperative Yes Checklist Reviewed/Evaluated Patient is Latex No Sensitive Last Modified By: Jackie Best Rn-Traveler 09/25/18 10:53:33 [facility] - Intraoperative Equipment Entry 1 Type Scope Equipment Intraop Monitoring Antiembolic Devices Scopes Scope Serial A Number/Identificatio n Number Photo/Video Documentation Last Modified By: Jackie Best Rn-Traveler 09/25/18 10:54:28 [facility] - Patient Positioning Entry 1 Procedure Esophagogastroduodenosco py, Esophageal Biopsy, Gastric Biopsy Positioned By Arabella Morales, Av Specialist Position Verified Last Modified By: Jackie Best Rn-Traveler 09/25/18 10:59:38 [facility] - Patient Positioning Audit 09/25/18 10:59:38 Lehr Loader: [id number] Modifier: [id number] 1 <*> Procedure Esophagogastroduodenoscopy [facility] - Sign In Entry 1 Patient, Site, Yes Procedure Identified Surgical Consent Yes Confirmed Surgical Site N/A Marked by person performing procedure Airway Hypothermia Risk No Warming Measures No Taken Last Modified By: Jackie Best Rn-Traveler 09/25/18 10:50:39 [facility] - Sign Out Entry 1 RN Confirmation Surgical Yes Procedure(s) Identified Instrument, Sponge N/A and Sharps Counts Correct/Documented Equipment Problems N/A Documented Specimen Labeled Yes Correctly Urinary Catheter N/A Documented in IView Safety Checklist Yes Elements Complete? RN Sign Out Jackie Best, Signature Rn-Traveler RN Sign Out 09/25/18 11:02:00 Signature Date/Time Plan of Care Outcome - [...] of Care Outcome - Counts OUTCOME STATEMENT: N/A Absence of signs and symptoms of injury related to extraneous objects Last Modified By: Jackie Best Rn-Traveler 09/25/18 11:19:12 [facility] - Surgical Procedures Entry 1 Entry 2 Entry 3 Procedure Esophagogastroduodenosco Esophageal Biopsy Gastric Biopsy py Modifiers Additional Procedure Description Primary Procedure Yes No No Primary Surgeon NURY OLGUIN MD YONG, JUNE, MD YONG, JUNE, MD Start 09/25/18 10:53:00 09/25/18 10:53:00 09/25/18 10:53:00 Stop 09/25/18 10:56:00 09/25/18 10:56:00 09/25/18 10:56:00 Physician States Cecum Reached Anesthesia Type MAC MAC MAC Specialty SN Gastroenterology SN Gastroenterology SN Gastroenterology Wound Class II - Clean-Contaminated II - Clean-Contaminated II - Clean-Contaminated Last Modified By: Jackie Best, Jackie Best, Jackie Best, Rn-Traveler 09/25/18 Rn-Traveler 09/25/18 Rn-Traveler 09/25/18 11:20:16 11:20:16 11:20:16 [facility] - Surgical Procedures Audit 09/25/18 11:20:16 Lehr Loader: [id number] Modifier: [id number] 1 <*> Procedure Esophagogastroduodenoscopy 1 <+> Specialty 1 <+> Stop <+> 2 Stop <+> 3 Stop 09/25/18 10:59:32 Lehr Loader: [id number] Modifier: [id number] <+> 1 Start <+> 2 Procedure <+> 2 Primary Procedure <+> 2 Primary Surgeon <+> 2 Specialty <+> 2 Start <+> 2 Wound Class <+> 2 Anesthesia Type <+> 3 Procedure <+> 3 Primary Procedure <+> 3 Primary Surgeon <+> 3 Specialty <+> 3 Start <+> 3 Wound Class <+> 3 Anesthesia Type [facility] - Time Out Entry 1 Procedure to be Esophagogastroduodenosco Performed py, Esophageal Biopsy, Gastric Biopsy Time Out Time Out Pause Time 09/25/18 10:52:00 All activity Yes suspended (unless life threatening emergency) Team Verbally Correct patient Confirms Information identity, Consent form is present and accurate, Agreement on the procedure to be done, Correct patient position, Performed before each procedure if multiple procedures, Reconcile problems if responses among team members differ Antibiotic N/A Prophylaxis Administered Or In Progress Within the Last 60 Minutes Beta Da N/A Administered Venous N/A Thromboembolism Prophylaxis Required Anticipated Critical Events Surgeon None expected Last Modified By: Jackie Best Rn-Traveler 09/25/18 10:59:39 [facility] - Time Out Audit 09/25/18 10:59:39 Lehr Loader: [id number] Modifier: [id number] 1 <*> Procedure to be Performed Esophagogastroduodenoscopy Case Comments <None> Finalized By: Jackie Best Rn-Traveler Document Signatures Signed By: Jackie Best Rn-Traveler 09/25/18 11:21 Electronically signed by Mary Ann, [facility] Conversion Forming Department End Finder Cerner at 05/27/2022 9:38 AM CDT documented in this encounter Plan of Treatment Not on file documented as of this encounter Visit Diagnoses Not on filedocumented in this encounter
--- OUTSIDE RECORDS SUMMARY | 2024-09-17 11:37 | XMS_ITS | Encounter Summary ---
Author Organization [employer] ([place], [place], [place], [place]) Address [address] [place] [address] Care Team Providers Care Hat Block Maker Name Role Phone Unavailable Primary Care Provider Unavailabl e Encounter Details Date Type Department Care Team (Late st Contact Info) Description 09/24/2018 Transcribed Document [facility] [place] Family Medicine [address] [place] [address] ProviderGonzalez MD [address] [place] [address] Social History Tobacco Use Types Packs/Day Years Used Date Smoking Tobacco: Never Assessed Comments Unknown Sex and Gender Information Value Date Recorded Sex Assigned at Not on file Legal Sex Female 6:02 PM CDT Gender Identity Not on file Sexual Orientation Not on file documented as of this encounter Miscellaneous Notes * Cerner Conversion Note - Gonzalez Muñoz MD - 09/24/2018 9:21 AM CDT Patient: GREG BAUTISTA Age: 58 Years Sex: Female : 1960 Reason for Consultation Intractable nausea and vomiting History of Present Illness Ms. Bautista is a pleasant 58 year old female with PMH of sarcoidosis and newly diagnosed HTN who was recently admitted on 09/11 with abdominal pain, nausea/vomiting, hypokalemia. She was discharged 09/14. Questionable history of sarcoidosis with lymphadenopathy and liver lesion. Patient scheduled for CT-guided liver biopsy this week, followed by Dr. Greyson Robbins. Patient again went to [facility] due to nausea/vomiting and was transferred here for further evaluation. She states the nausea/vomiting started last Monday. It occurs throughout the day, not associated with eating. She has a decrease in appetite and hasn't hardly been able to eat anything due to the vomiting. She states she lost about 26 pounds that last time she was in the hospital due to lack of appetite. She notes that she is vomiting undigested food and gets full quickly. Last episode was yesterday evening. She denies any abdominal pain like she had previously during her last hospital stay. No fever/chills, hematemesis. She denies diarrhea. Has a bowel movement every 3 days with melena, BRBPR. Last BM was Monday. Denies jaundice. She denies NSAID/ASA use. Cholecystectomy back in 2016. Never had an EGD before. Denies use of reflux medication. Last colonoscopy was back in 2016 at [facility] and it was normal without polyps. She notes she has been anemic for many years, unsure why. Has never taken iron supplementation before. She notes a mild headache that she relates to her high blood pressure or because of not eating anything since Monday. Review of Systems As above, 10 system otherwise negative. Vital Signs T: 36.8 ??C TMIN: 36.7 ??C TMAX: 36.8 ??C HR: 80 RR: 16 BP: 165/83 SpO2: 96% HT: 160.02 cm WT: 75.45 kg BMI: 29.5 Oxygen Settings (Last) No qualifying data available. Physical Exam General: Alert and oriented, well nourished, no acute distress. Neurologic: Awake, alert, and oriented X3, CN II-XII intact. Eye: PERRL, EOMI, normal conjunctiva, no scleral icterus HENT: Normocephalic, normal hearing, dry oral mucosa. Neck: Supple, non-tender, no lymphadenopathy. Lungs: Clear to auscultation, non-labored respiration. Heart: Normal rate, regular rhythm, no murmur, gallop or edema. Abdomen: Soft, non-tender, non-distended, normal bowel sounds, no masses. No high pitched or tinkling sounds. No guarding or rebound, no ascites. No Hepatomegaly. Musculoskeletal: Normal range of motion and strength, no tenderness or swelling. Skin: Skin is warm, dry and pink, no rashes or lesions. Psychiatric: Cooperative, appropriate mood and affect. Assessment/Plan Nausea and vomiting -Abdominal X ray and RUQ US pending to rule out constipation induced nausea/vomiting, any structural abnormality of biliary ducts -Lipase normal at 75 -No plans for EGD at this time. If imaging and labs come back normal, may then proceed with EGD to evaluate gastritis, esophagitis, ulcers -Continue with Zofran and Reglan for supportive care. Pepcid for GI prophylaxis -Avoid NSAIDs/ASA to prevent increased GI tract irritation/discomfort Anemia -Long history of anemia, hgb 10.4, patient stable -No obvious GI blood loss -No further workup needed at this time unless hgb continues to drop or obvious GI blood loss Discussed with Dr. Simmons Thank you for this Consultation! Provider Information Primary Care Physician - BETHANY CARDOZO Attending Physician - KATIE MARTINEZ, -INT Admitting Physician - KATIE MARTINEZ, -INT Consulting Physician - MEMO SALAZAR MD-ONC - Liver lesion Consulting Physician - NURY SIMMONS MD - Intractable nausea and vomiting Consulting Physician - GIULIA ALMONTE MD-ONC Referring Physician - JAIME RAMIREZ (REF)MD-EMR Problem List/Past Medical History Hypertension Sarcoidosis Procedure/Surgical History Cholecystectomy. Medications Inpatient acetaminophen-HYDROcodone 325 mg-5 mg oral tablet, 1 [...] 60 mEq= 3 Tab, Oral, Q2H, PRN Reglan, 5 mg= 1 mL, IV Push, Q6H Restoril, 15 mg= 1 Cap, Oral, At Bedtime, PRN Sodium Chloride 0.9% intravenous solution 1,000 mL, 1000 mL, IntraVENous sodium phosphate sodium phosphate Tylenol, 650 mg= 2 Tab, Oral, Q4H, PRN Zofran, 4 mg= 2 mL, IV Push, Q4H, PRN Home hydrALAZINE 25 mg oral tablet, 25 mg= 1 Tab, Oral, BID Lomotil 2.5 mg-0.025 mg oral tablet, 1 Tab, Oral, QID, PRN Norvasc 5 mg oral tablet, 5 mg= 1 Tab, Oral, Daily Allergies No Known Allergies No Known Medication Allergies Social History Non-smoker Denies alcohol use Denies illicit drug use Family History +cholangiocharcinoma (sister) No other GI disease or malignancy Diagnostic Results Abdominal X ray and RUQ US pending... Lab Results Test Name Test Result Date/Time [...] Calcium Level 9.8 mg/dL 09/24/2018 07:02 EDT Protein Total 6.8 Gram/dL 09/24/2018 07:02 EDT Albumin Level 3.0 Gram/dL (Low) 09/24/2018 07:02 EDT Globulin 3.8 Gram/dL 09/24/2018 07:02 EDT A/G Ratio 0.8 (Low) 09/24/2018 07:02 EDT Bilirubin Total 0.6 mg/dL 09/24/2018 07:02 EDT Bilirubin Direct 0.2 mg/dL 09/24/2018 07:02 EDT Alk Phos 431 Units/Liter (High) 09/24/2018 07:02 EDT AST 16 Units/Liter 09/24/2018 07:02 EDT ALT 17 Units/Liter 09/24/2018 07:02 EDT Magnesium Level 2.0 mg/dL 09/24/2018 07:02 EDT Amylase Level 26 Units/Liter 09/24/2018 07:02 EDT Lipase Level 75 Units/Liter 09/24/2018 07:02 EDT WBC 6.1 K/uL 09/24/2018 [...] # 0.60 x10(3)/uL (Low) 09/24/2018 07:02 EDT [place] % 8.9 % 09/24/2018 07:02 EDT [place] # 0.54 K/uL 09/24/2018 07:02 EDT Eos [...] 07:02 EDT Electronically signed by Mary Ann, [facility] Conversion Director Learning Cerner at 05/27/2022 9:38 AM CDT documented in this encounter Plan of Treatment Not on file documented as of this encounter Visit Diagnoses Not on filedocumented in this encounter
--- OUTSIDE RECORDS SUMMARY | 2024-09-17 11:37 | XMS_ITS | Encounter Summary ---
Author Organization [facility] ([place], [place], [place], [place]) Address [address] [place] [address] Care Team Providers Care Surgical Lead Name Role Phone Unavailable Primary Care Provider Unavailabl e Encounter Details Date Type Department Care Team (Late st Contact Info) Description 09/25/2018 Transcribed Document [facility] [place] [address] [place] [address] ProviderGonzalez MD [address] [place] [address] Social History Tobacco Use Types Packs/Day Years Used Date Smoking Tobacco: Never Assessed Comments Unknown Sex and Gender Information Value Date Recorded Sex Assigned at Not on file Legal Sex Female 6:02 PM CDT Gender Identity Not on file Sexual Orientation Not on file documented as of this encounter Miscellaneous Notes * Cerner Conversion Note - Gonzalez Muñoz MD - 09/25/2018 11:04 AM CDT Patient: GREG BAUTISTA Age: 58 Years Sex: Female : 1960 *Operation EGD and Cold Biopsies. Indication for Surgery N/V *Preoperative Diagnosis Rule out peptic ulcer or obstruction. *Postoperative Diagnosis Reflux esophagitis A Small hiatal hernia Chronic gastritis. *Surgeon(s) Primary Surgeon Griselda Simmons MD *Estimated Blood Loss Minimal. *Findings Reflux esophagitis A at the GE junction and a small hiatal hernia, biopsies taken. Chronic moderate antral gastritis, biopsies taken. No ulcer or obstruction. *Specimen(s) Antrum Esophagus. Complications None Follow up biopsies. PPI daily. Diflucan x 5 days. Date of Service Date/Time of Service SN - Proc - Start Time: 09/25/18 10:53:00 (09/25/18 10:59:32) SN - Proc - Start Time: 09/25/18 10:53:00 (09/25/18 10:59:32) SN - Proc - Start Time: 09/25/18 10:53:00 (09/25/18 10:59:32) documented in this encounter Plan of Treatment Not on file documented as of this encounter Visit Diagnoses Not on filedocumented in this encounter
--- OUTSIDE RECORDS SUMMARY | 2024-09-17 11:37 | XMS_ITS | Encounter Summary ---
Author Organization [employer] ([place], [place], [place], [place]) Address [address] [place] [address] Care Team Providers Care Vehicle And Equipment Cleaner Name Role Phone Unavailable Primary Care Provider Unavailabl e Encounter Details Date Type Department Care Team (Late st Contact Info) Description 09/28/2018 Transcribed Document [facility] [place] Family Medicine [address] [place] [address] ProviderGonzalez MD [address] [place] [address] Social History Tobacco Use Types Packs/Day Years Used Date Smoking Tobacco: Never Assessed Comments Unknown Sex and Gender Information Value Date Recorded Sex Assigned at Not on file Legal Sex Female 6:02 PM CDT Gender Identity Not on file Sexual Orientation Not on file documented as of this encounter Miscellaneous Notes * Cerner Conversion Note - Gonzalez ProviderMD - 09/28/2018 6:33 PM CDT On Going Discharge Planning Entered On: 09/28/2018 18:51 EDT Performed On: 09/28/2018 18:33 EDT by JADEN BYERS, Pit Inspector Care Management Progress Note Discharge Arrangements : Patient Post-Acute Information Patient Name: GREG BAUTISTA Gender: Female : [birth year] Age: 58 Years No Post-Acute Placement(s) Listed No Post-Acute Service(s) Listed No [place] Referral(s) Listed Discharge Options Discussed with Patient : [facility] [place] JADEN BYERS, Pit Inspector - 09/28/2018 18:33 EDT Narrative Progress Note Narrative Progress Note : Met w/ pt in her room. She tearfully relayed that she has had this intense stomach pain for almost 3 years to the point that she cannot even walk to her mail box. She has talked to her PCP, had a colonoscopy which was normal, had EGDs (one here this week). States her PCP then said he didn't know what was wrong and put her on an antidepressant which didn't help either. Asked her why if she is in such pain that she is not taking any pain meds? She replied because she doesn't have any. I said I mean here. She said no one EVER told her until Lucie did just now that she could have any. Lucie jung her a 5 mg norco and she seems so appreciative. We reiterated that her meds are PRN and that she has to ask for them if needed. Sent Dr Briceno a mgs detailing this. CM will cont to follow. JADEN BYERS, Pit Inspector - 09/28/2018 18:33 EDT documented in this encounter Plan of Treatment Not on file documented as of this encounter Visit Diagnoses Not on filedocumented in this encounter
--- OUTSIDE RECORDS SUMMARY | 2024-09-17 11:37 | XMS_ITS | Encounter Summary ---
Author Organization [employer] ([place], [place], [place], [place]) Address [address] [place] [address] Care Team Providers Care Global Human Resources Director Name Role Phone Unavailable Primary Care Provider Unavailabl e Encounter Details Date Type Department Care Team (Late st Contact Info) Description 09/29/[address] [facility] [place] Family Medicine [address] [place] [address] ProviderGonzalez MD [address] [place] [address] Social History Tobacco Use Types Packs/Day Years Used Date Smoking Tobacco: Never Assessed Comments Unknown Sex and Gender Information Value Date Recorded Sex Assigned at Not on file Legal Sex Female 6:02 PM CDT Gender Identity Not on file Sexual Orientation Not on file documented as of this encounter Miscellaneous Notes * Cerner Conversion Note - Historical ProviderMD - 09/29/2018 2:00 AM CDT Marine Service Station Attendant Details Entered On: 09/29/2018 3:52 EDT Performed On: 09/29/2018 2:00 EDT by Katy Charles, Rn Order Details Transport Mode Order Detail : Ambulatory Isolation Precautions Order Detail : Standard Precautions Order Detail : 0 IV Order Detail : 1 Oxygen Order Detail : 0 Nurse Collect Order Detail : 0 Lift/Transfer : Independent Central Line Order Detail : No Room Service : Appropriate Arterial Line : No Katy Charles, Rn - 09/29/2018 3:52 EDT Electronically signed by Jae Reese Conversion Crime Scene Evidence Technician Ariannener at 05/27/2022 9:35 AM CDT documented in this encounter Plan of Treatment Not on file documented as of this encounter Visit Diagnoses Not on filedocumented in this encounter
--- OUTSIDE RECORDS SUMMARY | 2024-09-17 11:37 | XMS_ITS | Encounter Summary ---
Author Organization [employer] ([place], [place], [place], [place]) Address [address] [place] [address] Care Team Providers Care Calender Inspector Name Role Phone Unavailable Primary Care Provider Unavailabl e Encounter Details Date Type Department Care Team (Late st Contact Info) Description 09/29/2018 Transcribed Document [facility] [place] Family Medicine [facility] [place] [address] ProviderGonzalez MD [facility] [place] [address] Social History Tobacco Use Types Packs/Day Years Used Date Smoking Tobacco: Never Assessed Comments Unknown Sex and Gender Information Value Date Recorded Sex Assigned at Not on file Legal Sex Female 6:02 PM CDT Gender Identity Not on file Sexual Orientation Not on file documented as of this encounter Miscellaneous Notes * Cerner Conversion Note - Gonzalez ProviderMD - 09/29/2018 9:08 PM CDT Patient: GREG BAUTISTA Age: 58 Years Sex: Female : 1960 Subjective Nausea persists Vital Signs T: 36.4 ??C TMIN: 36.4 ??C TMAX: 36.7 ??C HR: 84 RR: 17 BP: 157/89 Oxygen Settings (Last) Oxygen Therapy Mode: Room air (09/29/18 21:00:00) Oxygen Flow Rate: 2 Liter/Min (09/25/18 11:13:00) Intake & Output Totals Last 24 Hours (7a-7a) Input Total: 842 mL Output Total: 0 mL Balance: 842 mL Physical Exam General: no acute distress Neurologic: Awake, alert, and oriented X3, Moves all extremities. Eye: Pupils reactive and equal bilaterally. OP clear. Neck: No carotid bruits, no JVD, no lymphadenopathy Lungs: Clear to auscultation bilaterally. No wheezes. Heart: Regular rate and rhythm. No murmurs. Abdomen: Soft, non-tender, non-distended, normal bowel sounds, no masses Extremities: No edema. Full range of motion where tested. Skin: No rashes or lesions Assessment/Plan Intractable nausea and vomiting Patient had [...] Continue home medication IV hydralazine as needed No change. Awaiting bx results. Supportive Care. VTE Prophylaxis - Medical Heparin 5,000 Units, [...] hydrALAZINE, 25 mg= 1 Tab, Oral, TID Lactated Ringers Injection intravenous solution 1,000 mL, 1000 mL, IntraVENous lidocaine 1% injectable solution, 0.5 mL, IntraDermal, 1-Time, PRN magnesium sulfate, 2 Gram= 50 mL, IV Piggyback, Daily, PRN magnesium sulfate, 2 Gram= 50 mL, IV Piggyback, Q2H, PRN morphine, 2 mg= 1 mL, IV Push, Q6H, PRN Norvasc, 5 mg= 1 Tab, Oral, Daily pantoprazole, 40 mg= 1 Tab, Oral, Daily Phenergan, 12.5 mg= 0.5 Tab, Oral, Q6H, PRN potassium chloride 10 mEq/50 mL intravenous solution, 10 mEq= 50 mL, IV Piggyback, Q1H, PRN potassium chloride 20 mEq oral tablet, extended release, 20 mEq= 1 Tab, Oral, Q2H, PRN potassium chloride 20 mEq oral tablet, extended release, 60 mEq= 3 Tab, Oral, Q2H, PRN Restoril, 15 mg= 1 Cap, Oral, At Bedtime, PRN sodium phosphate sodium phosphate Tylenol, 650 mg= 2 Tab, Oral, Q4H, PRN Zofran, 4 mg= 2 mL, IV Push, Q4H, PRN Lab Results Test Name Test Result Date/Time Sodium Level 139 mmol/L 09/29/2018 07:04 EDT Potassium Level 3.3 mmol/L (Low) 09/29/2018 07:04 EDT Chloride Level 104 mmol/L 09/29/2018 07:04 EDT Carbon Dioxide Level 26 mmol/L 09/29/2018 07:04 EDT Anion Gap 12 09/29/2018 07:04 EDT Glucose Level 154 mg/dL (High) 09/29/2018 07:04 EDT Blood Urea Nitrogen 15 mg/dL 09/29/2018 07:04 EDT Creatinine Level 1.00 mg/dL 09/29/2018 07:04 EDT eGFR >60 mL/min/1.73m2 09/29/2018 07:04 EDT eGFR NonAfrican 57 mL/min/1.73m2 (Low) 09/29/2018 07:04 EDT Bun/Creatinine 15.0 09/29/2018 07:04 EDT Calcium Level 11.3 mg/dL (High) 09/29/2018 07:04 EDT WBC 4.6 K/uL 09/29/2018 07:04 EDT RBC 3.89 Million/uL (Low) 09/29/2018 07:04 EDT Hgb 10.4 g/dL (Low) 09/29/2018 07:04 EDT Hct 32.0 % (Low) 09/29/2018 07:04 EDT MCV 82.3 fL 09/29/2018 07:04 EDT MCH 26.7 pg 09/29/2018 07:04 EDT MCHC 32.5 Gram/dL 09/29/2018 07:04 EDT Platelet Count 199 K/uL 09/29/2018 07:04 EDT MPV 9.3 fL (Low) 09/29/2018 07:04 EDT RDW 15.1 % (High) 09/29/2018 07:04 EDT Neut % 67.7 % 09/29/2018 07:04 EDT Neut # 3.11 K/uL 09/29/2018 07:04 EDT Lymph % 14.2 % (Low) 09/29/2018 07:04 EDT Lymph # 0.65 x10(3)/uL (Low) 09/29/2018 07:04 EDT [place] % 10.9 % (High) 09/29/2018 07:04 EDT [place] # 0.50 K/uL 09/29/2018 07:04 EDT Eos % 4.6 % 09/29/2018 07:04 EDT Eos # 0.21 x10(3)/uL 09/29/2018 07:04 EDT Baso % 0.9 % 09/29/2018 07:04 EDT Baso # 0.04 x10(3)/uL 09/29/2018 07:04 EDT Slide Review No 09/29/2018 07:04 EDT IG# 0.08 x10(3)/uL (High) 09/29/2018 07:04 EDT IG% 1.70 % (High) 09/29/2018 07:04 EDT documented in this encounter Plan of Treatment Not on file documented as of this encounter Visit Diagnoses Not on filedocumented in this encounter
--- OUTSIDE RECORDS SUMMARY | 2024-09-17 11:37 | XMS_ITS | Encounter Summary ---
Author Organization [employer] ([place], [place], [place], [place]) Address [address] [place] [address] Care Team Providers Care Manpower Development Manager Name Role Phone Unavailable Primary Care Provider Unavailabl e Encounter Details Date Type Department Care Team (Late st Contact Info) Description 09/26/2018 Transcribed Document [facility] [address] [place] [address] Chevy Briceno MD [address] [place] [id number] Social History Tobacco Use Types Packs/Day Years Used Date Smoking Tobacco: Never Assessed Comments Unknown Sex and Gender Information Value Date Recorded Sex Assigned at Not on file Legal Sex Female 6:02 PM CDT Gender Identity Not on file Sexual Orientation Not on file documented as of this encounter Miscellaneous Notes * Cerner Conversion Note - Chevy Briceno MD - 09/26/2018 9:59 AM EDT Patient: GREG BAUTISTA Age: 58 Years Sex: Female : 1960 Subjective no acute issues or complaints overnight, tolerated breakfast this morning ROS: denies chest pain, shortness of air, abdominal pain, nausea, vomiting Vital Signs T: 37.3 ??C TMIN: 36.7 ??C TMAX: 37.3 ??C HR: 72 RR: 18 BP: 143/61 SpO2: 96% Oxygen Settings (Last) Oxygen Therapy Mode: Room air (09/25/18 21:00:00) Oxygen Flow Rate: 2 Liter/Min (09/25/18 11:13:00) Intake & Output Totals Last 24 Hours (7a-7a) Input Total: 1483 mL Output Total: 0 mL Balance: 1483 mL Physical Exam GENERAL: The patient is [...] to go for CT guided liver biopsy 09/26: GI following, EGD showed reflux esophagitis, chronic gastritis, PPI and diflucan for 5 days -potassium is normal this morning -oncology following, awaiting results of the liver biopsy, CT of the head showed 13 mm nodule within the left parotid gland. Recommend follow-up face CT. VTE Prophylaxis - Medical Heparin 5,000 Units, [...] mEq= 3 Tab, Feeding Tube, Q2H, PRN Diflucan, 100 mg= 1 Tab, Oral, Daily Dulcolax Laxative, 5 mg= 1 Tab, Oral, [...] Test Name Test Result Date/Time Sodium Level 135 mmol/L (Low) 09/26/2018 06:23 EDT Potassium Level 3.7 mmol/L 09/26/2018 06:23 EDT Chloride Level 104 mmol/L 09/26/2018 06:23 EDT Carbon Dioxide Level 26 mmol/L 09/26/2018 06:23 EDT Anion Gap 9 09/26/2018 06:23 EDT Glucose Level 130 mg/dL (High) 09/26/2018 06:23 EDT Blood Urea Nitrogen 6 mg/dL (Low) 09/26/2018 06:23 EDT Creatinine Level 1.00 mg/dL 09/26/2018 06:23 EDT eGFR >60 mL/min/1.73m2 09/26/2018 06:23 EDT eGFR NonAfrican 57 mL/min/1.73m2 (Low) 09/26/2018 06:23 EDT Bun/Creatinine 6.0 (Low) 09/26/2018 06:23 EDT Calcium Level 9.7 mg/dL 09/26/2018 06:23 EDT WBC 6.8 K/uL 09/26/2018 06:07 EDT RBC 4.02 Million/uL 09/26/2018 06:07 EDT Hgb 10.6 g/dL (Low) 09/26/2018 06:07 EDT Hct 33.8 % (Low) 09/26/2018 06:07 EDT MCV 84.1 fL 09/26/2018 06:07 EDT MCH 26.4 pg 09/26/2018 06:07 EDT MCHC 31.4 Gram/dL (Low) 09/26/2018 06:07 EDT Platelet Count 240 K/uL 09/26/2018 06:07 EDT MPV 9.3 fL (Low) 09/26/2018 06:07 EDT RDW 14.6 % 09/26/2018 06:07 EDT Neut % 75.6 % (High) 09/26/2018 06:07 EDT Neut # 5.11 K/uL 09/26/2018 06:07 EDT Lymph % 16.0 % (Low) 09/26/2018 06:07 EDT Lymph # 1.08 x10(3)/uL 09/26/2018 06:07 EDT [place] % 3.8 % 09/26/2018 06:07 EDT [place] # 0.26 K/uL 09/26/2018 06:07 EDT Eos % 3.5 % 09/26/2018 06:07 EDT Eos # 0.24 x10(3)/uL 09/26/2018 06:07 EDT Baso % 0.4 % 09/26/2018 06:07 EDT Baso # 0.03 x10(3)/uL 09/26/2018 06:07 EDT Slide Review No 09/26/2018 06:07 EDT IG# 0.05 x10(3)/uL 09/26/2018 06:07 EDT IG% 0.70 % (High) 09/26/2018 06:07 EDT documented in this encounter Plan of Treatment Not on file documented as of this encounter Visit Diagnoses Not on filedocumented in this encounter
--- OUTSIDE RECORDS SUMMARY | 2024-09-17 11:37 | XMS_ITS | Encounter Summary ---
Author Organization [employer] ([place], [place], [place], [place]) Address [address] [place] [address] Care Team Providers Care Die Repair Name Role Phone Unavailable Primary Care Provider Unavailabl e Encounter Details Date Type Department Care Team (Late st Contact Info) Description 09/30/2018 Transcribed Document [facility] [place] Family Medicine [address] [place] [address] ProviderGonzalez MD [address] [place] [address] Social History Tobacco Use Types Packs/Day Years Used Date Smoking Tobacco: Never Assessed Comments Unknown Sex and Gender Information Value Date Recorded Sex Assigned at Not on file Legal Sex Female 6:02 PM CDT Gender Identity Not on file Sexual Orientation Not on file documented as of this encounter Miscellaneous Notes * Cerner Conversion Note - Historical ProviderMD - 09/30/2018 5:00 AM CDT Chart Check - Review Order Profile Entered On: 09/30/2018 4:59 EDT Performed On: 09/30/2018 5:00 EDT by Katy Charles Rn Chart Check Powerplans Initiated/Discontinued as Appropriate : Yes All Active Orders Reviewed : Yes Katy Charles Rn - 09/30/2018 4:59 EDT documented in this encounter Plan of Treatment Not on file documented as of this encounter Visit Diagnoses Not on filedocumented in this encounter
--- OUTSIDE RECORDS SUMMARY | 2024-09-17 11:37 | XMS_ITS | Encounter Summary ---
Author Organization [email or web address] ([place], [place], [place], [place]) Address [address] [place] [address] Care Team Providers Care Senior Process Engineer Name Role Phone Unavailable Primary Care Provider Unavailabl e Encounter Details Date Type Department Care Team (Late st Contact Info) Description 09/14/2018 Transcribed Document [facility] Radiology [address] [place] [address] Chevy Briceno MD [address] [place] [id number] Social History Tobacco Use Types Packs/Day Years Used Date Smoking Tobacco: Never Assessed Comments Unknown Sex and Gender Information Value Date Recorded Sex Assigned at Not on file Legal Sex Female 6:02 PM CDT Gender Identity Not on file Sexual Orientation Not on file documented as of this encounter Miscellaneous Notes * Cerner Conversion Note - Chevy Briceno MD - 09/14/2018 12:25 PM EDT Patient: GREG BAUTISTA Age: 58 Years Sex: Female : 1960 Admit Date 09/10/2018 20:13 Discharge Date 09/14/2018 Primary Care Provider BETHANY CARDOZO Discharge Diagnosis No Diagnosis on Record Hospital Course This is a 58-year-old female with history of sarcoidosis, otherwise no major medical problems. Patient presented at outside facility in [facility], because for last couple weeks, patient has been losing weight, nausea, vomiting, not eating, abdominal discomfort. Patient has been evaluated there. She was found with hypokalemia, elevated alkaline phosphatase, and lipase level. CT of abdomen and pelvis shows questionable lymphoma. Dr. Oakes, was consulted and patient was brought in to [facility] for Heme Oncology evaluation. Patient is lying [...] possible lymphoma with questionable liver metastasis. Dr. Okaes, Oncology was consulted, advised to admit the [...] if negative, can be discharged later today Patient on the day of discharge had normal potassium and was not having any more episodes of diarrhea and thus no stool sample could be obtained. Patient to follow up with oncology, GI, and her PCP to await final biopsy results. ROS: denies chest pain, shortness of air, nausea, fever, abdominal pain Vital Signs T: 37.2 ??C TMIN: 37.2 ??C TMAX: 37.6 ??C HR: 82 RR: 14 BP: 169/89 SpO2: 95% WT: 85.45 kg Oxygen Settings (Last) Oxygen Therapy Mode: Room air (09/14/18 06:35:00) Oxygen Flow Rate: 2 Liter/Min (09/12/18 18:05:00) Physical Exam HEAD: Atraumatic, normocephalic. EYES: Pupils are round and reactive. No conjunctival injection or discharge. NECK: Supple. Full range of motion. CHEST: poor inspiratory effort HEART: S1 and S2 heard. Regular rate and rhythm. ABDOMEN: Soft. Audible bowel sounds. No tenderness. No guarding. No rebound tenderness. Discharge Disposition Home with Home Care Discharge Follow Up Follow up with primary care provider - Within 1 week Follow up with specialist - Within 1 week Follow up with specialist - Within 1 week Discharge Medications (2) Active hydrALAZINE 10 mg oral tablet 10 mg = 1 Tab, Oral, BID Norvasc 5 mg oral tablet 5 mg = 1 Tab, Oral, Daily Code Status Start: 09/10/18 20:42:00 EDT, Full Code, Continuous Order Condition on Discharge stable Consulting Physicians MEMO SALAZAR MD-ONC Current Diet Order Diet, Adult - Ordered -- Start: 09/13/18 7:59:00 EDT, Regular Diet, Isolation: Contact precautions Pending Labs Dispatched Gastrointestinal Panel PCR (GI Panel PCR) Specimen Type: Stool, Routine collect, 09/13/18 9:30:00 EDT, 1-Time, Stop: 09/13/18 9:30:00 EDT, Nurse Collect In Process SENDOUT REPORT [id number], [id number], RT - Routine, MEMO SALAZAR MD-ONC, 09/11/18 10:25:00 EDT Pathology Tissue Request [id number], [id number], 09/11/18 10:25:00 EDT, Collected, RT - Routine, 09/11/18 12:07:00 EDT, KAMRYN DEL VALLE, Histotech, Specimen Type: AP Specimen, Specimen Desc: Retroperitoneal lymph node, Consulting Dr: MEMO SALAZAR... Ordered BMP Basic Metabolic Panel Specimen Type: Blood, AM Draw collect, 09/12/18 4:00:00 EDT, Daily, Lab Collect Preliminary Culture Blood Specimen Type: Blood, Stat collect, 09/10/18 20:43:00 EDT, 1-Time, Stop: 09/10/18 20:43:00 EDT, Lab Collect Culture Blood Specimen Type: Blood, Stat collect, 09/10/18 20:43:00 EDT, 1-Time, Stop: 09/10/18 20:43:00 EDT, Lab Collect documented in this encounter Plan of Treatment Not on file documented as of this encounter Visit Diagnoses Not on filedocumented in this encounter
--- OUTSIDE RECORDS SUMMARY | 2024-09-17 11:37 | XMS_ITS | Encounter Summary ---
Author Organization [employer] ([place], [place], [place], [place]) Address [address] [place] [address] Care Team Providers Care Mortician Helper Name Role Phone Unavailable Primary Care Provider Unavailabl e Encounter Details Date Type Department Care Team (Late st Contact Info) Description 09/18/2018 Transcribed Document [facility] Family Medicine [address] [place] [address] ProviderGonzalez MD [address] [place] [address] Social History Tobacco Use Types Packs/Day Years Used Date Smoking Tobacco: Never Assessed Comments Unknown Sex and Gender Information Value Date Recorded Sex Assigned at Not on file Legal Sex Female 6:02 PM CDT Gender Identity Not on file Sexual Orientation Not on file documented as of this encounter Miscellaneous Notes * Cerner Conversion Note - Gonzalez ProviderMD - 09/18/2018 2:54 PM CDT Post Visit Phone Call Entered On: 09/18/2018 14:58 EDT Performed On: 09/18/2018 14:54 EDT by Palak Mcghee Rn Post Visit Phone Call Post Visit Phone Call History : First call Contact Relationship to Patient : Self Contact Name : [facility] Visit Since DC : No Adequate Pain Control After Visit : Yes Symptoms of Fever : No Symptoms of Nausea or Vomiting : No Adequate Fluid Intake : Yes Food Intake, Post Visit : Good Bowel/Bladder Concerns : No Mobility Progressing or Maintained as Expected : Yes Discharge Instructions Understood : Yes Follow-Up Actions : None Palak Mcghee Rn - 09/18/2018 14:54 EDT documented in this encounter Plan of Treatment Not on file documented as of this encounter Visit Diagnoses Not on filedocumented in this encounter
--- OUTSIDE RECORDS SUMMARY | 2024-09-17 11:38 | XMS_ITS | Encounter Summary ---
Author Organization [employer] ([place], [place], [place], [place]) Address [address] [place] [address] Care Team Providers Care Test And Balance Engineer Name Role Phone Unavailable Primary Care Provider Unavailabl e Encounter Details Date Type Department Care Team (Late st Contact Info) Description 09/23/2018 Transcribed Document [facility] Radiology [address] [place] [address] Raleigh Munoz MD [address] [place] [address] Social History Tobacco Use Types Packs/Day Years Used Date Smoking Tobacco: Never Assessed Comments Unknown Sex and Gender Information Value Date Recorded Sex Assigned at Not on file Legal Sex Female 6:02 PM CDT Gender Identity Not on file Sexual Orientation Not on file documented as of this encounter Miscellaneous Notes * Cerner Conversion Note - Raleigh Munoz MD - 09/23/2018 6:56 PM EDT Patient: GREG BAUTISTA Age: 58 years Sex: Female : 1960 Associated Diagnoses: None Author: RALEIGH MUNOZ MD Basic Information Source of history: Self, Medical record. Present at bedside: Medical personnel. Referral source: Direct physician admit. History limitation: None. Primary Care Provider BETHANY CARDOZO Chief Complaint Intractable nausea and vomiting History of Present Illness This is a 58 years old white female patient with significant past medical history of sarcoidosis, patient was recently discharged from our service after she was admitted due to intractable nausea and vomiting, patient had lymph node biopsy showed fibrosis, questionable sarcoidosis, patient was discharged home, patient stated that after she went home she had 2 good days and then she started having nausea and vomiting, patient stated that symptoms getting worse, cannot keep food down, denied any diarrhea or significant abdominal pain, patient denied any fever or chills, patient was recently diagnosed with hypertension and she was started on medications, patient following with Dr. Rosendo Rubi due to her lymphadenopathy, patient recently found to have liver lesion and she was scheduled for CT-guided biopsy this week, at outside facility emergency department patient found to have hypokalemia, patient was given Zofran however symptoms did not improve and she continued to vomit, patient was transferred to our facility for further evaluation and treatment. Review of Systems Constitutional: [No fevers, chills, sweats] Eye: [No recent visual problems, eye discharge, eye pain, redness] HEENT: [No ear pain, nasal congestion, sore throat, voice changes] Respiratory: [No shortness of breath, cough, pain on breathing, sputum production] Cardiovascular: [No Chest pain, palpitations, syncope, shortness of breath while laying flat] Gastrointestinal: + nausea, vomiting, no diarrhea, or constipation] Genitourinary: [No hematuria, dysuria, incontinence, lesions on genitalia] Kev/Lymph: [Negative for bruising tendency, swollen lymph glands, nosebleeds, history of anticoagulation] Endocrine: [Negative for excessive thirst, excessive hunger, excessive urination, heat or cold intolerance] Musculoskeletal: [No back pain, neck pain, joint pain, muscle pain, decreased range of motion] Integumentary: [No rash, pruritus, abrasions, lesions] Neurologic: [No weakness, numbness, frequent headaches, tremors, blackouts ] Psychiatric: [No anxiety, depression, mood changes, hallucinations] Health Status Allergies: Allergic Reactions (Selected) No Known Allergies No Known Medication Allergies, Allergies (2) Active Reaction No Known Allergies None Documented No Known Medication Allergies None Documented Current medications: (Selected) Inpatient Medications Ordered Dulcolax Laxative: 5 mg, Oral, Daily, PRN: Constipation DuoNeb 0.5 mg-2.5 mg/3 mL inhalation solution: 3 mL, Nebulized Inhalation, Q6H, PRN: Shortness of Breath Habitrol 14 mg/24 hr transdermal film, extended release: 1 Patch, TransDermal, Daily Norvasc: 5 mg, Oral, Daily Pepcid: 20 mg, IV Push, Q12H Reglan: 5 mg, IV Push, Q6H Restoril: 15 mg, Oral, At Bedtime, PRN: Sleep Sodium Chloride 0.9% intravenous solution 1,000 mL: 100 mL/Hr, IntraVENous Tylenol: 650 mg, Oral, Q4H, PRN: Pain (Mild 1-3) Zofran: 4 mg, IV Push, Q4H, PRN: Nausea acetaminophen-HYDROcodone 325 mg-5 mg oral tablet: 1 Tab, Oral, Q4H, PRN: Pain (Mild 1-3) heparin: 5,000 Units, SubCutaneous, Q8HInt hydrALAZINE: 25 mg, Oral, BID morphine: 2 mg, IV Push, Q6H, PRN: Pain (Severe 7-10) Prescriptions Prescribed Lomotil 2.5 mg-0.025 mg oral tablet: 1 Tab, Oral, QID, PRN: for loose stool, 10 Tab, 0 Refill(s) Norvasc 5 mg oral tablet: 1 Tab, Oral, Daily, for 30 Day(s), 30 Tab, 0 Refill(s) hydrALAZINE 25 mg oral tablet: 1 Tab, Oral, BID, for 30 Day(s), 60 Tab, 0 Refill(s), Medications (14) Active Scheduled: (6) amLODIPine 5 mg tab 5 mg 1 Tab, Oral, Daily famotidine 20 mg/2 mL inj 20 mg 2 mL, IV Push, Q12H heparin 5,000 Units, SubCutaneous, Q8HInt hydrALAZINE 25 mg tab 25 mg 1 Tab, Oral, BID metoclopramide 10 mg/2 mL inj 5 mg 1 mL, IV Push, Q6H nicotine 14 mg/24 hr patch 1 Patch, TransDermal, Daily Continuous: (1) NaCl 0.9% 1,000 mL 1,000 mL, IntraVENous, 100 mL/Hr PRN: (7) acetaminophen 325 mg tab 650 mg 2 Tab, Oral, Q4H acetaminophen/HYDROcodone 325/5 mg tab 1 Tab, Oral, Q4H albuterol-ipratropium inh 3 mL 3 mL, Nebulized Inhalation, Q6H bisacodyl EC 5 mg tab 5 mg 1 Tab, Oral, Daily morphine 2 mg/1 ml inj 2 mg 1 mL, IV Push, Q6H ondansetron 4 mg/2 mL inj 4 mg 2 mL, IV Push, Q4H temazepam 15 mg cap 15 mg 1 Cap, Oral, At Bedtime Problem list: Medical At risk for sleep apnea / IMO [id number] / Confirmed, Active Problems (1) At risk for sleep apnea Histories Past Medical History: Hypertension Family History: Significant for diabetes and heart disease Procedure history: Cholecystectomy ([id number]). Social History No current history of smoking, no alcohol abuse, no drug abuse. Physical Examination VS/Measurements No qualifying data available GENERAL: The patient is a well-developed, well-nourished, [...] any cyanosis, clubbing, rash, lesions or edema. PSYCHIATY: Anxious and cooperative SKIN: No ulceration or induration present. Musculoskeletal : No joint pain, swelling or tenderness Impression and Plan Intractable nausea and vomiting Patient had recent [...] Continue home medication IV hydralazine as needed DVT prophylaxis GI prophylaxis Past medical history reviewed Labs reviewed Medications reviewed CODE STATUS full code Time spent 45 minutes documented in this encounter Plan of Treatment Not on file documented as of this encounter Visit Diagnoses Not on filedocumented in this encounter
--- OUTSIDE RECORDS SUMMARY | 2024-09-17 11:38 | XMS_ITS | Encounter Summary ---
Author Organization [email or web address] ([place], [place], [place], [place]) Address [address] [place] [address] Care Team Providers Care Bridge Leverman Name Role Phone Unavailable Primary Care Provider Unavailabl e Encounter Details Date Type Department Care Team (Late st Contact Info) Description 09/11/2018 Transcribed Document [facility] Family Medicine [address] [place] [address] ProviderGonzalez MD [address] [place] [address] Social History Tobacco Use Types Packs/Day Years Used Date Smoking Tobacco: Never Assessed Comments Unknown Sex and Gender Information Value Date Recorded Sex Assigned at Not on file Legal Sex Female 6:02 PM CDT Gender Identity Not on file Sexual Orientation Not on file documented as of this encounter Miscellaneous Notes * Cerner Conversion Note - Historical ProviderMD - 09/11/2018 5:00 AM CDT Chart Check - Review Order Profile Entered On: 09/11/2018 5:42 EDT Performed On: 09/11/2018 5:00 EDT by Donna Mena, Rn Chart Check Powerplans Initiated/Discontinued as Appropriate : Yes All Active Orders Reviewed : Yes Donna Mena, Rn - 09/11/2018 5:42 EDT Electronically signed by [facility] Conversion Dress Draper Cerner at 05/27/2022 9:26 AM CDT documented in this encounter Plan of Treatment Not on file documented as of this encounter Visit Diagnoses Not on filedocumented in this encounter
--- OUTSIDE RECORDS SUMMARY | 2024-09-17 11:38 | XMS_ITS | Encounter Summary ---
Author Organization [employer] ([place], [place], [place], [place]) Address [address] [place] [address] Care Team Providers Care Paint Mixer Name Role Phone Unavailable Primary Care Provider Unavailabl e Encounter Details Date Type Department Care Team (Late st Contact Info) Description 10/02/2018 Transcribed Document [facility] Family Medicine [address] [place] [address] ProviderGonzalez MD [facility] [place] [address] Social History Tobacco Use Types Packs/Day Years Used Date Smoking Tobacco: Never Assessed Comments Unknown Sex and Gender Information Value Date Recorded Sex Assigned at Not on file Legal Sex Female 6:02 PM CDT Gender Identity Not on file Sexual Orientation Not on file documented as of this encounter Miscellaneous Notes * Cerner Conversion Note - Gonzalez Muñoz MD - 10/02/2018 11:36 AM CDT Final Discharge Planning Entered On: 10/02/2018 11:37 EDT Performed On: 10/02/2018 11:36 EDT by TALA ROMERO Rn-Golf Course Equipment Operator Final Discharge Planning Discharge Arrangements : Patient Post-Acute Information Patient Name: GREG BAUTISTA Gender: Female : [birth year] Age: 58 Years No Post-Acute Placement(s) Listed No Post-Acute Service(s) Listed No Cur[place]pan Referral(s) Listed Transportation Needs : Family/Friend Discharge Transportation Arrangement Cmt : CM met with patient at the bedside. She says her friend will pick her up at 3 PM. Is Patient Ready for Discharge? : Yes Physician Notified Patient is Ready for Discharge? : Yes Discharge To Care Management : Home/Residential/Penitentiary or Self Care -01 Physician Notified of Patient Discharge Comment : No other dc needs are identified at this time. TALA ROMERO Rn-Golf Course Equipment Operator - 10/02/2018 11:36 EDT Electronically signed by Riccardo Reese Conversion Environmental Project Manager Cerner at 05/27/2022 9:30 AM CDT documented in this encounter Plan of Treatment Not on file documented as of this encounter Visit Diagnoses Not on filedocumented in this encounter
--- OUTSIDE RECORDS SUMMARY | 2024-09-17 11:38 | XMS_ITS | Encounter Summary ---
Author Organization [employer] ([place], [place], [place], [place]) Address [address] [place] [address] Care Team Providers Care Second Helper Name Role Phone Unavailable Primary Care Provider Unavailabl e Encounter Details Date Type Department Care Team (Late st Contact Info) Description 09/30/2018 Transcribed Document [facility] [place] [address] [place] [address] ProviderGonzalez MD [address] [place] [address] Social History Tobacco Use Types Packs/Day Years Used Date Smoking Tobacco: Never Assessed Comments Unknown Sex and Gender Information Value Date Recorded Sex Assigned at Not on file Legal Sex Female 6:02 PM CDT Gender Identity Not on file Sexual Orientation Not on file documented as of this encounter Miscellaneous Notes * Cerner Conversion Note - Gonzalez Muñoz MD - 09/30/2018 10:45 AM CDT Patient: GREG BAUTISTA Age: 58 years Sex: Female : 1960 Associated Diagnoses: None Author: MEMO SALAZAR MD-ONC Attachments: None Subjective Chief complaint Chief complaint Still nauseated. Unable to tolerate breakfast at all. No othre new issues. Health Status Allergies Allergic Reactions (All) No [...] mg = 1 Tab, Oral, BID Medications (28) Active Scheduled: (5) amLODIPine 5 mg tab 5 mg 1 Tab, Oral, Daily heparin 5,000 [...] 24 hrs) Last Charted Minimum Maximum Temp 98.1 (SEP 30 05:59) 97.6 (SEP 29 18:05) 98.2 (SEP 29 23:00) Apical HR 80 (SEP 30 09:08) 80 (SEP 30 06:04) 86 (SEP 29 14:58) Mon HR 80 (SEP 30 05:59) 80 (SEP 30 04:00) 91 (SEP 29 12:39) Resp Rate 14 (SEP 30 05:59) 14 (SEP 30 05:59) 18 (SEP 29 23:00) SBP H 160 (SEP 30 05:59) H 141 (SEP 30 04:00) H 160 (SEP 30 05:59) DBP 69 (SEP 30 05:59) 61 (SEP 30 04:00) 89 (SEP 29 18:05) MAP 77 (SEP 30 04:00) 77 (SEP 30 04:00) 129 (SEP 29 18:05) General Alert and oriented No acute distress Respiratory Lungs are clear to auscultation Gastrointestinal Soft Non-distended Normal postop abdominal tenderness Normal postop abdominal tenderness Results Review General results Interpretation: LABS Labs (Last four charted values) WBC L 4.4 (SEP 30) 4.6 (SEP 29) 4.8 (SEP 28) 5.0 (SEP 27) HB L 10.7 (SEP 30) L 10.4 (SEP 29) L 10.3 (SEP 28) L 10.2 (SEP 27) HCT L 32.3 (SEP 30) L 32.0 (SEP 29) L 31.2 (SEP 28) L 31.2 (SEP 27) Plt 223 (SEP 30) 199 (SEP 29) 206 (SEP 28) 202 (SEP 27) Na 139 (SEP 30) 139 (SEP 29) 136 (SEP 28) 139 (SEP 27) K 3.5 (SEP 30) L 3.3 (SEP 29) L 3.0 (SEP 28) L 3.2 (SEP 27) Cl 103 (SEP 30) 104 (SEP 29) 102 (SEP 28) 105 (SEP 27) CO2 29 (SEP 30) 26 (SEP 29) 25 (SEP 28) 26 (SEP 27) BUN 13 (SEP 30) 15 (SEP 29) 12 (SEP 28) 9 (SEP 27) Cr H 1.10 (SEP 30) 1.00 (SEP 29) 1.00 (SEP 28) 1.00 (SEP 27) Glu R H 130 (SEP 30) H 154 (SEP 29) H 161 (SEP 28) H 135 (SEP 27) Ca H 11.7 (SEP 30) H 11.3 (SEP 29) H 10.5 (SEP 28) 10.0 (SEP 27) PT 11.8 (SEP 24) INR 1.1 (SEP 24) AST 16 (SEP 24) ALT 17 (SEP 24) ALK P H 431 (SEP 24) T Bili 0.6 (SEP 24) PTN 6.8 (SEP 24) ALB L 3.0 (SEP 24) Lipase 75 (SEP 24) Radiology Results No Radiology Results Found Impression and Plan Assessment and Plan Diagnosis Sarcoid. Liver bx-either sarcoid or cancer. Course Worsening Orders I will add low dose of steroid to try to decrease nausea along with antiemetic. Still no result from liver bx. Discussed with patient. documented in this encounter Plan of Treatment Not on file documented as of this encounter Visit Diagnoses Not on filedocumented in this encounter
--- OUTSIDE RECORDS SUMMARY | 2024-09-17 11:38 | XMS_ITS | Encounter Summary ---
Author Organization [employer] ([place], [place], [place], [place]) Address [address] [place] [address] Care Team Providers Care Employment Consultant Name Role Phone Unavailable Primary Care Provider Unavailabl e Encounter Details Date Type Department Care Team (Late st Contact Info) Description 10/02/2018 Transcribed Document [facility] [place] Family Medicine [address] [place] [address] ProviderGonzalez MD [address] [place] [address] Social History Tobacco Use Types Packs/Day Years Used Date Smoking Tobacco: Never Assessed Comments Unknown Sex and Gender Information Value Date Recorded Sex Assigned at Not on file Legal Sex Female 6:02 PM CDT Gender Identity Not on file Sexual Orientation Not on file documented as of this encounter Miscellaneous Notes * Cerner Conversion Note - Gonzalez ProviderMD - 10/02/2018 10:07 AM CDT On Going Discharge Planning Entered On: 10/02/2018 10:08 EDT Performed On: 10/02/2018 10:07 EDT by TALA ROMERO Rn-International Flight AttendantSupervisor Wet End Progress Note Discharge Arrangements : Patient Post-Acute Information Patient Name: GREG BAUTISTA Gender: Female : [birth year] Age: 58 Years No Post-Acute Placement(s) Listed No Post-Acute Service(s) Listed No [place] Referral(s) Listed Discharge Options Discussed with Patient : DME, Home Health TALA ROMERO Rn-International Flight Attendant - 10/02/2018 10:07 EDT Narrative Progress Note Narrative Progress Note : commissioning manager following on dc planning. Case discussed with FRANKY Melton. Pt will dc home today, might need transport home. CM met with pt at the bedside, she says her friend is coming to get her at 3PM. CM will do LYft if need be. TALA ROMERO Rn-International Flight Attendant - 10/02/2018 10:07 EDT Electronically signed by [facility] Conversion Concrete Paving Supervisor Cerner at 05/27/2022 9:14 AM CDT documented in this encounter Plan of Treatment Not on file documented as of this encounter Visit Diagnoses Not on filedocumented in this encounter
--- OUTSIDE RECORDS SUMMARY | 2024-09-17 11:38 | XMS_ITS | Encounter Summary ---
Author Organization [employer] ([place], [place], [place], [place]) Address [address] [place] [address] Care Team Providers Care High Man Name Role Phone Unavailable Primary Care Provider Unavailabl e Encounter Details Date Type Department Care Team (Late st Contact Info) Description 09/11/2018 Transcribed Document [facility] [place] Family Medicine [address] [place] [address] ProviderGonzalez MD [facility] [place] [address] Social History Tobacco Use Types Packs/Day Years Used Date Smoking Tobacco: Never Assessed Comments Unknown Sex and Gender Information Value Date Recorded Sex Assigned at Not on file Legal Sex Female 6:02 PM CDT Gender Identity Not on file Sexual Orientation Not on file documented as of this encounter Miscellaneous Notes * [employer]ner Conversion Note - Gonzalez Muñoz MD - 09/11/2018 7:53 AM CDT Patient: GREG BAUTISTA Age: 58 years Sex: Female : 1960 Associated Diagnoses: None Author: MEMO SALAZAR MD-ONC Attachments: None Subjective Chief complaint Chief complaint Patient seen by me and consult dictated Health Status Allergies Allergic Reactions (All) No Known Allergies No Known Medication Allergies Allergies (2) Active Reaction No Known Allergies None Documented No Known Medication Allergies None Documented Current medications No qualifying data available Medications (11) Active Scheduled: (3) famotidine 20 mg tab 20 mg 1 Tab, Oral, Daily metroNIDAZOLE 500 mg 100 mL, IV Piggyback, Q6HInt piperacillin-tazobactam + NaCl 0.9% 100 mL 3.375 Gram, IV Piggyback, Q6HInt Continuous: (1) NaCl 0.9% 1,000 mL 1,000 mL, IntraVENous, 125 mL/Hr PRN: (7) acetaminophen 325 mg tab 650 mg 2 Tab, Oral, Q4H albuterol-ipratropium inh 3 mL 3 mL, Nebulized Inhalation, Q6H cloNIDine 0.1 mg tab 0.1 mg 1 Tab, Oral, Q4H hydrALAZINE 20 mg/1 mL inj 10 mg 0.5 mL, IV Push, Q6H morphine 2 mg/1 ml inj 2 mg 1 mL, IV Push, Q2H ondansetron 4 mg/2 mL inj 4 mg 2 mL, IV Push, Q4H promethazine 25 mg/1 mL inj 6.25 mg 0.25 mL, IntraVENous, Q6H Problem list Active Problems (1) At risk for sleep apnea Objective VS/Measurements Vitals Signs (last 24 hrs) Last Charted Minimum Maximum Temp 98.8 (SEP 11:56) 97.3 (SEP 11 02:00) 98.3 (SEP 10:23) Apical HR 81 (SEP 11 06:26) 81 (SEP 11 06:26) 81 (SEP 11 06:26) Mon HR 84 (SEP 11 06:56) 84 (SEP 11 06:56) 101 (SEP 10 21:23) Resp Rate 17 (SEP 11:56) 16 (SEP 11 02:00) 18 (SEP 10 21:23) SBP H 153 (SEP 11 06:56) 140 (SEP 11 02:00) H 153 (SEP 11 06:56) DBP 81 (SEP 11 06:56) 77 (SEP 10 21:23) H 94 (SEP 11 02:00) MAP 110 (SEP 11:56) 110 (SEP 11 06:56) 114 (SEP 10 21:23) SpO2 95 (SEP 11 06:56) L 92 (SEP 11 02:00) 95 (SEP 11 06:56) General Alert and oriented No acute distress Respiratory Lungs are clear to auscultation Gastrointestinal Soft Non-distended Normal postop abdominal tenderness Normal postop abdominal tenderness Results Review General results Interpretation: LABS Labs (Last four charted values) WBC 6.2 (SEP 11) 7.2 (SEP 10) HB 11.5 (SEP 11) 12.4 (SEP 10) HCT 34.8 (SEP 11) 36.7 (SEP 10) Plt 188 (SEP 11) 214 (SEP 10) Na 139 (SEP 11) L 135 (SEP 10) K L 3.0 (SEP 11) C 2.5 (SEP 11) C 2.1 (SEP 10) Cl L 91 (SEP 11) L 86 (SEP 10) CO2 H 42 (SEP 11) H 39 (SEP 10) BUN 16 (SEP 11) 17 (SEP 10) Cr H 1.40 (SEP 11) H 1.30 (SEP 10) Glu R H 121 (SEP 11) H 147 (SEP 10) Ca 9.4 (SEP 11) 9.4 (SEP 10) Lactic 1.8 (SEP 10) PT H 12.2 (SEP 10) INR 1.1 (SEP 10) AST 18 (SEP 10) ALT 19 (SEP 10) ALK P H 332 (SEP 10) T Bili H 1.3 (SEP 10) PTN 7.4 (SEP 10) ALB 3.5 (SEP 10) Lipase H 934 (SEP 10) Troponin <0.015 (SEP 10) Radiology Results No Radiology Results Found Impression and Plan Assessment and Plan Diagnosis Sarcoid vs cancer. Pancreatitis Course Progressing as expected Orders NPO, bx. Discussed with patient. documented in this encounter Plan of Treatment Not on file documented as of this encounter Visit Diagnoses Not on filedocumented in this encounter
--- OUTSIDE RECORDS SUMMARY | 2024-09-17 11:38 | XMS_ITS | Encounter Summary ---
Author Organization [employer] ([place], [place], [place], [place]) Address [address] [place] [address] Care Team Providers Care Life Science Technical Officer Name Role Phone Unavailable Primary Care Provider Unavailabl e Encounter Details Date Type Department Care Team (Late st Contact Info) Description 09/23/2018 Transcribed Document [facility] [place] [address] [place] [address] ProviderGonzalez MD [address] [place] [address] Social History Tobacco Use Types Packs/Day Years Used Date Smoking Tobacco: Never Assessed Comments Unknown Sex and Gender Information Value Date Recorded Sex Assigned at Not on file Legal Sex Female 6:02 PM CDT Gender Identity Not on file Sexual Orientation Not on file documented as of this encounter Miscellaneous Notes * Cerner Conversion Note - Historical ProviderMD - 09/23/2018 4:44 PM CDT Infectious Disease History-Update Entered On: 09/24/2018 9:21 EDT Performed On: 09/23/2018 16:44 EDT by Chad Medina RN Infectious Disease History Infectious Disease History : Measles Fever/Chills Last 48 Hours : No Travel To Regions with Travel Advisories : No Travel Outside [place] Within Last 30 Days : No Contact With Traveler to Advisory Region : No Tuberculosis Symptoms : None Chad Medina RN - 09/24/2018 9:20 EDT documented in this encounter Plan of Treatment Not on file documented as of this encounter Visit Diagnoses Not on filedocumented in this encounter
--- OUTSIDE RECORDS SUMMARY | 2024-09-17 11:38 | XMS_ITS | Encounter Summary ---
Author Organization [employer] ([place], [place], [place], [place]) Address [address] [place] [address] Care Team Providers Care Hand Straightener Name Role Phone Unavailable Primary Care Provider Unavailabl e Encounter Details Date Type Department Care Team (Late st Contact Info) Description 09/27/2018 Transcribed Document [facility] [place] Family Medicine [address] [place] [address] ProviderGonzalez MD [address] [place] [address] Social History Tobacco Use Types Packs/Day Years Used Date Smoking Tobacco: Never Assessed Comments Unknown Sex and Gender Information Value Date Recorded Sex Assigned at Not on file Legal Sex Female 6:02 PM CDT Gender Identity Not on file Sexual Orientation Not on file documented as of this encounter Miscellaneous Notes * Cerner Conversion Note - Historical ProviderMD - 09/27/2018 5:00 PM CDT Chart Check - Review Order Profile Entered On: 09/27/2018 16:38 EDT Performed On: 09/27/2018 17:00 EDT by Marilyn Guo LPN Chart Check All Active Orders Reviewed : Yes Marilyn Guo LPN - 09/27/2018 16:38 EDT documented in this encounter Plan of Treatment Not on file documented as of this encounter Visit Diagnoses Not on filedocumented in this encounter
--- OUTSIDE RECORDS SUMMARY | 2024-09-17 11:38 | XMS_ITS | Encounter Summary ---
Author Organization [employer] ([place], [place], [place], [place]) Address [address] [place] [address] Care Team Providers Care Emd Special Education Teacher Name Role Phone Unavailable Primary Care Provider Unavailabl e Encounter Details Date Type Department Care Team (Late st Contact Info) Description 09/27/2018 Transcribed Document [facility] [place] Family Medicine [address] [place] [address] ProviderGonzalez MD [address] [place] [address] Social History Tobacco Use Types Packs/Day Years Used Date Smoking Tobacco: Never Assessed Comments Unknown Sex and Gender Information Value Date Recorded Sex Assigned at Not on file Legal Sex Female 6:02 PM CDT Gender Identity Not on file Sexual Orientation Not on file documented as of this encounter Miscellaneous Notes * Cerner Conversion Note - Gonzalez ProviderMD - 09/27/2018 1:10 PM CDT On Going Discharge Planning Entered On: 09/27/2018 13:10 EDT Performed On: 09/27/2018 13:10 EDT by TALA ROMERO Rn-Electronic Prepress OperatorAssembler Dc Field Ring Progress Note Discharge Arrangements : Patient Post-Acute Information Patient Name: NELY BAUTISTA Gender: Female : [birth year] Age: 58 Years No Post-Acute Placement(s) Listed No Post-Acute Service(s) Listed No [place] Referral(s) Listed Discharge Options Discussed with Patient : DME, Home Health Is the Patient Meeting Medical Necessity : Yes Discharge Plan Comment : education and training manager following on dc planning. Pending liver biopsy results. Dc home when medically cleared. TALA ROMERO Rn-Electronic Prepress Operator - 09/27/2018 13:10 EDT Electronically signed by Interface, [facility] Conversion Corporate Associate Attorney Cerner at 05/27/2022 9:43 AM CDT documented in this encounter Plan of Treatment Not on file documented as of this encounter Visit Diagnoses Not on filedocumented in this encounter
--- OUTSIDE RECORDS SUMMARY | 2024-09-17 11:38 | XMS_ITS | Encounter Summary ---
Author Organization [employer] ([place], [place], [place], [place]) Address [address] [place] [address] Care Team Providers Care Manager Wellness Name Role Phone Unavailable Primary Care Provider Unavailabl e Encounter Details Date Type Department Care Team (Late st Contact Info) Description 10/01/2018 Transcribed Document [facility] [place] Family Medicine [address] [place] [address] ProviderGonzalez MD [address] [place] [address] Social History Tobacco Use Types Packs/Day Years Used Date Smoking Tobacco: Never Assessed Comments Unknown Sex and Gender Information Value Date Recorded Sex Assigned at Not on file Legal Sex Female 6:02 PM CDT Gender Identity Not on file Sexual Orientation Not on file documented as of this encounter Miscellaneous Notes * Cerner Conversion Note - Historical ProviderMD - 10/01/2018 2:00 AM CDT Electronic Semiconductor Processor Details Entered On: 10/01/2018 1:28 EDT Performed On: 10/01/2018 2:00 EDT by Katy Charles, Rn Order Details Transport Mode Order Detail : Ambulatory Isolation Precautions Order Detail : Standard Precautions Order Detail : 0 IV Order Detail : 1 Oxygen Order Detail : 0 Nurse Collect Order Detail : 0 Lift/Transfer : Independent Central Line Order Detail : No Room Service : Appropriate Arterial Line : No Katy Charles, Rn - 10/01/2018 1:28 EDT documented in this encounter Plan of Treatment Not on file documented as of this encounter Visit Diagnoses Not on filedocumented in this encounter
--- OUTSIDE RECORDS SUMMARY | 2024-09-17 11:38 | XMS_ITS | Encounter Summary ---
Author Organization [employer] ([place], [place], [place], [place]) Address [address] [place] [address] Care Team Providers Care Chief Meteorologist Name Role Phone Unavailable Primary Care Provider Unavailabl e Encounter Details Date Type Department Care Team (Late st Contact Info) Description 10/02/2018 Transcribed Document [facility] [place] [address] [place] [address] ProviderGonzalez MD [facility] [place] [address] Social History Tobacco Use Types Packs/Day Years Used Date Smoking Tobacco: Never Assessed Comments Unknown Sex and Gender Information Value Date Recorded Sex Assigned at Not on file Legal Sex Female 6:02 PM CDT Gender Identity Not on file Sexual Orientation Not on file documented as of this encounter Miscellaneous Notes * Cerner Conversion Note - Gonzalez ProviderMD - 10/02/2018 10:27 AM CDT Rapid Response Team Documentation Entered On: 10/02/2018 10:29 EDT Performed On: 10/02/2018 10:27 EDT by JOSE A LOPES RN Rapid Response Event Time Rapid Response Team Called : 10/02/2018 9:00 EDT Rapid Response Team Arrival Time : 10/02/2018 10:20 EDT Rapid Response Team Event End Time : 10/02/2018 10:27 EDT Rapid Response Event Intiated By : Hospital Staff Rapid Response Team Initiation Reason : Positive SIRS screen Rapid Response Event Location Type : Other: 458 Rapid Response Team Initiation Reason Details : 4a 458. Discussed plan of care with primary RN. aware and treating. Rapid Response Admission Diagnosis : Nausea with vomiting, unspecified Nausea with vomiting, unspecified Rapid Response Medical Background : At risk for sleep apnea (Medical) Rapid Response Allergies : Substance Category Reactions Severity No Known Allergies Drug No Known Medication Allergies Drug Rapid Response Recent Vital Signs : 10/02/2018 09:25 Systolic Blood Pressure 148 10/02/2018 09:25 Diastolic Blood Pressure 75 10/02/2018 06:10 Heart Rate Monitored 69 10/02/2018 09:25 Heart Rate, Apical 75 10/02/2018 06:10 Respiratory Rate 19 10/02/2018 06:10 Temperature, Fahrenheit 98.4 10/02/2018 00:00 Oxygen Saturation 90 Rapid Response Recent Lab Results : 10/02/2018 06:42 Sodium Level 136 (136-146) 10/02/2018 06:42 Potassium Level 3.8 (3.5-5.1) 10/02/2018 06:42 Calcium Level HI 12.5 (8.4-10.1) 09/24/2018 07:02 Magnesium Level 2.0 (1.5-2.4) 10/02/2018 06:42 Chloride Level LOW 99 (102-112) 10/02/2018 06:42 Carbon Dioxide Level 30 (21-32) 10/02/2018 06:42 Blood Urea Nitrogen 20 (7-22) 10/02/2018 06:42 Creatinine Level HI 1.30 (0.55-1.02) 09/24/2018 07:02 PT 11.8 (9.6-12.0) 09/24/2018 07:02 INR 1.1 (0.9-1.1) 10/02/2018 06:42 Hgb LOW 10.7 (11.2-15.7) 10/02/2018 06:42 Hct LOW 33.4 (34.1-44.9) 10/02/2018 06:42 RBC 3.98 (3.93-5.22) 10/02/2018 06:42 WBC 6.6 (4.5-10.5) 10/02/2018 06:42 Platelet Count 238 (163-369) 09/24/2018 07:02 Amylase Level 26 (25-115) 09/24/2018 07:02 Lipase Level 75 (73-393) Weight/BMI : Clinical Weight/BMI CLINICALWEIGHT: 75.45 kg (09/23/18 16:58:00) CLINICALWEIGHT: 75.45 kg (09/23/18 16:22:00) Body Mass Index: 29.5 kg/m2 High (09/23/18 16:58:00) Body Mass Index: 29.5 kg/m2 High (08/18/19 16:22:00) Patient Condition at End of Event : No S/S of Acute Distress Patient Disposition Post Event : No change in location/level of care Rapid Response Chief Meteorologist #1 : JOSE A LOPES, RN JOSE A LOPES, RN - 10/02/2018 10:27 EDT documented in this encounter Plan of Treatment Not on file documented as of this encounter Visit Diagnoses Not on filedocumented in this encounter
--- OUTSIDE RECORDS SUMMARY | 2024-09-17 11:38 | XMS_ITS | Encounter Summary ---
Author Organization [employer] ([place], [place], [place], [place]) Address [address] [place] [address] Care Team Providers Care Software Quality Specialist Name Role Phone Unavailable Primary Care Provider Unavailabl e Encounter Details Date Type Department Care Team (Late st Contact Info) Description 09/30/2018 Transcribed Document [facility] [place] Family Medicine [address] [place] [address] ProviderGonzalez MD [address] [place] [address] Social History Tobacco Use Types Packs/Day Years Used Date Smoking Tobacco: Never Assessed Comments Unknown Sex and Gender Information Value Date Recorded Sex Assigned at Not on file Legal Sex Female 6:02 PM CDT Gender Identity Not on file Sexual Orientation Not on file documented as of this encounter Miscellaneous Notes * Cerner Conversion Note - Gonzalez Muñoz MD - 09/30/2018 5:02 PM CDT Patient: GREG BAUTISTA Age: 58 years Sex: Female : 1960 Associated Diagnoses: None Author: TARA TOVAR MD [facility] Purpose of Encounter: Advanced care planning in light of sarcoidosis Parties in attendance: Patient, Provider Decisional Capacity: yes Diagnoses: sarcoidosis, liver mass Discharge Diagnosis No Diagnosis on Record Admitting Diagnosis R11.2 ICD-10-CM Goals of Care Determinations: We discussed her chronic medical conditions and treatment of her acute issues. She understands that her sarcoidosis is chronic. She does not have a living will or advanced directive and has not considered discussing this with her family. I explained the purpose of these documents, particularly in her case with chronic medical conditions. She understands. She also is clear that she wants all resuscitative measures in the event of cardiac or respiratory arrest. She would not be in favor of prolonged life support. She says that she wants her granddaughter to be her surrogate decision-maker, but has not made her MPOA. I explained that until MPOA is complete then her next of kin (her daughter) would be her legal decision-maker. I assured her that we could discuss these topics again at any time. Plan: Continue current treatment plans Code Status: At this time patient wishes to be Code Status Start: 09/23/18 17:54:00 EDT, Full Code, Continuous Order Time Spent with Patient: 18 minutes documented in this encounter Plan of Treatment Not on file documented as of this encounter Visit Diagnoses Not on filedocumented in this encounter
--- OUTSIDE RECORDS SUMMARY | 2024-09-17 11:38 | XMS_ITS | Encounter Summary ---
Author Organization [employer] ([place], [place], [place], [place]) Address [address] [place] [address] Care Team Providers Care Sample Prep Technician Name Role Phone Unavailable Primary Care Provider Unavailabl e Encounter Details Date Type Department Care Team (Late st Contact Info) Description 09/30/[address] [facility] [place] Family Medicine [facility] [place] [address] ProviderGonzalez MD [facility] [place] [address] Social History Tobacco Use Types Packs/Day Years Used Date Smoking Tobacco: Never Assessed Comments Unknown Sex and Gender Information Value Date Recorded Sex Assigned at Not on file Legal Sex Female 6:02 PM CDT Gender Identity Not on file Sexual Orientation Not on file documented as of this encounter Miscellaneous Notes * [employer] Conversion Note - Gonzalez ProviderMD - 09/30/2018 3:58 PM CDT Patient: GREG BAUTISTA Age: 58 Years Sex: Female : 1960 Subjective Napping. Complains of nausea and an episode of vomiting today. No diarrhea. Vital Signs T: 36.8 ??C TMIN: 36.4 ??C TMAX: 37 ??C HR: 84 RR: 19 BP: 126/53 SpO2: 94% Oxygen Settings (Last) Oxygen Therapy Mode: Room air (09/30/18 08:00:00) Oxygen Flow Rate: 2 Liter/Min (09/25/18 11:13:00) Intake & Output Totals Last 24 Hours (7a-7a) Input Total: 1322.5 mL Output Total: 0 mL Balance: 1322.5 mL Physical Exam General: no acute distress [...] with Reglan for nausea control Clear liquids Hypokalemia Resolved. Questionable history of sarcoidosis with lymphadenopathy and liver lesion Patient had CT-guided liver biopsy last week She follow with Dr. Rosendo Rubi Path results pending hypertension Continue home medication IV hydralazine as [...] mEq= 3 Tab, Feeding Tube, Q2H, PRN dexamethasone, 4 mg= 1 mL, IV Push, Daily Dulcolax Laxative, 5 mg= 1 Tab, [...] Test Result Date/Time Sodium Level 139 mmol/L 09/30/2018 06:59 EDT Potassium Level 3.5 mmol/L 09/30/2018 06:59 EDT Chloride Level 103 mmol/L 09/30/2018 06:59 EDT Carbon Dioxide Level 29 mmol/L 09/30/2018 06:59 EDT Anion Gap 10 09/30/2018 06:59 EDT Glucose Level 130 mg/dL (High) 09/30/2018 06:59 EDT Blood Urea Nitrogen 13 mg/dL 09/30/2018 06:59 EDT Creatinine Level 1.10 mg/dL (High) 09/30/2018 06:59 EDT eGFR >60 mL/min/1.73m2 09/30/2018 06:59 EDT eGFR NonAfrican 51 mL/min/1.73m2 (Low) 09/30/2018 06:59 EDT Bun/Creatinine 11.8 09/30/2018 06:59 EDT Calcium Level 11.7 mg/dL (High) 09/30/2018 06:59 EDT WBC 4.4 K/uL (Low) 09/30/2018 06:59 EDT RBC 3.94 Million/uL 09/30/2018 06:59 EDT Hgb 10.7 g/dL (Low) 09/30/2018 06:59 EDT Hct 32.3 % (Low) 09/30/2018 06:59 EDT MCV 82.0 fL 09/30/2018 06:59 EDT MCH 27.2 pg 09/30/2018 06:59 EDT MCHC 33.1 Gram/dL 09/30/2018 06:59 EDT Platelet Count 223 K/uL 09/30/2018 06:59 EDT MPV 9.4 fL 09/30/2018 06:59 EDT RDW 15.0 % (High) 09/30/2018 06:59 EDT Neut % 70.5 % 09/30/2018 06:59 EDT Neut # 3.10 K/uL 09/30/2018 06:59 EDT Lymph % 14.4 % (Low) 09/30/2018 06:59 EDT Lymph # 0.63 x10(3)/uL (Low) 09/30/2018 06:59 EDT [place] % 8.4 % 09/30/2018 06:59 EDT [place] # 0.37 K/uL 09/30/2018 06:59 EDT Eos % 4.1 % 09/30/2018 06:59 EDT Eos # 0.18 x10(3)/uL 09/30/2018 06:59 EDT Baso % 0.5 % 09/30/2018 06:59 EDT Baso # 0.02 x10(3)/uL 09/30/2018 06:59 EDT Slide Review No 09/30/2018 06:59 EDT IG# 0.09 x10(3)/uL (High) 09/30/2018 06:59 EDT IG% 2.10 % (High) 09/30/2018 06:59 EDT Electronically signed by Mary Ann, Jae Conversion Electro Mechanical Technician Cerner at 05/27/2022 9:34 AM CDT documented in this encounter Plan of Treatment Not on file documented as of this encounter Visit Diagnoses Not on filedocumented in this encounter
--- OUTSIDE RECORDS SUMMARY | 2024-09-17 11:38 | XMS_ITS | Encounter Summary ---
Author Organization [employer] ([place], [place], [place], [place]) Address [address] [place] [address] Care Team Providers Care Certified Nursing Assistant Name Role Phone Unavailable Primary Care Provider Unavailabl e Encounter Details Date Type Department Care Team (Late st Contact Info) Description 09/11/2018 Transcribed Document [facility] [place] [facility] [place] [address] [place] [address] ProviderGonzalez MD [facility] [place], [place] [id number] Social History Tobacco Use Types Packs/Day Years Used Date Smoking Tobacco: Never Assessed Comments Unknown Sex and Gender Information Value Date Recorded Sex Assigned at Not on file Legal Sex Female 6:02 PM CDT Gender Identity Not on file Sexual Orientation Not on file documented as of this encounter Miscellaneous Notes * Cerner Conversion Note - Gonzalez Muñoz MD - 09/11/2018 12:40 AM CDT DATE OF ADMISSION: 09/10/2018 PRIMARY CARE PHYSICIAN: Not listed. CHIEF COMPLAINT: Nausea, vomiting, abdominal discomfort. HISTORY OF PRESENT ILLNESS: This is a 58-year-old female with history of sarcoidosis, otherwise no major medical problems. Patient presented at outside facility in [facility], because for last couple weeks, patient has been losing weight, nausea, vomiting, not eating, abdominal discomfort. Patient has been evaluated there. She was found with hypokalemia, elevated alkaline phosphatase, and lipase level. CT of abdomen and pelvis shows questionable lymphoma. Dr. Oakes, was consulted and patient was brought in to [facility] for Heme Oncology evaluation. Patient is lying in bed, anxious, mild distress. No family at bedside. SYSTEMIC REVIEW: GENERAL: No fever or chills. HEAD: Positive for headache. No dizziness. EYES: No change of vision. EARS: No earache. NOSE: No epistaxis. THROAT: No sore throat. RESPIRATORY: No shortness of breath or cough. CARDIAC: No chest pain. GI: Positive for nausea, vomiting, abdominal discomfort, and weight loss. URINARY: No hematuria. MUSCULOSKELETAL: Generalized weakness. NEUROLOGICAL: No focal numbness or weakness. SKIN: No new rashes. ENDOCRINE: No heat or cold intolerance. PAST MEDICAL HISTORY: Sarcoidosis. PAST SURGICAL HISTORY: Cholecystectomy. SOCIAL HISTORY: Patient is a nonsmoker. No alcohol or drug abuse. FAMILY HISTORY: Positive heart disease. ALLERGIES: No known drug allergies. HOME MEDICATIONS: None. PHYSICAL EXAMINATION: VITAL SIGNS: Blood pressure 148/77, temperature 98.3, heart rate 101, respiratory rate 18. HEAD: Atraumatic, normocephalic. EYES: Pupils are round and reactive. No conjunctival injection or discharge. EARS: No discharge. NOSE: No bleeding or discharge. MOUTH: Dry. NECK: Supple. Full range of motion. CHEST: Poor inspiratory effort. Diminished air entry. No crackles, wheezes, or rhonchi. HEART: S1 and S2 heard. Regular rate and rhythm. ABDOMEN: Soft. Audible bowel sounds. No tenderness. No guarding. No rebound tenderness. EXTREMITIES: No edema, erythema, or tenderness. NEUROLOGICAL: No apparent focal, motor, or sensory deficits. Patient is alert, awake, and oriented x3. Intact cranial nerves. PSYCHIATRIC: No anxiety or depression. SKIN: No apparent rashes or induration. ENDOCRINE: No thyromegaly or tenderness. GENERAL: Patient is lying in bed, anxious, no family at bedside. LABORATORIES AND STUDIES: Sodium 135, potassium 2.1, chloride 86, CO2 of 39, glucose 147, BUN 17, creatinine 1.3, calcium 9.4, protein 7.4, albumin 3.5, globulin 3.9, bilirubin 1.3. Alkaline phosphatase 332, AST 18, ALT 19, magnesium 1.8, lipase 934, lactic acid 1.8. Troponin 0.015. BNP 156. White blood cells 7.2, hemoglobin 12.4, hematocrit 36.7, platelets 214. INR 1.1. ASSESSMENT AND PLAN: 1. Hypokalemia. Patient with nausea, vomiting, and [...] 8. Deep venous thrombosis prophylaxis, compression boots. Plan discussed with emergency room physician and with patient. Chart was reviewed. TIME SPENT: 55 minutes. Dawit Aguilera M.D. Dict: 09/11/2018 00:40:13 Trans: 09/11/2018 03:48:01 CC1: Dawit Aguilera M.D. documented in this encounter Plan of Treatment Not on file documented as of this encounter Visit Diagnoses Not on filedocumented in this encounter
--- OUTSIDE RECORDS SUMMARY | 2024-09-17 11:38 | XMS_ITS | Encounter Summary ---
Author Organization [employer] ([place], [place], [place], [place]) Address [address] [place] [address] Care Team Providers Care Director Social Welfare Name Role Phone Unavailable Primary Care Provider Unavailabl e Encounter Details Date Type Department Care Team (Late st Contact Info) Description 10/02/2018 Transcribed Document [facility] [place] [facility] [place] [address] ProviderGonzalez MD [facility] [place] [address] Social History Tobacco Use Types Packs/Day Years Used Date Smoking Tobacco: Never Assessed Comments Unknown Sex and Gender Information Value Date Recorded Sex Assigned at Not on file Legal Sex Female 6:02 PM CDT Gender Identity Not on file Sexual Orientation Not on file documented as of this encounter Miscellaneous Notes * Cerner Conversion Note - Gonzalez ProviderMD - 10/02/2018 10:32 AM CDT [address] [address] Patient Copy Patient Information: Name: GREG BAUTISTA Current Date: 10/02/2018 10:32:30 : 1960 Patient Address: [address] [address] Patient Attending Physician: KATIE MARTINEZ -INT Primary Care Provider: BETHANY CARDOZO Primary Care Provider Discharge Diagnosis: Sarcoidosis Weight on Admission: 166 lb, 0 oz Comment: Follow-up Instructions: With: Address: When: Dr Marie In 3 days 10/05/2018 Comments: 2pm: appointment has been made very important that you see rheumatology. PCP needs to refer you to social and political studies professor who can and does take your insurance. With: Address: When: NURY OLGUIN MD [address] [facility] [address] [place] [address] Within As needed Comments: follow up EGD With: Address: When: MEMO SALAZAR MD-ONC [address] [facility] [address] [place] [address] Within As needed Discharge Instructions: Immunizations Documented [...] Tablet(s) Oral Every 6 Hours. Refills: 0. Patient Allergies: No Known Medication Allergies; No [...] family history of the disease. ??? Are -Lebanese. ??? Are of [place] descent. ??? Are 20?50 years old. ??? 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 ??? Work in an environment where you [...] safe for you. ??? Take or use novc-pjl-jehanvu and prescription medicines only as told by [...] 11/23/2004 Document Revised: 10/31/2017 Document Reviewed: 10/31/2017 [employer] Interactive Patient Education ? 2019 [employer] Gastritis, Adult Gastritis is swelling (inflammation) [...] Follow these instructions at home: ??? Take venn-yhb-bfdnulg and prescription medicines only as told by [...] sores (ulcers) in your stomach. ??? Take quyn-oji-ijxwzwn and prescription medicines only as told by your doctor. This information is not intended to replace advice given to you by your health care provider. Make sure you discuss any questions you have with your health care provider. Document Released: 07/11/2008 Document Revised: 09/05/2017 Document Reviewed: 10/17/2015 [employer] Interactive Patient Education ? 2019 [employer] Nausea and Vomiting, Adult Nausea is [...] and low-calorie sports drinks. ??? Eat bland, zusk-gi-somwii foods in small amounts as you are [...] and water are not available, use hand vp mobile products. ??? Make sure that all people in your household wash their hands well and often. ??? Take wruk-kod-mmfuisq and prescription medicines only as told by [...] 01/23/2006 Document Revised: 06/27/2016 Document Reviewed: 09/29/2015 [employer] Interactive Patient Education ? 2019 [employer] CIGARETTE SMOKING: The facts are clear, cigarette smoking will shorten your life. Smoking can cause many illnesses along the way. As a healthcare provider, we recommend that you stop smoking. Assistance with quitting is available by contacting 8-080-BSCF-NOW. This is a free resource providing counseling, [...] Be sure to sign up for the NETpeas patient portal, which gives you 29/08 access to your medical information ??? including these discharge instructions ??? using your computer, smartphone, or tablet. Just go to LetsWombat to get started. Questions? Call . [facility] would like to thank you for allowing us to assist you with your healthcare needs. ALEX Schroeder JOAN, (or door to door sales representative) have received the above patient education materials/instructions and have verbalized understanding: Patient Signature _ Date/Time Patient Chemical Instrumentation Officer Signature (if needed) Date/Time Clinician/Hospital Chemical Instrumentation Officer Signature (if needed) Date/Time documented in this encounter Plan of Treatment Not on file documented as of this encounter Visit Diagnoses Not on filedocumented in this encounter
--- OUTSIDE RECORDS SUMMARY | 2024-09-17 11:38 | XMS_ITS | Encounter Summary ---
Author Organization [employer] ([place], [place], [place], [place]) Address [address] [place] [address] Care Team Providers Care Enrolled Nurse Name Role Phone Unavailable Primary Care Provider Unavailabl e Encounter Details Date Type Department Care Team (Late st Contact Info) Description 09/11/2018 Transcribed Document [facility] [place] Family Medicine [address] [place] [address] ProviderGonzalez MD [address] [place] [address] Social History Tobacco Use Types Packs/Day Years Used Date Smoking Tobacco: Never Assessed Comments Unknown Sex and Gender Information Value Date Recorded Sex Assigned at Not on file Legal Sex Female 6:02 PM CDT Gender Identity Not on file Sexual Orientation Not on file documented as of this encounter Miscellaneous Notes * Cerner Conversion Note - Gonzalez ProviderMD - 09/11/2018 9:00 AM CDT Consult Phone Call Documentation Entered On: 09/11/2018 11:15 EDT Performed On: 09/11/2018 9:00 EDT by Cherry Miles, RN Phone Call for Consults Physician Covering for Consult : MEMO SALAZAR MD-ONC Consult, Additional Information : consult called, has seen patient Cherry Miles RN - 09/11/2018 11:15 EDT documented in this encounter Plan of Treatment Not on file documented as of this encounter Visit Diagnoses Not on filedocumented in this encounter
--- OUTSIDE RECORDS SUMMARY | 2024-09-17 11:38 | XMS_ITS | Encounter Summary ---
Author Organization [employer] ([place], [place], [place], [place]) Address [address] [place] [address] Care Team Providers Care Ecommerce Marketing Manager Name Role Phone Unavailable Primary Care Provider Unavailabl e Encounter Details Date Type Department Care Team (Late st Contact Info) Description 09/26/2018 Transcribed Document [facility] [place] Family Medicine [address] [place] [address] ProviderGonzalez MD [facility] [place] [address] Social History Tobacco Use Types Packs/Day Years Used Date Smoking Tobacco: Never Assessed Comments Unknown Sex and Gender Information Value Date Recorded Sex Assigned at Not on file Legal Sex Female 6:02 PM CDT Gender Identity Not on file Sexual Orientation Not on file documented as of this encounter Miscellaneous Notes * Cerner Conversion Note - Gonzalez ProviderMD - 09/26/2018 11:34 AM CDT UM Authorization Entered On: 09/26/2018 11:34 EDT Performed On: 09/26/2018 11:34 EDT by Trudy Marie Rn-Utilization Review Primary Insurance Authorization Authorization and Policy Numbers : Insurance 1 Health Plan: [employer] Policy Number: [id number] Authorization Number: Insurance Primary Name : [employer] Policy Number: [id number] Historical Authorization Comments-Primary : Comment 1: Called [id number] no from pts scanned insurance card, per voice message pt has limited benefit plan which covers 1000$$ per day for IP services, pt in observation status does not meet for IP, em to DM and SB (POLO RANGEL RN 09/25/2018 13:22) Trudy Marie Rn-Utilization Review - 09/26/2018 11:34 EDT Electronically signed by Mary Ann [facility] Conversion Gunstock Spray Unit Feeder Cerner at 05/27/2022 9:31 AM CDT documented in this encounter Plan of Treatment Not on file documented as of this encounter Visit Diagnoses Not on filedocumented in this encounter
--- OUTSIDE RECORDS SUMMARY | 2024-09-17 11:38 | XMS_ITS | Encounter Summary ---
Author Organization [employer] ([place], [place], [place], [place]) Address [address] [place] [address] Care Team Providers Care Salesperson Parts Name Role Phone Unavailable Primary Care Provider Unavailabl e Encounter Details Date Type Department Care Team (Late st Contact Info) Description 10/01/2018 Transcribed Document [facility] [place] [facility] [place] Medicine [address] [place] [address] ProviderGonzalez MD [address] [place] [address] Social History Tobacco Use Types Packs/Day Years Used Date Smoking Tobacco: Never Assessed Comments Unknown Sex and Gender Information Value Date Recorded Sex Assigned at Not on file Legal Sex Female 6:02 PM CDT Gender Identity Not on file Sexual Orientation Not on file documented as of this encounter Miscellaneous Notes * Cerner Conversion Note - Gonzalez Muñoz MD - 10/01/2018 7:09 PM CDT Patient: GREG BAUTISTA Age: 58 years Sex: Female : 1960 Associated Diagnoses: None Author: MEMO SALAZAR MD-ONC Attachments: None Subjective Chief complaint Chief complaint Had a better day. Toleratddiet with steroid Health Status Allergies Allergic Reactions (All) No [...] BID Medications (28) Active Scheduled: (5) amLODIPine 10 mg tab 10 mg 1 Tab, Oral, Daily heparin 5,000 units/1 mL inj 5,000 Units 1 mL, SubCutaneous, Q8HInt hydrALAZINE 25 mg tab 25 mg 1 Tab, Oral, TID pantoprazole EC 40 mg tab 40 mg 1 Tab, Oral, Daily predniSONE 20 mg tab 40 mg 2 Tab, Oral, Daily Continuous: (1) lactated ringers [...] hrs) Last Charted Minimum Maximum Temp 98.1 (OCT 01 14:51) 97.9 (OCT 01 10:54) 98 (OCT 01 00:30) Apical HR 84 (OCT 01 15:12) 81 (OCT 01 08:24) 87 (SEP 30 20:59) Mon HR 86 (OCT 01 14:51) 72 (OCT 01 04:30) 86 (OCT 01 14:51) Resp Rate 16 (OCT 01 14:51) 14 (OCT 01 08:26) 18 (OCT 01 00:30) SBP H 149 (OCT 01 15:12) 135 (OCT 01 00:30) H 157 (OCT 01 08:24) DBP 82 (OCT 01 15:12) 73 (OCT 01 08:24) H 120 (OCT 01 06:40) MAP 104 (OCT 01 14:51) 88 (OCT 01 00:30) 126 (OCT 01 04:30) SpO2 97 (OCT 01 05:00) 94 (OCT 01 00:30) 97 (OCT 01 04:30) General Alert and oriented No acute distress Respiratory Lungs are clear to auscultation Gastrointestinal Soft Non-distended Normal postop abdominal tenderness Normal postop abdominal tenderness Results Review General results Interpretation: LABS Labs (Last four charted values) WBC 5.6 (OCT 01) L 4.4 (SEP 30) 4.6 (SEP 29) 4.8 (SEP 28) HB L 10.2 (OCT 01) L 10.7 (SEP 30) L 10.4 (SEP 29) L 10.3 (SEP 28) HCT L 31.0 (OCT 01) L 32.3 (SEP 30) L 32.0 (SEP 29) L 31.2 (SEP 28) Plt 240 (OCT 01) 223 (SEP 30) 199 (SEP 29) 206 (SEP 28) Na 137 (OCT 01) 139 (SEP 30) 139 (SEP 29) 136 (SEP 28) K 4.2 (OCT 01) 3.5 (SEP 30) L 3.3 (SEP 29) L 3.0 (SEP 28) Cl 103 (OCT 01) 103 (SEP 30) 104 (SEP 29) 102 (SEP 28) CO2 27 (OCT 01) 29 (SEP 30) 26 (SEP 29) 25 (SEP 28) BUN 15 (OCT 01) 13 (SEP 30) 15 (SEP 29) 12 (SEP 28) Cr H 1.10 (OCT 01) H 1.10 (SEP 30) 1.00 (SEP 29) 1.00 (SEP 28) Glu R H 166 (OCT 01) H 130 (SEP 30) H 154 (SEP 29) H 161 (SEP 28) Ca H 11.7 (OCT 01) H 11.7 (SEP 30) H 11.3 (SEP 29) H 10.5 (SEP 28) PT 11.8 (SEP 24) INR 1.1 (SEP 24) AST 16 (SEP 24) ALT 17 (SEP 24) ALK P H 431 (SEP 24) T Bili 0.6 (SEP 24) PTN 6.8 (SEP 24) ALB L 3.0 (SEP 24) Lipase 75 (SEP 24) Radiology Results No Radiology Results Found Impression and Plan Assessment and Plan Diagnosis Sarcoidoisis Course Improving Orders I will sign off. Sarcoid is taken care of by a rotary drier feeder or cardiographer. . Electronically signed by Mary Ann, [facility] Conversion Room Service Server Cerner at 05/27/2022 9:29 AM CDT documented in this encounter Plan of Treatment Not on file documented as of this encounter Visit Diagnoses Not on filedocumented in this encounter
--- OUTSIDE RECORDS SUMMARY | 2024-09-17 11:38 | XMS_ITS | Encounter Summary ---
Author Organization [employer] ([place], [place], [place], [place]) Address [address] [place] [address] Care Team Providers Care Privacy Compliance Manager Name Role Phone Unavailable Primary Care Provider Unavailabl e Encounter Details Date Type Department Care Team (Late st Contact Info) Description 09/11/2018 Transcribed Document [place] Family Medicine [address] [place] [address] ProviderGonzalez MD [address] [place] [address] Social History Tobacco Use Types Packs/Day Years Used Date Smoking Tobacco: Never Assessed Comments Unknown Sex and Gender Information Value Date Recorded Sex Assigned at Not on file Legal Sex Female 6:02 PM CDT Gender Identity Not on file Sexual Orientation Not on file documented as of this encounter Miscellaneous Notes * Cerner Conversion Note - Gonzalez ProviderMD - 09/11/2018 3:13 PM CDT Initial Discharge Planning Entered On: 09/11/2018 15:25 EDT Performed On: 09/11/2018 15:13 EDT by JADEN BYERS, Flavor Maker Initial Assessment I Previously Documented Living Environment : No qualifying data available. Living Situation : Home Patient Lives With : Alone Is the Patient a Caregiver at Home? : No Employment/Vocation : Disabled Emergency Contact #1 : Torie Calero Emergency Contact #1 Emergency Contact #1 Relationship : Friend Emergency Contact #2 : n/a Emergency Contact #2 Phone Number : n/a Emergency Contact #2 Relationship : n./a Enter Doctors Name : Deysi Ca Zhou Does Patient have PCP Listed? : Yes Patient's Home Caregiver Name/Relationship : Torie Euniceangelica, friend Patient's Home Caregiver Medical Durable Power of Manager Marketing Name : none Legal Guardian : No Is Guardianship Needed : No ZEESHANJADEN KERNS Social Worker - 09/11/2018 15:13 EDT Initial Assessment II Sensory and Motor Deficits : None Current Home Treatments and Equipment : None JADEN BYERS Social Worker - 09/11/2018 15:13 EDT Discharge Needs I Anticipated Discharge Date : 09/12/2018 EDT Anticipated Discharge To, CM : Home independently, Home with home health Current Home Treatment/Equipment : Current Home Treatment/Equipment No qualifying data available. Post Acute/Home Treatments : None JADEN BYERS Social Worker - 09/11/2018 15:13 EDT Discharge Needs II Professional Skilled Services : Professional Skilled Services No qualifying data available. Services and Community Resources : Home Health Needs Assistance with Transportation : Maybe Discharge Options Discussed with Patient : Discharge transportation, DME, Home Health, Short term rehabilitation JADEN BYERS Social Worker - 09/11/2018 15:13 EDT Narrative Note Narrative Note : Talked w/ this 58 yr old W f who presented to [facility] w/ N & V and abdominal discomfort. CT revealed multiplre hypodense lesions of liver and spleen, w/ retroperitoneal lymph nodes. She was sent to [facility] for Oncology evaluation. Pt has hx of sarcoidosis which has affected her vision. Pt underwent CT guided BX today, results pending. [facility], is indep w/ ADLs, does not drive, her friends provide transportation. Uses no DME, no HH services. Pt has 2 brothers but does NOT want them listed or contacted. Suggested she might want to consider appointing her friend, Torie Calero (whom she has listed as emergency contact) as HCS as legally her brothers would be considered NOK (pt never , no children, parents ) in the event of emergency. Pt plans to return home at D/C, agreeable to HH svs if needed. Pt's RRS is low @ 32. She denies any needs noew, CM will cont to follow. JADEN BYERS Social Worker - 09/11/2018 15:13 EDT Electronically signed by Mary Ann [facility] Conversion Service Desk Associate Cerner at 05/27/2022 9:18 AM CDT documented in this encounter Plan of Treatment Not on file documented as of this encounter Visit Diagnoses Not on filedocumented in this encounter
--- OUTSIDE RECORDS SUMMARY | 2024-09-17 11:38 | XMS_ITS | Encounter Summary ---
Author Organization [employer] ([place], [place], [place], [place]) Address [address] [place] [address] Care Team Providers Care Reverberatory Skimmer Name Role Phone Unavailable Primary Care Provider Unavailabl e Encounter Details Date Type Department Care Team (Late st Contact Info) Description 10/02/2018 Transcribed Document [facility] [place] Family Medicine [address] [place] [address] ProviderGonzalez MD [address] [place] [address] Social History Tobacco Use Types Packs/Day Years Used Date Smoking Tobacco: Never Assessed Comments Unknown Sex and Gender Information Value Date Recorded Sex Assigned at Not on file Legal Sex Female 6:02 PM CDT Gender Identity Not on file Sexual Orientation Not on file documented as of this encounter Miscellaneous Notes * Cerner Conversion Note - Gonzalez Muñoz MD - 10/02/2018 10:33 AM CDT BETHANY CARDOZO [address] [place] [address] [place] [address] Re: GREG BAUTISTA Date of Visit: 09/26/2018 [...] contents is strictly prohibited. Sincerely, ISABELA GUPTA [address] [facility] [place] [id number] The following document(s) were included in the letter: October 02, 2018 09:44:22 EDT - (10/02/2018) Discharge Note documented in this encounter Plan of Treatment Not on file documented as of this encounter Visit Diagnoses Not on filedocumented in this encounter
--- OUTSIDE RECORDS SUMMARY | 2024-09-17 11:38 | XMS_ITS | Encounter Summary ---
Author Organization [employer] ([place], [place], [place], [place]) Address [address] [place] [address] Care Team Providers Care Contract Recruiter Name Role Phone Unavailable Primary Care Provider Unavailabl e Encounter Details Date Type Department Care Team (Late st Contact Info) Description 09/26/2018 Transcribed Document [facility] [place] Family Medicine [address] [place] [address] ProviderGonzalez MD [address] [place] [address] Social History Tobacco Use Types Packs/Day Years Used Date Smoking Tobacco: Never Assessed Comments Unknown Sex and Gender Information Value Date Recorded Sex Assigned at Not on file Legal Sex Female 6:02 PM CDT Gender Identity Not on file Sexual Orientation Not on file documented as of this encounter Miscellaneous Notes * Cerner Conversion Note - Gonzalez Muñoz MD - 09/26/2018 9:29 AM CDT Patient Education Materials Follows: Gastritis, Adult Gastritis is swelling (inflammation) of [...] Follow these instructions at home: ??? Take hwza-hne-auczktx and prescription medicines only as told by [...] sores (ulcers) in your stomach. ??? Take wjhd-vtp-ahsyuwt and prescription medicines only as told by your doctor. This information is not intended to replace advice given to you by your health care provider. Make sure you discuss any questions you have with your health care provider. Document Released: 07/11/2008 Document Revised: 09/05/2017 Document Reviewed: 10/17/2015 [employer] Interactive Patient Education ? 2019 [employer]. Gastroenterology Nausea and Vomiting, Adult Nausea is the [...] and low-calorie sports drinks. ??? Eat bland, besm-ku-ktgqpo foods in small amounts as you are [...] and water are not available, use hand excelsior machine operator. ??? Make sure that all people in your household wash their hands well and often. ??? Take vmwi-fhf-wmqkjcm and prescription medicines only as told by [...] 01/23/2006 Document Revised: 06/27/2016 Document Reviewed: 09/29/2015 [employer] Interactive Patient Education ? 2019 [employer] documented in this encounter Plan of Treatment Not on file documented as of this encounter Visit Diagnoses Not on filedocumented in this encounter
--- OUTSIDE RECORDS SUMMARY | 2024-09-17 11:38 | XMS_ITS | Clinical Summary ---
Author Organization [facility] Address [address] [place] [address] Care Team Providers Care Air Brake Tester Name Role Phone Provider, No Known Primary Care Provider Unavail able Social History Tobacco Use Types Packs/Day Years Used Date Smoking Tobacco: Never Assessed Abuse Screen Answer Date Recorded Unsafe at Home or Work/School Not on file Feels Threatened by Someone? Not on file 12/2022 Does Anyone Keep You from Co ntacting Others or Doint Things Outside the Home? Not on file 11/16/2022 Physical Sign of Abuse Present Not on file 1 Housing Stability Answer Date Recorded Current Living Arrangements Not on file 11/06 Potentially Unsafe Housing Conditions Not on raquel e 11/16/2022 Family and Community Support Answer Jermaine e Recorded Help with Day-to-Day Activities Not on file 11/16/2022 Lonely or Isolated Not on file 11/16/2022 Employment Answer Date Recorded Do you want help finding or keeping work or a rosario b? Not on file 11/16/2022 Disabilities Answer Date Recorded Concentrating, Remembering, or Making Decisions Difficulty Not on file 11/16/2022 Doing Errands Independently Difficulty Not on fi le 11/16/2022 Education Answer Date Recorded Help with school or training? Not on file Preferred Language Not on file 11/16/2022 Comments Unknown Sex and Gender Information Value Date Recorded Sex Assigned at Not on file Legal Sex Female 3:02 PM EDT Gender Identity Not on file Sexual Orientation Not on file Plan of Treatment Health Maintenance Due Date Last Done Comments ANNUAL PHYSICAL 1960 DXA SCAN 1960 HEPATITIS C SCREENING 1960 TDAP/TD VACCINES (1 - Tdap) 1978 MAMMOGRAM 1999 COLOGUARD 01/13/2004 COLON CANCER SCREENING 5 YEA R SIGMOIDOSCOPY 01/13/2004 COLONOSCOPY 01/13/2004 COLORECTAL CANCER SCREENING 01/13/2004 CT COLONOGRAPHY 01/13/2004 FECAL OCCULT BLOOD TEST 01/13/2004 FIT Testing (1 year) 01/13/2004 Pneumococcal Vaccine 50+ (1 of 1 - PCV) 2009 ZOSTER VACCINE (1 of 2) 2009 COVID-19 Vaccine (2023-2 5 season) 2023 11/25/2022, 10/21/2021, 07/19/2021, Additional history exists INFLUENZA VACCINE 11/06/2024 Insurance [employer] MEDICARE ADVANTAGE HMO Care Teams Air Brake Tester Relationship Specialty Start Date End Date Provider, No Known [place] [address] PCP - General 09/19/16
--- OUTSIDE RECORDS SUMMARY | 2024-09-17 11:38 | XMS_ITS | Encounter Summary ---
Author Organization [employer] ([place], [place], [place], [place]) Address [address] [place] [address] Care Team Providers Care Fire Marshal Name Role Phone Unavailable Primary Care Provider Unavailabl e Encounter Details Date Type Department Care Team (Late st Contact Info) Description 10/02/2018 Transcribed Document [facility] [place] Family Medicine [address] [place] [address] ProviderGonzalez MD [address] [place] [address] Social History Tobacco Use Types Packs/Day Years Used Date Smoking Tobacco: Never Assessed Comments Unknown Sex and Gender Information Value Date Recorded Sex Assigned at Not on file Legal Sex Female 6:02 PM CDT Gender Identity Not on file Sexual Orientation Not on file documented as of this encounter Miscellaneous Notes * Cerner Conversion Note - Gonzalez Muñoz MD - 10/02/2018 1:07 PM CDT [facility] [place] [address] GREG BAUTISTA :1960 Visit Time:09/26/2018 Your Visit Summary Your Care Team Admitting Physician - KATIE MARTINEZ, -INT Attending Physician - KATIE MARTINEZ, -INT Primary Care Physician - PAULINA CARDOZO MD-[facility] Referring Physician - JAIME RAMIREZ (REF)MD-[facility] Your Diagnosis Nausea with vomiting, unspecified, Nausea with vomiting, unspecified Sarcoidosis These Are Your Goals improve nausea and vomiting - Met Discharge Vitals Temperature 36.7 ??C Heart Rate (Monitored) 87 Respiratory Rate 16 Blood Pressure 155/77 What to do next Instructions From Your Care Team New Prescriptions: hydrocodone/APAP ([place]) pantoprazole (Protonix) prednisone promethazine (Phenergan) Increase in Amlodipine dose to 10mg daily. Increase in hydralazine frequency to 25mg three times a day. Please STOP taking the following medication: amoxicillin/clavulanate (Augmentin) Follow-Up Appointments Follow Up with Dr Marie When In 3 days 10/05/2018 EDT Comments 2pm: appointment has been made very important that you see rheumatology. PCP needs to refer you to contact center associate who can and does take your insurance. Follow Up with NURY OLGUIN MD When Within As needed Comments follow up EGD Where: [address] [place] [address]- Follow Up with MEMO SALAZAR MD-ONC When Within As needed Where: [address] [place] [address]- Medications What How Much When Instructions Next Dose acetaminophen-hydrocodone (acetaminophen-HYDROcodone 325 mg-5 mg oral tablet) 1 Tablet(s) Oral Every 4 Hours as needed for Pain (Mild 1-3) Duration: 3 Day(s) Printed Prescription amLODIPine (Norvasc 10 mg oral tablet) 1 Tablet(s) Oral Every Day Printed Prescription pantoprazole (pantoprazole 40 mg oral delayed release tablet) 1 Tablet(s) Oral Every Day Printed Prescription predniSONE (predniSONE 20 mg oral tablet) 2 Tablet(s) Oral Every Day Duration: 2 weeks Printed Prescription promethazine (promethazine 25 mg oral tablet) 1 Tablet(s) Oral Every 6 Hours as needed for Nausea/vomiting Printed Prescription hydrALAZINE (hydrALAZINE 25 mg oral tablet) 1 Tablet(s) Oral Three Times A Day Printed Prescription Take your medications faithfully. Do [...] This Visit No Immunizations Found Education Materials Sarcoidosis Sarcoidosis is a disease that can [...] family history of the disease. ??? Are -[place]er. ??? Are of [place] descent. ??? Are 20???50 years old. ??? 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 ??? Work in an environment where you [...] safe for you. ??? Take or use efma-pmb-lmgpeef and prescription medicines only as told by [...] 11/23/2004 Document Revised: 10/31/2017 Document Reviewed: 10/31/2017 [employer] Interactive Patient Education ?? 2019 [employer] Gastritis, Adult Gastritis is swelling (inflammation) [...] Follow these instructions at home: ??? Take gysd-gpp-yctnqtq and prescription medicines only as told by [...] sores (ulcers) in your stomach. ??? Take zvmc-wnm-eziqfzf and prescription medicines only as told by your doctor. This information is not intended to replace advice given to you by your health care provider. Make sure you discuss any questions you have with your health care provider. Document Released: 07/11/2008 Document Revised: 09/05/2017 Document Reviewed: 10/17/2015 [employer] Interactive Patient Education ?? 2019 [employer] Nausea and Vomiting, Adult Nausea is [...] and low-calorie sports drinks. ??? Eat bland, lxqs-wp-sjcxfq foods in small amounts as you are [...] and water are not available, use hand consignee. ??? Make sure that all people in your household wash their hands well and often. ??? Take vokm-mzv-dgwrhjs and prescription medicines only as told by [...] 01/23/2006 Document Revised: 06/27/2016 Document Reviewed: 09/29/2015 [employer] Interactive Patient Education ?? 2019 [employer]. Emergency Awareness and Preventative Care STROKE is [...] Assistance with quitting is available by contacting 0-445-RRGB-NOW. This is a free resource providing counseling, [...] This Visit (last charted value for your 09/26/2018 visit) Hematology 10/02/18 06:42:00 WBC: 6.6 K/uL -- Normal range between ( 4.5 and 10.5 ) RBC: 3.98 Million/uL -- Normal range between ( 3.93 and 5.22 ) Hct: 33.4 % -- Normal range between ( 34.1 and 44.9 ) Hgb: 10.7 g/dL -- Normal range between ( 11.2 and 15.7 ) Platelet Count: 238 K/uL -- Normal range between ( 163 and 369 ) MCH: 26.9 pg -- Normal range between ( 25.6 and 32.2 ) MCHC: 32.0 Gram/dL -- Normal range between ( 32.2 and 36.5 ) MCV: 83.9 fL -- Normal range between ( 79.0 and 94.8 ) Slide Review: No Eos %: 0.8 % -- Normal range between ( 0.0 and 7.0 ) Inyo #: 0.61 K/uL -- Normal range between ( 0.16 and 1.00 ) Eos #: 0.05 x10(3)/uL -- Normal range between ( 0.00 and 0.80 ) Inyo %: 9.2 % -- Normal range between ( 3.0 and 9.0 ) Baso %: 0.5 % -- Normal range between ( 0.0 and 1.5 ) Baso #: 0.03 x10(3)/uL -- Normal range between ( 0.00 and 0.20 ) RDW: 15.0 % -- Normal range between ( 11.7 and 14.9 ) Neut %: 78.8 % -- Normal range between ( 34.0 and 71.0 ) Neut #: 5.25 K/uL -- Normal range between ( 1.56 and 6.13 ) Lymph %: 8.9 % -- Normal range between ( 19.3 and 53.1 ) Lymph #: 0.59 x10(3)/uL -- Normal range between ( 1.00 and 3.90 ) MPV: 9.6 fL -- Normal range between ( 9.4 and 12.4 ) IG#: 0.12 x10(3)/uL -- Normal range between ( 0.00 and 0.05 ) IG%: 1.80 % -- Normal range between ( 0.00 and 0.60 ) General Chemistry 10/02/18 06:42:00 Creatinine Level: 1.30 mg/dL -- Normal range between ( 0.55 and 1.02 ) Sodium Level: 136 mmol/L -- Normal range between ( 136 and 146 ) Potassium Level: 3.8 mmol/L -- Normal range between ( 3.5 and 5.1 ) Chloride Level: 99 mmol/L -- Normal range between ( 102 and 112 ) Carbon Dioxide Level: 30 mmol/L -- Normal range between ( 21 and 32 ) Anion Gap: 11 -- Normal range between ( 9 and 20 ) Bun/Creatinine: 15.4 -- Normal range between ( 8.0 and 20.0 ) Calcium Level: 12.5 mg/dL -- Normal range between ( 8.4 and 10.1 ) eGFR : 51 mL/min/1.73m2 eGFR NonAfrican: 42 mL/min/1.73m2 Glucose Level: 163 mg/dL -- Normal range between ( 74 and 106 ) Blood Urea Nitrogen: 20 mg/dL -- Normal range between ( 7 and 22 ) 09/24/18 07:02:00 Bilirubin Total: 0.6 mg/dL -- Normal range between ( 0.2 and 1.2 ) A/G Ratio: 0.8 -- Normal range between ( 1.1 and 2.5 ) ALT: 17 Units/Liter -- Normal range between ( 13 and 56 ) AST: 16 Units/Liter -- Normal range between ( 5 and 37 ) Globulin: 3.8 Gram/dL -- Normal range between ( 1.5 and 4.5 ) Alk Phos: 431 Units/Liter -- Normal range between ( 27 and 136 ) Amylase Level: 26 Units/Liter -- Normal range between ( 25 and 115 ) Bilirubin Direct: 0.2 mg/dL -- Normal range between ( 0.0 and 0.2 ) Magnesium Level: 2.0 mg/dL -- Normal range between ( 1.5 and 2.4 ) Protein Total: 6.8 Gram/dL -- Normal range between ( 6.4 and 8.2 ) Albumin Level: 3.0 Gram/dL -- Normal range between ( 3.4 and 5.0 ) Lipase Level: 75 Units/Liter -- Normal range between ( 73 and 393 ) Coagulation 09/24/18 07:02:00 INR: 1.1 -- Normal range between ( 0.9 and 1.1 ) PT: 11.8 Second(s) -- Normal range between ( 9.6 and 12.0 ) Endocrinology 09/24/18 07:02:00 TSH: 0.631 mcInt Units/mL -- Normal range between ( 0.358 and 3.740 ) Computed Tomography 09/25/18 10:16:26 CT Head WO: CT Head WO 09/25/18 09:30:16 CT Bx Liver: CT Bx Liver Diagnostic Radiology 09/24/18 10:18:42 CR Abdomen Comp W 1 Vw Chest: CR Abdomen Comp W 1 Vw Chest Ultrasound 10/02/18 10:34:03 US Parotid: US Parotid 09/24/18 10:53:37 US Abdominal RT Upper Quad: US Abdominal RT Upper Quad Patient Name:GREG BAUTISTA I have received and understand this information and was given the opportunity to ask questions. Patient/Contracting Analyst Name: Patient/Contracting Analyst Signature: Relationship to Patient: Clinician/Hospital Contracting Analyst Signature: Date: documented in this encounter Plan of Treatment Not on file documented as of this encounter Visit Diagnoses Not on filedocumented in this encounter
--- OUTSIDE RECORDS SUMMARY | 2024-09-17 11:38 | XMS_ITS | Encounter Summary ---
Author Organization [employer] ([place], [place], [place], [place]) Address [address] [place] [address] Care Team Providers Care Solderer Barrel Ribs Name Role Phone Unavailable Primary Care Provider Unavailabl e Encounter Details Date Type Department Care Team (Late st Contact Info) Description 09/10/2018 Transcribed Document [facility] [place] Family Medicine [facility] [place] [address] ProviderGonzalez MD [facility] [place] [address] Social History Tobacco Use Types Packs/Day Years Used Date Smoking Tobacco: Never Assessed Comments Unknown Sex and Gender Information Value Date Recorded Sex Assigned at Not on file Legal Sex Female 6:02 PM CDT Gender Identity Not on file Sexual Orientation Not on file documented as of this encounter Miscellaneous Notes * Cerner Conversion Note - Gonzalez ProviderMD - 09/10/2018 8:09 PM CDT Admission History, Adult Entered On: 09/10/2018 20:30 EDT Performed On: 09/10/2018 20:09 EDT by Donna Mena Rn Advance Directive Patient has Advance Directive *Q : No, patient refuses Advance Directive information Donna Mena Rn - 09/10/2018 20:22 EDT Anesthesia/Transfusion History Family History of Anesthesia Reaction : No prior transfusion(s) Blood Transfusion Acceptable to Patient : Yes Transfusion History : Prior anesthesia without reaction Family History of Anesthesia Reaction : None Donna Mena Rn - 09/10/2018 20:22 EDT Functional Assessment Living Situation : Home Patient Lives With : Alone Current Home Treatments : None Donna Mena Rn - 09/10/2018 20:22 EDT General Info Contact Password : Nely Valenzuela Family/Rep/Phys Notified of Admit : No Emergency Contact #1 : Torie Calero Emergency Contact #1 Emergency Contact #1 Relationship : Friend Emergency Contact #2 : n/a Emergency Contact #2 Phone Number : n/a Emergency Contact #2 Relationship : n./a Primary Language : Bhutanese Communication Barrier : None Donna Mena Rn - 09/10/2018 20:22 EDT Fall Risk Scales ABCs Fall Injury Risk Identification : None MOORE Hx Falls Immediate/Within 3 Months : Yes Moore Secondary Diagnosis : Yes MOORE Use of Ambulatory Aid : Bed rest/Nurse assist MOORE IV Therapy or IV Access : Yes Moore Gait/Transferring : Normal, bedrest, immobile Moore Mental Status : Oriented to own ability Moore Fall Risk Score : 60 MOOER Fall Scale Risk Level : 46 or > High Risk [place] Fall Interventions : Adequate lighting, Assistive devices within reach, Bed in low position, Call device within reach, Frequent orientation to call device, Frequent orientation to surroundings, Hourly comfort/safety rounds, Non-slip footwear, Personal items within reach, Reinforced to call for assistance before getting out of bed, Room free of clutter/spills, Upper side-rails up, Wheels locked, Wires/Cords secured Donna Mena Rn - 09/10/2018 20:22 EDT Health Histories Smoking Status : Never (less than 100 in lifetime; none in last 30 days) Smokeless Tobacco Status : Never Donna Mena Rn - 09/10/2018 20:22 EDT Social History (As Of: 09/10/2018 20:31:00 EDT) Height and Weight, Clinical Dosing Height Source : Stated Height Entry Format : [place] Height, Feet : 5 ft(Converted to: 152 cm, 60 Inch) Height, Inches : 3 Inch(Converted to: 0 ft 3 Inch, 7.62 cm) Clinical Height : 160.02 cm Weight Source : Bed scale Weight Entry Format : [place] Clinical Dosing Weight : 80.45 kg Weight, Pounds : 177 lb Weight, Ounces : 0 oz Body Surface Area (BSA) : 1.84 m2 Body Mass Index : 31.4 kg/m2 (HI) [place] Body Weight : 52 kg Donna Mena Rn - 09/10/2018 20:22 EDT Infectious Disease History Infectious Disease History : Measles Fever/Chills Last 48 Hours : No Travel To Regions with Travel Advisories : No Travel Outside [place] Within Last 30 Days : No Contact With Traveler to Advisory Region : No Tuberculosis Symptoms : Fatigue, Loss of Appetite Donna Mena Rn - 09/10/2018 20:22 EDT Influenza Vaccine Asmt, Adult Previous Vaccines from Immunization Schedule : No qualifying data available. Influenza Immunization, Current Season : No Inactivated Flu Vaccine Contraindications : No contraindications to inactivated influenza vaccine Transplant Workup/Recent Transplant : No Order for Influenza Vaccine : Declined Vaccination Donna Mena Rn - 09/10/2018 20:22 EDT Pneumococcal Vaccine Previous Vaccines from Immunization Schedule : No qualifying data available. Pneumonia Immunization Received : No Pneumococcal Risk Assessment < Age 65 : None Donna Mena Rn - 09/10/2018 20:22 EDT Nutrition History Eating Poorly Due to Decreased Appetite : Yes Unplanned Weight Loss in Past 3-6 Months : No Malnutrition Screening Tool Total(mal) : 1 Malnutrition Screening Tool Risk Level : Patient not at risk Donna Mena Rn - 09/10/2018 20:22 EDT Psychosocial History Currently in Unsafe Situation : No Tried to Harm Yourself in the Past? : No Thoughts of Harming/Killing Yourself : No Donna Mena Rn - 09/10/2018 20:22 EDT Sleep Apnea Risk Assmt Hx of [...] Sleep Apnea Risk Level Score : 2 Donna Mena Rn - 09/10/2018 20:22 EDT Valuables and Belongings Valuables and Belongings : Clothing, Personal items Clothing : Common streetwear Clothing Disposition : With patient Personal Items : Purse Personal Items Disposition : Bedside Donna Mena Rn - 09/10/2018 20:22 EDT documented in this encounter Plan of Treatment Not on file documented as of this encounter Visit Diagnoses Not on filedocumented in this encounter
--- OUTSIDE RECORDS SUMMARY | 2024-09-17 11:38 | XMS_ITS | Encounter Summary ---
Author Organization [employer] ([place], [place], [place], [place]) Address [address] [place] [address] Care Team Providers Care Studio Manager Name Role Phone Unavailable Primary Care Provider Unavailabl e Encounter Details Date Type Department Care Team (Late st Contact Info) Description 09/11/2018 Transcribed Document [facility] [place] Family Medicine [address] [place] [address] ProviderGonzalez MD [address] [place] [address] Social History Tobacco Use Types Packs/Day Years Used Date Smoking Tobacco: Never Assessed Comments Unknown Sex and Gender Information Value Date Recorded Sex Assigned at Not on file Legal Sex Female 6:02 PM CDT Gender Identity Not on file Sexual Orientation Not on file documented as of this encounter Miscellaneous Notes * Cerner Conversion Note - Historical ProviderMD - 09/11/2018 2:00 AM CDT Pocket Secretary Assembler Details Entered On: 09/11/2018 2:38 EDT Performed On: 09/11/2018 2:00 EDT by Donna Mena, Rn Order Details Transport Mode Order Detail : Wheelchair Isolation Precautions Order Detail : Standard Precautions Order Detail : 0 IV Order Detail : 1 Oxygen Order Detail : 0 Nurse Collect Order Detail : 0 Lift/Transfer : Independent Central Line Order Detail : No Room Service : Appropriate Arterial Line : No Donna Mena, Rn - 09/11/2018 2:38 EDT documented in this encounter Plan of Treatment Not on file documented as of this encounter Visit Diagnoses Not on filedocumented in this encounter
--- OUTSIDE RECORDS SUMMARY | 2024-09-17 11:38 | XMS_ITS | Encounter Summary ---
Author Organization [employer] ([place], [place], [place], [place]) Address [address] [place] [address] Care Team Providers Care Director Check Name Role Phone Unavailable Primary Care Provider Unavailabl e Encounter Details Date Type Department Care Team (Late st Contact Info) Description 09/11/2018 Transcribed Document [facility] [place] Family Medicine [address] [place] [address] ProviderGonzalez MD [address], [place] [address] Social History Tobacco Use Types Packs/Day Years Used Date Smoking Tobacco: Never Assessed Comments Unknown Sex and Gender Information Value Date Recorded Sex Assigned at Not on file Legal Sex Female 6:02 PM CDT Gender Identity Not on file Sexual Orientation Not on file documented as of this encounter Miscellaneous Notes * Cerner Conversion Note - Historical ProviderMD - 09/11/2018 11:31 AM CDT Patient: GREG BAUTISTA Age: 58 years Sex: Female : 1960 Associated Diagnoses: None Author: DONOVAN FLANAGAN PA Pre-OP/Procedure Diagnosis: Retroperitoneal lymphadenopathy Post-OP/Procedure Diagnosis: same Procedure Performed: CT guided biopsy Procedural MD: Vahe Graham M.D. Navy Material Inspector: Donovan Flanagan PA-C Sedation: Procedural sedation Findings: Technically successful biopsy Complications: No significant EBL: Less than 20 mL Specimen(s) Removed: 6 FNA and 4 core biopsies obtained. Pathology is pending. Full report to follow. documented in this encounter Plan of Treatment Not on file documented as of this encounter Visit Diagnoses Not on filedocumented in this encounter
--- OUTSIDE RECORDS SUMMARY | 2024-09-17 11:38 | XMS_ITS | Encounter Summary ---
Author Organization [employer] ([place], [place], [place], [place]) Address [address] [place] [address] Care Team Providers Care Denture Model Maker Name Role Phone Unavailable Primary Care Provider Unavailabl e Encounter Details Date Type Department Care Team (Late st Contact Info) Description 09/11/2018 Transcribed Document [facility] [place] Family Medicine [address] [place] [address] ProviderGonzalez MD [address] [place] [address] Social History Tobacco Use Types Packs/Day Years Used Date Smoking Tobacco: Never Assessed Comments Unknown Sex and Gender Information Value Date Recorded Sex Assigned at Not on file Legal Sex Female 6:02 PM CDT Gender Identity Not on file Sexual Orientation Not on file documented as of this encounter Miscellaneous Notes * Cerner Conversion Note - Historical ProviderMD - 09/11/2018 5:00 PM CDT Chart Check - Review Order Profile Entered On: 09/11/2018 15:24 EDT Performed On: 09/11/2018 17:00 EDT by Cherry Miles RN Chart Check Powerplans Initiated/Discontinued as Appropriate : Yes All Active Orders Reviewed : Yes Cherry Miles RN - 09/11/2018 15:23 EDT documented in this encounter Plan of Treatment Not on file documented as of this encounter Visit Diagnoses Not on filedocumented in this encounter
--- OUTSIDE RECORDS SUMMARY | 2024-09-17 11:38 | XMS_ITS | Encounter Summary ---
Author Organization [employer] ([place], [place], [place], [place]) Address [address] [place] [address] Care Team Providers Care Kitchen Help Handyman Name Role Phone Unavailable Primary Care Provider Unavailabl e Encounter Details Date Type Department Care Team (Late st Contact Info) Description 09/26/2018 Transcribed Document [facility] [place] Family Medicine [address] [place] [address] ProviderGonzalez MD [facility] [place] [address] Social History Tobacco Use Types Packs/Day Years Used Date Smoking Tobacco: Never Assessed Comments Unknown Sex and Gender Information Value Date Recorded Sex Assigned at Not on file Legal Sex Female 6:02 PM CDT Gender Identity Not on file Sexual Orientation Not on file documented as of this encounter Miscellaneous Notes * Cerner Conversion Note - Gonzalez ProviderMD - 09/26/2018 2:11 PM CDT On Going Discharge Planning Entered On: 09/26/2018 14:14 EDT Performed On: 09/26/2018 14:11 EDT by TALA ROMERO Rn-District Or District Office DirectorSet Designer Progress Note Discharge Arrangements : Patient Post-Acute Information Patient Name: GREG BAUTISTA Gender: Female : [birth year] Age: 58 Years No Post-Acute Placement(s) Listed No Post-Acute Service(s) Listed No [place] Referral(s) Listed Discharge Options Discussed with Patient : DME, Home Health Is the Patient Meeting Medical Necessity : Yes Discharge Plan Comment : lab manager following on dc planning, cytology results pending. Pt anticipates dc home with possible HH. TALA ROMERO Rn-District Or District Office Director - 09/26/2018 14:11 EDT Electronically signed by Mary Ann, [facility] Conversion Vice President Of Instruction Cerner at 05/27/2022 9:32 AM CDT documented in this encounter Plan of Treatment Not on file documented as of this encounter Visit Diagnoses Not on filedocumented in this encounter
--- OUTSIDE RECORDS SUMMARY | 2024-09-17 11:38 | XMS_ITS | Encounter Summary ---
Author Organization [employer] ([place], [place], [place], [place]) Address [address] [place] [address] Care Team Providers Care Manager Hospitality Name Role Phone Unavailable Primary Care Provider Unavailabl e Encounter Details Date Type Department Care Team (Late st Contact Info) Description 10/01/2018 Transcribed Document [facility] [place] [address] [place] [address] ProviderGonzalez MD [address] [place] [address] Social History Tobacco Use Types Packs/Day Years Used Date Smoking Tobacco: Never Assessed Comments Unknown Sex and Gender Information Value Date Recorded Sex Assigned at Not on file Legal Sex Female 6:02 PM CDT Gender Identity Not on file Sexual Orientation Not on file documented as of this encounter Miscellaneous Notes * Cerner Conversion Note - Gonzalez ProviderMD - 10/01/2018 3:16 PM CDT On Going Discharge Planning Entered On: 10/01/2018 15:18 EDT Performed On: 10/01/2018 15:16 EDT by AUTUMN SHANKAR RN-Digital TechnicianPayroll Professional Progress Note Discharge Arrangements : Patient Post-Acute Information Patient Name: GREG BAUTISTA Gender: Female : [birth year] Age: 58 Years No Post-Acute Placement(s) Listed No Post-Acute Service(s) Listed No [place] Referral(s) Listed Discharge Options Discussed with Patient : DME, Home Health AUTUMN SHANKAR, RN-Digital Technician - 10/01/2018 15:16 EDT Narrative Progress Note Narrative Progress Note : CM met w/pt - she had Liver Bx today - she states I'm just waiting now for the results pt states that she lives alone and that fam will transpt her home @ [place], she states that N/V is better. Denies any DC needs @ This time. AUTUMN SHANKAR, RN-Digital Technician - 10/01/2018 15:16 EDT documented in this encounter Plan of Treatment Not on file documented as of this encounter Visit Diagnoses Not on filedocumented in this encounter
--- OUTSIDE RECORDS SUMMARY | 2024-09-17 11:38 | XMS_ITS | Encounter Summary ---
Author Organization [employer] ([place], [place], [place], [place]) Address [address] [place] [address] Care Team Providers Care Valve Technician Name Role Phone Unavailable Primary Care Provider Unavailabl e Encounter Details Date Type Department Care Team (Late st Contact Info) Description 09/11/2018 Transcribed Document [facility] Radiology [address] [place] [address] Chevy Briceno MD [address] [place] [id number] Social History Tobacco Use Types Packs/Day Years Used Date Smoking Tobacco: Never Assessed Comments Unknown Sex and Gender Information Value Date Recorded Sex Assigned at Not on file Legal Sex Female 6:02 PM CDT Gender Identity Not on file Sexual Orientation Not on file documented as of this encounter Miscellaneous Notes * Cerner Conversion Note - Chevy Briceno MD - 09/11/2018 1:33 PM EDT Patient: GREG BAUTISTA Age: 58 Years Sex: Female : 1960 Subjective no acute issues or complaints overnight, just came back from radiology where she had a FNA ROS: denies chest pain, shortness of air, nausea -positive for abdominal pain Vital Signs T: 36.9 ??C TMIN: 36.3 ??C TMAX: 37.1 ??C HR: 78(Monitored) RR: 19 BP: 165/73 SpO2: 92% HT: 160.02 cm WT: 80.45 kg BMI: 31.4 Oxygen Settings (Last) Oxygen Therapy Mode: Room air (09/11/18 12:27:00) Oxygen Flow Rate: 2 Liter/Min (09/11/18 10:20:00) Intake & Output Totals Last 24 Hours (7a-7a) Input Total: 467.97 mL Output Total: 0 mL Balance: 467.97 mL Physical Exam HEAD: Atraumatic, normocephalic. EYES: [...] culture pending -hypertension: added norvasc, oral hydralazine VTE Prophylaxis - Medical Sequential Compression Device [...] Inhalation , Q6H, PRN famotidine, 20 mg= 2 mL, IV Push, Daily fentaNYL, 25 mcg= 0.5 mL, IV Push, See Comment, PRN hydrALAZINE, 10 mg= 0.5 mL, IV Push, Q6H, PRN hydrALAZINE, 10 mg= 1 Tab, Oral, BID magnesium sulfate, 2 Gram= 50 mL, IV Piggyback, Daily, PRN magnesium sulfate, 2 Gram= 50 mL, IV Piggyback, Q2H, PRN midazolam, 1 mg= 1 mL, IV Push, See Comment, PRN morphine, 2 mg= 1 mL, IV Push, Q2H, PRN Normal Saline 1,000 mL, 1000 mL, IntraVENous Norvasc, 5 mg= 1 Tab, Oral, Daily Phenergan, 6.25 mg= 0.25 mL, IntraVENous, Q6H, PRN potassium chloride 10 mEq/50 mL [...] 45 mL, Feeding Tube, Q2H, PRN sodium phosphate sodium phosphate Tylenol, 650 mg= 2 Tab, Oral, Q4H, PRN Zofran, 4 mg= 2 mL, IV Push, Q4H, PRN Lab Results Test Name Test Result Date/Time Sodium Level 139 mmol/L 09/11/2018 03:39 EDT Sodium Level 135 mmol/L (Low) 09/10/2018 20:58 EDT Potassium Level 3.0 mmol/L (Low) 09/11/2018 06:04 EDT Potassium Level 2.5 mmol/L (Critical) 09/11/2018 03:39 EDT Potassium Level 2.1 mmol/L (Critical) 09/10/2018 20:58 EDT Chloride Level 91 mmol/L (Low) 09/11/2018 03:39 EDT Chloride Level 86 mmol/L (Low) 09/10/2018 20:58 EDT Carbon Dioxide Level 42 mmol/L (High) 09/11/2018 03:39 EDT Carbon Dioxide Level 39 mmol/L (High) 09/10/2018 20:58 EDT Anion Gap 8 (Low) 09/11/2018 03:39 EDT Anion Gap 12 09/10/2018 20:58 EDT Glucose Level 121 mg/dL (High) 09/11/2018 03:39 EDT Glucose Level 147 mg/dL (High) 09/10/2018 20:58 EDT Blood Urea Nitrogen 16 mg/dL 09/11/2018 03:39 EDT Blood Urea Nitrogen 17 mg/dL 09/10/2018 20:58 EDT Creatinine Level 1.40 mg/dL (High) 09/11/2018 03:39 EDT Creatinine Level 1.30 mg/dL (High) 09/10/2018 20:58 EDT eGFR 47 mL/min/1.73m2 (Low) 09/11/2018 03:39 EDT eGFR 51 mL/min/1.73m2 (Low) 09/10/2018 20:59 EDT eGFR NonAfrican 38 mL/min/1.73m2 (Low) 09/11/2018 03:39 EDT eGFR NonAfrican 42 mL/min/1.73m2 (Low) 09/10/2018 20:59 EDT Bun/Creatinine 11.4 09/11/2018 03:39 EDT Bun/Creatinine 13.1 09/10/2018 20:58 EDT Calcium Level 9.4 mg/dL 09/11/2018 03:39 EDT Calcium Level 9.4 mg/dL 09/10/2018 20:58 EDT Protein Total 7.4 Gram/dL 09/10/2018 20:58 EDT Albumin Level 3.5 Gram/dL 09/10/2018 20:58 EDT Globulin 3.9 Gram/dL 09/10/2018 20:58 EDT A/G Ratio 0.9 (Low) 09/10/2018 20:58 EDT Bilirubin Total 1.3 mg/dL (High) 09/10/2018 20:58 EDT Alk Phos 332 Units/Liter (High) 09/10/2018 20:58 EDT AST 18 Units/Liter 09/10/2018 20:58 EDT ALT 19 Units/Liter 09/10/2018 20:58 EDT Magnesium Level 1.8 mg/dL 09/10/2018 20:58 EDT Ammonia Level <10.0 uMol/L (Low) 09/10/2018 20:59 EDT Hgb A1C 6.0 % 09/10/2018 20:58 EDT Lipase Level 934 Units/Liter (High) 09/10/2018 20:58 EDT Lactic Acid Level 1.8 mmol/L 09/10/2018 20:58 EDT eAVG Glucose 126 mg/dL 09/10/2018 20:58 EDT Troponin I Ultra <0.015 ng/mL 09/10/2018 20:58 EDT ProBNP 156 pg/mL (High) 09/10/2018 20:58 EDT WBC 6.2 K/uL 09/11/2018 03:39 EDT WBC 7.2 K/uL 09/10/2018 20:58 EDT RBC 4.34 Million/uL 09/11/2018 03:39 EDT RBC 4.69 Million/uL 09/10/2018 20:58 EDT Hgb 11.5 g/dL 09/11/2018 03:39 EDT Hgb 12.4 g/dL 09/10/2018 20:58 EDT Hct 34.8 % 09/11/2018 03:39 EDT Hct 36.7 % 09/10/2018 20:58 EDT MCV 80.2 fL 09/11/2018 03:39 EDT MCV 78.3 fL (Low) 09/10/2018 20:58 EDT MCH 26.5 pg 09/11/2018 03:39 EDT MCH 26.4 pg 09/10/2018 20:58 EDT MCHC 33.0 Gram/dL 09/11/2018 03:39 EDT MCHC 33.8 Gram/dL 09/10/2018 20:58 EDT Platelet Count 188 K/uL 09/11/2018 03:39 EDT Platelet Count 214 K/uL 09/10/2018 20:58 EDT MPV 9.4 fL 09/11/2018 03:39 EDT MPV 9.5 fL 09/10/2018 20:58 EDT RDW 14.1 % 09/11/2018 03:39 EDT RDW 14.0 % 09/10/2018 20:58 EDT Slide Review No 09/11/2018 03:39 EDT Slide Review No 09/10/2018 20:58 EDT PT 12.2 Second(s) (High) 09/10/2018 20:58 EDT INR 1.1 09/10/2018 20:58 EDT Electronically signed by Mary Ann, [facility] Conversion Solar Energy Systems Designer Cerner at 05/27/2022 9:39 AM CDT documented in this encounter Plan of Treatment Not on file documented as of this encounter Visit Diagnoses Not on filedocumented in this encounter
--- OUTSIDE RECORDS SUMMARY | 2024-09-17 11:38 | XMS_ITS | Encounter Summary ---
Author Organization [employer] ([place], [place], [place], [place]) Address [address] [place] [address] Care Team Providers Care Motion Picture Film Examiner Name Role Phone Unavailable Primary Care Provider Unavailabl e Encounter Details Date Type Department Care Team (Late st Contact Info) Description 09/23/2018 Transcribed Document [facility] [place] [facility] [place] [address] ProviderGonzalez MD [facility] [place] [address] Social History Tobacco Use Types Packs/Day Years Used Date Smoking Tobacco: Never Assessed Comments Unknown Sex and Gender Information Value Date Recorded Sex Assigned at Not on file Legal Sex Female 6:02 PM CDT Gender Identity Not on file Sexual Orientation Not on file documented as of this encounter Miscellaneous Notes * Cerner Conversion Note - Gonzalez ProviderMD - 09/23/2018 4:22 PM CDT Admission History, Adult Entered On: 09/23/2018 16:44 EDT Performed On: 09/23/2018 16:22 EDT by Chad Medina RN Advance Directive Patient has Advance Directive *Q : No, patient refuses Advance Directive information Chad Medina RN - 09/23/2018 16:37 EDT Anesthesia/Transfusion History Family History of Anesthesia Reaction : No prior transfusion(s) Transfusion History : Prior anesthesia without reaction Family History of Anesthesia Reaction : None Chad Medina RN - 09/23/2018 16:37 EDT Functional Assessment Living Situation : Home Current Home Treatments : None Chad Medina RN - 09/23/2018 16:37 EDT General Info Legal Guardian : No Contact Password : Nely Valenzuela Family/Rep/Phys Notified of Admit : No Emergency Contact #1 : jose suarez Emergency Contact #1 Phone Number : [phone] Emergency Contact #1 Relationship : friend Emergency Contact #2 : na Emergency Contact #2 Phone Number : na Emergency Contact #2 Relationship : na Primary Language : Dutch Communication Barrier : None Chad Medina RN - 09/23/2018 16:37 EDT Fall Risk Scales ABCs Fall Injury Risk Identification : None MOORE Hx Falls Immediate/Within 3 Months : Yes Moore Secondary Diagnosis : No MOORE Use of Ambulatory Aid : Bed rest/Nurse assist MOORE IV Therapy or IV Access : Yes Moore Gait/Transferring : Weak Moore Mental Status : Oriented to own ability Moore Fall Risk Score : 55 MOORE Fall Scale Risk Level : 46 or > High Risk [place] Fall Interventions : Adequate lighting, Assistive devices within reach, Bed in low position, Call device within reach, Fall prevention handout/education per facility policy, Frequent orientation to call device, Frequent orientation to surroundings, Hourly comfort/safety rounds, Personal items within reach, Reinforced to call for assistance before getting out of bed, Room free of clutter/spills, Upper side-rails up, Wheels locked, Wires/Cords secured Chad Medina RN - 09/23/2018 16:37 EDT Health Histories Smoking Status : Never (less than 100 in lifetime; none in last 30 days) Smokeless Tobacco Status : Never Chad Medina RN - 09/23/2018 16:37 EDT Social History (As Of: 09/23/2018 16:44:50 EDT) Height and Weight, Clinical Dosing Height Source : Stated Height Entry Format : [place] Height, Feet : 5 ft(Converted to: 152 cm, 60 Inch) Height, Inches : 3 Inch(Converted to: 0 ft 3 Inch, 7.62 cm) Clinical Height : 160.02 cm Weight Source : Standing scale Weight Entry Format : [place] Clinical Dosing Weight : 75.45 kg Weight, Pounds : 166 lb Body Surface Area (BSA) : 1.79 m2 Body Mass Index : 29.5 kg/m2 (HI) [place] Body Weight : 52 kg Chad Medina RN - 09/23/2018 16:37 EDT Infectious Disease History Infectious Disease History : Measles Fever/Chills Last 48 Hours : No Travel To Regions with Travel Advisories : No Travel Outside [place] Within Last 30 Days : No Contact With Traveler to Advisory Region : Unable to assess Tuberculosis Symptoms : None Chad Medina RN - 09/23/2018 16:37 EDT Influenza Vaccine Asmt, Adult Previous Vaccines from Immunization Schedule : No qualifying data available. Influenza Immunization, Current Season : No Inactivated Flu Vaccine Contraindications : No contraindications to inactivated influenza vaccine Transplant Workup/Recent Transplant : No Order for Influenza Vaccine : Declined Vaccination Chad Medina RN - 09/23/2018 16:37 EDT Pneumococcal Vaccine Previous Vaccines from Immunization Schedule : No qualifying data available. Pneumonia Immunization Received : No Pneumococcal Risk Assessment < Age 65 : None Chad Medina RN - 09/23/2018 16:37 EDT Nutrition History Eating Poorly Due to Decreased Appetite : No Unplanned Weight Loss in Past 3-6 Months : No Malnutrition Screening Tool Total(mal) : 0 Malnutrition Screening Tool Risk Level : Patient not at risk Chad Medina RN - 09/23/2018 16:37 EDT Psychosocial History Currently in Unsafe Situation : No Tried to Harm Yourself in the Past? : No Thoughts of Harming/Killing Yourself : No Chad Medina RN - 09/23/2018 16:37 EDT Sleep Apnea Risk Assmt Hx of [...] Sleep Apnea Risk Level Score : 2 Chad Medina RN - 09/23/2018 16:37 EDT Valuables and Belongings Valuables and Belongings : Clothing Clothing : Common streetwear Clothing Disposition : With patient Chad Medina RN - 09/23/2018 16:37 EDT Electronically signed by Mary Ann [facility] Conversion Bindery Leadperson Cerner at 05/27/2022 9:29 AM CDT documented in this encounter Plan of Treatment Not on file documented as of this encounter Visit Diagnoses Not on filedocumented in this encounter
--- OUTSIDE RECORDS SUMMARY | 2024-09-17 11:38 | XMS_ITS | Encounter Summary ---
Author Organization [email or web address] ([place], [place], [place], [place]) Address [address] [place] [address] Care Team Providers Care Flatwork Finisher Hand Name Role Phone Unavailable Primary Care Provider Unavailabl e Encounter Details Date Type Department Care Team (Late st Contact Info) Description 09/30/2018 Transcribed Document [facility] [place] [address] [place] [address] ProviderGonzalez MD [address] [place] [address] Social History Tobacco Use Types Packs/Day Years Used Date Smoking Tobacco: Never Assessed Comments Unknown Sex and Gender Information Value Date Recorded Sex Assigned at Not on file Legal Sex Female 6:02 PM CDT Gender Identity Not on file Sexual Orientation Not on file documented as of this encounter Miscellaneous Notes * Cerner Conversion Note - Historical ProviderMD - 09/30/2018 2:00 AM CDT Neurology Physician Details Entered On: 09/30/2018 4:59 EDT Performed On: 09/30/2018 2:00 EDT by Katy Charles, Rn Order Details Transport Mode Order Detail : Ambulatory Isolation Precautions Order Detail : Standard Precautions Order Detail : 0 IV Order Detail : 1 Oxygen Order Detail : 0 Nurse Collect Order Detail : 0 Lift/Transfer : Independent Central Line Order Detail : No Room Service : Appropriate Arterial Line : No Katy Charles, Rn - 09/30/2018 4:59 EDT documented in this encounter Plan of Treatment Not on file documented as of this encounter Visit Diagnoses Not on filedocumented in this encounter
--- OUTSIDE RECORDS SUMMARY | 2024-09-17 11:38 | XMS_ITS | Encounter Summary ---
Author Organization [employer] ([place], [place], [place], [place]) Address [address] [place] [address] Care Team Providers Care Certified Executive Chef Name Role Phone Unavailable Primary Care Provider Unavailabl e Encounter Details Date Type Department Care Team (Late st Contact Info) Description 09/23/2018 Transcribed Document [facility] [place] [address] [place] [address] ProviderGonzalez MD [address] [place] [address] Social History Tobacco Use Types Packs/Day Years [...] 5:54 PM CDT Pain Assessment Entered On: 09/29/2018 22:51 EDT Performed On: 09/29/2018 19:00 EDT by Katy Charles Rn Intervention Information: acetaminophen-HYDROcodone Performed by Meryl Church RN on 09/29/2018 18:00:00 EDT acetaminophen-HYDROcodone,1Tab Oral,Pain (Mild 1-3) Pain Assessment Pain Assessment : Follow-up assessment Pain Scale Goal : 3 Pain Intervention, Drug : Medicated Pain Improved by Intervention : Yes Katy Charles, Reema - 09/29/2018 22:51 EDT documented in this encounter Plan of Treatment Not on file documented as of this encounter Visit Diagnoses Not on filedocumented in this encounter
--- OUTSIDE RECORDS SUMMARY | 2024-09-17 11:38 | XMS_ITS | Encounter Summary ---
Author Organization [employer] ([place], [place], [place], [place]) Address [address] [place] [address] Care Team Providers Care Cleaner Window Name Role Phone Unavailable Primary Care Provider Unavailabl e Encounter Details Date Type Department Care Team (Late st Contact Info) Description 09/11/2018 Transcribed Document [facility] [place] [address] [place] [address] ProviderGonzalez MD [address] [place] [address] Social History Tobacco Use Types Packs/Day Years Used Date Smoking Tobacco: Never Assessed Comments Unknown Sex and Gender Information Value Date Recorded Sex Assigned at Not on file Legal Sex Female 6:02 PM CDT Gender Identity Not on file Sexual Orientation Not on file documented as of this encounter Miscellaneous Notes * Cerner Conversion Note - Gonzalez Muñoz MD - 09/11/2018 7:47 AM CDT DATE OF CONSULTATION: REASON FOR CONSULTATION: Multiple hypodense lesions in liver and spleen along with retroperitoneal lymph nodes. HISTORY: Ms. Bautista is a middle-aged female from [facility]. She presented to the emergency room there after progressive nausea, vomiting. She said she has had vomiting off and on for a long time. During her workup for this, she was found to be profoundly hypokalemic and I had a CT scan that demonstrated retroperitoneal lymphadenopathy along with abnormalities in the liver and spleen that were not present in 2017. Patient says that over the last month or two, she has lost 20-25 pounds in weight. She has had no sweats, no fevers. She has never had a mammogram. Her last colonoscopy was in 2016. She has had no blood per rectum and denies other concerns. Germane to this dictation, she has had a diagnosis of sarcoidosis. Apparently, she has ocular involvement with very diminished vision. It is unknown to me or her if she has more systemic disease. She says that she is really not on any treatment for this. PAST MEDICAL HISTORY: As noted. ALLERGIES: She has no known drug allergies. MEDICATIONS: It appears that she is not on any chronic medications. PAST SURGERY: She had a cholecystectomy in 2016 as I stated that is when she had her colonoscopy. FAMILY HISTORY: Her parents are both . They lived up into their 80s. Her sister of cholangiocarcinoma, that is her twin sister. SOCIAL HISTORY: She is never . Has no children. Does not smoke. Does not drink. She is disabled because of blindness. REVIEW OF SYSTEMS: 14-point review otherwise unremarkable. PHYSICAL EXAMINATION: GENERAL: Today demonstrates a middle-aged female, very fair skinned, red haired. VITAL SIGNS: She has blood pressure of 153/81, temperature is 98.8, she is afebrile, respiratory rate 17, heart rate 84. HEENT: Normocephalic head. Eyes without obvious overt abnormalities. Nares patent. Oropharynx, dry mucous membranes. NECK: No cervical, supraclavicular, or axillary adenopathy. LUNGS: Clear anteriorly. HEART: With a regular rhythm. BREAST: Does not demonstrate any obvious masses. ABDOMEN: Right upper quadrant has no significant hepatomegaly. Bowel sounds are diminished. I do not appreciate left upper quadrant mass or splenomegaly. EXTREMITIES: Without edema. MUSCULOSKELETAL: Without obvious bone pain. NEUROLOGIC: Just cursory exam was normal. LABORATORY STUDIES: Here, she has potassium at presentation of 2.1, creatinine of 1.3, GFR of 42. Her alk phos is elevated at 332. Lipase of 934. White count 7.2, hemoglobin 12.4, platelet count 214,000. INR of 1.1. I have reviewed her CT scan that she had at [facility] with Radiology. Patient has numerable low-density lesions in the liver and spleen, enlarged lymph nodes in retroperitoneum and by report compared to 2017, she did not have that before. One other piece of information she states that she did have a fine-needle aspiration four years ago at [place], uncertain of exactly what that was for, but possibly enlarged lymph nodes. IMPRESSION: Patient with a history of sarcoidosis, now presenting with multiple low-density lesions of the liver and spleen and enlargement of lymph nodes in retroperitoneum. Differential would be progressive sarcoidosis versus lymphoma or carcinoma. PLAN: We are going to make her n.p.o., have her undergo fine-needle aspiration, possibly core biopsy. I am not going to do any other testing at this time. Patient also appears to have obvious pancreatitis, which may be unrelated to the other above events. I have discussed with Ms. Bautista what our plans are and she is in agreement. Rosendo Rubi M.D. Dict: 09/11/2018 07:47:17 Trans: 09/11/2018 09:28:14 CC1: Rosendo Rubi M.D. CC2: Dr. Aguilera CC3: Dr. Anabell Zhou Electronically signed by [facility] Conversion Metal Treater Cerner at 05/27/2022 9:46 AM CDT documented in this encounter Plan of Treatment Not on file documented as of this encounter Visit Diagnoses Not on filedocumented in this encounter
--- OUTSIDE RECORDS SUMMARY | 2024-09-17 11:38 | XMS_ITS | Encounter Summary ---
Author Organization [employer] ([place], [place], [place], [place]) Address [address] [place] [address] Care Team Providers Care Interventional Physiatrist Name Role Phone Unavailable Primary Care Provider Unavailabl e Encounter Details Date Type Department Care Team (Late st Contact Info) Description 09/27/2018 Transcribed Document [facility] Radiology [address] [place] [address] Chevy Briceno MD [address] [place] [id number] Social History Tobacco Use Types Packs/Day Years Used Date Smoking Tobacco: Never Assessed Comments Unknown Sex and Gender Information Value Date Recorded Sex Assigned at Not on file Legal Sex Female 6:02 PM CDT Gender Identity Not on file Sexual Orientation Not on file documented as of this encounter Miscellaneous Notes * Cerner Conversion Note - Chevy Briceno MD - 09/27/2018 10:00 AM EDT Patient: GREG BAUTISTA Age: 58 Years Sex: Female : 1960 Subjective no acute issues or complaints overnights, states that she still has some abdominal pain here and there, tolerating a diet ROS: denies chest pain, shortness of air, nausea, vomiting -positive for abdominal pain Vital Signs T: 36.8 ??C TMIN: 36.5 ??C TMAX: 36.9 ??C HR: 86 RR: 16 BP: 158/64 SpO2: 96% Oxygen Settings (Last) Oxygen Therapy Mode: Room air (09/26/18 20:40:00) Oxygen Flow Rate: 2 Liter/Min (09/25/18 11:13:00) Intake & Output Totals Last 24 Hours (7a-7a) Input Total: 480.5 mL Output Total: 800 mL Balance: -319.5 mL Physical Exam GENERAL: The patient is [...] left parotid gland. Recommend follow-up face CT. 09/27: GI following, on protonix and diflucan -potassium was 3.2, on protocol -oncology following, liver biopsy results pending VTE Prophylaxis - Medical Heparin 5,000 Units, [...] Test Result Date/Time Sodium Level 139 mmol/L 09/27/2018 07:10 EDT Potassium Level 3.2 mmol/L (Low) 09/27/2018 07:10 EDT Chloride Level 105 mmol/L 09/27/2018 07:10 EDT Carbon Dioxide Level 26 mmol/L 09/27/2018 07:10 EDT Anion Gap 11 09/27/2018 07:10 EDT Glucose Level 135 mg/dL (High) 09/27/2018 07:10 EDT Blood Urea Nitrogen 9 mg/dL 09/27/2018 07:10 EDT Creatinine Level 1.00 mg/dL 09/27/2018 07:10 EDT eGFR >60 mL/min/1.73m2 09/27/2018 07:10 EDT eGFR NonAfrican 57 mL/min/1.73m2 (Low) 09/27/2018 07:10 EDT Bun/Creatinine 9.0 09/27/2018 07:10 EDT Calcium Level 10.0 mg/dL 09/27/2018 07:10 EDT WBC 5.0 K/uL 09/27/2018 07:10 EDT RBC 3.83 Million/uL (Low) 09/27/2018 07:10 EDT Hgb 10.2 g/dL (Low) 09/27/2018 07:10 EDT Hct 31.2 % (Low) 09/27/2018 07:10 EDT MCV 81.5 fL 09/27/2018 07:10 EDT MCH 26.6 pg 09/27/2018 07:10 EDT MCHC 32.7 Gram/dL 09/27/2018 07:10 EDT Platelet Count 202 K/uL 09/27/2018 07:10 EDT MPV 9.4 fL 09/27/2018 07:10 EDT RDW 14.6 % 09/27/2018 07:10 EDT Neut % 74.6 % (High) 09/27/2018 07:10 EDT Neut # 3.70 K/uL 09/27/2018 07:10 EDT Lymph % 11.9 % (Low) 09/27/2018 07:10 EDT Lymph # 0.59 x10(3)/uL (Low) 09/27/2018 07:10 EDT [place] % 8.1 % 09/27/2018 07:10 EDT [place] # 0.40 K/uL 09/27/2018 07:10 EDT Eos % 4.0 % 09/27/2018 07:10 EDT Eos # 0.20 x10(3)/uL 09/27/2018 07:10 EDT Baso % 0.4 % 09/27/2018 07:10 EDT Baso # 0.02 x10(3)/uL 09/27/2018 07:10 EDT Slide Review No 09/27/2018 07:10 EDT IG# 0.05 x10(3)/uL 09/27/2018 07:10 EDT IG% 1.00 % (High) 09/27/2018 07:10 EDT Electronically signed by Mary Ann, [facility] Conversion Clerk To Justice Cerner at 05/27/2022 9:31 AM CDT documented in this encounter Plan of Treatment Not on file documented as of this encounter Visit Diagnoses Not on filedocumented in this encounter
--- OUTSIDE RECORDS SUMMARY | 2024-09-17 11:38 | XMS_ITS | Encounter Summary ---
Author Organization [employer] ([place], [place], [place], [place]) Address [address] [place] [address] Care Team Providers Care Cotton Weigher Name Role Phone Unavailable Primary Care Provider Unavailabl e Encounter Details Date Type Department Care Team (Late st Contact Info) Description 09/28/2018 Transcribed Document [facility] Radiology [address] [place] [address] Chevy Briceno MD [address] [place] [id number] Social History Tobacco Use Types Packs/Day Years Used Date Smoking Tobacco: Never Assessed Comments Unknown Sex and Gender Information Value Date Recorded Sex Assigned at Not on file Legal Sex Female 6:02 PM CDT Gender Identity Not on file Sexual Orientation Not on file documented as of this encounter Miscellaneous Notes * Cerner Conversion Note - Chevy Briceno MD - 09/28/2018 10:04 AM EDT Patient: GREG BAUTISTA Age: 58 Years Sex: Female : 1960 Subjective no acute issues or complaints this morning, tolerated breakfast ROS: denies chest pain, shortness of air, nausea, vomiting -positive for abdominal pain Vital Signs T: 36.9 ??C TMIN: 36.7 ??C TMAX: 36.9 ??C HR: 88 RR: 16 BP: 152/71 SpO2: 96% Oxygen Settings (Last) Oxygen Therapy Mode: Room air (09/27/18 23:01:00) Oxygen Flow Rate: 2 Liter/Min (09/25/18 11:13:00) Intake & Output Totals Last 24 Hours (7a-7a) Input Total: 0 mL Output Total: 0 mL Balance: 0 mL Physical Exam GENERAL: The patient is [...] protocol -oncology following, liver biopsy results pending 09/28: GI following, on protonix and diflucan -potassium was 3.0, will be replaced -oncology following, liver biopsy results pending VTE [...] Test Name Test Result Date/Time Sodium Level 136 mmol/L 09/28/2018 08:20 EDT Potassium Level 3.0 mmol/L (Low) 09/28/2018 08:20 EDT Chloride Level 102 mmol/L 09/28/2018 08:20 EDT Carbon Dioxide Level 25 mmol/L 09/28/2018 08:20 EDT Anion Gap 12 09/28/2018 08:20 EDT Glucose Level 161 mg/dL (High) 09/28/2018 08:20 EDT Blood Urea Nitrogen 12 mg/dL 09/28/2018 08:20 EDT Creatinine Level 1.00 mg/dL 09/28/2018 08:20 EDT eGFR >60 mL/min/1.73m2 09/28/2018 08:20 EDT eGFR NonAfrican 57 mL/min/1.73m2 (Low) 09/28/2018 08:20 EDT Bun/Creatinine 12.0 09/28/2018 08:20 EDT Calcium Level 10.5 mg/dL (High) 09/28/2018 08:20 EDT WBC 4.8 K/uL 09/28/2018 08:20 EDT RBC 3.82 Million/uL (Low) 09/28/2018 08:20 EDT Hgb 10.3 g/dL (Low) 09/28/2018 08:20 EDT Hct 31.2 % (Low) 09/28/2018 08:20 EDT MCV 81.7 fL 09/28/2018 08:20 EDT MCH 27.0 pg 09/28/2018 08:20 EDT MCHC 33.0 Gram/dL 09/28/2018 08:20 EDT Platelet Count 206 K/uL 09/28/2018 08:20 EDT MPV 9.4 fL 09/28/2018 08:20 EDT RDW 14.9 % 09/28/2018 08:20 EDT Neut % 69.9 % 09/28/2018 08:20 EDT Neut # 3.38 K/uL 09/28/2018 08:20 EDT Lymph % 13.4 % (Low) 09/28/2018 08:20 EDT Lymph # 0.65 x10(3)/uL (Low) 09/28/2018 08:20 EDT [place] % 9.7 % (High) 09/28/2018 08:20 EDT [place] # 0.47 K/uL 09/28/2018 08:20 EDT Eos % 4.3 % 09/28/2018 08:20 EDT Eos # 0.21 x10(3)/uL 09/28/2018 08:20 EDT Baso % 0.8 % 09/28/2018 08:20 EDT Baso # 0.04 x10(3)/uL 09/28/2018 08:20 EDT Slide Review No 09/28/2018 08:20 EDT IG# 0.09 x10(3)/uL (High) 09/28/2018 08:20 EDT IG% 1.90 % (High) 09/28/2018 08:20 EDT documented in this encounter Plan of Treatment Not on file documented as of this encounter Visit Diagnoses Not on filedocumented in this encounter
--- OUTSIDE RECORDS SUMMARY | 2024-09-17 11:38 | XMS_ITS | Encounter Summary ---
Author Organization [employer] ([place], [place], [place], [place]) Address [address] [place] [address] Care Team Providers Care Solid Propellant Processor Name Role Phone Unavailable Primary Care Provider Unavailabl e Encounter Details Date Type Department Care Team (Late st Contact Info) Description 09/11/2018 Transcribed Document [facility] Family Medicine [address] [place] [address] ProviderGonzalez MD [address] [place], [place] [address] Social History Tobacco Use Types Packs/Day Years Used Date Smoking Tobacco: Never Assessed Comments Unknown Sex and Gender Information Value Date Recorded Sex Assigned at Not on file Legal Sex Female 6:02 PM CDT Gender Identity Not on file Sexual Orientation Not on file documented as of this encounter Miscellaneous Notes * Cerner Conversion Note - Historical ProviderMD - 09/11/2018 10:26 AM CDT UM Authorization Entered On: 09/11/2018 10:28 EDT Performed On: 09/11/2018 10:26 EDT by MILES MAS Rn-Utilization Review Primary Insurance Authorization Authorization and Policy Numbers : Insurance 1 Health Plan: [employer] Policy Number: [id number] Authorization Number: Insurance Primary Name : [facility] Policy Number: [id number] Authorization Status-Primary : Pending information Authorization Comments-Primary : [facility] indemnity policy listed. PA notified to obtain insurance information. Historical Authorization Comments-Primary : No Authorization Comments Found MILES MAS Rn-Utilization Review - 09/11/2018 10:26 EDT documented in this encounter Plan of Treatment Not on file documented as of this encounter Visit Diagnoses Not on filedocumented in this encounter
--- OUTSIDE RECORDS SUMMARY | 2024-09-17 11:38 | XMS_ITS | Encounter Summary ---
Author Organization [employer] ([place], [place], [place], [place]) Address [address] [place] [address] Care Team Providers Care Cat Dog Or Other Pet Groomer Name Role Phone Unavailable Primary Care Provider Unavailabl e Encounter Details Date Type Department Care Team (Late st Contact Info) Description 10/02/2018 Transcribed Document [facility] Family Medicine [facility] [place] [address] ProviderGonzalez MD [facility] [place] [address] Social History Tobacco Use Types [...] Muñoz MD - 10/02/2018 10:27 AM CDT [address], [place] [phone] Patient Copy Patient Information: Name: GREG BAUTISTA Current Date: 10/02/2018 10:27:35 : 1960 Patient Address: [address] [address] Patient Attending Physician: KATIE MARTINEZ -INT Primary Care Provider: BETHANY CARDOZO Primary Care Provider Discharge Diagnosis: Weight on Admission: 166 lb, 0 oz Comment: Follow-up Instructions: With: Address: When: NURY OLGUIN MD [address] [facility] [address] [place] [phone] Within As needed Comments: follow up EGD With: Address: When: Dr. Jackson In 3 days 10/05/2018 Comments: 2pm: appointment has been made With: Address: When: MEMO SALAZAR MD-ONC [address] [place] [phone] Within As needed Discharge Instructions: Immunizations Documented [...] family history of the disease. ??? Are -Congolese. ??? Are of Northern descent. ??? Are 20?50 years old. ??? 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 ??? Work in an environment where you [...] safe for you. ??? Take or use xgrq-wdt-oizmdbd and prescription medicines only as told by [...] 11/23/2004 Document Revised: 10/31/2017 Document Reviewed: 10/31/2017 [employer] Interactive Patient Education ? 2019 [employer] Gastritis, Adult Gastritis is swelling (inflammation) [...] Follow these instructions at home: ??? Take ffjr-nda-npxmkev and prescription medicines only as told by [...] sores (ulcers) in your stomach. ??? Take kapc-lfh-azjgedm and prescription medicines only as told by your doctor. This information is not intended to replace advice given to you by your health care provider. Make sure you discuss any questions you have with your health care provider. Document Released: 07/11/2008 Document Revised: 09/05/2017 Document Reviewed: 10/17/2015 [employer] Interactive Patient Education ? 2019 [employer] Nausea and Vomiting, Adult Nausea is [...] and low-calorie sports drinks. ??? Eat bland, bgzo-cd-thkoyi foods in small amounts as you are [...] and water are not available, use hand assemblyman or woman. ??? Make sure that all people in your household wash their hands well and often. ??? Take dcib-aep-lodlbel and prescription medicines only as told by [...] 01/23/2006 Document Revised: 06/27/2016 Document Reviewed: 09/29/2015 [employer] Interactive Patient Education ? 2019 [employer] CIGARETTE SMOKING: The facts are clear, cigarette smoking will shorten your life. Smoking can cause many illnesses along the way. As a healthcare provider, we recommend that you stop smoking. Assistance with quitting is available by contacting 1-412-FVWC-NOW. This is a free resource providing counseling, [...] Be sure to sign up for the [employer] patient portal, which gives you 29/08 access to your medical information ??? including these discharge instructions ??? using your computer, smartphone, or tablet. Just go to [employer] to get started. Questions? Call . [facility] would like to thank you for allowing us to assist you with your healthcare needs. ALEX Schroeder JOAN, (or guest service representative) have received the above patient education materials/instructions and have verbalized understanding: Patient Signature _ Date/Time Patient Bean Sprout Grower Signature (if needed) Date/Time Clinician/Hospital Bean Sprout Grower Signature (if needed) Date/Time documented in this encounter Plan of Treatment Not on file documented as of this encounter Visit Diagnoses Not on filedocumented in this encounter
--- OUTSIDE RECORDS SUMMARY | 2024-09-17 11:38 | XMS_ITS | Encounter Summary ---
Author Organization [employer] ([place], [place], [place], [place]) Address [address] [place] [address] Care Team Providers Care Gluing Machine Offbearer Name Role Phone Unavailable Primary Care Provider Unavailabl e Encounter Details Date Type Department Care Team (Late st Contact Info) Description 09/11/[address] [facility] [place] [address] [place] [address] ProviderGonzalez MD [address] [place], [place] [address] Social History Tobacco Use Types Packs/Day Years Used Date Smoking Tobacco: Never Assessed Comments Unknown Sex and Gender Information Value Date Recorded Sex Assigned at Not on file Legal Sex Female 6:02 PM CDT Gender Identity Not on file Sexual Orientation Not on file documented as of this encounter Miscellaneous Notes * [employer]ner Conversion Note - Historical ProviderMD - 09/11/2018 10:17 AM CDT UM Authorization Entered On: 09/11/2018 10:17 EDT Performed On: 09/11/2018 10:17 EDT by MILES MAS Rn-Utilization Review Primary Insurance Authorization Authorization and Policy Numbers : Insurance 1 Health Plan: [employer] Policy Number: [id number] Authorization Number: Insurance Primary Name : [facility] Policy Number: [id number] Authorization Status-Primary : Awaiting callback Historical Authorization Comments-Primary : No Authorization Comments Found MILES MAS, Rn-Utilization Review - 09/11/2018 10:17 EDT documented in this encounter Plan of Treatment Not on file documented as of this encounter Visit Diagnoses Not on filedocumented in this encounter
--- OUTSIDE RECORDS SUMMARY | 2024-09-17 11:38 | XMS_ITS | Encounter Summary ---
Author Organization [employer] ([place], [place], [place], [place]) Address [address] [place] [address] Care Team Providers Care Underwater Roboticist Name Role Phone Unavailable Primary Care Provider Unavailabl e Encounter Details Date Type Department Care Team (Late st Contact Info) Description 09/26/2018 Transcribed Document [facility] Family Medicine [address] [place] [address] ProviderGonzalez MD [address] [place] [address] Social History Tobacco Use Types Packs/Day Years Used Date Smoking Tobacco: Never Assessed Comments Unknown Sex and Gender Information Value Date Recorded Sex Assigned at Not on file Legal Sex Female 6:02 PM CDT Gender Identity Not on file Sexual Orientation Not on file documented as of this encounter Miscellaneous Notes * Cerner Conversion Note - Historical ProviderMD - 09/26/2018 2:00 AM CDT Drug Enforcement Agent Details Entered On: 09/26/2018 5:05 EDT Performed On: 09/26/2018 2:00 EDT by Lucie Tristan Patient Lan Engineer Order Details Transport Mode Order Detail : Ambulatory Order Detail : 0 IV Order Detail : 1 Oxygen Order Detail : 0 Lift/Transfer : Independent Room Service : Appropriate Lucie Tristan, Patient Lan Engineer - 09/26/2018 5:05 EDT documented in this encounter Plan of Treatment Not on file documented as of this encounter Visit Diagnoses Not on filedocumented in this encounter
--- OUTSIDE RECORDS SUMMARY | 2024-09-17 11:38 | XMS_ITS | Encounter Summary ---
Author Organization [employer] ([place], [place], [place], [place]) Address [address] [place] [address] Care Team Providers Care Byproducts Supervisor Name Role Phone Unavailable Primary Care Provider Unavailabl e Encounter Details Date Type Department Care Team (Late st Contact Info) Description 10/02/2018 Transcribed Document [facility] [place] [facility] [place] [address] ProviderGonzalez MD [facility] [place] [address] Social History Tobacco Use Types Packs/Day Years Used Date Smoking Tobacco: Never Assessed Comments Unknown Sex and Gender Information Value Date Recorded Sex Assigned at Not on file Legal Sex Female 6:02 PM CDT Gender Identity Not on file Sexual Orientation Not on file documented as of this encounter Miscellaneous Notes * Cerner Conversion Note - Gonzalez Muñoz MD - 10/02/2018 10:30 AM CDT [place] [phone] Patient Copy Patient Information: Name: GREG BAUTISTA Current Date: 10/02/2018 10:30:12 : 1960 Patient Address: [address] [address] Patient Attending Physician: KATIE MARTINEZ -INT Primary Care Provider: BETHANY CARDOZO Primary Care Provider Discharge Diagnosis: Sarcoidosis Weight on Admission: 166 lb, 0 oz Comment: Follow-up Instructions: With: Address: When: NURY OLGUIN MD [address] [facility] [address] [place] [phone] Within As needed Comments: follow up EGD With: Address: When: Dr. Jackson In 3 days 10/05/2018 Comments: 2pm: appointment has been made With: Address: When: MEMO SALAZAR MD-ONC [address] [phone] Within As needed Discharge Instructions: Immunizations Documented [...] family history of the disease. ??? Are -South Korean. ??? Are of Northern descent. ??? Are 20?50 years old. ??? 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 ??? Work in an environment where you [...] safe for you. ??? Take or use xeuo-std-geftzwm and prescription medicines only as told by [...] 11/23/2004 Document Revised: 10/31/2017 Document Reviewed: 10/31/2017 [employer] Interactive Patient Education ? 2019 [employer] Gastritis, Adult Gastritis is swelling (inflammation) [...] Follow these instructions at home: ??? Take yxbp-khz-temoxvh and prescription medicines only as told by [...] sores (ulcers) in your stomach. ??? Take llsz-hja-ulghwqt and prescription medicines only as told by your doctor. This information is not intended to replace advice given to you by your health care provider. Make sure you discuss any questions you have with your health care provider. Document Released: 07/11/2008 Document Revised: 09/05/2017 Document Reviewed: 10/17/2015 [employer] Interactive Patient Education ? 2019 [employer] Nausea and Vomiting, Adult Nausea is [...] and low-calorie sports drinks. ??? Eat bland, cpja-pm-kueoyl foods in small amounts as you are [...] and water are not available, use hand associate programmer analyst. ??? Make sure that all people in your household wash their hands well and often. ??? Take chnj-scj-hyjsgth and prescription medicines only as told by [...] 01/23/2006 Document Revised: 06/27/2016 Document Reviewed: 09/29/2015 [employer] Interactive Patient Education ? 2019 [employer]. CIGARETTE SMOKING: The facts are clear, cigarette smoking will shorten your life. Smoking can cause many illnesses along the way. As a healthcare provider, we recommend that you stop smoking. Assistance with quitting is available by contacting 8-410-QRTX-NOW. This is a free resource providing counseling, [...] Be sure to sign up for the [employer] patient portal, which gives you / access to your medical information ??? including these discharge instructions ??? using your computer, smartphone, or tablet. Just go to [employer] to get started. Questions? Call . [facility] would like to thank you for allowing us to assist you with your healthcare needs. ALEX Schroeder JOAN, (or event sales representative) have received the above patient education materials/instructions and have verbalized understanding: Patient Signature _ Date/Time Patient Craft Artist Signature (if needed) Date/Time Clinician/Hospital Craft Artist Signature (if needed) Date/Time documented in this encounter Plan of Treatment Not on file documented as of this encounter Visit Diagnoses Not on filedocumented in this encounter
--- OUTSIDE RECORDS SUMMARY | 2024-09-17 11:38 | XMS_ITS | Encounter Summary ---
Author Organization [employer] ([place], [place], [place], [place]) Address [address] [place] [address] Care Team Providers Care Olive Grader Name Role Phone Unavailable Primary Care Provider Unavailabl e Encounter Details Date Type Department Care Team (Late st Contact Info) Description 10/01/2018 Transcribed Document [facility] Family Medicine [address] [place] [address] ProviderGonzalez MD [address] [place] [address] Social History Tobacco Use Types Packs/Day Years Used Date Smoking Tobacco: Never Assessed Comments Unknown Sex and Gender Information Value Date Recorded Sex Assigned at Not on file Legal Sex Female 6:02 PM CDT Gender Identity Not on file Sexual Orientation Not on file documented as of this encounter Miscellaneous Notes * Cerner Conversion Note - Historical ProviderMD - 10/01/2018 5:00 PM CDT Chart Check - Review Order Profile Entered On: 10/01/2018 18:22 EDT Performed On: 10/01/2018 17:00 EDT by MARILEE SAMANO RN-SHAUNNA Chart Check Powerplans Initiated/Discontinued as Appropriate : Yes All Active Orders Reviewed : Yes MARILEE SAMANO RN-RESOURCE - 10/01/2018 18:22 EDT Electronically signed by Mary Ann mart Conversion Automobile Leasing Supervisor Cerner at 05/27/2022 9:33 AM CDT documented in this encounter Plan of Treatment Not on file documented as of this encounter Visit Diagnoses Not on filedocumented in this encounter
--- OUTSIDE RECORDS SUMMARY | 2024-09-17 11:38 | XMS_ITS | Encounter Summary ---
Author Organization [employer] ([place], [place], [place], [place]) Address [address] [place] [address] Care Team Providers Care Powered Bridge Specialist Name Role Phone Unavailable Primary Care Provider Unavailabl e Encounter Details Date Type Department Care Team (Late st Contact Info) Description 10/02/2018 Transcribed Document [facility] [place] [address] [place] [address] ProviderGonzalez MD [facility] [place] [address] Social History Tobacco Use Types Packs/Day Years Used Date Smoking Tobacco: Never Assessed Comments Unknown Sex and Gender Information Value Date Recorded Sex Assigned at Not on file Legal Sex Female 6:02 PM CDT Gender Identity Not on file Sexual Orientation Not on file documented as of this encounter Miscellaneous Notes * [employer]ner Conversion Note - Historical ProviderMD - 10/02/2018 1:03 PM CDT Nursing Discharge Summary Entered On: 10/02/2018 13:07 EDT Performed On: 10/02/2018 13:03 EDT by Dulce Browne Lpn Discharge Documentation Discharge Date/Time : 10/02/2018 13:04 EDT Patient Disposition, General : Discharge Discharge To : Home with ambulatory/outpatient follow-up Mode Of Departure, General Discharge : Private vehicle Accompanied By, Discharge : Friend IV Discontinued : Yes Medications Given to Patient : No Personal Belongings With Patient : Yes Prescriptions Given to Patient : Yes Discharge Instructions Reviewed With, Opportunity For Questions Given : Patient Patient Education Completed : Yes Number of Prescriptions Given : 4 Teaching Method : Explanation Teaching Evaluation : Verbalizes understanding Education Comment : poc, meds, safety Dulce Browne Lpn - 10/02/2018 13:03 EDT documented in this encounter Plan of Treatment Not on file documented as of this encounter Visit Diagnoses Not on filedocumented in this encounter
--- OUTSIDE RECORDS SUMMARY | 2024-09-17 11:38 | XMS_ITS | Encounter Summary ---
Author Organization [employer] ([place], [place], [place], [place]) Address [address] [place] [address] Care Team Providers Care Crm Analyst Name Role Phone Unavailable Primary Care Provider Unavailabl e Encounter Details Date Type Department Care Team (Late st Contact Info) Description 10/01/2018 Transcribed Document [facility] [place] [address] [place] [address] ProviderGonzalez MD [address] [place] [address] Social History Tobacco Use Types Packs/Day Years Used Date Smoking Tobacco: Never Assessed Comments Unknown Sex and Gender Information Value Date Recorded Sex Assigned at Not on file Legal Sex Female 6:02 PM CDT Gender Identity Not on file Sexual Orientation Not on file documented as of this encounter Miscellaneous Notes * Cerner Conversion Note - Historical ProviderMD - 10/01/2018 5:00 AM CDT Chart Check - Review Order Profile Entered On: 10/01/2018 5:23 EDT Performed On: 10/01/2018 5:00 EDT by Katy Charles Rn Chart Check Powerplans Initiated/Discontinued as Appropriate : Yes All Active Orders Reviewed : Yes Katy Charles Rn - 10/01/2018 5:23 EDT documented in this encounter Plan of Treatment Not on file documented as of this encounter Visit Diagnoses Not on filedocumented in this encounter
--- OUTSIDE RECORDS SUMMARY | 2024-09-17 11:38 | XMS_ITS | Encounter Summary ---
Author Organization [employer] ([place], [place], [place], [place]) Address [address] [place] [address] Care Team Providers Care Freight Associate Name Role Phone Unavailable Primary Care Provider Unavailabl e Encounter Details Date Type Department Care Team (Late st Contact Info) Description 09/11/2018 Transcribed Document [facility] [place] [address] [place] [address] ProviderGonzalez MD [facility] [place] [address] Social History Tobacco Use Types Packs/Day Years Used Date Smoking Tobacco: Never Assessed Comments Unknown Sex and Gender Information Value Date Recorded Sex Assigned at Not on file Legal Sex Female 6:02 PM CDT Gender Identity Not on file Sexual Orientation Not on file documented as of this encounter Miscellaneous Notes * Cerner Conversion Note - Gonzalez ProviderMD - 09/11/2018 11:28 AM CDT Pain Assessment Entered On: 09/11/2018 14:27 EDT Performed On: 09/11/2018 12:01 EDT by Cherry Miles RN Intervention Information: [email or web address] Performed by BORA CAIN on 09/11/2018 11:31:00 EDT [email or web address],100mcg IV Push,Right Hand,Pain (Severe 7-10)(c) Pain Assessment Pain Assessment : Follow-up assessment Pain Scale Goal : 3 Pain Scale Used : FACES Cherry Miles RN - 09/11/2018 14:27 EDT Pain Scale Intensity : 0 Cherry Miles RN - 09/11/2018 14:27 EDT Image 4 - Images currently included in the form version of this document have not been included in the text rendition version of the form. documented in this encounter Plan of Treatment Not on file documented as of this encounter Visit Diagnoses Not on filedocumented in this encounter
--- OUTSIDE RECORDS SUMMARY | 2024-09-17 11:38 | XMS_ITS | Encounter Summary ---
Author Organization [employer] ([place], [place], [place], [place]) Address [address] [place] [address] Care Team Providers Care Propellant Charge Zone Assembler Name Role Phone Unavailable Primary Care Provider Unavailabl e Encounter Details Date Type Department Care Team (Late st Contact Info) Description 09/28/2018 Transcribed Document [facility] [place] [address] [place] [address] ProviderGonzalez MD [address] [place] [address] Social History Tobacco Use Types Packs/Day Years Used Date Smoking Tobacco: Never Assessed Comments Unknown Sex and Gender Information Value Date Recorded Sex Assigned at Not on file Legal Sex Female 6:02 PM CDT Gender Identity Not on file Sexual Orientation Not on file documented as of this encounter Miscellaneous Notes * Cerner Conversion Note - Historical ProviderMD - 09/28/2018 5:00 PM CDT Chart Check - Review Order Profile Entered On: 09/28/2018 16:24 EDT Performed On: 09/28/2018 17:00 EDT by Marilyn Guo LPN Chart Check All Active Orders Reviewed : Yes Marilyn Guo LPN - 09/28/2018 16:24 EDT documented in this encounter Plan of Treatment Not on file documented as of this encounter Visit Diagnoses Not on filedocumented in this encounter
[2024-09-17 11:40] VITALS: BP 160/63; PULSE 79; RESP 14; TEMP 36.7; O2SAT 98
[2024-09-17] MEDS: DENOSUMAB 60 MG/ML SYRINGE SUBCUT (11:40)
[2024-09-17 12:05] VITALS: BP 150/69; PULSE 75; RESP 14; TEMP 36.7; O2SAT 97
== END 2024-09-17 12:05 | disposition home or self-care (01) ==
PROVIDERS: PCP Family Medicine; Visit Provider Family Medicine
DX: M80.00XA Age-related osteoporosis with current pathological fracture, unspecified site, initial encounter for fracture (principal)
CPT/HCPCS: 96372; J0897